=== PATIENT | female | born 1970 | race Two or more races ===

== ENCOUNTER 2020-05-22 19:25 | Emergency (ER) | payer MEDICAID, SELFPAY ==
[2020-05-22 19:51] VITALS: BP 122/87; PULSE 113; RESP 17; TEMP 36.8; O2SAT 97; BMI 38.9
[2020-05-22 20:16] LABS: Glucose Urine UA NEG (NEG); Leukocyte Esterase Urine TRACE (NEG); Nitrite Urine NEG (NEG); PH 6.5 (5.0-8.0); Specific Gravity - Urine >= 1.030 (1.005-1.025); Urine Blood 3+ (NEG); Urine Ketones NEG (NEG); Urine Protein 1+ MG/DL (NEG-TRACE)
[2020-05-22 20:17] LABS: Appearance Urine CLOUDY; Color Urine YELLOW
[2020-05-22 20:24] LABS: Bacteria Urine 2+ /LPF; Mucus Urine 1+ /LPF; Squamous Epithelial Cell Urine 2+ /LPF; WBC Urine 30-49 /HPF (0-4)
--- NOTE | 2020-05-22 20:25 | ED.FEMALEGU ---
HPI - Female Genitourinary General Chief complaint: Urogenital-Female Stated complaint: ?UTI Time Seen by Provider: 05/22/20 21:29 History of Present Illness HPI Narrative: 49-year-old female presents with urinary symptoms, left flank pain, and tachycardia. Was seen earlier today by a [facility] and given Bactrim DS and Pyridium for UTI. She presents now because the pain is worse, has left flank pain, and noted blood in her urine. She states to have intermittent fevers and chills, and palpitations. She denies chest pain or pressure, abdominal distention, nausea, vomiting, diarrhea, constipation, edema, dizziness and lightheadedness. MD elicited complaint: dysuria, pelvic pain, flank pain and difficulty urinating Pertinent past history: recurrent UTIs Onset (ago): day(s) (3) Location of symptoms: suprapubic and flank Severity: severe Severity scale (1-10): 8 Quality of pain: burning and aching Consistency: constant Vaginal discharge: none Vaginal bleeding: none Urinary symptoms: Dysuria, Urgency, Frequency, Hematuria, Difficulty Urinating and Flank Pain Exacerbating factors: urination and movement Relieving factors: none Associated symptoms: fever, chills and back pain Treatment prior to arrival: none Sexual activity: No Patient : No Related Data Allergies Allergy/AdvReac Type Severity Reaction Status Date / Time No Known Allergies Allergy Verified 05/22/20 21:43 Review of Systems Review of Systems: Constitutional: subjective Fever, positive Chills ENT/Mouth: No sore throat Eyes: No Eye Pain, No Swelling, No Redness Cardiovascular: No Chest Pain, No SOB, positive palpitations Respiratory: No Cough, No Sputum, No Wheezing Gastrointestinal: no Nausea, no Vomiting, No Diarrhea, positive abdominal pain Genitourinary: positive Dysuria, positive urinary frequency, positive Hematuria, positive Flank Pain, positive hesitancy Musculoskeletal: No joint pain, No Myalgias Skin: No Skin Lesions, No rash Neuro: No Weakness, No Numbness, No Headache Psych: No Anxiety/Panic, No Depression Heme/Lymph: No Bruising, No Lymphadenopathy Endocrine: No Polyuria, No Polydipsia Yes all other systems are reviewed and are negative [facility] Past Medical History Medical History Asthma Depression Diabetes Sleep apnea Surgical History History of bladder suspension procedure Social History Social History Smoking Status: Never smoker Use of substances other than those prescribed or required for medical reasons: No Advance Directives: No Advance Directives Information Provided: Yes Physical Exam Vital Signs: Vital Signs: Last Vital Signs Temp 98.2 F 05/22/20 22:10 Pulse 72 05/22/20 22:10 Resp 18 05/22/20 22:10 BP 107/77 05/22/20 22:10 Pulse Ox 97 05/22/20 22:10 Body Mass Index 38.9 Appearance: Alert. Oriented X3. Moderate distress. Eyes: Pupils equal, round and reactive to light. ENT: Pharynx normal. Neck: Normal inspection. Neck supple. CVS: tachycardic heart rate and rhythm. Pulses normal. Respiratory: No respiratory distress. Breath sounds normal. Abdomen: Soft and tender to left flank and suprapubic, positive CVA tenderness to the left side. Skin: Skin warm and dry. Normal skin color. Normal skin turgor. Extremities: No lower extremity edema. Neuro: No motor deficit. No sensory deficit. Course Course Course Narrative: 49-year-old female presents with urinary symptoms, left flank pain, and tachycardia. plan is to rule out sepsis, UTI, renal calculus, pyelonephritis, hydronephrosis. labs are unremarkable, glucose is 180 however she is a diabetic. Lactic acid is 1.6, troponins are negative, EKG is Sinus tachycardia at 106 beats per minute. Urinalysis does indicate UTI which is known, we did give 1 g of ceftriaxone 1 L of fluid. Patient is not septic. CT scan of the abdomen shows uterine fibroids but no acute findings needing emergent intervention at this time. Detailed discussion with patient utilizing park interpreter. Plan is for her to continue to use the medications prescribed her earlier and to follow-up with her pharmacognosy teacher for uterine fibroids. Patient verbalized understanding of and agrees to plan of care discharge home. MDM - Female Genitourinary Differential Diagnosis Differential diagnosis: Likely urinary tract infection, cervicitis, ovarian cyst, ruptured ovarian cyst, cystitis and dysmenorrhea Medical Records Attestation: I reviewed the patient's medical records. Lab Data Attestation: I reviewed the patient's lab results. Result diagrams: 05/22/20 20:51 05/22/20 20:51 Labs: Lab Results 05/22/20 05/22/20 05/22/20 Range/Units 20:07 20:51 20:51 WBC 9.3 (4.8-10.8) X10*3/uL RBC 4.72 (4.20-5.50) X10*6/uL Hgb 13.3 (12.0-16.0) g/dl Hct 41.4 (37-47) % MCV 87.7 (80-98) fL MCH 28.2 (27.0-33.0) pg MCHC 32.1 (31.0-35.0) g/dl RDW 14.6 (11.0-16.0) % Plt Count 257 (160-400) X10*3/uL MPV 10.5 (9.4-12.3) fL Immature Gran % (Auto) 0.1 (0.0-0.4) % Neut % (Auto) 73.8 H (45-73) % Lymph % (Auto) 16.7 L (20-40) % Barren % (Auto) 8.1 (2-11) % Eos % (Auto) 0.9 (0-4) % Baso % (Auto) 0.4 (0-2) % Lymph # (Auto) 1.6 (1.2-4.9) X10*3/uL Barren # (Auto) 0.8 (0.1-1.2) X10*3/uL Eos # (Auto) 0.1 (0.0-0.4) X10*3/uL Baso # (Auto) 0.0 (0.0-0.2) X10*3/uL Abs Immat Gran (auto) 0.01 (0.00-0.03) X10*3/uL Absolute Neuts (auto) 6.9 (2.0-8.3) X10*3/uL Absolute Nucleated RBC 0.000 (0.0-0.012) X10*3/uL Nucleated RBC % (auto) 0.0 (0.0-0.2) /100WBC Sodium 136 (135-145) mmol/L Potassium 3.8 (3.3-5.1) mmol/l Chloride 101 (96-108) mmol/L Carbon Dioxide 29 (22-29) mmol/L Anion Gap 10 L (12-20) BUN 11 (9-16) mg/dL Creatinine 0.68 (0.5-1.4) mg/dL Estim Creat Clear Calc 113.9 Estimated GFR > 60 Random Glucose 180 H (60-115) mg/dL Lactic Acid (0.5-2.0) mmol/L Calcium 8.9 (8.4-10.2) mg/dL Troponin I High Sens (<3.5-17.0) ng/L Urine Color YELLOW Urine Appearance CLOUDY Urine pH 6.5 (5.0-8.0) Ur Specific [place] >= 1.030 H (1.005-1.025) Urine Protein 1+ H (NEG-TRACE) MG/DL Urine Glucose (UA) NEG (NEG) MG/DL Urine Ketones NEG (NEG) MG/DL Urine Blood 3+ H (NEG) Urine Nitrite NEG (NEG) Ur Leukocyte Esterase TRACE H (NEG) Urine RBC 76-150 H (0) /HPF Urine WBC 30-49 H (0-4) /HPF Ur Squamous Epith Cells 2+ /LPF Urine Bacteria 2+ /LPF Urine Mucus 1+ /LPF 05/22/20 05/22/20 Range/Units 20:51 20:51 WBC (4.8-10.8) X10*3/uL RBC (4.20-5.50) X10*6/uL Hgb (12.0-16.0) g/dl Hct (37-47) % MCV (80-98) fL MCH (27.0-33.0) pg MCHC (31.0-35.0) g/dl RDW (11.0-16.0) % Plt Count (160-400) X10*3/uL MPV (9.4-12.3) fL Immature Gran % (Auto) (0.0-0.4) % Neut % (Auto) (45-73) % Lymph % (Auto) (20-40) % Barren % (Auto) (2-11) % Eos % (Auto) (0-4) % Baso % (Auto) (0-2) % Lymph # (Auto) (1.2-4.9) X10*3/uL Barren # (Auto) (0.1-1.2) X10*3/uL Eos # (Auto) (0.0-0.4) X10*3/uL Baso # (Auto) (0.0-0.2) X10*3/uL Abs Immat Gran (auto) (0.00-0.03) X10*3/uL Absolute Neuts (auto) (2.0-8.3) X10*3/uL Absolute Nucleated RBC (0.0-0.012) X10*3/uL Nucleated RBC % (auto) (0.0-0.2) /100WBC Sodium (135-145) mmol/L Potassium (3.3-5.1) mmol/l Chloride (96-108) mmol/L Carbon Dioxide (22-29) mmol/L Anion Gap (12-20) BUN (9-16) mg/dL Creatinine (0.5-1.4) mg/dL Estim Creat Clear Calc Estimated GFR Random Glucose (60-115) mg/dL Lactic Acid 1.6 (0.5-2.0) mmol/L Calcium (8.4-10.2) mg/dL Troponin I High Sens < 3.5 (<3.5-17.0) ng/L Urine Color Urine Appearance Urine pH (5.0-8.0) Ur Specific [place] (1.005-1.025) Urine Protein (NEG-TRACE) MG/DL Urine Glucose (UA) (NEG) MG/DL Urine Ketones (NEG) MG/DL Urine Blood (NEG) Urine Nitrite (NEG) Ur Leukocyte Esterase (NEG) Urine RBC (0) /HPF Urine WBC (0-4) /HPF Ur Squamous Epith Cells /LPF Urine Bacteria /LPF Urine Mucus /LPF Imaging Data CT scan - abdomen: Attestation: I personally reviewed and interpreted this imaging study as follows: Radiologist's impression: EXAMINATION: CT ABDOMEN AND PELVIS WITHOUT CONTRAST CLINICAL INFORMATION: 49-year-old female with left-sided flank pain and dysuria. COMPARISON: CT abdomen pelvis 05/07/2019 TECHNIQUE: Multidetector volumetric imaging was performed from the superior aspect of the liver through the pubic symphysis. Sagittal and coronal reformatted images were obtained on the technologist's workstation. This CT examination was performed using dose optimization techniques as appropriate, variously including the following: *Automated exposure control *Adjustment of mA and/or kV according to patient size (this includes techniques or standardized protocols for targeted exams where dose is matched to indication/reason for exam; i.e. extremities or head) *Use of iterative reconstruction technique DLP: 857 mGy-cm FINDINGS: Visualized lung bases are well aerated. Stable residual of the right middle lobe. The liver is normal in size but demonstrates diffusely decreased attenuation. The gallbladder is decompressed. The pancreas, spleen and adrenal glands are unremarkable. The kidneys are symmetric in size. No renal calculi or hydronephrosis bilaterally. Debris-filled stomach. Normal caliber loops of small and large bowel. Normal appendix. Nonaneurysmal abdominal aorta. The bladder is relatively decompressed and therefore not accurately evaluated. Mildly lobulated uterus suggesting underlying fibroids. No gross free pelvic fluid. No inguinal lymphadenopathy. CT/CT abdomen pelvis wo con IMPRESSION: -no renal calculi or hydronephrosis of either kidney. -Diffusely decreased liver attenuation suggesting hepatic steatosis. Correlation with liver enzymes recommended. -Mildly lobulated uterus suggesting underlying fibroids. ECG Data Attestation: I personally reviewed and interpreted this ECG as follows: ECG interpretation date: 05/22/20 ECG interpretation time: 20:36 Interpretation: Ventricular rate 106, p.r. interval 156 milliseconds, QT 338, QTC 448 sinus tachycardia otherwise normal EKG. Prior EKG unavailable secondary to system failure. Scores Heart Score History: -0- slightly suspicious ECG: -0- normal Age: -1- >45 - <65 Risk factory: -0- no risk factors known Troponin: -0- < or = normal limit Score: 1 Risk: 1.7% Discharge Plan Discharge Clinical Impression: Urinary tract infection, Uterine fibroid Patient Disposition: Home, Self-Care Instructions: Urinary Tract Infection in Women (ED) Additional Instructions: se le evalu? para la infecci?n del tracto urinario y el dolor p?lvico. La tomograf?a computarizada muestra fibromas uterinos. Por favor, contin?e tomando los antibi?ticos que le fueron recetados hoy temprano. Seguimiento con el Dr. Eugene para los fibromas uterinos. Rashad por elegir stephie departamento de emergencias para la evaluaci?n. Por favor, rainer un seguimiento con el m?dico de atenci?n primaria seg?n sea necesario. Regrese al servicio de urgencias para cualquier s?ntoma nuevo, preocupante o que empeore. you were evaluated for urinary tract infection and pelvic pain. CT scan shows uterine fibroids. Please continue to take the antibiotics that were prescribed to you earlier today. Follow-up with Dr. Eugene for uterine fibroids. Thank you for choosing this emergency department for evaluation. Please follow-up with primary care physician as needed. Return to the emergency department for any new, concerning, or worsening symptoms. Referrals: Jermaine Eugene MD [Physician] - 2 days ( Uterine fibroids demonstrated on CT scan of abdomen) Interventions: ED Discharge Assessment Last Done: 05/22/20 22:23 Discharge Date/Time: 05/22/20 22:24
[2020-05-22 20:58] LABS: MANUAL DIFF FLAG NO
[2020-05-22 21:01] LABS: Basophils Percent Auto 0.4 % (0-2); Eosinophils Absolute Auto 0.1 X10*3/uL (0.0-0.4); Eosinophils Percent Auto 0.9 % (0-4); Hematocrit 41.4 % (37-47); Hemoglobin 13.3 g/dl (12.0-16.0); Imm Gran Abs Auto 0.01 X10*3/uL (0.00-0.03); Imm Gran Pct Auto 0.1 % (0.0-0.4); Lymphocytes Absolute Auto 1.6 X10*3/uL (1.2-4.9); Lymphocytes Percent Auto 16.7 % (20-40); Mean Corpuscular HGB Conc 32.1 g/dl (31.0-35.0); Mean Corpuscular Hemoglobin 28.2 pg (27.0-33.0); Mean Corpuscular Volume 87.7 fL (80-98); Mean Platelet Volume 10.5 fL (9.4-12.3); Monocytes Absolute Auto 0.8 X10*3/uL (0.1-1.2); Monocytes Percent Auto 8.1 % (2-11); Neutrophils Absolute Auto 6.9 X10*3/uL (2.0-8.3); Neutrophils Percent Auto 73.8 % (45-73); Platelet Count 257 X10*3/uL (160-400); Red Blood Count 4.72 X10*6/uL (4.20-5.50); Red Cell Distribution Width 14.6 % (11.0-16.0); White Blood Count 9.3 X10*3/uL (4.8-10.8)
[2020-05-22 21:17] LABS: Lactic Acid 1.6 mmol/L (0.5-2.0)
[2020-05-22 21:21] LABS: Anion Gap 10 (12-20); Blood Urea Nitrogen 11 mg/dL (9-16); Calcium 8.9 mg/dL (8.4-10.2); Carbon Dioxide 29 mmol/L (22-29); Chloride 101 mmol/L (96-108); Creatinine Clr Calc Pharmacy 113.9; Estimated Glomerular Filt Rate > 60; Glucose Random 180 mg/dL (60-115); Potassium 3.8 mmol/l (3.3-5.1); Sodium 136 mmol/L (135-145)
[2020-05-22] MEDS: 0.9 % Sodium Chloride 1,000 ML 999 ML IVCONT (21:22)
[2020-05-22] MEDS: cefTRIAXone sodium 1 GM in 0.9 % Sodium Chloride 50 ML IV (21:22)
[2020-05-22] MEDS: ondansetron HCL 4 MG/2 ML VIAL IVPUSH (21:22)
[2020-05-22] MEDS: Ketorolac Tromethamine 30 MG/ML VIAL IV (21:22)
[2020-05-22 21:28] LABS: Troponin-I High Sensitivity < 3.5 ng/L (<3.5-17.0)
[2020-05-22 22:10] VITALS: BP 107/77; PULSE 72; RESP 18; TEMP 36.8; O2SAT 97
== END 2020-05-22 22:24 | disposition home or self-care (01) ==
PROVIDERS: Nurse Practitioner Family; Physician Assistant Medical; Emergency Provider Internal Medicine; PCP Family Medicine
DX: N39.0 Urinary tract infection, site not specified (principal); D25.9 Leiomyoma of uterus, unspecified; R10.9 Unspecified abdominal pain
CPT/HCPCS: 36415; 74176; 80048; 81001; 83605; 84484; 85025; 87040; 87086; 87088; 87186; 96361; 96374; 96375; 99284; J0696; J1885; J2405

== ENCOUNTER 2020-07-18 09:03 | Outpatient (REF) | payer MEDICAID, SELFPAY ==
[2020-07-20 00:27] LABS: C. trachomatis RNA TMA NOT DETECTED (NOT DETECTED); N. gonorrhoeae RNA TMA NOT DETECTED (NOT DETECTED)
== END 2020-07-18 09:04 | disposition home or self-care (01) ==
LOC: HO.LAB 09:03
PROVIDERS: Visit Provider Obstetrics & Gynecology
DX: N92.0 Excessive and frequent menstruation with regular cycle (principal); R10.2 Pelvic and perineal pain; E55.9 Vitamin D deficiency, unspecified
CPT/HCPCS: 36415; 81003; 81025; 87491; 87591; 99212

== ENCOUNTER 2020-07-26 12:55 | Outpatient (REF) | payer MEDICAID, SELFPAY ==
--- NOTE | 2020-07-26 13:01 | US_ITS ---
EXAMINATION: US PELVIS CLINICAL INFORMATION: Pain COMPARISON: Previous CT April 2020 and pelvic ultrasound November 2017 TECHNIQUE: Transabdominal pelvic ultrasound. Patient refused transvaginal exam. FINDINGS: The uterus is anteverted and retroflexed and measures 13.5 x 4.8 x 8.3 cm in dimension. There are multiple at least 6 uterine fibroids. Largest fibroids measure 3 cm in the right subserosal uterine body, left anterior intramural uterine body and in the fundus. Endometrial thickness is normal measuring 0.7 cm. The ovaries are not seen. There is no fluid in the pelvis. US/US pelvic complete IMPRESSION: Enlarged fibroid uterus. Largest fibroids measure 3 cm. Normal thickness endometrium. Ovaries not seen.
== END 2020-07-26 12:56 | disposition home or self-care (01) ==
LOC: HO.US 12:55
PROVIDERS: Visit Provider Obstetrics & Gynecology
DX: R10.2 Pelvic and perineal pain (principal); N92.0 Excessive and frequent menstruation with regular cycle
CPT/HCPCS: 76856

== ENCOUNTER → 2020-08-01 10:30 | Outpatient (BNVA) | payer MEDICAID, SELFPAY | PROVIDERS: PCP Family Medicine; Visit Provider Surgery | DX: Z01.818 Encounter for other preprocedural examination (principal); E66.01 Morbid (severe) obesity due to excess calories; R06.02 Shortness of breath; Z68.41 Body mass index [BMI] 40.0-44.9, adult | CPT/HCPCS: 99202 ==

== ENCOUNTER 2020-08-03 09:03 | Outpatient (REF) | payer MEDICAID, SELFPAY ==
[2020-08-03 09:24] LABS: MANUAL DIFF FLAG NO
[2020-08-03 09:42] LABS: Basophils Percent Auto 0.6 % (0-2); Eosinophils Absolute Auto 0.1 X10*3/uL (0.0-0.4); Eosinophils Percent Auto 1.8 % (0-4); Hematocrit 42.4 % (37-47); Hemoglobin 13.7 g/dl (12.0-16.0); Imm Gran Abs Auto 0.02 X10*3/uL (0.00-0.03); Imm Gran Pct Auto 0.4 % (0.0-0.4); Lymphocytes Absolute Auto 1.2 X10*3/uL (1.2-4.9); Lymphocytes Percent Auto 23.5 % (20-40); Mean Corpuscular HGB Conc 32.3 g/dl (31.0-35.0); Mean Corpuscular Hemoglobin 27.7 pg (27.0-33.0); Mean Corpuscular Volume 85.8 fL (80-98); Mean Platelet Volume 10.3 fL (9.4-12.3); Monocytes Absolute Auto 0.4 X10*3/uL (0.1-1.2); Monocytes Percent Auto 8.8 % (2-11); Neutrophils Absolute Auto 3.2 X10*3/uL (2.0-8.3); Neutrophils Percent Auto 64.9 % (45-73); Platelet Count 270 X10*3/uL (160-400); Red Blood Count 4.94 X10*6/uL (4.20-5.50); Red Cell Distribution Width 14.6 % (11.0-16.0); White Blood Count 4.9 X10*3/uL (4.8-10.8)
[2020-08-03 10:13] LABS: Alanine Aminotransferase 87 U/L (0-31); Albumin Level 3.8 g/dL (3.5-5.0); Alkaline Phosphatase 78 U/L (39-117); Anion Gap 14 (12-20); Aspartate Amino Transferase 59 U/L (5-31); Bilirubin Total 0.4 mg/dL (0.0-1.0); Blood Urea Nitrogen 9 mg/dL (9-16); C Reactive Protein 0.56 mg/dL (< or = 0.50); Calcium 8.9 mg/dL (8.4-10.2); Carbon Dioxide 26 mmol/L (22-29); Chloride 102 mmol/L (96-108); Cholesterol 176 mg/dL; Estimated Glomerular Filt Rate > 60; Glucose Fasting 157 mg/dL (60-99); HDL Cholesterol 45 mg/dL; Iron 49 mcg/dL (30-160); LDL Cholesterol Calculated 117 mg/dl; Percent Iron Saturation 13 % (15-50); Potassium 4.6 mmol/L (3.3-5.1); Sodium 137 mmol/L (135-145); Total Iron Binding Capacity 385 mcg/dL (228-428); Total Protein 7.4 g/dL (6.5-8.0); Triglycerides 73 mg/dL; Unsaturated Iron Binding 336 ug/dL
[2020-08-03 10:31] LABS: HCG Quantitative < 2 mIU/mL
[2020-08-03 10:35] LABS: Thyroid Stimulating Hormone 1.83 uIU/mL (0.32-4.0); Vitamin D 25-OH Total 12.7 ng/mL (>30)
[2020-08-03 10:59] LABS: Vitamin B12 434 pg/mL (200-900)
[2020-08-04 13:13] LABS: C. trachomatis RNA TMA NOT DETECTED (NOT DETECTED); Calcium (PTHI) 9.1 mg/dL (8.6-10.2); N. gonorrhoeae RNA TMA NOT DETECTED (NOT DETECTED); PTHI 69 pg/mL (14-64)
[2020-08-07 16:12] LABS: Vitamin A 20 mcg/dL (38-98)
[2020-08-07 17:48] LABS: Zinc 72 mcg/dL (60-130)
[2020-08-10 06:07] LABS: Vitamin B1 7 nmol/L (8-30)
== END 2020-08-03 09:04 | disposition home or self-care (01) ==
LOC: HO.LAB 09:03
PROVIDERS: Absent Provider Obstetrics & Gynecology; PCP Family Medicine; Visit Provider Surgery
DX: Z01.818 Encounter for other preprocedural examination (principal); R10.2 Pelvic and perineal pain; N92.0 Excessive and frequent menstruation with regular cycle
CPT/HCPCS: 36415; 80053; 80061; 82306; 82607; 83540; 83970; 84425; 84443; 84590; 84630; 84702; 85025; 86140; 87491; 87591

== ENCOUNTER 2020-08-15 08:13 | Outpatient (REF) | payer MEDICAID, SELFPAY ==
[2020-08-16 12:07] LABS: H Pylori Breath Test NOT DETECTED (NOT DETECTED)
== END 2020-08-15 08:14 | disposition home or self-care (01) ==
LOC: HO.LNP 08:13
PROVIDERS: PCP Family Medicine; Visit Provider Surgery
DX: E66.01 Morbid (severe) obesity due to excess calories (principal); Z68.41 Body mass index [BMI] 40.0-44.9, adult; Z11.0 Encounter for screening for intestinal infectious diseases
CPT/HCPCS: 83013; 99211

== ENCOUNTER 2020-08-21 14:21 | Outpatient (REF) | payer MEDICAID, SELFPAY ==
--- NOTE | ~2020-08-21 | XR_ITS ---
EXAMINATION: XR CHEST CLINICAL INFORMATION: Shortness of breath COMPARISON: 02/21/2015 TECHNIQUE: 2 views of the chest were obtained. FINDINGS: Lung volumes are low. Mild diffuse interstitial prominence. No focal consolidation. No pleural effusion or pneumothorax. Normal heart size. Regional skeleton intact. XR/XR chest 2V IMPRESSION: Mild diffuse interstitial prominence. This can be seen acutely with bronchiolitis or interstitial (viral) pneumonitis, chronically with chronic bronchitis or reactive airways disease.
== END 2020-08-21 14:22 | disposition home or self-care (01) ==
LOC: HO.XRAY 14:21
PROVIDERS: PCP Family Medicine; Visit Provider Surgery
DX: R06.02 Shortness of breath (principal)
CPT/HCPCS: 71046

== ENCOUNTER → 2020-08-31 08:07 | Outpatient (BNVA) | payer MEDICAID, SELFPAY | PROVIDERS: PCP Family Medicine; Visit Provider Dietitian, Registered ==

== ENCOUNTER → 2020-09-13 09:10 | Outpatient (REF) | payer MEDICAID, SELFPAY ==
--- NOTE | 2020-09-13 09:21 | ECG_ITS ---
Test Reason : SOB Blood Pressure : / mmHG Vent. Rate : 084 BPM Atrial Rate : 084 BPM P-R Int : 138 ms QRS Dur : 082 ms QT Int : 358 ms P-R-T Axes : 049 029 045 degrees QTc Int : 423 ms Normal sinus rhythm Normal ECG When compared with ECG of 22-MAY-2020 20:36, No significant change was found Referred By: Dimple Vivas Electronically Signed By:SIMONA MACIAS MD
== END ==
LOC: HO.CARD 09:10
PROVIDERS: PCP Family Medicine; Visit Provider Surgery
DX: R06.02 Shortness of breath (principal)
CPT/HCPCS: 93005

== ENCOUNTER → 2020-09-14 10:06 | Outpatient (BNVA) | payer MEDICAID, SELFPAY | PROVIDERS: PCP Family Medicine; Visit Provider Surgery | DX: E66.01 Morbid (severe) obesity due to excess calories (principal); Z68.41 Body mass index [BMI] 40.0-44.9, adult | CPT/HCPCS: 99212 ==

== ENCOUNTER → 2020-09-27 13:22 | Outpatient (BNVA) | payer MEDICAID, SELFPAY | PROVIDERS: PCP Family Medicine; Visit Provider Dietitian, Registered ==

== ENCOUNTER → 2020-10-09 10:56 | Outpatient (BNVA) | payer MEDICAID, SELFPAY | PROVIDERS: PCP Family Medicine; Visit Provider Surgery | DX: E66.9 Obesity, unspecified (principal); Z68.39 Body mass index [BMI] 39.0-39.9, adult | CPT/HCPCS: 99212 ==

== ENCOUNTER → 2020-10-18 13:58 | Outpatient (BNVA) | payer MEDICAID, SELFPAY | PROVIDERS: PCP Family Medicine; Visit Provider Dietitian, Registered ==

== ENCOUNTER → 2020-11-08 08:03 | Outpatient (BNVA) | payer MEDICAID, SELFPAY | PROVIDERS: PCP Family Medicine; Visit Provider Dietitian, Registered ==

== ENCOUNTER 2020-11-09 15:03 | Emergency (ER) | payer MEDICAID, SELFPAY ==
--- NOTE | ~2020-11-09 | US_ITS ---
EXAMINATION: US PELVIC, COMPLETE CLINICAL INFORMATION: Possible necrotic fibroid, lower abdominal pain. Last menstrual period 11/05/2020. COMPARISON: CT performed the same day, pelvic ultrasound 07/26/2020 TECHNIQUE: Transabdominal and transvaginal imaging was performed. FINDINGS: The uterus is anteverted of enlarged measuring 12.3 x 7.2 x 8.3 cm. There are 4 fibroids identified: Midline intramural fundal fibroid measures 3.0 x 2.3 x 2.7 cm, previously 3.0 x 2.5 x 2.6 cm. Left intramural fundal fibroid measures 1.3 x 1.2 x 1.4 cm, previously 2.4 x 1.6 x 1.7 cm. Right intramural fundal fibroid measures 1.7 x 1.3 x 1.5 cm, previously 1.2 x 0.9 x 0.9 cm. Right intramural uterine body fibroid measures 2.1 x 1.7 x 1.8 cm, previously 3.1 x 2.4 x 3.0 cm. Midline posterior body intramural fibroid measures 2.5 x 2.7 x 1.4 cm, previously 2.9 x 2.9 x 3.3 cm. Midline anterior submucosal fibroid measures 2.7 x 2.2 x 2.4 cm, previously 1.9 x 1.5 x 2.0 cm. Abnormal appearance of the endometrial canal. There is a fluid level seen within the endometrial canal with hypodense fluid layering on top of fluid with medium level slightly heterogeneous internal echoes, suggesting blood products. Within this complex fluid, there appears to be a rounded heterogeneous avascular structure measuring 2.8 x 2.2 x 2.4 cm, possibly a submucosal fibroid. Neither ovary was able to be seen. There is small pelvic free fluid. US/US pelvic and transvaginal IMPRESSION: Complex fluid within the endometrial canal with a fluid level suggestive of blood products. Within this fluid there is an avascular rounded mass that could represent a submucosal fibroid. Whether any of these fibroids are infarcted or viable is unable to be assessed on this ultrasound. MRI would be a more sensitive and specific examination. Multi fibroid enlarged uterus.
--- NOTE | ~2020-11-09 | CT_ITS ---
EXAMINATION: CT ABDOMEN AND PELVIS WITH CONTRAST CLINICAL INFORMATION: 50-year-old female with right lower quadrant pain. COMPARISON: Pelvic ultrasound 07/26/[address] abdomen pelvis the 2019 TECHNIQUE: Multidetector volumetric images were obtained from the superior aspect of the liver through the pubic symphysis following administration 85 mL of Omnipaque 350 intravenous contrast. Sagittal and coronal reformatted images were obtained on the technologist's workstation. This CT examination was performed using dose optimization techniques as appropriate, variously including the following: *Automated exposure control *Adjustment of mA and/or kV according to patient size (this includes techniques or standardized protocols for targeted exams where dose is matched to indication/reason for exam; i.e. extremities or head) *Use of iterative reconstruction technique DLP: 817 mGy-cm FINDINGS: Visualized lung bases demonstrate mild dependent atelectasis. Similar small calcified granuloma of the right lung base. The liver demonstrates normal size, contour and attenuation. The gallbladder is normal in appearance. The pancreas, spleen and adrenal glands are unremarkable. Symmetrically enhancing kidneys without hydronephrosis. Tiny hiatal hernia. The stomach is decompressed. Normal caliber loops of small and large bowel. Normal appendix. Nonaneurysmal abdominal aorta. No retroperitoneal lymphadenopathy. Heterogeneous and lobulated appearance of the uterus, consistent with fibroids. There appears to be thickening of the endometrium which measures up to approximately 5.3 cm in maximum transverse dimension. There is some possible subtle internal debris within the suspected endometrium. It is possible this structure also represents a necrotic fibroid. The bladder is normal in appearance. No gross free pelvic fluid. No inguinal lymphadenopathy. Mild degenerative changes of the spine. CT/CT abdomen pelvis w con IMPRESSION: 1. Normal appendix. 2. Abnormal appearance of the uterus. A 5.3 cm hypodense lobulated structure within the central uterus is suspected to represent a thickened endometrium, however, it is also possible this represents a necrotic fibroid. This can be confirmed with pelvic ultrasound.
[2020-11-09 15:31] VITALS: BMI 39.6
[2020-11-09 15:49] LABS: Glucose Urine UA NEG (NEG); Leukocyte Esterase Urine NEG (NEG); Nitrite Urine NEG (NEG); Specific Gravity - Urine <= 1.005 (1.005-1.025); Urine Blood TRACE (NEG); Urine Ketones NEG (NEG); Urine Protein NEG (NEG-TRACE)
[2020-11-09 15:50] VITALS: BP 112/73; PULSE 82; RESP 16; TEMP 36.2; O2SAT 96; BMI 39.6
[2020-11-09 15:50] LABS: Appearance Urine CLEAR; Color Urine STRAW
[2020-11-09 16:06] LABS: RBC Urine 0 /HPF (0); Squamous Epithelial Cell Urine 1+ /LPF; WBC Urine 0-2 /HPF (0-4)
[2020-11-09 16:13] LABS: MANUAL DIFF FLAG NO
[2020-11-09 16:17] LABS: Basophils Percent Auto 0.4 % (0-2); Eosinophils Absolute Auto 0.1 X10*3/uL (0.0-0.4); Eosinophils Percent Auto 0.6 % (0-4); Hematocrit 42.7 % (37-47); Hemoglobin 13.8 g/dl (12.0-16.0); Imm Gran Abs Auto 0.03 X10*3/uL (0.00-0.03); Imm Gran Pct Auto 0.3 % (0.0-0.4); Lymphocytes Absolute Auto 1.6 X10*3/uL (1.2-4.9); Lymphocytes Percent Auto 17.1 % (20-40); Mean Corpuscular HGB Conc 32.3 g/dl (31.0-35.0); Mean Corpuscular Hemoglobin 27.3 pg (27.0-33.0); Mean Corpuscular Volume 84.6 fL (80-98); Mean Platelet Volume 10.7 fL (9.4-12.3); Monocytes Absolute Auto 0.5 X10*3/uL (0.1-1.2); Monocytes Percent Auto 5.3 % (2-11); Neutrophils Absolute Auto 7.3 X10*3/uL (2.0-8.3); Neutrophils Percent Auto 76.3 % (45-73); Platelet Count 265 X10*3/uL (160-400); Red Blood Count 5.05 X10*6/uL (4.20-5.50); Red Cell Distribution Width 15.4 % (11.0-16.0); White Blood Count 9.6 X10*3/uL (4.8-10.8)
[2020-11-09 16:46] LABS: Anion Gap 12 (12-20); Blood Urea Nitrogen 9 mg/dL (9-16); Calcium 9.2 mg/dL (8.4-10.2); Carbon Dioxide 27 mmol/L (22-29); Chloride 103 mmol/L (96-108); Creatinine Clr Calc Pharmacy 114.8; Estimated Glomerular Filt Rate > 60; Glucose Random 130 mg/dL (60-115); Sodium 138 mmol/L (135-145)
[2020-11-09] MEDS: Ketorolac Tromethamine 15 MG/ML VIAL IVPUSH ×2 (17:44→21:31)
[2020-11-09] MEDS: ondansetron HCL 4 MG/2 ML VIAL IVPUSH (17:44)
[2020-11-09] MEDS: 0.9 % Sodium Chloride 1,000 ML 999 ML IVCONT ×2 (17:44→20:55)
[2020-11-09 17:46] VITALS: BP 107/56; PULSE 81; RESP 18; O2SAT 100
[2020-11-09 18:05] LABS: Alanine Aminotransferase 39 U/L (0-31); Albumin Level 3.9 g/dL (3.5-5.0); Alkaline Phosphatase 65 U/L (39-117); Aspartate Amino Transferase 27 U/L (5-31); Bilirubin Direct 0.2 mg/dL (0.0-0.5); Bilirubin Total 0.4 mg/dL (0.0-1.0); Lipase 15 U/L (8-78); Magnesium 1.6 mg/dL (1.6-2.6); Total Protein 7.4 g/dL (6.5-8.0)
[2020-11-09] MEDS: iohexoL 350 MG/ML 100 ML INFUS..BTL IV (18:22)
--- NOTE | 2020-11-09 19:07 | ED.ABDPAIN ---
HPI - Abdominal Pain General Chief Complaint: Abdominal Pain Stated Complaint: back pain Time Seen by Provider: 11/09/20 17:07 Source: patient Mode of arrival: ambulatory History of Present Illness HPI narrative: 50-year-old female with a past medical history of asthma, depression, diabetes, GERD, sleep apnea, tubal ligation, bladder suspension procedure, endometrial ablation presenting to the ED complaining of lower abdominal pain radiating around to back since this morning with associated nausea. Denies fever, chills, vomiting, diarrhea/constipation, vaginal bleeding/discharge MD elicited complaint: abdominal pain Related Data Home Medications Medication Instructions Recorded Confirmed bupropion HCl 300 mg 24 hr tablet, 300 mg PO QAM 08/01/20 10/09/20 extended release fluoxetine 20 mg capsule 20 mg PO DAILY 08/01/20 10/09/20 metformin 500 mg tablet 500 mg PO DAILY 08/01/20 10/09/20 omeprazole 20 mg capsule,delayed 20 mg PO DAILY 08/01/20 10/09/20 release oxcarbazepine 300 mg tablet 300 mg PO BID 08/01/20 10/09/20 multivitamin 1 tab PO DAILY 09/14/20 10/09/20 Previous Rx's Medication Instructions Recorded cholecalciferol (vitamin D3) 1,250 1,250 mcg PO QWEEK #4 cap 08/03/20 mcg (50,000 unit) capsule alum-mag hydroxide-simeth [Maalox 5 ml PO 5XD PRN #30 ml 11/09/20 Advanced] hydrocodone-acetaminophen 1 tab PO Q8H PRN 3 Days #9 tab 11/09/20 ketorolac 10 mg PO Q6H PRN 5 Days #14 tab 11/09/20 Allergies Allergy/AdvReac Type Severity Reaction Status Date / Time No Known Allergies Allergy Verified 11/09/20 15:53 Review of Systems Review of Systems Constitutional: No Fever, No Chills, No Fatigue, No Malaise Cardiovascular: No Chest Pain, No SOB Respiratory: No Cough, No Dyspnea Gastrointestinal: No Nausea, No Vomiting, No Diarrhea, No Constipation, + Abdominal pain Genitourinary: No irregular bleeding/discharge, No Dysuria, No Urinary Frequency, No Hematuria, No Flank Pain, No Urinary Flow Changes Musculoskeletal: No joint pain, No Myalgias, No Joint Swelling Skin: No Skin Lesions, No rash Neuro: No Weakness, No Numbness, No Headache Yes all other systems are reviewed and are negative Physical Exam Vital Signs: Vital Signs: Last Vital Signs Temp 98.1 F 11/09/20 19:25 Pulse 76 11/09/20 20:00 Resp 18 11/09/20 20:00 BP 106/56 L 11/09/20 20:00 Pulse Ox 95 11/09/20 20:00 Body Mass Index 39.6 Const: General: cooperative, healthy appearing and no acute distress Orientation/consciousness: patient oriented x3 Limitations: no limitations HENMT: Head: Yes normal to inspection Ears: hearing grossly normal bilaterally General nose exam: Normal external nose present Face and sinus: Yes normal facial exam Eyes: General: appearance normal, both eyes and all related structures EOM: EOMs intact bilaterally Neck: Neck: Yes normal visual inspection Resp: Effort & Inspection: normal respiratory effort Cardio: Rate: regular rate GI: Inspection: Yes normal to inspection Palpation (GI): Soft to palpation, Tenderness to palpation present (GI) (lower abdomen) in the RLQ, no guarding and not rigid : General: Yes no CVA tenderness Back/Spine/Pelvis: Back: no CVA tenderness Skin: Rashes: no rashes Wounds: no wounds Neuro: General: patient oriented x3 Gait exam (Neuro): Normal gait present Extrem: General: Yes normal to inspection Course Course Course Narrative: -1907--no leukocytosis, labs otherwise unremarkable/at patient's baseline. UA negative CT abdomen pelvis w con IMPRESSION: 1. Normal appendix. 2. Abnormal appearance of the uterus. A 5.3 cm hypodense lobulated structure within the central uterus is suspected to represent a thickened endometrium, however, it is also possible this represents a necrotic fibroid. This can be confirmed with pelvic ultrasound. >> lactic and pelvic ultrasound ordered -2020--lactic acid negative US pelvic and transvaginal IMPRESSION: Complex fluid within the endometrial canal with a fluid level suggestive of blood products. Within this fluid there is an avascular rounded mass that could represent a submucosal fibroid. Whether any of these fibroids are infarcted or viable is unable to be assessed on this ultrasound. MRI would be a more sensitive and specific examination. Multi fibroid enlarged uterus. >> case discussed with OBGYN doctor Kavya, patient flagged for follow-up with Dr. Valorie DC with pain control, no need for antibiotics at this time. Results discussed with patient including worrisome signs and symptoms and strict return precautions, she verbalized understanding feel safe for discharge home. MDM - Abdominal Pain MDM Narrative Medical decision making narrative: 50-year-old female with a past medical history of asthma, depression, diabetes, GERD, sleep apnea, tubal ligation, bladder suspension procedure, endometrial ablation presenting to the ED complaining of lower abdominal pain radiating around to back since this morning with associated nausea. On exam VSS, NAD, abdomen soft with lower/RLQ ttp, no rebound or guarding, no CVAT. Concern for appendicitis vs UTI vs diverticulitis vs uterine fibroids due to patient's history. Lower concern for ovarian torsion/STI or TOA Plan: Labs, UA, CT AP, IVF/Sx Tx, reassess Medical Records Attestation: I reviewed the patient's medical records. Lab Data Attestation: I reviewed the patient's lab results. Result diagrams: 11/09/20 16:08 11/09/20 16:08 Labs: Lab Results 11/09/20 11/09/20 11/09/20 Range/Units 15:34 16:08 16:08 WBC 9.6 (4.8-10.8) X10*3/uL RBC 5.05 (4.20-5.50) X10*6/uL Hgb 13.8 (12.0-16.0) g/dl Hct 42.7 (37-47) % MCV 84.6 (80-98) fL MCH 27.3 (27.0-33.0) pg MCHC 32.3 (31.0-35.0) g/dl RDW 15.4 (11.0-16.0) % Plt Count 265 (160-400) X10*3/uL MPV 10.7 (9.4-12.3) fL Immature Gran % (Auto) 0.3 (0.0-0.4) % Neut % (Auto) 76.3 H (45-73) % Lymph % (Auto) 17.1 L (20-40) % [place] % (Auto) 5.3 (2-11) % Eos % (Auto) 0.6 (0-4) % Baso % (Auto) 0.4 (0-2) % Lymph # (Auto) 1.6 (1.2-4.9) X10*3/uL [place] # (Auto) 0.5 (0.1-1.2) X10*3/uL Eos # (Auto) 0.1 (0.0-0.4) X10*3/uL Baso # (Auto) 0.0 (0.0-0.2) X10*3/uL Abs Immat Gran (auto) 0.03 (0.00-0.03) X10*3/uL Absolute Neuts (auto) 7.3 (2.0-8.3) X10*3/uL Absolute Nucleated RBC 0.000 (0.0-0.012) X10*3/uL Nucleated RBC % (auto) 0.0 (0.0-0.2) /100WBC Hold Blue Top SEE NOTE Sodium (135-145) mmol/L Potassium (3.3-5.1) mmol/L Chloride (96-108) mmol/L Carbon Dioxide (22-29) mmol/L Anion Gap (12-20) BUN (9-16) mg/dL Creatinine (0.5-1.4) mg/dL Estim Creat Clear Calc Estimated GFR Random Glucose (60-115) mg/dL Lactic Acid (0.5-2.0) mmol/L Calcium (8.4-10.2) mg/dL Magnesium (1.6-2.6) mg/dL Total Bilirubin (0.0-1.0) mg/dL Direct Bilirubin (0.0-0.5) mg/dL AST (5-31) U/L ALT (0-31) U/L Alkaline Phosphatase (39-117) U/L Total Protein (6.5-8.0) g/dL Albumin (3.5-5.0) g/dL Lipase (8-78) U/L Urine Color STRAW Urine Appearance CLEAR Urine pH 6.0 (5.0-8.0) Ur Specific [place] <= 1.005 (1.005-1.025) Urine Protein NEG (NEG-TRACE) MG/DL Urine Glucose (UA) NEG (NEG) MG/DL Urine Ketones NEG (NEG) MG/DL Urine Blood TRACE (NEG) Urine Nitrite NEG (NEG) Ur Leukocyte Esterase NEG (NEG) Urine RBC 0 (0) /HPF Urine WBC 0-2 (0-4) /HPF Ur Squamous Epith Cells 1+ /LPF Urine Bacteria NONE /LPF 11/09/20 11/09/20 Range/Units 16:08 19:32 WBC (4.8-10.8) X10*3/uL RBC (4.20-5.50) X10*6/uL Hgb (12.0-16.0) g/dl Hct (37-47) % MCV (80-98) fL MCH (27.0-33.0) pg MCHC (31.0-35.0) g/dl RDW (11.0-16.0) % Plt Count (160-400) X10*3/uL MPV (9.4-12.3) fL Immature Gran % (Auto) (0.0-0.4) % Neut % (Auto) (45-73) % Lymph % (Auto) (20-40) % [place] % (Auto) (2-11) % Eos % (Auto) (0-4) % Baso % (Auto) (0-2) % Lymph # (Auto) (1.2-4.9) X10*3/uL [place] # (Auto) (0.1-1.2) X10*3/uL Eos # (Auto) (0.0-0.4) X10*3/uL Baso # (Auto) (0.0-0.2) X10*3/uL Abs Immat Gran (auto) (0.00-0.03) X10*3/uL Absolute Neuts (auto) (2.0-8.3) X10*3/uL Absolute Nucleated RBC (0.0-0.012) X10*3/uL Nucleated RBC % (auto) (0.0-0.2) /100WBC Hold Blue Top Sodium 138 (135-145) mmol/L Potassium 4.0 (3.3-5.1) mmol/L Chloride 103 (96-108) mmol/L Carbon Dioxide 27 (22-29) mmol/L Anion Gap 12 (12-20) BUN 9 (9-16) mg/dL Creatinine 0.65 (0.5-1.4) mg/dL Estim Creat Clear Calc 114.8 Estimated GFR > 60 Random Glucose 130 H (60-115) mg/dL Lactic Acid 0.7 (0.5-2.0) mmol/L Calcium 9.2 (8.4-10.2) mg/dL Magnesium 1.6 (1.6-2.6) mg/dL Total Bilirubin 0.4 (0.0-1.0) mg/dL Direct Bilirubin 0.2 (0.0-0.5) mg/dL AST 27 D (5-31) U/L ALT 39 H (0-31) U/L Alkaline Phosphatase 65 (39-117) U/L Total Protein 7.4 (6.5-8.0) g/dL Albumin 3.9 (3.5-5.0) g/dL Lipase 15 (8-78) U/L Urine Color Urine Appearance Urine pH (5.0-8.0) Ur Specific [place] (1.005-1.025) Urine Protein (NEG-TRACE) MG/DL Urine Glucose (UA) (NEG) MG/DL Urine Ketones (NEG) MG/DL Urine Blood (NEG) Urine Nitrite (NEG) Ur Leukocyte Esterase (NEG) Urine RBC (0) /HPF Urine WBC (0-4) /HPF Ur Squamous Epith Cells /LPF Urine Bacteria /LPF Discharge Plan Discharge Clinical Impression: Uterine fibroid Qualifiers: Uterine leiomyoma location: submucous Qualified Code(s): D25.0 - Submucous leiomyoma of uterus Patient Disposition: Home, Self-Care Instructions: Uterine Artery Embolization for Fibroids (DC) Additional Instructions: Your blood work was reassuring today in the ED. Your CT and ultrasound are showing uterine fibroids which may have lost blood supply, this is causing her pain. You need to follow-up with an OBGYN. You will likely call you next couple days, if they do not please call th. Toradol is an anti-inflammatory pain medication, take with food. [place] was an opiate pain medication, take when pain is severe for the next 3 days. In addition Maalox will help with heartburn. If her symptoms persist or worsen, pain becomes unbearable, you are unable to eat or drink, or have fever please return to the ED Hong an?lisis de alyssa fue reconfortante hoy en el servicio de urgencias. Hong tomograf?a computarizada y ultrasonido muestran fibromas uterinos que pueden levi perdido el suministro de alyssa, esto le est? causando dolor. Necesita hacer un seguimiento con un ginecoobstetra. Es probable que lo llame los pr?ximos d?as, si no lo hace, por favor llame al th. Toradol es un analg?sico antiinflamatorio que se yamile con las comidas. [place] era un analg?sico opi?bulldozer engineer que se yamile cuando el dolor es intenso kiley los siguientes 3 d?as. Adem?s, Maalox ayudar? con la acidez de est?roland. Si maegan s?ntomas persisten o empeoran, el dolor se vuelve insoportable, no puede comer ni beber, o tiene fiebre, vuelva al servicio de urgencias. Prescriptions: New alum-mag hydroxide-simeth [Maalox Advanced] 200-200-20 mg/5 mL suspension 5 ml PO 5XD PRN (Reason: indigestion) Qty: 30 RF: 0 hydrocodone-acetaminophen 5-325 mg tablet 1 tab PO Q8H PRN (Reason: pain, severe) 3 Days Qty: 9 RF: 0 ketorolac 10 mg tablet 10 mg PO Q6H PRN (Reason: pain) 5 Days Qty: 14 RF: 0 No Action cholecalciferol (vitamin D3) 1,250 mcg (50,000 unit) capsule 1,250 mcg PO QWEEK Qty: 4 RF: 2 metformin 500 mg tablet 500 mg PO DAILY RF: 0 omeprazole 20 mg capsule,delayed release(DR/EC) 20 mg PO DAILY RF: 0 bupropion HCl 300 mg tablet extended release 24 hr 300 mg PO QAM RF: 0 oxcarbazepine 300 mg tablet 300 mg PO BID RF: 0 fluoxetine 20 mg capsule 20 mg PO DAILY RF: 0 multivitamin Tablet 1 tab PO DAILY RF: 0 Referrals: Jermaine Eugene MD [Physician] - 5 days Print Language: [facility] Past Medical History Attestation statement: The following information was validated with the patient. Medical History Asthma Depression Diabetes GERD (gastroesophageal reflux disease) Sleep apnea Surgical History History of bladder suspension procedure History of endometrial ablation Tubal ligation status Family History Family History Mother Heart disease Hypertension Liver disease Father No problems noted. Sister Asthma Blood clot in vein Brother Asthma Paralysis of left upper extremity Daughter No problems noted. Daughter No problems noted. Son Asthma Gastritis Son No problems noted. Social History Social History Alcohol intake: never Smoking Status: Current some day smoker Use of substances other than those prescribed or required for medical reasons: No Advance Directives: No Advance Directives Information Provided: No Patient : No
[2020-11-09 19:25] VITALS: BP 98/58; PULSE 72; RESP 16; TEMP 36.7; O2SAT 96
[2020-11-09 20:00] VITALS: BP 106/56; PULSE 76; RESP 18; O2SAT 95
[2020-11-09 20:03] LABS: Lactic Acid 0.7 mmol/L (0.5-2.0)
[2020-11-09 22:00] VITALS: BP 115/62; PULSE 72; RESP 16; TEMP 36.6; O2SAT 99
== END 2020-11-09 22:47 | disposition home or self-care (01) ==
PROVIDERS: Physician Assistant; Emergency Provider Emergency Medicine Emergency Medical Services; PCP Family Medicine
DX: D25.0 Submucous leiomyoma of uterus (principal); R10.30 Lower abdominal pain, unspecified; E11.9 Type 2 diabetes mellitus without complications; F17.200 Nicotine dependence, unspecified, uncomplicated
CPT/HCPCS: 36415; 74177; 76830; 76856; 80048; 80076; 81001; 83605; 83690; 83735; 85025; 96361; 96374; 96375; 96376; 99284; 99285; J1885; J2405; Q9967

== ENCOUNTER → 2020-11-13 10:49 | Outpatient (BNVA) | payer MEDICAID, SELFPAY | PROVIDERS: Visit Provider Surgery | DX: E66.9 Obesity, unspecified (principal); Z68.39 Body mass index [BMI] 39.0-39.9, adult | CPT/HCPCS: 99212 ==

== ENCOUNTER → 2020-11-14 09:19 | Outpatient (BNVA) | payer MEDICAID, SELFPAY | PROVIDERS: PCP Family Medicine; Visit Provider Obstetrics & Gynecology | DX: N92.0 Excessive and frequent menstruation with regular cycle (principal) | CPT/HCPCS: 58100; 99212 ==

== ENCOUNTER → 2020-11-21 08:09 | Outpatient (BNVA) | payer MEDICAID, SELFPAY | PROVIDERS: PCP Family Medicine; Visit Provider Dietitian, Registered | DX: E66.9 Obesity, unspecified (principal); Z68.39 Body mass index [BMI] 39.0-39.9, adult | CPT/HCPCS: 97803 ==

== ENCOUNTER → 2020-11-24 09:20 | Outpatient (BNVA) | payer MEDICAID, SELFPAY | PROVIDERS: PCP Family Medicine; Referring Provider Family Medicine; Visit Provider Obstetrics & Gynecology | DX: Z01.818 Encounter for other preprocedural examination (principal); N92.0 Excessive and frequent menstruation with regular cycle; E11.9 Type 2 diabetes mellitus without complications; K21.9 Gastro-esophageal reflux disease without esophagitis | CPT/HCPCS: 99212 ==

== ENCOUNTER 2020-12-15 08:57 | Day surgery (SDC) | payer MEDICAID, SELFPAY ==
[2020-11-23 12:05] VITALS: BMI 38.4
--- NOTE | 2020-11-29 09:24 | HO.ANESPROP2 ---
HPI - Anesthesia Eval Consult details Narrative: 50yo F for D&C Hysteroscopy, Poss Polypectomy, Poss Myomectomy PMFSH Active Problems Active Problems: All Active Problems (Updated 11/23/20 @ 12:09 by Alia Donaldson) Pelvic pain (Acute) Menorrhagia (Acute) Preoperative examination (Acute) Shortness of breath (Acute) Morbid obesity due to excess calories (Acute) BMI 40.0-44.9, adult (Acute) Vitamin D deficiency (Acute) Vitamin A deficiency (Acute) Body mass index (BMI) of 40.1 to 44.9 in adult (Acute) Morbid (severe) obesity due to excess calories (Acute) Obesity (Acute) BMI 39.0-39.9,adult (Acute) Past Medical History Medical History (Updated 11/29/20 @ 09:25 by Angela Vivas) Asthma BMI 39.0-39.9,adult Depression Diabetes GERD (gastroesophageal reflux disease) PONV (postoperative nausea and vomiting) Sleep apnea Family History Family History Mother Heart disease Hypertension Liver disease Father No problems noted. Sister Asthma Blood clot in vein Brother Asthma Paralysis of left upper extremity Daughter No problems noted. Daughter No problems noted. Son Asthma Gastritis Son No problems noted. Surgical History Surgical History History of bladder suspension procedure History of endometrial ablation Tubal ligation status Social History Social History Alcohol intake: never Patient Tobacco Use Status: Former Tobacco user Quit Date: 11/09/2020 Meds Allergies Allergy/AdvReac Type Severity Reaction Status Date / Time No Known Allergies Allergy Verified 11/14/20 09:37 Home Medications Medication Instructions Recorded Confirmed Last Taken Type bupropion HCl 300 mg 24 hr tablet, 450 mg PO QAM 08/01/20 11/23/20 Unknown History extended release fluoxetine 20 mg capsule 40 mg PO DAILY 08/01/20 11/23/20 Unknown History metformin 500 mg tablet 500 mg PO DAILY 08/01/20 11/23/20 Unknown History omeprazole 20 mg capsule,delayed 20 mg PO DAILY 08/01/20 11/23/20 Unknown History release oxcarbazepine 300 mg tablet 300 mg PO QAM 08/01/20 11/23/20 Unknown History multivitamin 1 tab PO DAILY 09/14/20 11/23/20 Unknown History clonazepam 0.5 mg tablet 0.5 mg PO DAILY 11/13/20 11/23/20 Unknown History cholecalciferol (vitamin D3) 1 cap PO QWEEK 11/23/20 11/23/20 Unknown History oxcarbazepine 600 mg PO QPM 11/23/20 11/23/20 Unknown History Exam Exam Date and Time: November 29, 2020 0924 Height,Weight and Vital Signs: Height 5 ft 3 in Weight 98.43 kg Narrative Narrative: EKG 08/2020 Vent. Rate : 084 BPM Atrial Rate : 084 BPM P-R Int : 138 ms QRS Dur : 082 ms QT Int : 358 ms P-R-T Axes : 049 029 045 degrees QTc Int : 423 ms Normal sinus rhythm Normal ECG When compared with ECG of 22-MAY-2020 20:36, No significant change was found Assessment and Plan Assessment Anesthesia Assessment: Chart Reviewed
--- NOTE | 2020-12-13 11:53 | HO.ANESPROP2 ---
Documented by User: Angela Vivas 12/13/20 11:55 HPI - Anesthesia Eval Consult details Narrative: 50yo F for D&C Hysteroscopy, Poss Polypectomy, Poss Myomectomy PMFSH Active Problems Active Problems: All Active Problems (Updated 11/29/20 @ 09:25 by Angela Vivas) Pelvic pain (Acute) Menorrhagia (Acute) Preoperative examination (Acute) Shortness of breath (Acute) Morbid obesity due to excess calories (Acute) BMI 40.0-44.9, adult (Acute) Vitamin D deficiency (Acute) Vitamin A deficiency (Acute) Body mass index (BMI) of 40.1 to 44.9 in adult (Acute) Morbid (severe) obesity due to excess calories (Acute) Obesity (Acute) Past Medical History Medical History Asthma BMI 39.0-39.9,adult Depression Diabetes GERD (gastroesophageal reflux disease) PONV (postoperative nausea and vomiting) Sleep apnea Family History Family History Mother Heart disease Hypertension Liver disease Father No problems noted. Sister Asthma Blood clot in vein Brother Asthma Paralysis of left upper extremity Daughter No problems noted. Daughter No problems noted. Son Asthma Gastritis Son No problems noted. Surgical History Surgical History History of bladder suspension procedure History of endometrial ablation Tubal ligation status Social History Social History Alcohol intake: never Patient Tobacco Use Status: Former Tobacco user Quit Date: 11/09/2020 Use of substances other than those prescribed or required for medical reasons: No Are you DNR?: No Advance Directives: No Advance Directives Information Provided: No Advance Directives on File: No Patient : No FDLMP: unknown Meds Allergies Allergy/AdvReac Type Severity Reaction Status Date / Time No Known Allergies Allergy Verified 12/15/20 09:18 Home Medications Medication Instructions Recorded Confirmed Last Taken Type bupropion HCl 300 mg 24 hr tablet, 450 mg PO QAM 08/01/20 11/23/20 Unknown History extended release fluoxetine 20 mg capsule 40 mg PO DAILY 08/01/20 11/23/20 Unknown History metformin 500 mg tablet 500 mg PO DAILY 08/01/20 11/23/20 Unknown History omeprazole 20 mg capsule,delayed 20 mg PO DAILY 08/01/20 11/23/20 Unknown History release oxcarbazepine 300 mg tablet 300 mg PO QAM 08/01/20 11/23/20 Unknown History multivitamin 1 tab PO DAILY 09/14/20 11/23/20 Unknown History clonazepam 0.5 mg tablet 0.5 mg PO DAILY 11/13/20 11/23/20 Unknown History cholecalciferol (vitamin D3) 1 cap PO QWEEK 11/23/20 11/23/20 Unknown History oxcarbazepine 600 mg PO QPM 11/23/20 11/23/20 Unknown History Exam Exam Date and Time: December 13, 2020 1153 Height,Weight and Vital Signs: Height 5 ft 3 in Weight 98.43 kg Pertinent Lab Results Pertinent Lab Results: Laboratory Tests 11/09/20 11/09/20 16:08 16:08 WBC 9.6 Hgb 13.8 Hct 42.7 Plt Count 265 Sodium 138 Potassium 4.0 Chloride 103 Carbon Dioxide 27 BUN 9 Creatinine 0.65 Narrative Narrative: EKG 08/2020 Vent. Rate : 084 BPM Atrial Rate : 084 BPM P-R Int : 138 ms QRS Dur : 082 ms QT Int : 358 ms P-R-T Axes : 049 029 045 degrees QTc Int : 423 ms Normal sinus rhythm Normal ECG When compared with ECG of 22-MAY-2020 20:36, No significant change was found Assessment and Plan Assessment Anesthesia Assessment: Chart Reviewed Documented by User: Daisy Belle 12/15/20 10:23 [facility] Past Medical History Medical History Asthma BMI 39.0-39.9,adult Depression Diabetes GERD (gastroesophageal reflux disease) PONV (postoperative nausea and vomiting) Sleep apnea Family History Family History Mother Heart disease Hypertension Liver disease Father No problems noted. Sister Asthma Blood clot in vein Brother Asthma Paralysis of left upper extremity Daughter No problems noted. Daughter No problems noted. Son Asthma Gastritis Son No problems noted. Family history of problems with anesthesia: No Surgical History Surgical History History of bladder suspension procedure History of endometrial ablation Tubal ligation status History of Problems with Anesthesia: Yes (PONV. Scop patch in place) Social History Social History Alcohol intake: never Patient Tobacco Use Status: Former Tobacco user Quit Date: 11/09/2020 Use of substances other than those prescribed or required for medical reasons: No Are you DNR?: No Advance Directives: No Advance Directives Information Provided: No Advance Directives on File: No Patient : No FDLMP: unknown Meds Allergies Allergy/AdvReac Type Severity Reaction Status Date / Time No Known Allergies Allergy Verified 12/15/20 09:18 Home Medications Medication Instructions Recorded Confirmed Last Taken Type bupropion HCl 300 mg 24 hr tablet, 450 mg PO QAM 08/01/20 11/23/20 Unknown History extended release fluoxetine 20 mg capsule 40 mg PO DAILY 08/01/20 11/23/20 Unknown History metformin 500 mg tablet 500 mg PO DAILY 08/01/20 11/23/20 Unknown History omeprazole 20 mg capsule,delayed 20 mg PO DAILY 08/01/20 11/23/20 Unknown History release oxcarbazepine 300 mg tablet 300 mg PO QAM 08/01/20 11/23/20 Unknown History multivitamin 1 tab PO DAILY 09/14/20 11/23/20 Unknown History clonazepam 0.5 mg tablet 0.5 mg PO DAILY 11/13/20 11/23/20 Unknown History cholecalciferol (vitamin D3) 1 cap PO QWEEK 11/23/20 11/23/20 Unknown History oxcarbazepine 600 mg PO QPM 11/23/20 11/23/20 Unknown History Exam Height,Weight and Vital Signs: Vital Signs Temp Pulse Resp BP Pulse Ox 12/15/20 09:19 98.2 F 83 18 128/79 94 Pertinent Lab Results Pertinent Lab Results: Lab Results 12/15/20 12/15/20 Range/Units 09:19 09:40 POC Glucose 143 H (60-115) mg/dL Urine Test NEGATIVE (NEGATIVE) Airway Mallampati Class: III TM Dist: >3cm Neck ROM: Full Loose/Missing/Broken Teeth: Yes (Some teeth extracted) Heart: RRR Lungs: CTAB Assessment and Plan Assessment Anesthesia Assessment: Anesthesia Plan Discussed and Chart Reviewed Final Anesthetic Review NPO: Yes ASA Class: III Final Preanesthetic Review: No Changes in Pt Med Stat, Meds/Allgs Chart Reviewed, Consent Obtained/Reviewed and Anes Risks/Benef Reviewed Patient Risk: Intermediate Procedure Risk: Low Assessment/Block/Sedation in SS: Assess/Block/Sedation-SS Anesthetic Plan Anesthetic Plan: MAC: Disposition: Standard PACU
[2020-12-15] VITALS (8 sets, daily range): BP systolic 100–145; BP diastolic 68–79; PULSE 82–105; RESP 16–18; TEMP 36.1–36.8; O2SAT 94–99
[2020-12-15 09:23] LABS: Glucose, Whole Blood 143 mg/dL (60-115)
[2020-12-15] MEDS: Scopolamine 1.5 MG PATCH.TD.3 TRANSDERMA (09:34)
[2020-12-15 09:52] LABS: UPreg QC Valid YES; Urine Pregnancy NEGATIVE (NEGATIVE)
[2020-12-15] MEDS: Lactated Ringers 1,000 ML 100 ML IVCONT (09:53)
--- NOTE | 2020-12-15 10:12 | MHC.SHP ---
Pre-Procedural Eval Section A The patient is an INPATIENT: No Changes since office visit: No Cold of Flu in the past 2 weeks, No New Medical Problems, No Changes in Medication and No Patient answered all questions The History & Physical has been completed within 30 days and I have reviewed it.: Yes Section B Chief Complaint: Excessive and Frequent Menstruation Allergies: Allergies Allergy/AdvReac Type Severity Reaction Status Date / Time No Known Allergies Allergy Verified 12/15/20 09:18 Plan Diagnosis/Plan: Unchanged I have reviewed the history and physical and performed a pertinent physical examination on my patient. No changes have occurred unless specified.
--- NOTE | 2020-12-15 10:57 | PM.OP ---
Brief Operative Note Date of Service: 12/15/20 Pre-op diagnosis: menorrhagia with history of endometrial ablation Post-op diagnosis: other ( Extensive intraoperative adhesions) Procedure: Hysteroscopy D&C Surgeon: Jermaine Eugene MD Anesthesia: MAC Was an Marketing Traffic Coordinator used for this Procedure?: No Estimated blood loss (mL): 0 Pathology: other (Endometrial possible endocervical Scrapping) Condition: stable Disposition: PACU
--- NOTE | 2020-12-15 10:58 | W.PM.OPN ---
Operative Note Operative Note Date of Service: 12/15/20 Narrative: Preop Diagnosis: menorrhagia Operation: Diagnostic Hysteroscopy, Dilataion & Curettage Post Op Diagnosis: intrauterine extensive adhesions QBL: Minimal Anesthesia: MAC Surgeon: Jermaine Eugene MD Plastics Spreading Machine Operator: None Complication: None Pathology: Endometrial /endocervical Scrapings Complication: None Pathology: Endometrial /endocervical Scrapings Procedure: The patient was put in the dorsal lithotomy position, scrubbed, and draped in the usual manner. A sterile speculum was inserted in the patient's vagina. The anterior lip of the cervix was grasped with a single tooth tenaculum. The cervix was dilated up to 5 mm, then the scope was inserted in the patient's uterus. Inspection revealed extensive intrauterine adhesions preventing the entry through the endometrial cavity; sharp curettings was carried on, at the end of the procedure, all instruments were taken out of the patient uterine and vaginal cavity. The single tooth tenaculum was removed and homeostasis was assured using pressure,. The patient tolerated the procedure well and was transferred to the PACU in a stable condition.
[2020-12-15] MEDS: fentaNYL citrate/PF 100 MCG/2 ML VIAL 25 MCG IVPUSH ×4 (11:05→11:20)
[2020-12-15] MEDS: oxyCODONE HCl Immed Release 5 MG TABLET PO (11:11)
[2020-12-15] MEDS: Ketorolac Tromethamine 15 MG/ML VIAL IVPUSH (11:12)
== END 2020-12-15 12:00 | disposition home or self-care (01) ==
PROVIDERS: PCP Family Medicine; Visit Provider Obstetrics & Gynecology
PROC: 0UDB8ZZ Extraction of Endometrium, Via Natural or Artificial Opening Endoscopic (ICD-10-PCS; CPT 58558; principal; 2020-12-15 10:40)
DX: N92.0 Excessive and frequent menstruation with regular cycle (principal); N85.6 Intrauterine synechiae; J45.909 Unspecified asthma, uncomplicated; E11.9 Type 2 diabetes mellitus without complications; Z98.51 Tubal ligation status; G47.33 Obstructive sleep apnea (adult) (pediatric); Z87.891 Personal history of nicotine dependence; Z79.84 Long term (current) use of oral hypoglycemic drugs; Z79.899 Other long term (current) drug therapy
CPT/HCPCS: 58558; 81025; 82947; 88305; 88342; 88360; J1100; J1885; J2250; J2405; J3010

== ENCOUNTER → 2021-01-09 14:23 | Outpatient (BNVA) | payer MEDICAID, SELFPAY | PROVIDERS: PCP Family Medicine; Visit Provider Obstetrics & Gynecology ==

== ENCOUNTER 2021-02-03 09:25 | Outpatient (REF) | payer MEDICAID, SELFPAY | END 2021-02-03 09:26 | disposition home or self-care (01) | LOC: HO.LAB 09:25 | PROVIDERS: PCP Family Medicine; Visit Provider Surgery | DX: Z01.818 Encounter for other preprocedural examination (principal); E55.9 Vitamin D deficiency, unspecified | CPT/HCPCS: 36415; 82306; 84590 ==

== ENCOUNTER → 2021-02-05 09:36 | Outpatient (BNVA) | payer MEDICAID, SELFPAY | PROVIDERS: PCP Family Medicine; Referring Provider Family Medicine; Visit Provider Physician Assistant | DX: E66.9 Obesity, unspecified (principal); Z68.39 Body mass index [BMI] 39.0-39.9, adult | CPT/HCPCS: 99212 ==

== ENCOUNTER 2021-02-06 12:49 | Emergency (ER) | payer MEDICAID, SELFPAY | END 2021-02-06 19:30 | disposition left against medical advice (07) | PROVIDERS: Emergency Provider Emergency Medicine; PCP Family Medicine | DX: M54.9 Dorsalgia, unspecified (principal); R58 Hemorrhage, not elsewhere classified ==

== ENCOUNTER → 2021-02-21 11:06 | Outpatient (BNVA) | payer MEDICAID, SELFPAY | PROVIDERS: PCP Family Medicine; Visit Provider Obstetrics & Gynecology | DX: N92.0 Excessive and frequent menstruation with regular cycle (principal) | CPT/HCPCS: 99212 ==

== ENCOUNTER 2021-06-20 06:09 | Emergency (ER) | payer MEDICAID, SELFPAY ==
--- NOTE | ~2021-06-20 | XR_ITS ---
EXAMINATION: XR SHOULDER, LEFT CLINICAL INFORMATION: Pain with movement COMPARISON: None TECHNIQUE: Three views of the left shoulder. FINDINGS: Bone alignment is normal. No fracture or dislocation is seen. The joint spaces are normal. There is soft tissue calcification adjacent to the greater tuberosity suggestive of calcific tendinitis or bursitis. There is an undersurface acromial osteophyte. XR/XR shoulder LT min 2V IMPRESSION: Soft tissue calcification suggestive of calcific bursitis or tendinitis and undersurface acromial osteophyte.
[2021-06-20 06:43] VITALS: BMI 26.6
[2021-06-20 07:35] VITALS: BP 116/63; PULSE 77; RESP 16; TEMP 36.6; O2SAT 96
--- NOTE | 2021-06-20 08:04 | ED_ITS ---
HPI - Extremity Problem General Chief complaint: Extremity Injury, Upper Stated complaint: L arm pain, no injury recalled Time Seen by Provider: 06/20/21 08:01 Source: patient Mode of arrival: ambulatory Limitations: no limitations History of Present Illness HPI Narrative: 50 y/o female with history of obesity presents to the ER with nontraumatic left-sided shoulder pain that started yesterday. She states the pain came on gradually and slowly gotten worse. It is worse with abduction of the shoulder and movement. She denies any falls or trauma. She denies any repetitive movements. She is unemployed. She denies any numbness, weakness, tingling in the hand. She has pain from the lateral left shoulder that radiates down to above the elbow when she moves her arm. She does not have any chest pain or shortness of breath. She has never had any pain like this before. MD Complaint: joint paint Onset (ago): day(s) (1) Pain Consistency: constant Location: left and upper extremity Severity scale (1-10): 7 Quality: aching and sharp Radiation: distal Relieving factors: immobilization Exacerbating factors: range of motion and palpation Associated symptoms: denies other symptoms Related Data Home Medications Medication Instructions Recorded Confirmed bupropion HCl 300 mg 24 hr tablet, 450 mg PO QAM 08/01/20 02/05/21 extended release fluoxetine 20 mg capsule 40 mg PO DAILY 08/01/20 02/05/21 metformin 500 mg tablet 500 mg PO DAILY 08/01/20 02/05/21 omeprazole 20 mg capsule,delayed 20 mg PO DAILY 08/01/20 02/05/21 release oxcarbazepine 300 mg tablet 300 mg PO QAM 08/01/20 02/05/21 multivitamin 1 tab PO DAILY 09/14/20 02/05/21 clonazepam 0.5 mg tablet (Klonopin) 0.5 mg PO DAILY 11/13/20 02/05/21 cholecalciferol (vitamin D3) 1,250 1 cap PO QWEEK 11/23/20 02/05/21 mcg (50,000 unit) capsule oxcarbazepine 600 mg tablet 600 mg PO QPM 11/23/20 02/05/21 Previous Rx's Medication Instructions Recorded ibuprofen 600 mg tablet 600 mg PO Q8H PRN #20 tab 06/20/21 oxycodone 5 mg tablet 5 mg PO Q6H PRN #8 tab 06/20/21 Allergies Allergy/AdvReac Type Severity Reaction Status Date / Time No Known Allergies Allergy Verified 02/21/21 11:28 Review of Systems Review of Systems: Constitutional: No Fever, No Chills Cardiovascular: No Chest Pain, No SOB Gastrointestinal: No Nausea, No Vomiting, No Diarrhea, No abdominal Pain Genitourinary: No Dysuria, No Urinary Frequency, No Hematuria Musculoskeletal: + joint pain, No Myalgias Skin: No Skin Lesions, No rash Neuro: No Weakness, No Numbness Psych: + Anxiety/Panic, No Depression Heme/Lymph: No Bruising PMFSH Past Medical History Medical History Asthma BMI 39.0-39.9,adult Depression Diabetes GERD (gastroesophageal reflux disease) PONV (postoperative nausea and vomiting) Sleep apnea Surgical History H/O dilation and curettage History of bladder suspension procedure History of endometrial ablation Tubal ligation status Family History Family History Mother Heart disease Hypertension Liver disease Father No problems noted. Sister Asthma Blood clot in vein Brother Asthma Paralysis of left upper extremity Daughter No problems noted. Daughter No problems noted. Son Asthma Gastritis Son No problems noted. Social History Social History Alcohol intake: never Patient Tobacco Use Status: Former Tobacco user Quit Date: 11/09/2020 Advance Directives: No Physical Exam Vital Signs: Vital Signs: Last Vital Signs Temp 97.9 F 06/20/21 10:00 Pulse 77 06/20/21 10:00 Resp 16 06/20/21 10:00 BP 118/62 06/20/21 10:00 Pulse Ox 96 06/20/21 10:00 BMI result Body Mass Index 26.6 Appearance: Alert. Oriented X3. No acute distress. HEENT: normal inspection CVS: Normal heart rate and rhythm. Pulses normal. Respiratory: No respiratory distress. Skin: Skin warm and dry. Normal skin color. Normal skin turgor. No rashes. Extremities: Left arm held in adduction. Tenderness of the lateral aspect of the shoulder with pain upon active and passive abduction. no posterior shoulder tenderness. normal ROM of the elbow, NV Intact distally. Neuro: Oriented X 3. No motor deficit. No sensory deficit. Course Course Course Narrative: 50-year-old female presenting to the ER with nontraumatic left shoulder pain it started yesterday it has been getting worse. Worse with movement and palpation. Her pain is on the lateral aspect of the shoulder most consistent with bursitis. No sign of septic joint. X-ray pending. IM Toradol ordered Reevaluation(s) Reevaluation #1: X-ray is showing calcific bursitis or tendinitis. Placed in sling for comfort. Will prescribe NSAIDs and short course of narcotic for pain. Will refer to orthopedics for further evaluation. Patient counseled using sorority mother. Patient is stable for discharge home. Critical Care Time Critical Care Time Critical Care Time: No Discharge Plan Discharge Clinical Impression: Calcific bursitis of shoulder Patient Disposition: Home, Self-Care Instructions: Calcific Tendinitis (ED) Additional Instructions: Your x-ray showed calcific tendonitis of the shoulder - see information provided Follow up with Orthopedics If you develop new or worsening symptoms call 911 or come back to the ER for further evaluation. Hong radiograf?a mostr? tendinitis calcificada del hombro; consulte la informaci?n proporcionada Seguimiento con ortopedia Si presenta s?ntomas nuevos o que empeoran, llame al 911 o regrese a la keturah de emergencias para benedict evaluaci?n adicional. Prescriptions: New ibuprofen 600 mg tablet 600 mg PO Q8H PRN (Reason: fever or pain) Qty: 20 RF: 0 oxycodone 5 mg tablet 5 mg PO Q6H PRN (Reason: severe pain (scale score 7-10)) Qty: 8 RF: 0 No Action oxcarbazepine 600 mg Tablet 600 mg PO QPM RF: 0 cholecalciferol (vitamin D3) 1,250 mcg (50,000 unit) capsule 1 cap PO QWEEK RF: 0 metformin 500 mg tablet 500 mg PO DAILY RF: 0 omeprazole 20 mg capsule,delayed release(DR/EC) 20 mg PO DAILY RF: 0 bupropion HCl 300 mg tablet extended release 24 hr 450 mg PO QAM RF: 0 oxcarbazepine 300 mg tablet 300 mg PO QAM RF: 0 fluoxetine 20 mg capsule 40 mg PO DAILY RF: 0 multivitamin Tablet 1 tab PO DAILY RF: 0 clonazepam [Klonopin] 0.5 mg tablet 0.5 mg PO DAILY RF: 0 Referrals: Mary Carmen Engel PA-C [Physician Employee Communications Intern] - 5 days (calcific tendonitis left shoulder) Interventions: ED Discharge Assessment Last Done: 06/20/21 10:41 Discharge Date/Time: 06/20/21 10:42 Print Language: Albanian
[2021-06-20] MEDS: Ketorolac Tromethamine 30 MG/ML VIAL IM (08:37)
[2021-06-20] MEDS: oxyCODONE HCl Immed Release 5 MG TABLET PO (09:03)
[2021-06-20 10:00] VITALS: BP 118/62; PULSE 77; RESP 16; TEMP 36.6; O2SAT 96
== END 2021-06-20 10:42 | disposition home or self-care (01) ==
PROVIDERS: Emergency Provider Emergency Medicine Emergency Medical Services; PCP Family Medicine
DX: M75.52 Bursitis of left shoulder (principal); Z87.891 Personal history of nicotine dependence; Z79.899 Other long term (current) drug therapy
CPT/HCPCS: 73030; 96372; 99284; J1885

== ENCOUNTER 2021-12-13 20:09 | Emergency (ER) | payer MEDICAID, SELFPAY ==
--- NOTE | ~2021-12-13 | CT_ITS ---
EXAMINATION: CT HEAD WITHOUT CONTRAST CLINICAL INFORMATION: Severe headache. Stroke. Bleed. COMPARISON: None available. TECHNIQUE: Contiguous axial imaging was performed from the skull base to vertex without intravenous administration of contrast. DLP: 688 mGy-cm FINDINGS: There is no evidence of acute intracranial hemorrhage or edematous territorial infarction. There is no abnormal attenuation within the brain parenchyma. Bunn-white matter differentiation is preserved. The ventricles are normal in size and configuration. No evidence for obstructive hydrocephalus. The suprasellar cistern is widely patent. No abnormal mass effect or midline shift. Normal positioning of the cerebellar tonsils. No extra-axial fluid collections. No acute soft tissue or osseous abnormalities. Mild mucosal thickening of the paranasal sinuses. The mastoid air cells and middle ear cavities are clear. CT/CT head/brain wo con IMPRESSION: No evidence of acute intracranial hemorrhage or edematous territorial infarction.
[2021-12-13 20:59] VITALS: BP 149/94; PULSE 81; RESP 15; TEMP 36.8; O2SAT 97; BMI 38.9
[2021-12-13 21:01] VITALS: PULSE 78; RESP 16; O2SAT 98
[2021-12-13 21:24] LABS: MANUAL DIFF FLAG NO
[2021-12-13 21:26] LABS: Basophils Percent Auto 0.8 % (0-2); Eosinophils Absolute Auto 0.1 X10*3/uL (0.0-0.4); Eosinophils Percent Auto 1.5 % (0-4); Hematocrit 41.9 % (37.0-47.0); Hemoglobin 13.7 g/dl (12.0-16.0); Imm Gran Abs Auto 0.01 X10*3/uL (0.00-0.03); Imm Gran Pct Auto 0.2 % (0.0-0.4); Lymphocytes Absolute Auto 1.7 X10*3/uL (1.2-4.9); Lymphocytes Percent Auto 32.6 % (20-40); Mean Corpuscular HGB Conc 32.7 g/dl (31.0-35.0); Mean Corpuscular Hemoglobin 27.4 pg (27.0-33.0); Mean Corpuscular Volume 83.8 fL (80.0-98.0); Mean Platelet Volume 10.1 fL (9.4-12.3); Monocytes Absolute Auto 0.5 X10*3/uL (0.1-1.2); Monocytes Percent Auto 9.8 % (2-11); Neutrophils Absolute Auto 2.9 x10*3/uL (2.0-8.3); Neutrophils Percent Auto 55.1 % (45-73); Platelet Count 243 X10*3/uL (160-400); Red Cell Distribution Width 15.6 % (11.0-16.0); White Blood Count 5.2 X10*3/uL (4.8-10.8)
[2021-12-13 21:56] LABS: Alanine Aminotransferase 81 U/L (0-31); Albumin Level 3.6 g/dL (3.5-5.0); Alkaline Phosphatase 85 U/L (39-117); Anion Gap 11 (12-20); Aspartate Amino Transferase 61 U/L (5-31); Bilirubin Total 0.4 mg/dL (0.0-1.0); Blood Urea Nitrogen 8 mg/dL (9-16); Carbon Dioxide 27 mmol/L (22-29); Chloride 102 mmol/L (96-108); Creatinine Clr Calc Pharmacy 102.4; Estimated Glomerular Filt Rate > 60; Glucose Random 120 mg/dL (60-115); Sodium 136 mmol/L (135-145); Total Protein 7.2 g/dL (6.5-8.0)
--- NOTE | 2021-12-13 22:19 | ED.HA ---
HPI - Headache General Chief Complaint: Headache Stated Complaint: severe headache, nausea Time Seen by Provider: 12/13/21 21:37 Source: patient Mode of arrival: ambulatory Limitations: language barrier (Peruvian speaking only, mechanic insulator used) History of Present Illness HPI Narrative: 51-year-old female who presents emergency department for evaluation of headache and left-sided neck pain. She states that the pain started suddenly around 15:00 hours while she was lying in bed. She states the pain is been constant ? pain that is waxing and waning in intensity. The pain is located in the left side of her head and left neck. She states the pain is 10/10 at its worst. She did have associated nausea with no vomiting. She also is complaining of left-sided neck pain. She denies any injury to her neck. She states the pain in her neck is worse with movement, the pain is constant is a throbbing sensation. She denied any change in vision. She denied numbness or weakness. She denied fever, chills, rhinorrhea, sore throat, cough, chest pain, shortness of breath. She took Tylenol at home with no relief of her pain. MD elicited complaint: headache Onset (ago): hour(s) Time: 15:00 Onset description: suddenly Location: left, frontal, temporal and occipital Severity: severe Pain scale (0-10): 10 Quality & Timing: other ( pain ) Exacerbating factors: movement of head/neck Relieving factors: nothing Context: occurred at rest Associated symptoms: nausea Treatments prior to arrival: acetaminophen Related Data Home Medications Medication Instructions Recorded Confirmed bupropion HCl 300 mg 24 hr tablet, 450 mg PO QAM 08/01/20 02/05/21 extended release fluoxetine 20 mg capsule 40 mg PO DAILY 08/01/20 02/05/21 metformin 500 mg tablet 500 mg PO DAILY 08/01/20 02/05/21 omeprazole 20 mg capsule,delayed 20 mg PO DAILY 08/01/20 02/05/21 release oxcarbazepine 300 mg tablet 300 mg PO QAM 08/01/20 02/05/21 multivitamin 1 tab PO DAILY 09/14/20 02/05/21 clonazepam 0.5 mg tablet (Klonopin) 0.5 mg PO DAILY 11/13/20 02/05/21 cholecalciferol (vitamin D3) 1,250 1 cap PO QWEEK 11/23/20 02/05/21 mcg (50,000 unit) capsule oxcarbazepine 600 mg tablet 600 mg PO QPM 11/23/20 02/05/21 Previous Rx's Medication Instructions Recorded ibuprofen 600 mg tablet 600 mg PO Q8H PRN fever or pain 06/20/21 #20 tabs oxycodone 5 mg tablet 5 mg PO Q6H PRN severe pain (scale 06/20/21 score 7-10) #8 tabs metoclopramide HCl 10 mg tablet 10 mg PO Q6H PRN nausea and 12/14/21 (Reglan) vomiting #14 tabs Allergies Allergy/AdvReac Type Severity Reaction Status Date / Time No Known Allergies Allergy Verified 02/21/21 11:28 Review of Systems Review of Systems: Yes all other systems are reviewed and are negative [facility] Past Medical History [facility] Narrative: Past medical history: Reviewed below patient also has hypertension, hyperlipidemia. Past surgical history: Hysterectomy. Social history: She she occasionally smokes cigarettes, she denies alcohol and drug use. Medical History Asthma BMI 39.0-39.9,adult Depression Diabetes GERD (gastroesophageal reflux disease) PONV (postoperative nausea and vomiting) Sleep apnea Surgical History H/O dilation and curettage History of bladder suspension procedure History of endometrial ablation Tubal ligation status Family History Family History Mother Heart disease Hypertension Liver disease Father No problems noted. Sister Asthma Blood clot in vein Brother Asthma Paralysis of left upper extremity Daughter No problems noted. Daughter No problems noted. Son Asthma Gastritis Son No problems noted. Social History Social History Alcohol intake: never Patient Tobacco Use Status: Former Tobacco user Quit Date: 11/09/2020 Advance Directives: No Physical Exam Vital Signs: Vital Signs: Last Vital Signs Temp 98.3 F 12/13/21 20:59 Pulse 68 12/13/21 22:35 Resp 15 12/13/21 22:35 BP 149/94 H 12/13/21 20:59 Pulse Ox 97 12/13/21 22:35 O2 Del Method 12/13/21 22:35 BMI result Body Mass Index 38.9 Const: Other: Awake, alert, female patient, she appears to be in distress secondary to her head and neck pain, she is holding her left trapezius muscle with her hands to help support her neck. HEENT: Head: Yes normal to inspection, Yes normocephalic and Yes atraumatic (No scalp or scientology region tenderness) Ears: external ears normal General nose exam: Normal external nose present Face and sinus: Yes normal facial exam Mouth: Normal oral and palatal mucosa present Throat: Yes posterior oropharynx normal Eyes: General: appearance normal, both eyes and all related structures Pupils: Equal, round and reactive pupils present Neck: Other: Tender left trapezius muscle with spasm Neck: Yes normal visual inspection, Yes no lymphadenopathy, Yes trachea midline and Yes supple Chest: Chest palpation & inspection: normal inspection of the chest and normal palpation of entire chest wall Resp: Effort & Inspection: normal respiratory effort and able to speak in complete sentences Auscultation: clear to auscultation bilaterally Cardio: Rate: regular rate Rhythm: regular rhythm Heart sounds: S1 normal heart sound present, S2 normal heart sound present and no murmurs GI: Inspection: Yes normal to inspection Palpation (GI): Soft to palpation, nontender and no guarding Auscultation: normal bowel sounds : General: Yes no CVA tenderness Back/Spine/Pelvis: Back: no CVA tenderness Skin: General skin exam: no rashes or lesions noted Neuro: Cranial nerves: Yes CN's II-XII intact bilaterally and Yes Equal, round and reactive pupils present Cognition (Neuro): normal cognition Motor exam (neuro): 5/5 motor strength present throughout Extrem: General: Yes normal to inspection Psych: Appearance: grossly normal Speech and movement: Normal speech and movement present Affect: normal affect Attitude: cooperative Thought process: Normal thought process present Thought content: Normal thought content present Course Course Course Narrative: 51-year-old female who presents emergency department for evaluation of left-sided headache and left neck pain which began at 15:00 hours today, the pain is been constant but waxing and waning in intensity, the pain is 10/10 at its worst. Patient had associated nausea but no other systemic symptoms. Vital signs revealed a slight elevation of blood pressure 149/94 otherwise were unremarkable. Physical examination revealed no tenderness palpation of her scalp or over her temporal regions. She did have tenderness and spasm with palpation of her left trapezius muscle. I ordered a laboratory evaluation to include CBC, sedimentation rate, CMP will be obtained. I will also obtain a CT scan of the brain. Patient will be treated with normal saline x1 L, Reglan 10 mg IV, Toradol 15 mg IV and Benadryl 50 mg IV. 0005: Laboratory evaluation: WBC was normal. Sedimentation rate was normal at 14. AST and ALT were elevated 61 an 81. Radiology evaluation: CT scan of the head without IV contrast revealed no acute findings. Patient's workup was unremarkable I suspect that her headache is caused by a migraine-like syndrome or related to her neck pain. Patient's headache is improved with the above treatment, but she states that it still 4/10 and would like some more medications prior being discharged home. Patient was ordered to get morphine 4 mg IV. Patient will be discharged home with the following migraine regimen: Reglan 10 mg, Benadryl 50 mg, Excedrin migraine 2 tablets every 6 hours as needed for headache. MDM - Headache Lab Data Result diagrams: 12/13/21 21:16 12/13/21 21:16 Labs: Lab Results 12/13/21 12/13/21 12/13/21 Range/Units 21:16 21:16 21:16 WBC 5.2 (4.8-10.8) X10*3/uL RBC 5.00 (4.20-5.50) X10*6/uL Hgb 13.7 (12.0-16.0) g/dl Hct 41.9 (37.0-47.0) % MCV 83.8 (80.0-98.0) fL MCH 27.4 (27.0-33.0) pg MCHC 32.7 (31.0-35.0) g/dl RDW 15.6 (11.0-16.0) % Plt Count 243 (160-400) X10*3/uL MPV 10.1 (9.4-12.3) fL Immature Gran % (Auto) 0.2 (0.0-0.4) % Neut % (Auto) 55.1 (45-73) % Lymph % (Auto) 32.6 (20-40) % Caswell % (Auto) 9.8 (2-11) % Eos % (Auto) 1.5 (0-4) % Baso % (Auto) 0.8 (0-2) % Lymph # (Auto) 1.7 (1.2-4.9) X10*3/uL Caswell # (Auto) 0.5 (0.1-1.2) X10*3/uL Eos # (Auto) 0.1 (0.0-0.4) X10*3/uL Baso # (Auto) 0.0 (0.0-0.2) X10*3/uL Abs Immat Gran (auto) 0.01 (0.00-0.03) X10*3/uL Absolute Neuts (auto) 2.9 (2.0-8.3) x10*3/uL Absolute Nucleated RBC 0.000 (0.0-0.012) X10*3/uL Nucleated RBC % (auto) 0.0 (0.0-0.2) /100WBC ESR 14 (0-20) MM/HR Sodium 136 (135-145) mmol/L Potassium 4.0 (3.3-5.1) mmol/L Chloride 102 (96-108) mmol/L Carbon Dioxide 27 (22-29) mmol/L Anion Gap 11 L (12-20) BUN 8 L (9-16) mg/dL Creatinine 0.74 (0.5-1.4) mg/dL Estim Creat Clear Calc 102.4 Estimated GFR > 60 Random Glucose 120 H (60-115) mg/dL Calcium 9.0 (8.4-10.2) mg/dL Total Bilirubin 0.4 (0.0-1.0) mg/dL AST 61 H (5-31) U/L ALT 81 H (0-31) U/L Alkaline Phosphatase 85 D (39-117) U/L Total Protein 7.2 (6.5-8.0) g/dL Albumin 3.6 (3.5-5.0) g/dL Discharge Plan Discharge Clinical Impression: Acute strain of neck muscle Headache Qualifiers: Headache chronicity pattern: acute headache Intractability: not intractable Patient Disposition: Home, Self-Care Instructions: Acute Headache (ED), Acute Neck Pain (ED) Additional Instructions: Your blood work was normal. The CT scan of your head was normal as well, this is very reassuring Your symptoms are consistent with a migraine headache or may be caused by muscle strain of your neck. I want you to take the following 3 medications together every 6 hours as needed for headache, nausea or vomiting. Reglan (metoclopramide) in 10 mg, 1 pill Benadryl 25 mg, 2 pills Excedrin migraine, 2 pills. After you take these medications, lie down in a dark quiet room and try to fall asleep. These medications will make you sleepy, do not drive or work after taking these medications. Follow-up with your doctor in 2 days. Please return to the emergency department if your symptoms get worse or if you develop any symptoms that are concerning to you. Prescriptions: New metoclopramide HCl [Reglan] 10 mg tablet 10 mg PO Q6H PRN (Reason: nausea and vomiting) Qty: 14 0RF No Action oxcarbazepine 600 mg Tablet 600 mg PO QPM cholecalciferol (vitamin D3) 1,250 mcg (50,000 unit) capsule 1 cap PO QWEEK ibuprofen 600 mg tablet 600 mg PO Q8H PRN (Reason: fever or pain) Qty: 20 0RF oxycodone 5 mg tablet 5 mg PO Q6H PRN (Reason: severe pain (scale score 7-10)) Qty: 8 0RF metformin 500 mg tablet 500 mg PO DAILY omeprazole 20 mg capsule,delayed release(DR/EC) 20 mg PO DAILY bupropion HCl 300 mg tablet extended release 24 hr 450 mg PO QAM oxcarbazepine 300 mg tablet 300 mg PO QAM fluoxetine 20 mg capsule 40 mg PO DAILY multivitamin Tablet 1 tab PO DAILY clonazepam [Klonopin] 0.5 mg tablet 0.5 mg PO DAILY Print Language: Peruvian
[2021-12-13 22:35] VITALS: PULSE 68; RESP 15; O2SAT 97
[2021-12-13] MEDS: 0.9 % Sodium Chloride 1,000 ML 999 ML IV (22:37)
[2021-12-13] MEDS: Ketorolac Tromethamine 15 MG/ML VIAL IVPUSH (22:42)
[2021-12-13] MEDS: Metoclopramide HCl 10 MG/2 ML VIAL IVPUSH (22:42)
[2021-12-13] MEDS: diphenhydrAMINE HCL 50 MG/ML VIAL IVPUSH (22:42)
[2021-12-13 22:43] LABS: Erythrocyte Sedimentation Rate 14 MM/HR (0-20)
[2021-12-14 00:31] VITALS: BP 107/62; PULSE 77; RESP 14; O2SAT 97
== END 2021-12-14 01:44 | disposition home or self-care (01) ==
PROVIDERS: Emergency Provider Emergency Medicine Emergency Medical Services; PCP Family Medicine
DX: R51.9 Headache, unspecified (principal); S16.1XXA Strain of muscle, fascia and tendon at neck level, initial encounter; X58.XXXA Exposure to other specified factors, initial encounter; R11.0 Nausea; Y93.9 Activity, unspecified; Y92.9 Unspecified place or not applicable; Y99.9 Unspecified external cause status
CPT/HCPCS: 36415; 70450; 80053; 85025; 85652; 96361; 96374; 96375; 99284; J1200; J1885; J2765

== ENCOUNTER 2021-12-20 09:33 | Outpatient (REF) | payer MEDICAID, SELFPAY ==
--- NOTE | ~2021-12-20 | US_ITS ---
EXAMINATION: US ABDOMEN COMPLETE CLINICAL INFORMATION: Right upper quadrant pain. COMPARISON: CT abdomen and pelvis 11/09/2020. TECHNIQUE: Real-time imaging of the abdominal viscera. FINDINGS: PANCREAS: The body and head appear unremarkable. The tail is obscured by overlying bowel gas. ABDOMINAL AORTA: The proximal, mid, and distal segments are normal in caliber. INFERIOR VENA CAVA: Visualized portions are normal. LIVER: There is a heterogeneous and increased echotexture diffusely consistent with hepatocellular disease. The liver contour is normal. No focal hepatic lesion. There is no intrahepatic biliary duct dilatation seen. GALLBLADDER: Normal. The gallbladder is physiologically distended without evidence of stones, sludge, polyps, wall thickening or pericholecystic fluid. COMMON BILE DUCT: Normal in caliber measuring 0.7 cm in diameter. RIGHT KIDNEY: Normal. No hydronephrosis. No renal calculi or focal parenchymal lesions. The kidney measures 11.9 cm in maximum dimension. LEFT KIDNEY: Normal. No hydronephrosis. No renal calculi or focal parenchymal lesions. The kidney measures 12.0 cm in maximum dimension. SPLEEN: Normal. The spleen measures 10.4 cm in maximum dimension. FREE FLUID: None. US/US abdomen complete IMPRESSION: Heterogeneous and increased echogenicity of the liver consistent with hepatocellular disease such as hepatic steatosis.
== END 2021-12-20 09:34 | disposition home or self-care (01) ==
LOC: HO.US 09:33
PROVIDERS: Visit Provider Nurse Practitioner Primary Care
DX: R10.11 Right upper quadrant pain (principal)
CPT/HCPCS: 76700

== ENCOUNTER → 2022-01-25 09:00 | Outpatient (BNVA) | payer MEDICAID, SELFPAY | PROVIDERS: PCP Family Medicine; Visit Provider Physician Assistant Surgical | DX: E66.9 Obesity, unspecified (principal); Z68.38 Body mass index [BMI] 38.0-38.9, adult | CPT/HCPCS: 99212 ==

== ENCOUNTER → 2022-02-25 10:12 | Outpatient (BNVA) | payer MEDICAID, SELFPAY | PROVIDERS: PCP Family Medicine; Visit Provider Physician Assistant | DX: E66.9 Obesity, unspecified (principal); Z71.3 Dietary counseling and surveillance; Z68.37 Body mass index [BMI] 37.0-37.9, adult | CPT/HCPCS: 97802; 99211 ==

== ENCOUNTER 2022-02-25 16:18 | Outpatient (REF) | payer MEDICAID, SELFPAY ==
[2022-02-26 11:27] LABS: H Pylori Breath Test Negative (Negative)
== END 2022-02-25 16:19 | disposition home or self-care (01) ==
LOC: HO.LNP 16:18
PROVIDERS: Visit Provider Physician Assistant Surgical
DX: E66.9 Obesity, unspecified (principal)
CPT/HCPCS: 83013

== ENCOUNTER → 2022-05-03 09:57 | Outpatient (BNVA) | payer MEDICAID, SELFPAY | PROVIDERS: PCP Family Medicine; Visit Provider Nurse Practitioner Family | DX: G47.33 Obstructive sleep apnea (adult) (pediatric) (principal); R06.83 Snoring | CPT/HCPCS: 99202 ==

== ENCOUNTER 2022-07-10 07:26 | Outpatient (REF) | payer MEDICAID, SELFPAY ==
--- NOTE | ~2022-07-10 | CT_ITS ---
EXAMINATION: CT ABDOMEN AND PELVIS WITHOUT CONTRAST CLINICAL INFORMATION: Acute cystitis with hematuria. Rule out calculus. COMPARISON: 11/09/2020 TECHNIQUE: Multidetector volumetric imaging was performed from the superior aspect of the liver through the pubic symphysis. Sagittal and coronal reformatted images were obtained on the technologist's workstation. This CT examination was performed using dose optimization techniques as appropriate, variously including the following: *Automated exposure control *Adjustment of mA and/or kV according to patient size (this includes techniques or standardized protocols for targeted exams where dose is matched to indication/reason for exam; i.e. extremities or head) *Use of iterative reconstruction technique DLP: 725 mGy-cm FINDINGS: LUNG BASES: Calcified granuloma is seen within the right middle lobe. No confluent parenchymal disease identified. No pleural or pericardial effusion. LIVER, GALLBLADDER, AND BILIARY TREE: There is fatty infiltration of the liver. No focal mass lesions or intrahepatic bile duct dilatation is seen. Some calcification is seen within the left lobe consistent with a calcified granuloma. The gallbladder is unremarkable with no evidence of radiopaque gallstones, gallbladder wall thickening, or obvious pericholecystic inflammatory changes. PANCREAS: Unremarkable. SPLEEN: Unremarkable. ADRENAL GLANDS: Unremarkable. KIDNEYS AND URETERS: Left Kidney: Left kidney appears unremarkable without focal mass, calcification, or hydronephrosis. No significant perinephric stranding is seen. No cortical thinning seen. Left ureter appears unremarkable. Right Kidney: There is a 2 mm lower pole nonobstructing calculus present. There is some mild fullness of the right upper collecting system without definite hydronephrosis. No renal mass is appreciated. No hydroureter is seen. There is a 2 mm calcification seen at the level of the iliac crest which may represent a phlebolith or nonobstructing calculus. It is in a region of crossing vessels and the ureter. By location, I would expect this to represent a phlebolith; however, there is a small amount of adjacent fat stranding. Clinical correlation to site of pain as to whether the pain may be right flank or right groin pain suggested. BLADDER: Decompressed. No bladder calculus identified. GASTROINTESTINAL TRACT: No dilated loops of large or small bowel are evident. No free air or free fluid is identified. No pericolonic inflammatory change. The appendix appears unremarkable. ABDOMINAL WALL: No significant hernia is appreciated. LYMPH NODES: There are some prominent inguinal lymph nodes bilaterally without abdominal pelvic lymphadenopathy appreciated. VASCULAR: Unremarkable. PELVIC VISCERA: Unremarkable. OSSEOUS STRUCTURES: No destructive bony lesions identified. CT/CT abdomen pelvis wo IV con IMPRESSION: Old granulomatous disease. Right nephrolithiasis without definite evidence of obstructive uropathy. Fatty infiltration of the liver. Fleischner guidelines were followed.
== END 2022-07-10 07:27 | disposition home or self-care (01) ==
LOC: HO.CT 07:26
PROVIDERS: PCP Family Medicine; Visit Provider Emergency Medicine
DX: R30.0 Dysuria (principal); N30.01 Acute cystitis with hematuria
CPT/HCPCS: 74176

== ENCOUNTER 2022-08-27 13:30 | Emergency (ER) | payer MEDICAID, SELFPAY ==
--- NOTE | ~2022-08-27 | XR_ITS ---
EXAMINATION: XR KNEE, RIGHT CLINICAL INFORMATION: Knee pain COMPARISON: 12/28/2014 TECHNIQUE: Four views of the right knee. FINDINGS: No evidence of joint effusion. Normal alignment without acute fracture or dislocation seen. Tiny osteophytes are identified at the tibial spines and medial joint margin. XR/XR knee RT 3V IMPRESSION: Mild degenerative change. No acute osseous abnormality is seen.
[2022-08-27 13:51] VITALS: BP 122/86; PULSE 86; RESP 18; TEMP 36.6; O2SAT 95; BMI 36.8
--- NOTE | 2022-08-27 13:52 | ED.URI ---
HPI - URI/Sore Throat General Chief Complaint: Upper Respiratory Symptoms <CARLENE Aquino - Last Filed: 08/27/22 13:56> Stated Complaint: Sore throat <CARLENE Aquino - Last Filed: 08/27/22 13:56> Time Seen by Provider: 08/27/22 15:29 <CARLENE Aquino - Last Filed: 08/27/22 13:56> Source: patient <Brynn Joe MD - Last Filed: 08/27/22 15:54> Mode of arrival: ambulatory <Brynn Joe MD - Last Filed: 08/27/22 15:54> Limitations: no limitations <Brynn Joe MD - Last Filed: 08/27/22 15:54> History of Present Illness HPI Narrative: Patient comes to the emergency room complaining of 3 days of pain with swallowing, no difficulty swallowing. Also, complaining of months of right knee buckling. Patient denies fever chills <Brynn Joe MD - Last Filed: 08/27/22 15:54> Related Data Home Medications: Home Medications Medication Instructions Recorded Confirmed bupropion HCl 300 mg 24 hr tablet, 450 mg PO QAM 08/01/20 01/25/22 extended release fluoxetine 20 mg capsule 40 mg PO DAILY 08/01/20 01/25/22 omeprazole 20 mg capsule,delayed 20 mg PO DAILY 08/01/20 01/25/22 release oxcarbazepine 300 mg tablet 300 mg PO QAM 08/01/20 01/25/22 multivitamin 1 tab PO DAILY 09/14/20 01/25/22 clonazepam 0.5 mg tablet (Klonopin) 0.5 mg PO DAILY 11/13/20 01/25/22 cholecalciferol (vitamin D3) 1,250 1 cap PO QWEEK 11/23/20 01/25/22 mcg (50,000 unit) capsule oxcarbazepine 600 mg tablet 600 mg PO QPM 11/23/20 01/25/22 metformin 500 mg tablet 750 mg PO DAILY 01/25/22 01/25/22 Previous Rx's Medication Instructions Recorded ibuprofen 600 mg tablet 600 mg PO Q8H PRN fever or pain 06/20/21 #20 tabs metoclopramide HCl 10 mg tablet 10 mg PO Q6H PRN nausea and 12/14/21 (Reglan) vomiting #14 tabs amoxicillin 500 mg-potassium 1 tab PO BID #19 tabs 08/27/22 clavulanate 125 mg tablet (Augmentin) <CARLENE Aquino - Last Filed: 08/27/22 13:56> Allergies/Adverse Reactions: Allergies Allergy/AdvReac Type Severity Reaction Status Date / Time No Known Allergies Allergy Verified 05/03/22 10:10 <CARLENE Aquino - Last Filed: 08/27/22 13:56> Review of Systems Review of Systems: Constitutional : No Weight loss, No Fever, No Chills, No Night Sweats, No Fatigue, No Malaise ENT/Mouth : No Hearing loss, No Ear Pain, No Nasal Congestion, No Sinus Pain, No Hoarseness, complaining of sore throat, No Rhinorrhea, No Swallowing Difficulty Eyes: No Eye Pain, No Swelling, No Redness, No Foreign Body, No Discharge, No Vision Changes Cardiovascular : No Chest Pain, No SOB, No Dyspnea on Exertion, No Orthopnea, No Edema, No Palpitations Respiratory : No Cough, No Sputum, No Wheezing, No Smoke Exposure, No Dyspnea Gastrointestinal : No Nausea, No Vomiting, No Diarrhea, No Constipation, No abdominal Pain, No Hematochezia, No Melena Genitourinary : no irregular bleeding, No Dysuria, No Urinary Frequency, No Hematuria, No Urinary Incontinence, No Urgency, No Flank Pain, No Urinary Flow Changes, No Hesitancy Musculoskeletal : No joint pain, No Myalgias, No Joint Swelling, complaining of chronic right knee buckling intermittently Skin : No Skin Lesions, No rash Neuro : No Weakness, No Numbness, No Paresthesias, No Loss of Consciousness, No Dizziness, No Headache Psych : No Anxiety/Panic, No Depression, No SI/HI/AH/VH, No Social Issues, Heme/Lymph: No Bruising, No Bleeding,No Lymphadenopathy Endocrine : No Polyuria, No Polydipsia, No Temperature Intolerance <Brynn Joe MD - Last Filed: 08/27/22 15:54> [facility] Past Medical History Medical History: Medical History Asthma BMI 39.0-39.9,adult Depression Diabetes GERD (gastroesophageal reflux disease) PONV (postoperative nausea and vomiting) Sleep apnea <CARLENE Aquino - Last Filed: 08/27/22 13:56> Surgical History: Surgical History H/O dilation and curettage History of bladder suspension procedure History of endometrial ablation Tubal ligation status <CARLENE Aquino - Last Filed: 08/27/22 13:56> Family History Family History: Family History Mother Heart disease Hypertension Liver disease Father No problems noted. Sister Asthma Blood clot in vein Brother Asthma Paralysis of left upper extremity Daughter No problems noted. Daughter No problems noted. Son Asthma Gastritis Son No problems noted. <CARLENE Aquino - Last Filed: 08/27/22 13:56> Social History Social History: Social History (Updated 05/03/22 @ 10:17 by Isabela Lin CMA) Alcohol intake: never Patient Tobacco Use Status: Former Tobacco user Quit Date: 11/09/2020 Advance Directives: No Advance Directives Information Provided: Yes <CARLENE Aquino - Last Filed: 08/27/22 13:56> Physical Exam Vital Signs: Vital Signs: Last Vital Signs Temp 97.9 F 08/27/22 13:51 Pulse 86 08/27/22 13:51 Resp 18 08/27/22 13:51 BP 122/86 08/27/22 13:51 Pulse Ox 95 08/27/22 13:51 O2 Del Method 08/27/22 13:51 BMI result Body Mass Index 36.8 <CARLENE Aquino - Last Filed: 08/27/22 13:56> Vital Signs: Last Vital Signs Temp 97.9 F 08/27/22 13:51 Pulse 86 08/27/22 13:51 Resp 18 08/27/22 13:51 BP 122/86 08/27/22 13:51 Pulse Ox 95 08/27/22 13:51 O2 Del Method 08/27/22 13:51 BMI result Body Mass Index 36.8 <Brynn Joe MD - Last Filed: 08/27/22 15:54> Const: Other: Appearance: Alert. Oriented X3. No acute distress. Eyes: Pupils equal, round and reactive to light. ENT: Erythematous oropharynx, white exudate present, no visualized abscess Neck: Normal inspection. Neck supple. No lymph nodes noted. No crepitus CVS: Normal heart rate and rhythm. Pulses normal. Normal S1 and S2 Respiratory: No respiratory distress. Breath sounds normal. No Wheezing. No rales Abdomen: Soft and nontender. No rigidity. No distention. Skin: Skin warm and dry. Normal skin color. Normal skin turgor. Extremities: No lower extremity edema. No Lacerations. No Rash, normal gait Neuro: Oriented X 3. No motor deficit. No sensory deficit. Moving all extremities. No slurred speech. CN 2 through 12 grossly intact Psych: calm, cooperative, normal affect <Brynn Joe MD - Last Filed: 08/27/22 15:54> Course Course Course Narrative: RME-52 yo F w/PMHx INDRA, obesity complaining of sore throat, painful swallowing x 2 days, and right knee pain x5 days. Reports feels like knee gives out Bilateral tonsillar erythema, swelling, exudate, and uvular exudates noted. Talking in complete sentences, no respiratory distress. Ambulating with steady gait COVID-19/influenza/rapid strep, in the x-ray ordered <CARLENE Aquino - Last Filed: 08/27/22 13:56> Medical Decision Making Medical Decision Making [facility] Narrative: -patient tested positive for strep throat. Given the 1st dose of Augmentin and viscous lidocaine <Brynn Joe MD - Last Filed: 08/27/22 15:54> Differential Diagnosis Differential Diagnoses: The differential diagnosis associated with the presentation includes (Strep pharyngitis, COVID, influenza) <Brynn Joe MD - Last Filed: 08/27/22 15:54> Lab Data [facility] Lab Attestation statement: I reviewed the patient's lab results. <Brynn Joe MD - Last Filed: 08/27/22 15:54> Labs: Lab Results 08/27/22 08/27/22 08/27/22 Range/Units 14:14 14:14 14:14 COVID-19 (FERMIN) Negative (Negative) COVID-19 Clin Com See Note Influenza Type A (JAMIN) Negative (Negative) Influenza Type B (JAMIN) Negative (Negative) Influenza A & B Note See Note S. pyogenes GrpA JAMIN Positive A (Negative) <CARLNEE Aquino - Last Filed: 08/27/22 13:56> Lab Results 08/27/22 08/27/22 08/27/22 Range/Units 14:14 14:14 14:14 COVID-19 (FERMIN) Negative (Negative) COVID-19 Clin Com See Note Influenza Type A (JAMIN) Negative (Negative) Influenza Type B (JAMIN) Negative (Negative) Influenza A & B Note See Note S. pyogenes GrpA JAMIN Positive A (Negative) <Brynn Joe MD - Last Filed: 08/27/22 15:54> Independent Interpretation I performed an independent interpretation of an: Plain X-Ray (My interpretation of knee x-ray: Mild degenerative disease, no fracture, normal alignment) <Brynn Joe MD - Last Filed: 08/27/22 15:54> Radiology Impression Discussion of test interpretation with radiology: I have reviewed the radiologist's reading. <Brynn Joe MD - Last Filed: 08/27/22 15:54> Radiologist Impression: FINDINGS: No evidence of joint effusion. Normal alignment without acute fracture or dislocation seen. Tiny osteophytes are identified at the tibial spines and medial joint margin.? XR/XR knee RT 3V IMPRESSION: Mild degenerative change. No acute osseous abnormality is seen. <Brynn Joe MD - Last Filed: 08/27/22 15:54> Discharge Plan Discharge Clinical Impression: Acute streptococcal pharyngitis, Chronic osteoarthritis <CARLENE Aquino - Last Filed: 08/27/22 13:56> Patient Disposition: Home, Self-Care <CARLENE Aquino - Last Filed: 08/27/22 13:56> Instructions: Pharyngitis (ED) <CARLENE Aquino - Last Filed: 08/27/22 13:56> Additional Instructions: Please follow-up with your primary care physician tomorrow. If you have any worsening or new symptoms, please return to the emergency room or call 911 <CARLENE Aquino - Last Filed: 08/27/22 13:56> Prescriptions: New amoxicillin-pot clavulanate [Augmentin] 500-125 mg tablet 1 tab PO BID Qty: 19 0RF No Action oxcarbazepine 600 mg Tablet 600 mg PO QPM cholecalciferol (vitamin D3) 1,250 mcg (50,000 unit) capsule 1 cap PO QWEEK ibuprofen 600 mg tablet 600 mg PO Q8H PRN (Reason: fever or pain) Qty: 20 0RF metoclopramide HCl [Reglan] 10 mg tablet 10 mg PO Q6H PRN (Reason: nausea and vomiting) Qty: 14 0RF omeprazole 20 mg capsule,delayed release(DR/EC) 20 mg PO DAILY bupropion HCl 300 mg tablet extended release 24 hr 450 mg PO QAM oxcarbazepine 300 mg tablet 300 mg PO QAM fluoxetine 20 mg capsule 40 mg PO DAILY metformin 500 mg tablet 750 mg PO DAILY multivitamin Tablet 1 tab PO DAILY clonazepam [Klonopin] 0.5 mg tablet 0.5 mg PO DAILY <CARLENE Aquino - Last Filed: 08/27/22 13:56>
[2022-08-27 14:28] LABS: IDNOW Serial# 6674DD1D; Strep A Nucleic Acid Positive (Negative)
[2022-08-27 14:43] LABS: COVID-19 Test Negative (Negative); IDNOW Serial# 16C4AD1C; IDNOW Serial# BCCEAD1C; Influenza A Negative (Negative); Influenza B2 Negative (Negative)
[2022-08-27] MEDS: Lidocaine HCl Viscous 2 % 15 ML SOLUTION MUCOUS MEM (15:58)
[2022-08-27] MEDS: dexAMETHasone 4 MG TABLET PO (15:58)
[2022-08-27] MEDS: Amoxicillin/Potassium Clav 875 MG TABLET PO (16:01)
== END 2022-08-27 16:05 | disposition home or self-care (01) ==
PROVIDERS: Physician Assistant; Emergency Provider Emergency Medicine; PCP Family Medicine
DX: J02.0 Streptococcal pharyngitis (principal); M25.561 Pain in right knee; Z20.822 Contact with and (suspected) exposure to COVID-19; Z20.828 Contact with and (suspected) exposure to other viral communicable diseases
CPT/HCPCS: 73562; 87502; 87635; 87651; 99282; 99283; J8540

== ENCOUNTER 2023-05-02 09:22 | Outpatient (REF) | payer MEDICAID, SELFPAY ==
[2023-05-02 11:37] LABS: Alanine Aminotransferase 28 U/L (0-31); Albumin Level 3.8 g/dL (3.5-5.0); Alkaline Phosphatase 67 U/L (39-117); Anion Gap 11 (12-20); Aspartate Amino Transferase 22 U/L (5-31); Bilirubin Direct 0.2 mg/dL (0.0-0.5); Bilirubin Total 0.6 mg/dL (0.0-1.0); Blood Urea Nitrogen 11 mg/dL (9-16); Calcium 9.5 mg/dL (8.4-10.2); Carbon Dioxide 28 mmol/L (22-29); Chloride 103 mmol/L (96-108); Cholesterol 167 mg/dL (<200); Estimated Glomerular Filt Rate > 60; Glucose Random 138 mg/dL (60-115); HDL Cholesterol 46 mg/dL (>40); LDL Cholesterol Calculated 108 mg/dL (<100); Potassium 4.4 mmol/L (3.3-5.1); Sodium 138 mmol/L (135-145); Total Protein 7.6 g/dL (6.5-8.0); Triglycerides 69 mg/dL (<150)
[2023-05-02 12:17] LABS: Vitamin B12 360 pg/mL (200-900)
[2023-05-02 12:41] LABS: Microalbum/Creatinine Ratio Ur 4.7 ug/mg cr (<30)
[2023-05-06 12:18] LABS: VITAMIN D (1,25 OH) D3 46 pg/mL; Vit D (1,25-Dihydroxy) Total 46 pg/mL (18-72); Vitamin D (1,25 OH) D2 <8 pg/mL
== END 2023-05-02 09:23 | disposition home or self-care (01) ==
LOC: HO.HHCL 09:22
PROVIDERS: Visit Provider Family Medicine
DX: E11.9 Type 2 diabetes mellitus without complications (principal); E55.9 Vitamin D deficiency, unspecified; E53.8 Deficiency of other specified B group vitamins
CPT/HCPCS: 80048; 80061; 80076; 82043; 82570; 82607; 82652

== ENCOUNTER 2023-05-28 12:57 | Emergency (ER) | payer MEDICAID, SELFPAY ==
--- NOTE | ~2023-05-28 | XR_ITS ---
EXAMINATION: XR CHEST CLINICAL INFORMATION: Cough COMPARISON: 07/21 2020 TECHNIQUE: 2 views of the chest were obtained. FINDINGS: Allowing for technique and the patient's size, no significant abnormality is noted involving the heart, lungs, mediastinum, bony thorax or soft tissues. No infiltrates, effusions or lung masses are seen. XR/XR chest 2V IMPRESSION: No acute intrathoracic disease.
[2023-05-28 13:05] VITALS: BP 140/83; PULSE 100; RESP 19; TEMP 37; O2SAT 96; BMI 37.1
--- NOTE | 2023-05-28 13:05 | ED_ITS ---
HPI - General Adult General Chief complaint: Upper Respiratory Symptoms Stated complaint: Chest pain, cough Time Seen by Provider: 05/28/23 13:05 Source: patient, RN notes reviewed and old records reviewed Mode of arrival: ambulatory History of Present Illness HPI narrative: 52-year-old female with past medical history of sleep apnea, depression, diabetes, asthma, presenting to the ED complaining of productive cough x3 days with associated SOB, chest discomfort with cough, generalized fatigue, subjective fever, right ear pain, and sore throat. Patient was seen at urgent care yesterday prescribed Penicillin V which she has been taking without relief. Admits using inhalers at home. Admits recently travel to [place] at the beginning of this month. Denies pedal edema/calf pain. Related Data Home Medications Medication Instructions Recorded Confirmed bupropion HCl 300 mg 24 hr tablet, 450 mg PO QAM 08/01/20 01/25/22 extended release fluoxetine 20 mg capsule 40 mg PO DAILY 08/01/20 01/25/22 omeprazole 20 mg capsule,delayed 20 mg PO DAILY 08/01/20 01/25/22 release oxcarbazepine 300 mg tablet 300 mg PO QAM 08/01/20 01/25/22 multivitamin 1 tab PO DAILY 09/14/20 01/25/22 clonazepam 0.5 mg tablet (Klonopin) 0.5 mg PO DAILY 11/13/20 01/25/22 cholecalciferol (vitamin D3) 1,250 1 cap PO QWEEK 11/23/20 01/25/22 mcg (50,000 unit) capsule oxcarbazepine 600 mg tablet 600 mg PO QPM 11/23/20 01/25/22 metformin 500 mg tablet 750 mg PO DAILY 01/25/22 01/25/22 Previous Rx's Medication Instructions Recorded ibuprofen 600 mg tablet 600 mg PO Q8H PRN fever or pain 06/20/21 #20 tabs metoclopramide HCl 10 mg tablet 10 mg PO Q6H PRN nausea and 12/14/21 (Reglan) vomiting #14 tabs amoxicillin 500 mg-potassium 1 tab PO BID #19 tabs 08/27/22 clavulanate 125 mg tablet (Augmentin) prednisone 20 mg tablet 40 mg (2 x 20 mg) PO DAILY 5 days 05/28/23 #10 tabs Allergies Allergy/AdvReac Type Severity Reaction Status Date / Time No Known Allergies Allergy Verified 05/28/23 13:05 Review of Systems 2 Review of Systems: Constitutional: No Fever, No Chills, + Fatigue, No Malaise ENT/Mouth: + Ear Pain, + Nasal Congestion, + sore throat, + Rhinorrhea, No Swallowing Difficulty Eyes: No Eye Pain, No Swelling, No Redness, No Vision Changes Cardiovascular: + Chest Pain w/cough, + SOB, No Dyspnea on Exertion, No Orthopnea, No Edema, No Palpitations Respiratory: + Cough, No Sputum, + Wheezing, No Smoke Exposure, No Dyspnea Gastrointestinal: No Nausea, No Vomiting, No Diarrhea,No Constipation, No Abdominal pain Genitourinary: No Dysuria, No Urinary Frequency, No Hematuria, No Urinary Incontinence/retention, No Flank Pain Musculoskeletal: No joint pain, No Myalgias, No Joint Swelling Skin: No Skin Lesions, No rash Neuro: No Weakness, No Dizziness, No Headache Yes all other systems are reviewed and are negative Constitutional: Constitutional: Reports as per [facility] Past Medical History Attestation statement: The following information was validated with the patient. Source: old records reviewed Medical History PONV (postoperative nausea and vomiting) BMI 39.0-39.9,adult GERD (gastroesophageal reflux disease) Sleep apnea Depression Diabetes Asthma Surgical History H/O dilation and curettage History of endometrial ablation Tubal ligation status History of bladder suspension procedure Family History Family History Mother Heart disease Hypertension Liver disease Father No problems noted. Sister Asthma Blood clot in vein Brother Asthma Paralysis of left upper extremity Daughter No problems noted. Daughter No problems noted. Son Asthma Gastritis Son No problems noted. Social History Social History Alcohol intake: never Comment: medicated in pacu Patient Tobacco Use Status: Former Tobacco user Quit Date: 11/09/2020 Smoked in Last 30 Days: No Use of substances other than those prescribed or required for medical reasons: No Advance Directives: No Physical Exam ED Vital Signs: Vital Signs - 24 hr 05/28/23 13:05 Temperature 98.6 F Pulse Rate 100 Respiratory Rate 19 Blood Pressure 140/83 H Pulse Oximetry 96 Oxygen Delivery Method Room Air BMI result Body Mass Index 37.1 Const General: cooperative, healthy appearing and no acute distress Orientation/consciousness: patient oriented x3 Limitations: no limitations HENMT Head: Yes normal to inspection and Yes atraumatic Ears: hearing grossly normal bilaterally, external ears normal, TM's normal bilaterally and mastoids normal General nose exam: Normal external nose present Face and sinus: Yes normal facial exam Mouth: Normal oral and palatal mucosa present Throat: Yes posterior oropharynx normal, Yes tonsils normal, Yes uvula midline, No peritonsillar mass and No uvular edema Eyes General: appearance normal, both eyes and all related structures EOM: EOMs intact bilaterally Neck Neck: Yes normal visual inspection and Yes no meningeal signs Resp Effort & Inspection: normal respiratory effort, no respiratory distress and no stridor Auscultation: clear to auscultation bilaterally, no crackles, no rales, no rhonchi and no wheezes Cardio Rate: regular rate Heart sounds: S1 normal heart sound present and S2 normal heart sound present GI Inspection: Yes normal to inspection Palpation (GI): Soft to palpation, nontender, no guarding and not rigid General: Yes no CVA tenderness Back/Spine/Pelvis Back: no CVA tenderness Skin Rashes: no rashes Wounds: no wounds Neuro General: patient oriented x3, tone normal and no meningeal signs Cranial nerves: Yes CN's II-XII intact bilaterally Gait exam (Neuro): Normal gait present Extrem General: Yes normal to inspection, Yes no pedal edema and Yes no calf tenderness Course Course Course Narrative: This is an RME: Additional HPI, ROS, PE not included below will be deferred to primary provider. This is a 24-[id number]-fez-female, with a hx of asthma, depression, diabetes, GERD, and sleep apnea, presenting to the emergency department with complaints of productive cough x 1 week, subjective fevers x 2 days. Was started on Augmentin 2 days ago but feeling worse. Plan: Labs, EKG, CXR, viral swabs -2018--no leukocytosis, troponin negative. COVID/FLU/RSV negative XR chest 2V IMPRESSION: No acute intrathoracic disease. Results discussed with patient including worrisome signs and symptoms and strict return precautions, and when to return to the emergency department. They verbalized understanding and feel safe for discharge at this time. Medications Administered Discontinued Medications Generic Name Dose Route Start Last Admin Trade Name Ava PRN Reason Stop Dose Admin Albuterol Sulfate 4 puff 05/28/23 19:38 05/28/23 20:05 Albuterol Sulfate 90 Mcg 8 Gm Inhaler INHALE 05/28/23 19:39 4 puff ONCE ONE Administration Benzonatate 100 mg 05/28/23 19:38 05/28/23 20:05 Benzonatate 100 Mg Capsule PO 05/28/23 19:39 100 mg ONCE ONE Administration Hydrocodone Bit/Homatropine Methylb 5 ml 05/28/23 19:38 05/28/23 20:05 Hydrocodone/Homat 5/1.5/5 Ml 5 Ml Syrup PO 05/28/23 19:39 5 ml ONCE ONE Administration Medical Decision Making Medical Decision Making [facility] Narrative: 52-year-old female with past medical history of sleep apnea, depression, diabetes, asthma, presenting to the ED complaining of productive cough x3 days with associated SOB, chest discomfort with cough, generalized fatigue, subjective fever, right ear pain, and sore throat. On exam vital signs stable, NAD, forceful dry cough noted, lungs CTA, oropharynx WNL, TMs WNL. No pitting edema or calf tenderness. Concern for viral illness vs bronchitis/pneumonia vs asthma exacerbation. Lower suspicion for ACS/PE. No evidence of strep pharyngitis/otitis Plan: EKG, labs, viral testing, albuterol inhaler, Tesjoycelynon Adolfo [place] Please refer to course for remaining clinical decision making, interpretation of labs/imaging results, and discussions with consultants and/or family members. Differential Diagnosis Differential Diagnoses: The differential diagnosis associated with the presentation includes As above Admission/Observation Consideration of admission/observation: Escalation of care including admission/observation considered Lab Data [facility] Lab Attestation statement: I reviewed the patient's lab results. 05/28/23 14:02 05/28/23 14:02 Labs: Lab Results 05/28/23 Range/Units 14:02 WBC 7.1 (4.8-10.8) X10*3/uL RBC 4.63 (4.20-5.50) X10*6/uL Hgb 14.3 (12.0-16.0) g/dl Hct 42.2 (37.0-47.0) % MCV 91.1 (80.0-98.0) fL MCH 30.9 (27.0-33.0) pg MCHC 33.9 (31.0-35.0) g/dl RDW 12.9 (11.0-16.0) % Plt Count 240 (160-400) X10*3/uL MPV 10.1 (9.4-12.3) fL Immature Gran % (Auto) 0.1 (0.0-0.4) % Neut % (Auto) 62.2 (45-73) % Lymph % (Auto) 23.9 (20-40) % [place] % (Auto) 11.0 (2-11) % Eos % (Auto) 2.1 (0-4) % Baso % (Auto) 0.7 (0-2) % Lymph # (Auto) 1.7 (1.2-4.9) X10*3/uL [place] # (Auto) 0.8 (0.1-1.2) X10*3/uL Eos # (Auto) 0.2 (0.0-0.4) X10*3/uL Baso # (Auto) 0.1 (0.0-0.2) X10*3/uL Abs Immat Gran (auto) 0.01 (0.00-0.03) X10*3/uL Absolute Neuts (auto) 4.4 (2.0-8.3) x10*3/uL Absolute Nucleated RBC 0.000 (0.0-0.012) X10*3/uL Nucleated RBC % (auto) 0.0 (0.0-0.2) /100WBC Sodium 137 (135-145) mmol/L Potassium 3.7 (3.3-5.1) mmol/L Chloride 104 (96-108) mmol/L Carbon Dioxide 28 (22-29) mmol/L Anion Gap 9 L (12-20) BUN 7 L (9-16) mg/dL Creatinine 0.57 (0.5-1.4) mg/dL Estim Creat Clear Calc 123.3 Estimated GFR > 60 Random Glucose 87 (60-115) mg/dL Calcium 9.2 (8.4-10.2) mg/dL Troponin I High Sens < 2.7 (<3.5-17.0) ng/L Influenza Type A (PCR) NEGATIVE (Negative) Influenza Type B (PCR) NEGATIVE (Negative) RSV RNA Qual (PCR) NEGATIVE (Negative) SARS-CoV-2 RNA (RT-PCR) NEGATIVE (Negative) Independent Interpretation I performed an independent interpretation of an: EKG (My interpretation EKG normal sinus rhythm rate of 78. QRS 84. QTC 424. No STEMI) and Plain X-Ray Radiology Impression Discussion of test interpretation with radiology: I have reviewed the radiologist's reading. External Record Review External record reviewed: Inpatient record, Office record, Outpatient record, Prior outpatient labs, Prior outpatient radiology, Primary care record and Outside ED record Tests considered The following testing was considered but not selected: As above Chronic Conditions Patient?s care impacted by: Other (asthma) Discharge Plan Discharge Clinical Impression: Acute viral syndrome Patient Disposition: Home, Self-Care Instructions: Viral Syndrome (ED) Additional Instructions: You tested negative for COVID, flu, RSV. Her x-ray does not show pneumonia Her blood work is reassuring Continue taking previously prescribed medications In addition take prednisone Please have close follow-up with her doctor Is symptoms persist or worsen return to the ED Tu prueba fue negativa para COVID, gripe, RSV. Hong radiograf?a no muestra neumon?a. Hong an?lisis de alyssa es tranquilizador. Continuar tomando medicamentos previamente recetados. Adem?s tome prednisona Por favor tenga un seguimiento estrecho con hong m?dico. ?Los s?ntomas persisten o empeoran? Regrese al servicio de urgencias. Prescriptions: New prednisone 20 mg tablet 40 mg PO DAILY 5 Days Qty: 10 0RF No Action oxcarbazepine 600 mg Tablet 600 mg PO QPM cholecalciferol (vitamin D3) 1,250 mcg (50,000 unit) capsule 1 cap PO QWEEK ibuprofen 600 mg tablet 600 mg PO Q8H PRN (Reason: fever or pain) Qty: 20 0RF amoxicillin-pot clavulanate [Augmentin] 500-125 mg tablet 1 tab PO BID Qty: 19 0RF metoclopramide HCl [Reglan] 10 mg tablet 10 mg PO Q6H PRN (Reason: nausea and vomiting) Qty: 14 0RF omeprazole 20 mg capsule,delayed release(DR/EC) 20 mg PO DAILY bupropion HCl 300 mg tablet extended release 24 hr 450 mg PO QAM oxcarbazepine 300 mg tablet 300 mg PO QAM fluoxetine 20 mg capsule 40 mg PO DAILY metformin 500 mg tablet 750 mg PO DAILY multivitamin Tablet 1 tab PO DAILY clonazepam [Klonopin] 0.5 mg tablet 0.5 mg PO DAILY Referrals: [facility] [Primary Care Provider] - 5 days Interventions: ED Discharge Assessment Last Done: 05/28/23 20:27 Discharge Date/Time: 05/28/23 20:28 Print Language: Zambian
--- NOTE | 2023-05-28 13:08 | ECG_ITS ---
Test Reason : CHEST PAIN Blood Pressure : / mmHG Vent. Rate : 078 BPM Atrial Rate : 078 BPM P-R Int : 140 ms QRS Dur : 084 ms QT Int : 372 ms P-R-T Axes : 023 022 029 degrees QTc Int : 424 ms Normal sinus rhythm Normal ECG When compared with ECG of 13-SEP-2020 08:59, No significant change was found Referred By: Halie Swann Electronically Signed By:KINSEY COOMBS MD
[2023-05-28 14:05] LABS: MANUAL DIFF FLAG NO
[2023-05-28 14:06] LABS: Basophils Absolute Auto 0.1 X10*3/uL (0.0-0.2); Basophils Percent Auto 0.7 % (0-2); Eosinophils Absolute Auto 0.2 X10*3/uL (0.0-0.4); Eosinophils Percent Auto 2.1 % (0-4); Hematocrit 42.2 % (37.0-47.0); Hemoglobin 14.3 g/dl (12.0-16.0); Imm Gran Abs Auto 0.01 X10*3/uL (0.00-0.03); Imm Gran Pct Auto 0.1 % (0.0-0.4); Lymphocytes Absolute Auto 1.7 X10*3/uL (1.2-4.9); Lymphocytes Percent Auto 23.9 % (20-40); Mean Corpuscular HGB Conc 33.9 g/dl (31.0-35.0); Mean Corpuscular Hemoglobin 30.9 pg (27.0-33.0); Mean Corpuscular Volume 91.1 fL (80.0-98.0); Mean Platelet Volume 10.1 fL (9.4-12.3); Monocytes Absolute Auto 0.8 X10*3/uL (0.1-1.2); Neutrophils Absolute Auto 4.4 x10*3/uL (2.0-8.3); Neutrophils Percent Auto 62.2 % (45-73); Platelet Count 240 X10*3/uL (160-400); Red Blood Count 4.63 X10*6/uL (4.20-5.50); Red Cell Distribution Width 12.9 % (11.0-16.0); White Blood Count 7.1 X10*3/uL (4.8-10.8)
[2023-05-28 14:20] LABS: Anion Gap 9 (12-20); Blood Urea Nitrogen 7 mg/dL (9-16); Calcium 9.2 mg/dL (8.4-10.2); Carbon Dioxide 28 mmol/L (22-29); Chloride 104 mmol/L (96-108); Creatinine Clr Calc Pharmacy 123.3; Estimated Glomerular Filt Rate > 60; Glucose Random 87 mg/dL (60-115); Potassium 3.7 mmol/L (3.3-5.1); Sodium 137 mmol/L (135-145)
[2023-05-28 14:42] LABS: Influenza A PCR NEGATIVE (Negative); Influenza B PCR NEGATIVE (Negative); Resp Syncy Virus RNA Qual PCR NEGATIVE (Negative); SARS COV2 PCR INHOUSE NEGATIVE (Negative)
[2023-05-28] MEDS: Benzonatate 100 MG CAPSULE PO (20:05)
[2023-05-28] MEDS: Albuterol Sulfate 90 MCG 8 GM INHALER 4 PUFF INHALE (20:05)
[2023-05-28] MEDS: HYDROcodone/Homat 5/1.5/5 ML 5 ML SYRUP PO (20:05)
[2023-05-28 20:07] LABS: Troponin-I High Sensitivity < 2.7 ng/L (<3.5-17.0)
== END 2023-05-28 20:28 | disposition home or self-care (01) ==
PROVIDERS: Physician Assistant; Physician Assistant Medical; Emergency Provider Emergency Medicine
DX: B34.9 Viral infection, unspecified (principal); R07.89 Other chest pain; R05.9 Cough, unspecified; Z20.822 Contact with and (suspected) exposure to COVID-19; Z20.828 Contact with and (suspected) exposure to other viral communicable diseases; Z79.899 Other long term (current) drug therapy
CPT/HCPCS: 0241U; 71046; 80048; 84484; 85025; 93005; 99284

== ENCOUNTER 2023-07-25 11:06 | Outpatient (REF) | payer MEDICAID, SELFPAY ==
[2023-07-28 04:19] LABS: ~HepC Num1 0.22 S/CO (0.00-0.79); ~Hepatitis C Antibody Nonreactive (Nonreactive)
[2023-07-28 04:38] LABS: HIV AB/AG Nonreactive (Nonreactive); HIV Num 1 0.06 S/CO (0.00-0.99)
[2023-07-28 12:38] LABS: TS Negative Control Passed; TS Panel A 0; TS Panel B 0; TS Positive Control Passed; TSpotTB Negative (Negative)
== END 2023-07-25 11:07 | disposition home or self-care (01) ==
LOC: HO.HHCL 11:06
PROVIDERS: Visit Provider Nurse Practitioner Primary Care
DX: R61 Generalized hyperhidrosis (principal); R23.2 Flushing
CPT/HCPCS: 36415; 84443; 86481; 86803; 87389

== ENCOUNTER 2023-08-12 10:04 | Outpatient (AMB) | payer MEDICAID, SELFPAY ==
[2023-08-12 10:07] VITALS: BP 124/78; PULSE 86; BMI 39.5
--- NOTE | 2023-08-12 10:07 | MHC.OFFVIS ---
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 Intake Note: New patient chest discomfort c/o have chest pain at times not now Oil Speculator Required: Yes Oil Speculator Name: Murali olson Zyglo Inspector: Zyglo Inspector Present Accompanied by: Friend Allergies No Known Allergies Allergy (Verified 05/28/23 13:05) Medication List - Last Reconciled 08/12/23 by Jw Maki MD bupropion HCl 450 mg PO QAM cholecalciferol (vitamin D3) 1 cap PO QWEEK clonazepam (Klonopin) 0.5 mg PO DAILY dulaglutide (Trulicity) mg subcut QWEEK fluoxetine 40 mg PO DAILY ibuprofen 600 mg PO Q8H PRN lisinopril 5 mg PO QPM metformin 750 mg PO DAILY metoclopramide HCl (Reglan) 10 mg PO Q6H PRN multivitamin 1 tab PO DAILY omeprazole 20 mg PO DAILY oxcarbazepine 600 mg PO QPM oxcarbazepine 300 mg PO QAM HPI HPI Comments History of Present Illness Details Thank you for referring carbonate in cardiology consultation today for symptoms of exertional chest pain. 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 However said for the last 6 months when she gets agitated/under emotional stress and also with walking she would get retrosternal chest tightness along with shortness of breath and palpitations. This symptoms are concerning her as she says her mother had myocardial infarction in her 50s. She is multiple risk factors including diabetes, hypertension, hyperlipidemia for few years. These are well controlled. On further enquiring whether she has had any symptoms at rest she is very vague and not able to provide me with accurate history. She denies any symptoms of orthopnea, PND, leg edema. She also complains of symptoms of rapid heart rate when she gets agitated. She takes all her medications regularly. [facility] Medical History PONV (postoperative nausea and vomiting) BMI 39.0-39.9,adult GERD (gastroesophageal reflux disease) Sleep apnea Depression Diabetes Asthma Surgical History H/O dilation and curettage History of endometrial ablation Tubal ligation status History of bladder suspension procedure Family History Mother Heart disease Hypertension Liver disease Father No problems noted. Sister Asthma Blood clot in vein Brother Asthma Paralysis of left upper extremity Daughter No problems noted. Daughter No problems noted. Son Asthma Gastritis Son No problems noted. Social History Alcohol intake: never Comment: medicated in pacu Patient Tobacco Use Status: Former Tobacco user Quit Date: 11/09/2020 Female Reproductive History Menstrual Age of Menarche: 15 Review of Systems Const Denies chills, Denies daytime sleepiness, Denies fatigue, Denies fever(s), Denies frequent falls, Denies poor appetite, Denies snoring, Denies stops breathing during sleep, Denies weakness, Denies weight gain and Denies weight loss Eyes Denies loss of vision ENT Denies dizziness and Denies hearing loss Card Denies chest pain, Denies claudication, Denies leg edema, Denies lightheadedness, Denies palpitations, Denies dyspnea, Denies dyspnea on exertion and Denies orthopnea Resp Denies cough, Denies excessive phlegm production, Denies dyspnea, Denies dyspnea on exertion, Denies snoring and Denies wheezing GI Denies abdominal pain, Denies hematochezia, Denies change in bowel habits, Denies nausea and Denies vomiting Denies urinary frequency and Denies dysuria Musc Denies arthralgias, Denies muscle weakness, Denies numbness and Denies other (frequent falls) Skin/Breast Denies nail changes and Denies rash Neuro Denies Abnormal speech present, Denies dizziness, Denies frequent falls, Denies loss of vision, Denies memory loss, Denies numbness and Denies weakness Psych Denies depression and Denies memory loss Endo Denies fatigue and Denies palpitations Warren/Lymph Reports easy bruising and Reports other (anemia) Aller/Immun Denies wheezing Physical Exam Vital Signs: Last Vital Signs Pulse 86 08/12/23 10:07 BP 124/78 08/12/23 10:07 BMI result Body Mass Index 39.5 Const General: cooperative, comfortable, no acute distress, alert, awake and Physically active Nutritional Appearance: obese centrally obese Orientation/consciousness: patient oriented x3 Limitations: no limitations HEENT Head: Yes normocephalic and Yes atraumatic Neck Neck: Yes trachea midline, Yes supple and Yes no JVD Resp Effort & Inspection: normal respiratory effort Auscultation: clear to auscultation bilaterally Cardio Jugular venous distension: no JVD Palpation: normal PMI Rate: regular rate Rhythm: regular rhythm Heart sounds: S1 normal heart sound present, S2 normal heart sound present, no click, no gallops, no murmurs and no rubs GI Inspection: Yes obesity Auscultation: normal bowel sounds Skin General skin exam: no rashes or lesions noted Neuro General: patient oriented x3 and no focal motor deficits Speech: No Abnormal speech present Extrem General: Yes no clubbing, cyanosis or edema Assessment & Plan Assessment & Plan (1) Exertional chest pain: Code(s): R07.9 - Chest pain, unspecified Plan: Exertional chest pain in this middle-aged woman with multiple risk factors including family history, hypertension, hyperlipidemia as well as diabetes and obesity as well as intermittent smoking. Myocardial ischemia definitely is a concern. Would suggest her to undergo exercise myocardial perfusion imaging to further assess for her symptoms and guide further workup and/therapeutic options. For now I am not starting or any pharmacotherapy unless we have an definitive diagnosis. Also suggest an echocardiogram to evaluate for pulmonary hypertension and/or LV systolic and diastolic function hypertensive heart disease. These tests will be scheduled in near future further treatment based on the findings of test results. Meanwhile continue aggressive risk factor modification with continued participate in aggressive weight loss as well as management of diabetes goal hemoglobin A1c less than 7%, goal LDL less than 70 mg/dL. Blood pressure is well optimized at this point time. (2) Palpitations: Code(s): R00.2 - Palpitations Plan: Symptoms of palpitations may be related to excessive sinus tachycardia related to exercise due to deconditioning and/or atrial fibrillation needs to be ruled out. Will suggest a 48 hour Holter monitor to further assess for symptoms. Further treatment based on the findings. Avoidance of stimulants was discussed. Stress mitigation strategies were discussed. Would avoid pharmacotherapy at this point in time. Will follow up in the clinic in 6 weeks time, sooner p.r.n.. Thank you for allowing me to partake in her care Orders: Orders ECG holter monitor 48 hour Today R00.2 - Palpitations NM cardiolite stress test 1 Day R07.9 - Chest pain, unspecified CA stress test 1 Day R07.9 - Chest pain, unspecified CA echo transthoracic complete Today R07.9 - Chest pain, unspecified Coding Level of Care Code New Pt Level 4 (53572) Diagnoses Exertional chest pain R07.9 Palpitations R00.2
== END 2023-08-12 11:12 | disposition home or self-care (01) ==
PROVIDERS: Visit Provider Internal Medicine Cardiovascular Disease
DX: R07.9 Chest pain, unspecified (principal); R00.2 Palpitations
CPT/HCPCS: 99204

== ENCOUNTER → 2023-08-12 10:04 | Outpatient (BNVA) | payer MEDICAID, SELFPAY | PROVIDERS: Visit Provider Internal Medicine Cardiovascular Disease | DX: R07.9 Chest pain, unspecified (principal); R00.2 Palpitations | CPT/HCPCS: 99202 ==

== ENCOUNTER → 2023-09-12 08:08 | Outpatient (REF) | payer MEDICAID, SELFPAY ==
--- NOTE | 2023-09-12 08:14 | CA_ITS ---
Transthoracic Echocardiogram Patient (Last, First, Middle): Citlali Clancy, Gender: Female Date of : 1970 Age: 53 Procedure Date: 09/12/2023 Procedure Type: Transthoracic Echocardiogram Location: OP Height: 162.56 cm Weight: 96.16 kg BSA: 2.01 m2 Heart Rate: 83 bpm BP: 110 / 75 mmHg Manager Estate: MAGDALENO Referring MD: Jw Maki MD Tool Machinist: Jw Maki MD Symptoms: R07.9 - Chest pain, unspecified Study Quality: Fair ECG Rhythm: Sinus Conclusions: - Essentially normal study Findings Left Ventricle Normal left ventricular size, thickness, and systolic function. The visually estimated ejection fraction is between 55-60%. Spectral Doppler is indicative of a normal filling pattern. Peak GLS is -18.6%, within normal limits. Right Ventricle Normal right ventricular cavity size and systolic function. Atria Both atria are normal in size. Interatrial shunt cannot be excluded. Aortic Valve Normal aortic valve structure and function. There is no aortic valve stenosis. There is no aortic valve regurgitation. Mitral Valve Normal mitral valve structure and function. There is trace mitral valve regurgitation. There is no mitral valve stenosis. Pulmonic Valve The pulmonic valve is likely normal. Tricuspid Valve Normal tricuspid valve structure. There is trace tricuspid valve regurgitation. The right ventricular systolic pressure is normal. The right ventricular systolic pressure is 20 mmHg. Normal right atrial pressure. There is no evidence of pulmonary hypertension. Great Vessels The pulmonary artery was not well visualized. There is no dilatation of the ascending aorta measuring 3.20 cm. Venous The inferior vena cava is normal in size and collapses greater than 50% with inspiration. Pericardium/Pleural There is no evidence of pericardial effusion. Measurements 2D Linear Measurements IVSd: 0.79 0.6-0.9/0.6-1.0 cm LVIDd: 4.40 3.9-5.3/4.2-5.9 cm LVIDd Index: 2.19 2.4-3.2/2.2-3.1 cm/m2 LVIDs: 2.77 2.0-3.6 cm LVPWd: 0.87 0.7-1.1 cm LA Diam: 3.50 2.7-3.8/3.0-4.0 cm LAIDs Index: 1.74 1.5-2.3 cm/m2 LV Mass: 142.63 67-162/88-224 g LV Mass Index: 70.96 43-95/49-115 g/m2 LVOT Diam: 2.00 3.0+(-)1.3 cm 2D Systolic Function EF 4C: 51.30 >55% EF 2C: 56.30 >55% EF BiP: 55.20 >55% Mitral Valve MV Pk E: 0.72 MV PK A: 0.50 MV Decel Time: 231.00 E/A: 1.40 E'Lateral: 9.25 E'Medial: 4.57 E/E' Med: 15.80 E/E' Lat: 7.80 PHT: 68.00 MVA PHT: 3.24 Decel [place]: 3.12 Aortic Valve AoV Pk Esequiel: 1.40 AoV Mn Esequiel: 1.00 AoV VTI: 0.28 AoV Pk Grad: 8.00 Aov Mn Grad: 4.00 SMITA Cont.VTI: 2.34 LVOT LVOT Pk Esequiel: 1.03 LVOT Mn Esequiel: 0.70 LVOT VTI: 0.21 LVOT Pk Grad: 4.00 LVOT Mn Grad: 2.00 LVOT Diam: 2.00 LVOT Area: 3.14 Diastolic Function MV Pk E: 0.72 MV Pk A: 0.50 E/A: 1.40 E'Medial: 4.57 E/E' Med: 15.80 E' Laterial: 9.25 E/E' Lat: 7.80 Right Ventricle TAPSE (mm): 20.80 TVS' Esequiel: 9.79 Tricuspid Valve TR Pk Esequiel: 2.04 TR Pk Grad: 17.00 RA Press: 3.00 RVSP: 20.00 Great Vessels Aorta Sinus of Valsalva: 3.20 2.0-3.5 cm Ao Asc: 3.20 2.1-3.4 cm Pulmonary Valve PV Pk Esequiel: 1.13 Peak PV Grad: 5.00 Updated in Other Vendor System with Status of Final Jw Maki MD electronically signed on 09/13/2023 12:29:42 PM with status of Final
--- NOTE | 2023-09-12 08:14 | HM_ITS ---
* Total monitoring time 2 days. * Underlying rhythm is sinus an average rate of 88/Min. Range 68 to 120/Min. * Rare supraventricular ectopy. * No significant pauses or AV blocks. * No patient markers or diary events. MTDD
== END ==
LOC: HO.CARD 08:08
PROVIDERS: PCP Family Medicine; Visit Provider Internal Medicine Cardiovascular Disease
DX: R07.9 Chest pain, unspecified (principal); R00.2 Palpitations
CPT/HCPCS: 93225; 93306; 93356

== ENCOUNTER → 2023-09-12 08:14 | Outpatient (BNV) | payer MEDICAID, SELFPAY | PROVIDERS: PCP Family Medicine; Visit Provider Internal Medicine Cardiovascular Disease | DX: R00.2 Palpitations (principal) | CPT/HCPCS: 93227; 93306; 93356 ==

== ENCOUNTER 2024-12-19 20:45 | Emergency (ER) | payer MEDICAID, SELFPAY ==
--- NOTE | 2024-12-19 | ECG_ITS ---
Test Reason : nausea chest pain Blood Pressure : */* mmHG Vent. Rate : 76 BPM Atrial Rate : 76 BPM P-R Int : 142 ms QRS Dur : 88 ms QT Int : 376 ms P-R-T Axes : 22 20 35 degrees QTcB Int : 423 ms Normal sinus rhythm Normal ECG When compared with ECG of 28-May-2023 13:52, No significant change was found Referred By: Generic ED Physician Electronically Signed By: ASYA BANKS
--- NOTE | ~2024-12-19 | CT_ITS ---
CLINICAL HISTORY: Left-sided pain etiology?? CT abdomen and pelvis without contrast Comparison: None provided Findings: Small hiatal hernia. Evaluation of the parenchymal organs is limited by the lack of intravenous contrast, however, the liver, gallbladder, spleen, pancreas, kidneys and adrenal glands are normal in appearance. No bowel obstruction, pneumoperitoneum, or pneumatosis. No ascites. Uterus is absent. Tiny fat containing umbilical hernia. Adnexa unremarkable. Appendix is normal. No acute fracture. No lytic or blastic bone lesions. IMPRESSION: No acute findings. No explanation for left-sided pain. This document has been electronically signed by: Mitch Wynn MD on 12/20/2024 01:52:33
[2024-12-19 21:30] VITALS: BP 131/86; PULSE 84; RESP 18; TEMP 36.7; O2SAT 96; BMI 39.2
[2024-12-19 22:09] LABS: MANUAL DIFF FLAG NO
[2024-12-19 22:11] LABS: Basophils Percent Auto 0.4 % (0-2); Eosinophils Absolute Auto 0.1 X10*3/uL (0.0-0.4); Eosinophils Percent Auto 0.7 % (0-4); Hematocrit 45.2 % (37.0-47.0); Hemoglobin 15.6 g/dl (12.0-16.0); Imm Gran Abs Auto 0.02 X10*3/uL (0.00-0.03); Imm Gran Pct Auto 0.3 % (0.0-0.4); Lymphocytes Absolute Auto 1.4 X10*3/uL (1.2-4.9); Lymphocytes Percent Auto 19.6 % (20-40); Mean Corpuscular HGB Conc 34.5 g/dl (31.0-35.0); Mean Corpuscular Hemoglobin 30.9 pg (27.0-33.0); Mean Corpuscular Volume 89.5 fL (80.0-98.0); Mean Platelet Volume 10.6 fL (9.4-12.3); Monocytes Absolute Auto 0.5 X10*3/uL (0.1-1.2); Monocytes Percent Auto 6.6 % (2-11); Neutrophils Absolute Auto 5.3 x10*3/uL (2.0-8.3); Neutrophils Percent Auto 72.4 % (45-73); Platelet Count 232 X10*3/uL (160-400); Red Blood Count 5.05 X10*6/uL (4.20-5.50); Red Cell Distribution Width 13.2 % (11.0-16.0); White Blood Count 7.3 X10*3/uL (4.8-10.8)
[2024-12-19 22:26] LABS: Alanine Aminotransferase 85 U/L (0-31); Albumin Level 4.2 g/dL (3.5-5.0); Alkaline Phosphatase 85 U/L (39-117); Anion Gap 13 (12-20); Aspartate Amino Transferase 58 U/L (5-31); Bilirubin Direct 0.2 mg/dL (0.0-0.5); Bilirubin Total 0.6 mg/dL (0.0-1.0); Blood Urea Nitrogen 14 mg/dL (9-16); Calcium 9.8 mg/dL (8.4-10.2); Carbon Dioxide 26 mmol/L (22-29); Chloride 104 mmol/L (96-108); Creatinine Clr Calc Pharmacy 104.1; Estimated Glomerular Filt Rate > 60; Glucose Random 211 mg/dL (60-115); Lipase 18 U/L (8-78); Sodium 139 mmol/L (135-145); Total Protein 7.9 g/dL (6.5-8.0)
--- NOTE | 2024-12-20 00:52 | ED.GENADULT ---
HPI - General Adult General Chief complaint: General Medical Stated complaint: adb pain/high blood pressure and headache Time Seen by Provider: 12/20/24 00:52 Source: patient Mode of arrival: ambulatory Limitations: no limitations History of Present Illness ED Provider: HPI narrative: Patient comes here for nausea for 3 days and left lower abdominal pain noted to have elevated blood sugar at home of 298 no fever no chills no urinary symptoms patient is taking Trulicity and metformin Related Data Home Medications ?Medication ?Instructions ?Recorded ?Confirmed bupropion HCl 300 mg 24 hr tablet, 450 mg PO QAM 08/01/20 08/12/23 extended release fluoxetine 20 mg capsule 40 mg PO DAILY 08/01/20 08/12/23 omeprazole 20 mg capsule,delayed 20 mg PO DAILY 08/01/20 08/12/23 release oxcarbazepine 300 mg tablet 300 mg PO QAM 08/01/20 08/12/23 multivitamin 1 tab PO DAILY 09/14/20 08/12/23 clonazepam 0.5 mg tablet (Klonopin) 0.5 mg PO DAILY 11/13/20 08/12/23 cholecalciferol (vitamin D3) 1,250 1 cap PO QWEEK 11/23/20 08/12/23 mcg (50,000 unit) capsule oxcarbazepine 600 mg tablet 600 mg PO QPM 11/23/20 08/12/23 metformin 500 mg tablet 750 mg PO DAILY 01/25/22 08/12/23 dulaglutide 0.75 mg/0.5 mL mg subcut QWEEK 08/12/23 08/12/23 subcutaneous pen injector (Trulicity) lisinopril 5 mg tablet 5 mg PO QPM 08/12/23 08/12/23 Previous Rx's ?Medication ?Instructions ?Recorded ibuprofen 600 mg tablet 600 mg PO Q8H PRN fever or pain 06/20/21 #20 tabs metoclopramide HCl 10 mg tablet 10 mg PO Q6H PRN nausea and 12/14/21 (Reglan) vomiting #14 tabs dicyclomine 20 mg tablet 20 mg PO TID #20 tabs 12/20/24 ondansetron 4 mg disintegrating 4 mg PO Q6-8H PRN nausea and 12/20/24 tablet vomiting #7 tabs Allergies Allergy/AdvReac Type Severity Reaction Status Date / Time No Known Allergies Allergy Verified 12/19/24 21:31 Review of Systems Review of Systems: Yes all other systems are reviewed and are negative [facility] Past Medical History Medical History PONV (postoperative nausea and vomiting) BMI 39.0-39.9,adult GERD (gastroesophageal reflux disease) Sleep apnea Depression Diabetes Asthma Surgical History H/O dilation and curettage History of endometrial ablation Tubal ligation status History of bladder suspension procedure Family History Family History Mother Heart disease Hypertension Liver disease Father No problems noted. Sister Asthma Blood clot in vein Brother Asthma Paralysis of left upper extremity Daughter No problems noted. Daughter No problems noted. Son Asthma Gastritis Son No problems noted. Social History Social History Alcohol intake: never Comment: medicated in pacu Patient Tobacco Use Status: Former Tobacco user Physical Exam ED Vital Signs: Vital Signs - 24 hr 12/19/24 21:30 Temperature 98.1 F Pulse Rate 84 Respiratory Rate 18 Blood Pressure 131/86 Pulse Oximetry 96 Oxygen Delivery Method Room Air BMI result Body Mass Index 39.2 Appearance: Alert. Oriented X3. No acute distress. Eyes: PERRLA, No Nystagmus ENT: Pharynx normal. Oral Mucosa moist Neck: Normal inspection. Neck supple. CVS: Normal heart rate and rhythm. Pulses normal. Respiratory: No respiratory distress. Equal air entry bilateral, no wheezing/rales/rhonchi Abdomen: Soft and mild deep tenderness left lower quadrant Bowel sounds are present, no mass palpable, no CVA tenderness Skin: Skin warm and dry. Normal skin color. Normal skin turgor. Extremities: No lower extremity edema. No calf tenderness Neuro: Oriented X 3. No motor deficit. Medications Administered Discontinued Medications Generic Name Dose Route Start Last Admin Trade Name Freq PRN Reason Stop Dose Admin Dicyclomine HCl 20 mg 12/20/24 03:28 12/20/24 03:38 Dicyclomine Hcl 10 Mg Capsule PO 12/20/24 03:29 20 mg ONCE ONE Administration Sodium Chloride 1,000 mls @ 999 mls/hr 12/20/24 00:53 12/20/24 02:32 Ns IV 12/20/24 01:53 Infused .Q1H1M ONE Infusion Morphine Sulfate 4 mg 12/20/24 00:53 12/20/24 01:32 Morphine Sulfate 4 Mg/Ml Cartridge IVPUSH 12/20/24 00:54 4 mg ONCE ONE Administration Protocol Ondansetron HCl 4 mg 12/20/24 00:53 12/20/24 01:32 Ondansetron Hcl 4 Mg/2 Ml Vial IVPUSH 12/20/24 00:54 4 mg ONCE ONE Administration Medical Decision Making Medical Decision Making [facility] Narrative: Patient nonspecific lower abdominal pain CT scan labs are negative patient does have nausea and slight loose bowels gastroenteritis likely the cause for the pain Differential Diagnosis Differential Diagnoses: The differential diagnosis associated with the presentation includes Gastroenteritis slight diverticulitis/UTI/kidney stone Lab Data [facility] Lab Attestation statement: I reviewed the patient's lab results. 12/19/24 21:56 12/19/24 21:56 Labs: Lab Results 12/19/24 Range/Units 21:56 WBC 7.3 (4.8-10.8) X10*3/uL RBC 5.05 (4.20-5.50) X10*6/uL Hgb 15.6 (12.0-16.0) g/dl Hct 45.2 (37.0-47.0) % MCV 89.5 (80.0-98.0) fL MCH 30.9 (27.0-33.0) pg MCHC 34.5 (31.0-35.0) g/dl RDW 13.2 (11.0-16.0) % Plt Count 232 (160-400) X10*3/uL MPV 10.6 (9.4-12.3) fL Immature Gran % (Auto) 0.3 (0.0-0.4) % Neut % (Auto) 72.4 (45-73) % Lymph % (Auto) 19.6 L (20-40) % [place] % (Auto) 6.6 (2-11) % Eos % (Auto) 0.7 (0-4) % Baso % (Auto) 0.4 (0-2) % Lymph # (Auto) 1.4 (1.2-4.9) X10*3/uL [place] # (Auto) 0.5 (0.1-1.2) X10*3/uL Eos # (Auto) 0.1 (0.0-0.4) X10*3/uL Baso # (Auto) 0.0 (0.0-0.2) X10*3/uL Abs Immat Gran (auto) 0.02 (0.00-0.03) X10*3/uL Absolute Neuts (auto) 5.3 (2.0-8.3) x10*3/uL Absolute Nucleated RBC 0.000 (0.0-0.012) X10*3/uL Nucleated RBC % (auto) 0.0 (0.0-0.2) /100WBC Sodium 139 (135-145) mmol/L Potassium 4.0 (3.3-5.1) mmol/L Chloride 104 (96-108) mmol/L Carbon Dioxide 26 (22-29) mmol/L Anion Gap 13 (12-20) BUN 14 (9-16) mg/dL Creatinine 0.68 (0.5-1.4) mg/dL Estim Creat Clear Calc 104.1 Estimated GFR > 60 Random Glucose 211 H (60-115) mg/dL Calcium 9.8 D (8.4-10.2) mg/dL Total Bilirubin 0.6 (0.0-1.0) mg/dL Direct Bilirubin 0.2 (0.0-0.5) mg/dL AST 58 H (5-31) U/L ALT 85 H (0-31) U/L Alkaline Phosphatase 85 (39-117) U/L Total Protein 7.9 (6.5-8.0) g/dL Albumin 4.2 (3.5-5.0) g/dL Lipase 18 (8-78) U/L Radiology Impression Discussion of test interpretation with radiology: I have reviewed the radiologist's reading. Radiologist Impression: No acute finding Discharge Plan Discharge Clinical Impression: Gastroenteritis Patient Disposition: Home, Self-Care Instructions: Acute Nausea and Vomiting (ED) Additional Instructions: Drink plenty of fluids Medicine for abdominal pain and nausea as prescribed Follow up with your PCP if not better Prescriptions: New dicyclomine 20 mg tablet 20 mg PO TID Qty: 20 0RF ondansetron 4 mg tablet,disintegrating 4 mg PO Q6-8H PRN (Reason: nausea and vomiting) Qty: 7 0RF No Action oxcarbazepine 600 mg Tablet 600 mg PO QPM cholecalciferol (vitamin D3) 1,250 mcg (50,000 unit) capsule 1 cap PO QWEEK ibuprofen 600 mg tablet 600 mg PO Q8H PRN (Reason: fever or pain) Qty: 20 0RF metoclopramide HCl [Reglan] 10 mg tablet 10 mg PO Q6H PRN (Reason: nausea and vomiting) Qty: 14 0RF omeprazole 20 mg capsule,delayed release(DR/EC) 20 mg PO DAILY bupropion HCl 300 mg tablet extended release 24 hr 450 mg PO QAM oxcarbazepine 300 mg tablet 300 mg PO QAM fluoxetine 20 mg capsule 40 mg PO DAILY metformin 500 mg tablet 750 mg PO DAILY multivitamin Tablet 1 tab PO DAILY clonazepam [Klonopin] 0.5 mg tablet 0.5 mg PO DAILY lisinopril 5 mg tablet 5 mg PO QPM Trulicity 0.75 mg/0.5 mL pen injector subcut QWEEK Interventions: ED Discharge Assessment Last Done: 12/20/24 04:00 Discharge Date/Time: 12/20/24 04:01 Print Language: Iranian
[2024-12-20] MEDS: 0.9 % Sodium Chloride 1,000 ML 999 ML IV (01:31)
[2024-12-20] MEDS: Morphine Sulfate 4 MG/ML CARTRIDGE IVPUSH (01:32)
[2024-12-20] MEDS: ondansetron HCL 4 MG/2 ML VIAL IVPUSH (01:32)
[2024-12-20] MEDS: Dicyclomine HCl 10 MG CAPSULE 20 MG PO (03:38)
[2024-12-20 04:00] VITALS: BP 131/87; PULSE 87; RESP 16; TEMP 37; O2SAT 100
== END 2024-12-20 04:01 | disposition home or self-care (01) ==
PROVIDERS: Emergency Provider Internal Medicine; PCP Family Medicine
DX: K52.9 Noninfective gastroenteritis and colitis, unspecified (principal); R10.32 Left lower quadrant pain; R51.9 Headache, unspecified; R11.0 Nausea; E11.9 Type 2 diabetes mellitus without complications; Z79.899 Other long term (current) drug therapy; Z87.891 Personal history of nicotine dependence; Z79.84 Long term (current) use of oral hypoglycemic drugs; Z79.85 Long-term (current) use of injectable non-insulin antidiabetic drugs
CPT/HCPCS: 36415; 74176; 80048; 80076; 83690; 85025; 93005; 96361; 96374; 96375; 99284; J2270; J2405

== ENCOUNTER → 2024-12-19 21:49 | Outpatient (BNV) | payer MEDICAID, SELFPAY | PROVIDERS: Emergency Provider Internal Medicine; PCP Family Medicine; Visit Provider Internal Medicine | DX: R07.9 Chest pain, unspecified (principal); R11.0 Nausea | CPT/HCPCS: 93010 ==

== ENCOUNTER → 2024-12-20 01:10 | Outpatient (BNV) | payer MEDICAID, SELFPAY | PROVIDERS: Emergency Provider Internal Medicine; PCP Family Medicine; Visit Provider Radiology Diagnostic Radiology | DX: R10.12 Left upper quadrant pain (principal) | CPT/HCPCS: 74176 ==

== ENCOUNTER 2025-02-22 09:23 | Outpatient (REF) | payer MEDICAID, SELFPAY ==
--- OUTSIDE RECORDS SUMMARY | 2025-02-22 09:56 | XMS_ITS | Encounter Summary ---
Author Organization [employer] Address [address] [place] [address] Care Team Providers Care Transfer Engineer Name Role Phone Tiffany Quinn MD Primary Care Provider Kaitlynn Cole OD Unavailable [phone] Jw Maki MD Unavailable Keith Reyes RN Unavailable [phone] Ida Diggs Unavailable Reason for Visit * Reason Comments Med Refill Encounter Details Date Type Department Care Team (Late st Contact Info) Description 01/26/2025 Refill [facility] MEDICINE [address] [place], [place] [phone] Tiffany Quinn MD [address] [place], [place] [id number] Type 2 diabetes mellitus without complication, unspecified whether manager intermediate insulin use ([facility]) Social History Tobacco Use Types Packs/Day Years Used Date Smoking Tobacco: Some Days Cigarettes Passive Smoke Exposure: Past Smokeless Tobacco: Never Alcohol Answer Date Recorded Frequency of Alcohol Consumption Not on file 01/06/2024 Average Number of Drinks Not on file 024 Frequency of Binge Drinking Not on file 02/2024 Score 0 01/06/2024 Depression Answer Date Recorded Patient Health Questionnaire-9 Score 4 12/28/2024 Patient Health Questionnaire-9 Score 4 12/28/2024 Last PHQ-9: Questionnaire Data Not on file 0 12/28/2024 Housing Stability Answer Date Recorded What is your housing situation today? I have tiffanie carter 01/11/[address] you li ve. Do you have problems with any of the following? None of the above 01/11/2025 Food Insecurity Answer Date Recorded Within the past 12 months, y ou worried that your food would run out before you got money to buy more: Often true 01/11/2025 Within the past 12 months,th e food you bought just didn't last and you didn't have enough money to get more: Often true Transportation Answer Date Recorded In the past 12 months, has l ack of transportation kept you from medical appts, meetings, work or from getting things needed for daily living? No 01/11/2025 Utilities Answer Date Recorded In the past 12 months, has t he electric, gas, oil or water company threatened to shut off services in your home? No 01/11/2025 Depression Answer Date Recorded Patient Health Questionnaire-2 Score 2 12/28/2024 Internet Access Answer Date Recorded Internet Access Q1 Yes 01/11/2025 Internet Access Q2 Not on file 01/11/2025 Comments Unknown Sex and Gender Information Value Date Recorded Sex Assigned at Female 04/29/2022 10:27 AM EDT Legal Sex Female 10:27 AM EDT Gender Identity Female 04/29/2022 10:27 AM EDT Sexual Orientation Straight 04/29/2022 10 :27 AM EDT documented as of this encounter Plan of Treatment Upcoming Encounters Date Type Department Care Team (Late st Contact Info) Description 04/25/2025 11:00 AM EDT Office Visit [facility] MEDICINE [address] [place] [address] Tiffany Quinn MD [address] [place] [address] documented as of this encounter Goals Goal Patient Goal Type Associated Problems Recent Progress Patient-Stated? Author Hemoglobin A1c < 7 Result Component 8.3(01/12/2025 10:37 AM EDT) No Maria Del Carmen Taylor, PennyD documented as of this encounter Visit Diagnoses Diagnosis Type 2 diabetes mellitus without complication, unspecified whether half-way insulin use ([facility]) documented in this encounter Additional Health Concerns Assessment Noted Time PHQ-9 Depression Total Score: 4 12/29/19 25 1:21 PM EDT documented as of this encounter Care Teams Transfer Engineer Relationship Specialty Start Date End Date Tiffany Quinn MD [address] [place] [address] PCP - General Family Medicine 08/30/14 Kaitlynn Cole OD [address] [place] [address] Optometry 08/04/24 Jw Maki MD [address] [place] [address] [address] [place] [address] Cardiology 08/04/24 Keith Reyes, NEDRA [address] [place] [address] Registered Nurse Family Medicine 12/20/24 Ida Diggs 12/20/24 02/08/25 documented as of this encounter
--- OUTSIDE RECORDS SUMMARY | 2025-02-22 09:56 | XMS_ITS | Encounter Summary ---
Author Organization [employer] Address [address] [place] [address] [address] [place] [address] Care Team Providers Care Online Producer Name Role Phone Tiffany Quinn MD Primary Care Provider Kaitlynn Cole OD Unavailable [phone] Jw Maki MD Unavailable Keith Reyes RN Unavailable [phone] Ida Diggs Unavailable Encounter Details Date Type Department Care Team (Late st Contact Info) Description 08/04/2024 Orders Only [facility] [address] [place], [place] [phone] Tiffany Quinn MD [address] [place], [place] [phone] Social History Tobacco Use Types Packs/Day Years Used Date Smoking Tobacco: Former Cigarettes Passive Smoke Exposure: Past Smokeless Tobacco: Never Alcohol Answer Date Recorded Frequency of Alcohol Consumption Not on file 01/06/2024 Average Number of Drinks Not on file 024 Frequency of Binge Drinking Not on file 02/2024 Score 0 01/06/2024 Depression Answer Date Recorded Patient Health Questionnaire-9 Score 5 05/06/2024 Patient Health Questionnaire-9 Score 5 05/06/2024 Last PHQ-9: Questionnaire Data Not on file 1 07/06/2023 Housing Stability Answer Date Recorded What is your housing situation today? I have tiffanie carter 12/10/[address] you li ve. Do you have problems with any of the following? Pests such as bugs, ants, or mice 12/10/2023 Food Insecurity Answer Date Recorded Within the past 12 months, y ou worried that your food would run out before you got money to buy more: Never True 12/10/2023 Within the past 12 months,th e food you bought just didn't last and you didn't have enough money to get more: Never True 05/2024 Transportation Answer Date Recorded In the past 12 months, has l ack of transportation kept you from medical appts, meetings, work or from getting things needed for daily living? No 12/10/2023 Utilities Answer Date Recorded In the past 12 months, has t he electric, gas, oil or water company threatened to shut off services in your home? No 12/10/2023 Depression Answer Date Recorded Patient Health Questionnaire-2 Score 0 05/06/2024 Comments Unknown Sex and Gender Information Value [...] Description 04/25/2025 11:00 AM EDT Office Visit [facility] [address] [place] [address] Tiffany Quinn MD [address] [place] [id number] documented as of this encounter Goals Goal Patient Goal Type Associated Problems Recent Progress Patient-Stated? Author Hemoglobin A1c < 7 Result Component 8.3(01/12/2025 10:37 AM EDT) No Maria Del Carmen Taylor, PharmD documented as of this encounter Visit Diagnoses Not on filedocumented in this encounter Additional Health Concerns Assessment Noted Time PHQ-9 Depression Total Score: 5 05/06/20 24 10:40 AM EST documented as of this encounter Care Teams Online Producer Relationship Specialty Start Date End Date Tiffany Quinn MD [address] [place] [phone] PCP - General Family Medicine 08/30/14 Kaitlynn Cole OD [address] [place] [address] Optometry 08/04/24 Jw Maki MD [address] [place] [address] 3rd [place] [address] Cardiology 08/04/24 Keith Reyes RN [address] [place] [address] Registered Nurse Family Medicine 12/20/24 Ida Diggs 12/20/24 02/08/25 documented as of this encounter
--- OUTSIDE RECORDS SUMMARY | 2025-02-22 09:56 | XMS_ITS | Encounter Summary ---
Author Organization [employer] Address [address] [facility] 7t [place] [address] Care Team Providers Care Shipping Technician Name Role Phone Tiffany Quinn MD Primary Care Provider Kaitlynn Cole OD Unavailable [phone] Jw Maki MD Unavailable Keith Reyes RN Unavailable [phone] Ida Diggs Unavailable Encounter Details Date Type Department Care Team (Late st Contact Info) Description 01/06/2024 Orders Only [facility] MED[facility]INE [address] [place], [place] [phone] Tiffany Quinn MD [address] [place], [place] [phone] Social History Tobacco Use Types Packs/Day Years Used Date Smoking Tobacco: Former Cigarettes Passive Smoke Exposure: Past Smokeless Tobacco: Never Alcohol Answer Date Recorded Frequency of Alcohol Consumption Not on file 01/06/2024 Average Number of Drinks Not on file 024 Frequency of Binge Drinking Not on file 02/2024 Score 0 01/06/2024 Housing Stability Answer Date Recorded What is [...] Date Recorded Patient Health Questionnaire-2 Score 0 10/10/2022 Comments Unknown Sex and Gender Information Value [...] Description 04/25/2025 11:00 AM EDT Office Visit [facility] [address] [place] [address] Tiffany Quinn MD [address] [place] [address] documented as of this encounter Goals Goal Patient Goal Type Associated Problems Recent Progress Patient-Stated? Author Hemoglobin A1c < 7 Result Component 8.3(01/12/2025 10:37 AM EDT) No Maria Del Carmen Taylor, PharmD documented as of this encounter Visit Diagnoses Not on filedocumented in this encounter Care Teams Shipping Technician Relationship Specialty Start Date End Date Tiffany Quinn MD [address] [place] [address] PCP - General Family Medicine 08/30/14 Kaitlynn Cole OD [address] [place] [address] Optometry 08/04/24 Jw Maki MD [address]rd [place] [address] Cardiology 08/04/24 Keith Reyes, RN [address] [facility] [place] [address] Registered Nurse Family Medicine 12/20/24 Ida Diggs 12/20/24 02/08/25 documented as of this encounter
--- OUTSIDE RECORDS SUMMARY | 2025-02-22 09:56 | XMS_ITS ---
Author Organization [employer] Address [address] [place] [address] 7[address] [place] [address] Care Team Providers Care Manager Target Name Role Phone [place], Tiffany FRENCH Primary Care Provider [phone] Kaitlynn Cole OD Unavailable Jw Maki MD Unavailable Keith Reyes RN Unavailable [phone] [facility] Status:Enrolled (Active) Start date:12/20/2024 Enrollment date:12/28/2024 Enrollment reason:ADT Feed Overview [facility] ED 12/20/24 Case Team Name Relationship Phone Keith Reyes RN(Responsible Staff) Registered Nurse [phone] Continued Care and Services Coordination
--- OUTSIDE RECORDS SUMMARY | 2025-02-22 09:56 | XMS_ITS | Clinical Summary ---
Author Organization [employer] Address [address] [place] [address] [address] [place] [address] Care Team Providers Care Devil Tender Name Role Phone Tiffany Quinn MD Primary Care Provider [phone] Kaitlynn Cole OD Unavailable [phone] Jw Maki MD Unavailable Keith Reyes RN Unavailable [phone] Allergies Active Allergy Reactions Criticality Noted Date Comments Cyclobenzaprine Itching 02/28/2016 Latex 07/08/2022 Other reaction(s): swells - burn Medications Ventolin HFA 108 (90 Base) MCG/ACT inhalerIndicatio ns:Mild intermittent asthma without complication INHALE 2 PUFFS BY MOUTH FOUR TIMES DAILY NEEDED SHORTNESS OF BREATH 18 g 2 10/30/19 24 Active TRUEplus Lancets 33G miscIndications: Type 2 diabetes mellitus without complication, unspecified whether termite helper insulin use ([facility]) Use bid dx diabetes type 2 100 each 11 01/06/20 24 Active OXcarbazepine (Trileptal) 600 MG tabletIndication s:Depression with anxiety TAKE 1 TABLET BY MOUTH TWICE DAILY IN THE MORNING AND IN THE EVENING 12/24/19 24 Active buPROPion XL (Wellbutrin XL) 300 MG 24 hr tabletIndication s:Depression with anxiety Take 300 mg by mouth Once per day. Do not crush, chew, or split. Active buPROPion XL (Wellbutrin XL) 150 MG 24 hr tabletIndication s:Depression with anxiety Take 150 mg by mouth Once per day. Do not crush, chew, or split. Active FLUoxetine (PROzac) 40 MG capsuleIndicatio ns:Depression with anxiety Take 40 mg by mouth Once per day. Active FLUoxetine (PROzac) 20 MG capsuleIndicatio ns:Depression with anxiety Take 20 mg by mouth Once per day. Active traZODone (Desyrel) 100 MG tabletIndication s:Depression with anxiety Take 100 mg by mouth at bedtime. Active hydrOXYzine pamoate (Vistaril) 25 MG capsuleIndicatio ns:Anxiety TAKE 1 TO 2 CAPSULES BY MOUTH TWICE DAILY NEEDED FOR ANXIETY 02/17/20 24 Active cyanocobalamin (Vitamin B-12) 1000 MCG tabletIndication s:Vitamin B 12 deficiency TAKE 1 TABLET BY MOUTH EVERY MORNING 90 tablet 3 05/11/20 24 Active Blood Glucose Monitoring Suppl (FreeStyle [place] Lite) w/Device kitIndications:T ype 2 diabetes mellitus without complication, unspecified whether termite helper insulin use (CMS/HCC) USE TWICE DAILY TO TEST BLOOD SUGAR 1 kit 11/18/19 25 Active glucose blood (FREESTYLE LITE) test stripIndications :Type 2 diabetes mellitus without complication, unspecified whether termite helper insulin use (CMS/HCC) USE TO TEST BLOOD SUGAR TWICE DAILY 50 strip 3 11/18/19 25 Active omeprazole (PriLOSEC) [address] capsuleIndicatio ns:Chronic GERD TAKE 1 CAPSULE BY MOUTH EVERY MORNING BEFORE A MEAL NEEDED 90 capsule 12/09/19 25 Active Continuous Glucose Realtime Court Reporter (FreeStyle Emmanuel 3 [place]ensis) deviceIndication s:Type 2 diabetes mellitus without complication, without long-term current use of insulin (CMS/HCC) 1 each Once per day. Use as directed for CGM 1 each 01/13/20 25 Active Continuous Glucose Sensor (FreeStyle [place]el 3 Plus Sensor) miscIndications: Type 2 diabetes mellitus without complication, without long-term current use of insulin (CMS/HCC) 1 each every 15 days. Apply 1 every 15 days as directed for CGM 2 each 01/13/20 25 Active glucose blood (FreeStyle Precision Hector Test) test stripIndications :Type 2 diabetes mellitus without complication, without long-term current use of insulin (CMS/HCC) Use to test blood sugar prn in case of CGM failure or extremes of BG 100 each 01/13/20 25 07/16/2 026 Active atorvastatin (Lipitor) 40 MG tabletIndication s:Dyslipidemia Take 1 tablet (40 mg) by mouth at bedtime. 90 tablet 3 01/13/20 25 Active lisinopril 5 MG tabletIndication s:Hypertension, unspecified type Take 1 tablet (5 mg) by mouth at bedtime. 90 tablet 3 01/13/20 25 Active metFORMIN XR (Glucophage-XR) 750 MG 24 hr tabletIndication s:Type 2 diabetes mellitus without complication, unspecified whether termite helper insulin use (CMS/HCC) TAKE 1 TABLET BY MOUTH EVERY EVENING WITH FOOD 90 tablet 3 01/13/20 25 Active semaglutide (Ozempic, 0.25 or 0.5 MG/DOSE,) 2 MG/1.5ML solution pen-injectorIndi cations:Type 2 Diabetes Mellitus Inject 0.25 mg subcutaneously q week x 4 weeks, then increased to 0.5mg subcutaneously q week after 3 mL 01/13/20 25 Active cetirizine (ZyrTEC) 10 MG tabletIndication s:Allergic rhinitis due to other allergic trigger, unspecified seasonality Take 1 tablet (10 mg) by mouth if needed each day for allergies. 30 tablet 2 01/13/20 25 Active fluticasone (Flonase) 50 MCG/ACT nasal sprayIndications :Allergic rhinitis, unspecified seasonality, unspecified trigger Use 1 spray each nostril daily prn allergiesShake gently. Before first use, prime pump. After use, clean tip and replace cap. 48 g 11 01/13/20 25 Active Mometasone Furoate (Asmanex HFA) 200 MCG/ACT aerosolIndicatio ns:Mild intermittent asthma without complication 2 puffs po bid 13 g 01/13/20 25 Active Active Problems Problem Noted Date Diagnosed Date Total body pain 01/12/2025 Assessment & Plan (01/12/2025 11:29 AM EDT): Orders: SHELLEY Screen,IFA, with Reflex to Titer and Pattern; Future Rheumatoid Factor; Future Sed Rate by Modified Westergren; Future C-reactive Protein; Future Parvovirus B19 Antibodies (IgG,IgM); Future Dyslipidemia 01/12/2025 Assessment & Plan (01/12/2025 11:29 AM EDT): Orders: atorvastatin (Lipitor) 40 MG tablet; Take 1 tablet (40 mg) by mouth at bedtime. Anxiety 04/07/2024 Facial rash 01/06/2024 Overview (01/06/2024): -likely rosacea -was referred to dermatology by ophthalmology on 12/16/23, encouraged to get appt -gave pt some Cerave facial wash as well as a SPF containing day cream, and a night cream. Assessment & Plan (01/06/2024 10:36 AM EDT): -likely rosacea -was referred to dermatology by ophthalmology on 12/16/23, encouraged to get appt -gave pt some Cerave facial wash as well as a SPF containing day cream, and a night cream. Cardiac risk counseling 10/27/2023 Overview (05/06/2024): Calculated 05/06/24: Low Risk The 10-year ASCVD risk score (Sri ANN, et al., 2019) is: 3.2% Values used to calculate the score: Age: 53 years Sex: Female Is Non- : No Diabetic: Yes Tobacco smoker: No Systolic Blood Pressure: 118 mmHg Is BP treated: Yes HDL Cholesterol: 46 mg/dL Total Cholesterol: 167 mg/dL Lab Results Component Value Date LDLCHOL 108 (H) 09/19/2021 -Tobacco cessation: not applicable -Statin therapy: continue atorvastatin 40mg -Importance of moderate physical activity and nutrition interventions discussed. Assessment & Plan (01/06/2024 10:11 AM EDT): Calculated 10/27/23: Low Risk The 10-year ASCVD risk score (Sri ANN, et al., 2019) is: 4% Values used to calculate the score: Age: 53 years Sex: Female Is Non- : No Diabetic: Yes Tobacco smoker: No Systolic Blood Pressure: 131 mmHg Is BP treated: Yes HDL Cholesterol: 46 mg/dL Total Cholesterol: 167 mg/dL Lab Results Component Value Date LDLCHOL 108 (H) 09/19/2021 -Tobacco cessation: not applicable -Statin therapy: continue atorvastatin 40mg -Importance of moderate physical activity and nutrition interventions discussed. Breast cancer screening by mammogram 09/17/2023 Overview (01/06/2024): -breast exam normal 01/06/24 -ordered mammogram 09/17/2023 Assessment & Plan (01/06/2024 10:10 AM EDT): -breast exam normal 01/06/24 -ordered mammogram 09/17/2023 Assessment & Plan (12/26/2023 10:47 AM EDT): -ordered mammogram 09/17/2023 Assessment & Plan (09/17/2023 10:36 AM EDT): -ordered mammogram 09/17/2023 Perimenopause 09/17/2023 Overview (01/12/2025): -estradiol patch 0.5mg patch weekly started 09/17/2023, she self discontinued due to feeling well off rx Assessment & Plan (01/12/2025 11:29 AM EDT): Assessment & Plan (01/06/2024 10:13 AM EDT): -estradiol patch 0.5mg patch weekly started 09/17/2023 Assessment & Plan (12/26/2023 10:48 AM EDT): -estradiol patch 0.5mg patch weekly started 09/17/2023 Assessment & Plan (09/17/2023 10:35 AM EDT): -estradiol patch 0.5mg patch weekly started 09/17/2023 Vasomotor flushing 09/17/2023 Other specified health status 12/11/2022 Overview (01/12/2025): -next physical exam due after 01/12/2026 -eye care facilitated by [facility] -[facility] -[facility] care proxy filed 01/06/24 Assessment & Plan (01/12/2025 11:29 AM EDT): -next physical exam due after 01/12/2026 -eye care facilitated [facility] 01/06/24 Assessment & Plan (05/06/2024 11:40 AM EST): -next physical exam due after December, -eye care facilitated by [facility] proxy filed 01/06/24 Assessment & Plan (01/06/2024 10:12 AM EDT): -next physical exam due after December, -eye care facilitated by [facility] proxy filed 01/06/24 Assessment & Plan (12/26/2023 10:48 AM EDT): -next physical exam due after September, -eye care facilitated by [facility] proxy given on 09/16/2022 Assessment & Plan (09/17/2023 9:46 AM EDT): -next physical exam due after September, -eye care facilitated by [facility] proxy given on 09/16/2022 Assessment & Plan (05/05/2023 11:32 AM EST): -next physical exam due after September, H/O: hysterectomy 07/08/2022 Overview (10/08/2022): S/P laparoscopic hysterectomy with dr. Christopher Denny 07/18/2021 for abnormal uterine bleeding. Assessment & Plan (05/05/2023 11:06 AM EST): S/P laparoscopic hysterectomy with dr. Christopher Denny 07/18/2021 for abnormal uterine bleeding. Assessment & Plan (10/08/2022 11:21 AM EDT): S/P laparoscopic hysterectomy with dr. Christopher Denny 07/18/2021 for abnormal uterine bleeding. Morbid obesity 07/08/2022 Transaminitis 07/08/2022 Overview (01/12/2025): Likely metabolic dysfunction-associated steatohepatitis. Improved with lifestyle modification. Lab Results Component Value Date AST 58 (H) 12/19/2024 ALT 85 (H) 12/19/2024 ALT 78 (H) 09/19/2021 ALP 85 12/19/2024 DIRECTBILIRU 0.2 12/19/2024 -CT abdomen 07/10/22:There is fatty infiltration of the liver. No focal mass lesions or intrahepatic bile duct dilatation is seen. Some calcification is seen within the left lobe consistent with a calcified granuloma. -hep C negative 07/25/23 -If LFTs increase again, consider labs for autoimmune hepatitis, hemochromatosis, alpha -1 antitrypsin deficiency and viral hepatitis. -Advise Avoid alcohol. Dietary modification, increase physical activity. Assessment & Plan (01/12/2025 11:29 AM EDT): Likely metabolic dysfunction-associated steatohepatitis. Improved with lifestyle modification. Lab Results Component Value Date AST 58 (H) 12/19/2024 ALT 85 (H) 12/19/2024 ALT 78 (H) 09/19/2021 ALP 85 12/19/2024 DIRECTBILIRU 0.2 12/19/2024 -CT abdomen 07/10/22:There is fatty infiltration of the liver. No focal mass lesions or intrahepatic bile duct dilatation is seen. Some calcification is seen within the left lobe consistent with a calcified granuloma. -hep C negative 07/25/23 -If LFTs increase again, consider labs for autoimmune hepatitis, hemochromatosis, alpha -1 antitrypsin deficiency and viral hepatitis. -Advise Avoid alcohol. Dietary modification, increase physical activity. Assessment & Plan (01/06/2024 10:13 AM EDT): Likely metabolic dysfunction-associated steatohepatitis. Improved with lifestyle modification. Lab Results Component Value Date AST 22 05/02/2023 ALT 28 05/02/2023 ALT 78 (H) 09/19/2021 ALP 67 05/02/2023 DIRECTBILIRU 0.2 05/02/2023 -CT abdomen 07/10/22:There is fatty infiltration of the liver. No focal mass lesions or intrahepatic bile duct dilatation is seen. Some calcification is seen within the left lobe consistent with a calcified granuloma. -hep C negative 07/25/23 -If LFTs increase again, consider labs for autoimmune hepatitis, hemochromatosis, alpha -1 antitrypsin deficiency and viral hepatitis. -Advise Avoid alcohol. Dietary modification, increase physical activity. Assessment & Plan (12/26/2023 10:49 AM EDT): Likely metabolic dysfunction-associated steatohepatitis. Improved with lifestyle modification. Lab Results Component Value Date AST 22 05/02/2023 ALT 28 05/02/2023 ALT 78 (H) 09/19/2021 ALP 67 05/02/2023 DIRECTBILIRU 0.2 05/02/2023 -CT abdomen 07/10/22:There is fatty infiltration of the liver. No focal mass lesions or intrahepatic bile duct dilatation is seen. Some calcification is seen within the left lobe consistent with a calcified granuloma. -hep C negative 07/25/23 -If LFTs increase again, consider labs for autoimmune hepatitis, hemochromatosis, alpha -1 antitrypsin deficiency and viral hepatitis. -Advise Avoid alcohol. Dietary modification, increase physical activity. Assessment & Plan (09/17/2023 10:37 AM EDT): LFTs 09/16/21 AFT 78 ALT 81 -12/13/2021 AFT 16 ALT 81 -Denies alcohol. -Pt had RUQ pain and an ultrasound was ordered, I will request the result. -Labs on 11/2021 normal CBC, AST 61, ALT 81, normal serrate, H. Pylori negative, rheumatoid labs negative. Assessment & Plan (05/05/2023 11:07 AM EST): LFTs 09/16/21 AFT 78 ALT 81 -12/13/2021 AFT 16 ALT 81 -Denies alcohol. -Pt had RUQ pain and an ultrasound was ordered, I will request the result. -Labs on 11/2021 normal CBC, AST 61, ALT 81, normal serrate, H. Pylori negative, rheumatoid labs negative. Assessment & Plan (10/08/2022 11:18 AM EDT): LFTs 09/16/21 AFT 78 ALT 81 -12/13/2021 AFT 16 ALT 81 -Denies alcohol. -Pt had RUQ pain and an ultrasound was ordered, I will request the result. -Labs on 11/2021 normal CBC, AST 61, ALT 81, normal serrate, H. Pylori negative, rheumatoid labs negative. Type 2 diabetes mellitus without complication Overview (01/12/2025): Diabetes is not controlled. Lab Results Component Value Date HGBA1C 8.3 (A) 01/12/2025 HGBA1C 7.9 (A) 05/06/2024 HGBA1C 8.3 (A) 01/06/2024 Lab Results Component Value Date CREATININE 0.68 12/19/2024 EGFR >60 12/19/2024 MICROALBCREU 4.7 05/02/2023 LDLCHOLCAL 108 (H) 05/02/2023 -Jesus/Arb: Lisinopril 5mg -Statin therapy: Atorvastatin 40mg -Diabetic eye exam: Referral done 10/10/2022. -Diabetic foot exam: Completed 01/12/2025 -Continue lifestyle modifications -Continue current medications. -Continue Metformin ER 750 -Continuous glucose monitor ordered 09/17/2023 -Hgb A1c increased to 8.3% 01/06/24 from 7.6% on 09/17/23 -referred to nursing for CGM 01/06/24 but insurance did not cover - started Trulicity on 04/2023 and tolerated 0.75mg weekly but had some nausea, type 2 diabetes was not controlled and Trulicity increased to 1.5mg, she had significant nausea and vomiting and was seen in [facility] ER. She stopped the Trulicity and nausea resolved but type 2 diabetes in not not controlled. She continues to take Metformin daily. Assessment & Plan (01/12/2025 11:29 AM EDT): Diabetes is not controlled. Lab Results Component Value Date HGBA1C 8.3 (A) 01/12/2025 HGBA1C 7.9 (A) 05/06/2024 HGBA1C 8.3 (A) 01/06/2024 Lab Results Component Value Date CREATININE 0.68 12/19/2024 EGFR >60 12/19/2024 MICROALBCREU 4.7 05/02/2023 LDLCHOLCAL 108 (H) 05/02/2023 -Jesus/Arb: Lisinopril 5mg -Statin therapy: Atorvastatin 40mg -Diabetic eye exam: Referral done 10/10/2022. -Diabetic foot exam: Completed 01/12/2025 -Continue lifestyle modifications -Continue current medications. -Continue Metformin ER 750 -Continuous glucose monitor ordered 09/17/2023 -Hgb A1c increased to 8.3% 01/06/24 from 7.6% on 09/17/23 -referred to nursing for CGM 01/06/24 but insurance did not cover - started Trulicity on 04/2023 and tolerated 0.75mg weekly but had some nausea, type 2 diabetes was not controlled and Trulicity increased to 1.5mg, she had significant nausea and vomiting and was seen in [facility] ER. She stopped the Trulicity and nausea resolved but type 2 diabetes in not not controlled. She continues to take Metformin daily. Orders: POCT Glucose POCT HGB A1C metFORMIN XR (Glucophage-XR) 750 MG 24 hr tablet; TAKE 1 TABLET BY MOUTH EVERY EVENING WITH FOOD semaglutide (Ozempic, 0.25 or 0.5 MG/DOSE,) 2 MG/1.5ML solution pen-injector; Inject 0.25 mg subcutaneously q week x 4 weeks, then increased to 0.5mg subcutaneously q week after Albumin, Random Urine W/Creatinine; Future Hepatic Function Panel; Future Lipid Panel, Standard; Future Basic Metabolic Panel; Future Assessment & Plan (05/06/2024 11:39 AM EST): Diabetes is controlled. Lab Results Component Value Date HGBA1C 7.9 (A) 05/06/2024 HGBA1C 8.3 (A) 01/06/2024 HGBA1C 7.6 (A) 09/17/2023 Lab Results Component Value Date CREATININE 0.66 05/02/2023 EGFR >60 05/02/2023 MICROALBCREU 4.7 05/02/2023 LDLCHOLCAL 108 (H) 05/02/2023 -Jessu/Arb: Lisinopril 5mg -Statin therapy: Atorvastatin 40mg -Diabetic eye exam: Referral done 10/10/2022. -Diabetic foot exam: Completed 01/06/24 -Continue lifestyle modifications -Continue current medications. -Continue Metformin ER 750 -Continuous glucose monitor ordered 09/17/2023 -Hgb A1c increased to 8.3% 01/06/24 from 7.6% on 09/17/23 -Increase Trulicity to 1.5 mg weekly -referred to nursing for CGM 01/06/24 Assessment & Plan (01/06/2024 10:29 AM EDT): Diabetes is controlled. Lab Results Component Value Date HGBA1C 8.3 (A) 01/06/2024 HGBA1C 7.6 (A) 09/17/2023 HGBA1C 6.3 (A) 05/05/2023 Lab Results Component Value Date CREATININE 0.66 05/02/2023 EGFR >60 05/02/2023 MICROALBCREU 4.7 05/02/2023 LDLCHOLCAL 108 (H) 05/02/2023 -Jesus/Arb: Lisinopril 5mg -Statin therapy: Atorvastatin 40mg -Diabetic eye exam: Referral done 10/10/2022. -Diabetic foot exam: Completed 01/06/24 -Continue lifestyle modifications -Continue current medications. -Continue Metformin ER 750 -Continuous glucose monitor ordered 09/17/2023 -Hgb A1c increased to 8.3% 01/06/24 from 7.6% on 09/17/23 -Increase Trulicity to 1.5 mg weekly -referred to nursing for CGM 01/06/24 Assessment & Plan (12/26/2023 10:47 AM EDT): Diabetes is controlled. Lab Results Component Value Date HGBA1C 7.6 (A) 09/17/2023 HGBA1C 6.3 (A) 05/05/2023 HGBA1C 6.7 (A) 10/10/2022 Lab Results Component Value Date CREATININE 0.66 05/02/2023 EGFR >60 05/02/2023 MICROALBCREU 4.7 05/02/2023 LDLCHOLCAL 108 (H) 05/02/2023 -Jesus/Arb: Lisinopril 5mg -Statin therapy: Atorvastatin 40mg -Diabetic eye exam: Referral done 10/10/2022. -Diabetic foot exam: -Continue lifestyle modifications -Continue current medications. -Continue trulicity 0.5mg weekly -Continue Metformin ER 750 -Continuous glucose monitor ordered 09/17/2023 Assessment & Plan (09/17/2023 10:00 AM EDT): Diabetes is controlled. - Lab Results Component Value Date HGBA1C 7.6 (A) 09/17/2023 HGBA1C 6.3 (A) 05/05/2023 HGBA1C 6.7 (A) 10/10/2022 - Lab Results Component Value Date MICROALBUR 6.0 05/02/2023 CREATININE 0.66 05/02/2023 -Jesus/Arb: Lisinopril 5mg -Statin therapy: Atorvastatin 40mg -Diabetic eye exam: Referral done 10/10/2022. -Diabetic foot exam: -Continue lifestyle modifications -Continue current medications. -Stop januvia and Start trulicity 0.5mg weekly -Continue Metformin ER 750 -Ordered CGM 09/17/2023 Assessment & Plan (05/05/2023 1:07 PM EST): Diabetes is controlled. - Lab Results Component Value Date HGBA1C 6.7 (A) 10/10/2022 HGBA1C 8.1 (H) 09/19/2021 - Lab Results Component Value Date MICROALBUR 6.0 05/02/2023 CREATININE 0.66 05/02/2023 -Jesus/Arb: Lisinopril 5mg -Statin therapy: Atorvastatin 40mg -Diabetic eye exam: Referral done 10/10/2022. -Diabetic foot exam: -Continue lifestyle modifications -Continue current medications. -Stop januvia and Start trulicity 0.5mg weekly -Continue Metformin ER 750 Assessment & Plan (10/10/2022 12:14 PM EDT): Diabetes is controlled. - Lab Results Component Value Date HGBA1C 8.1 (H) 09/19/2021 - Lab Results Component Value Date MICROALBUR 1.0 09/19/2021 CREATININE 0.74 12/13/2021 -Changes: -Jesus/Arb: Lisinopril 5mg -Statin therapy: Atorvastatin 40mg -Diabetic eye exam: Referral done 10/10/2022. -Diabetic foot exam: -Continue lifestyle modifications -Continue current medications Bilateral cataracts 12/26/2021 Meibomian gland dysfunction 12/26/2021 Presbyopia 12/26/2021 History of abnormal cervical Pap smear 2 Overview (12/23/2023): Pap 09/30/14 revealed atypical squamous cells, an not r/o high grade lesion. LEEP 12/12/[address] Eugene revealed JOSE MARIA 1 and JOSE MARIA 2. Note states pap due 11/2015. I do not see it in the chart. Pap 10/04/2016 NILM and HPV was not detected. S/P laparoscopic hysterectomy with Dr. Christopher Denny 07/18/2021 for abnormal uterine bleeding. Assessment & Plan (01/06/2024 10:11 AM EDT): Pap 09/30/14 revealed atypical squamous cells, an not r/o high grade lesion. LEEP 12/12/[address] Eugene revealed JOSE MARIA 1 and JOSE MARIA 2. Note states pap due 11/2015. I do not see it in the chart. Pap 10/04/2016 NILM and HPV was not detected. S/P laparoscopic hysterectomy with Dr. Christopher Denny 07/18/2021 for abnormal uterine bleeding. Assessment & Plan (12/23/2023 7:52 AM EDT): Pap 09/30/14 revealed atypical squamous cells, an not r/o high grade lesion. LEEP 12/12/[address] Eugene revealed JOSE MARIA 1 and JOSE MARIA 2. Note states pap due 11/2015. I do not see it in the chart. Pap 10/04/2016 NILM and HPV was not detected. S/P laparoscopic hysterectomy with Dr. Christopher Denny 07/18/2021 for abnormal uterine bleeding. Assessment & Plan (05/05/2023 11:04 AM EST): Pap 09/30/14 revealed atypical squamous cells, an not r/o high grade lesion. LEEP 12/12/[address] Eugene revealed JOSE MARIA 1 and JOSE MARIA 2. Note states pap due 11/2015. I do not see it in the chart. Pap 10/04/2016 NILM and HPV was not detected. S/P laparoscopic hysterectomy with Dr. Christopher Denny 07/18/2021 for abnormal uterine bleeding. Assessment & Plan (10/08/2022 11:21 AM EDT): Pap 09/30/14 revealed atypical squamous cells, an not r/o high grade lesion. LEEP 12/12/[address] Eugene revealed JOSE MARIA 1 and JOSE MARIA 2. Note states pap due 11/2015. I do not see it in the chart. Pap 10/04/2016 NILM and HPV was not detected. S/P laparoscopic hysterectomy with Dr. Christopher Denny 07/18/2021 for abnormal uterine bleeding. Hypertension 11/02/2021 Overview (01/06/2024): -Blood pressure is at goal -Continue lifestyle modifications -Continue current medications -Continue lisinopril 5mg daily, stated 07/2021 Assessment & Plan (01/12/2025 11:29 AM EDT): -Blood pressure is at goal -Continue lifestyle modifications -Continue current medications -Continue lisinopril 5mg daily, stated 07/2021 Orders: lisinopril 5 MG tablet; Take 1 tablet (5 mg) by mouth at bedtime. Assessment & Plan (05/06/2024 11:40 AM EST): -Blood pressure is at goal -Continue lifestyle modifications -Continue current medications -Continue lisinopril 5mg daily, stated 07/2021 Assessment & Plan (01/06/2024 10:08 AM EDT): -Blood pressure is at goal -Continue lifestyle modifications -Continue current medications -Continue lisinopril 5mg daily, stated 07/2021 Assessment & Plan (12/26/2023 10:46 AM EDT): -Blood pressure is at goal -Continue lifestyle modifications -Continue current medications -lisinopril 5mg daily stated 07/2021 Assessment & Plan (09/17/2023 9:36 AM EDT): Lisinopril 5mg daily stated 07/2021 Assessment & Plan (05/05/2023 11:04 AM EST): Lisinopril 5mg daily stated 07/2021 Assessment & Plan (10/08/2022 11:20 AM EDT): Lisinopril 5mg daily stated 07/2021 Gastric reflux 11/02/2021 Overview (10/08/2022): Omeprazole prn Assessment & Plan (05/05/2023 11:05 AM EST): Omeprazole prn Assessment & Plan (10/08/2022 11:20 AM EDT): Omeprazole prn Iron deficiency 11/02/2021 Overview (12/26/2023): Improved. Follow by Dr. Mcdonald. Pt had iron infusion this season and has follow up in March 2017. Lab Results Component Value Date HGB 13.6 09/19/2021 HGB 13.1 04/25/2021 HEMATOCRIT 42.1 09/19/2021 HEMATOCRIT 40.5 04/25/2021 Assessment & Plan (12/26/2023 10:46 AM EDT): Improved. Follow by Dr. Mcdonald. Pt had iron infusion this season and has follow up in March 2017. Lab Results Component Value Date HGB 13.6 09/19/2021 HGB 13.1 04/25/2021 HEMATOCRIT 42.1 09/19/2021 HEMATOCRIT 40.5 04/25/2021 Assessment & Plan (05/05/2023 11:06 AM EST): Follow by Dr. Mcdonald. Pt had iron infusion this season and has follow up in March 2017. CBC 11/2021 normal. Assessment & Plan (10/08/2022 11:18 AM EDT): Follow by Dr. Mcdonald. Pt had iron infusion this season and has follow up in March 2017. CBC 11/2021 normal. History of nicotine dependence 11/02/2021 Overview (04/06/2024): -Quit 2019 Assessment & Plan (05/05/2023 11:06 AM EST): Quit 2019 Assessment & Plan (10/10/2022 10:12 AM EDT): Quit 2019. Obstructive sleep apnea of adult 11/02/2021 Overview (12/23/2023): Diagnosed in 2016. Seen by [facility] sleep in [place] on 05/03/2022. She has tried 3 different mask but not tolerated. She has her CPAP but needs to pay for the balance or unable to have new mask fitting session. She is interested in [employer] but not a candidate due to high BMI. She is planning on gastric bypass but need to lose 50lbs first. At sleep medicine she was encouraged to pay the balance of CPAP to start processing for new CPAP mask fitting session. She was also referred to dental for oral device and EMT referral placed by sleep medicine 04/2022. -Pt not wearing mask. Assessment & Plan (01/06/2024 10:15 AM EDT): Diagnosed in 2016. Seen by [facility] sleep in [place] on 05/03/2022. She has tried 3 different mask but not tolerated. She has her CPAP but needs to pay for the balance or unable to have new mask fitting session. She is interested in [employer] but not a candidate due to high BMI. She is planning on gastric bypass but need to lose 50lbs first. At sleep medicine she was encouraged to pay the balance of CPAP to start processing for new CPAP mask fitting session. She was also referred to dental for oral device and EMT referral placed by sleep medicine 04/2022. -Pt not wearing mask. Assessment & Plan (12/23/2023 7:47 AM EDT): Diagnosed in 2016. Seen by [facility] sleep in [place] on 05/03/2022. She has tried 3 different mask but not tolerated. She has her CPAP but needs to pay for the balance or unable to have new mask fitting session. She is interested in [employer] but not a candidate due to high BMI. She is planning on gastric bypass but need to lose 50lbs first. At sleep medicine she was encouraged to pay the balance of CPAP to start processing for new CPAP mask fitting session. She was also referred to dental for oral device and EMT referral placed by sleep medicine 04/2022. -Pt not wearing mask. Assessment & Plan (05/05/2023 11:07 AM EST): Diagnosed in 2016. Seen by [facility] sleep in [place] on 05/03/2022. She has tried 3 different mask but not tolerated. She has her CPAP but needs to pay for the balance or unable to have new mask fitting session. She is interested in [employer] but not a candidate due to high BMI. She is planning on gastric bypass but need to lose 50lbs first. At sleep medicine she was encouraged to pay the balance of CPAP to start processing for new CPAP mask fitting session. She was also referred to dental for oral device and EMT referral placed by sleep medicine 04/2022. -Pt not wearing mask. Assessment & Plan (10/10/2022 12:13 PM EDT): Diagnosed in 2016. Seen by [facility] sleep in [place] on 05/03/2022. She has tried 3 different mask but not tolerated. She has her CPAP but needs to pay for the balance or unable to have new mask fitting session. She is interested in [facility] but not a candidate due to high BMI. She is planning on gastric bypass but need to lose 50lbs first. At sleep medicine she was encouraged to pay the balance of CPAP to start processing for new CPAP mask fitting session. She was also referred to dental for oral device and EMT referral placed by sleep medicine 04/2022. -Pt not wearing mask. Vitamin B12 deficiency (non anemic) 11/02/2021 Overview (01/12/2025): Lab Results Component Value Date VITB12 360 05/02/2023 Assessment & Plan (01/12/2025 11:29 AM EDT): Orders: Vitamin B12/Folate, Serum Panel; Future Assessment & Plan (12/26/2023 10:47 AM EDT): Lab Results Component Value Date VITB12 360 05/02/2023 Vitamin D deficiency 11/02/2021 Intermittent asthma 04/25/2021 Overview (04/06/2024): -well controlled -continue albuterol prn -continue Q-oxana started 01/06/24 Assessment & Plan (01/12/2025 11:29 AM EDT): Orders: Mometasone Furoate (Asmanex HFA) 200 MCG/ACT aerosol; 2 puffs po bid Assessment & Plan (01/06/2024 10:30 AM EDT): -needing to use albuterol twice a week -start Q-oxana 01/06/24 Assessment & Plan (12/26/2023 10:46 AM EDT): Well controlled. Depression with anxiety 08/30/2014 Overview (10/08/2022): Stable with therapist and psychiatrist at [facility] Assessment & Plan (05/06/2024 11:40 AM EST): Stable with therapist and psychiatrist at [facility] Assessment & Plan (12/26/2023 10:48 AM EDT): Stable with therapist and psychiatrist at [facility] Assessment & Plan (05/05/2023 11:05 AM EST): Stable with therapist and psychiatrist at [facility] Assessment & Plan (10/08/2022 11:19 AM EDT): Stable with therapist and psychiatrist at [facility] 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 Non-focal, normal motor exam without neurological deficits. No back pain red-flags: bowel/bladder incontinence, IVDU, urinary retention, saddle anesthesia, and significant motor deficits. -Recommend ibuprofen and muscle relaxer prn. Physical therapy referral offered. -Acupuncture clinic offered. -Lifting precaution sand stretching reviewed. -ER precaution discussed. Neck pain 05/06/2024 08/04/2024 Chronic GERD 01/06/2024 08/04/2024 Allergic rhinitis 01/06/2024 08/04/2024 Physical exam 01/05/2024 08/04/2024 Chest discomfort 05/05/2023 09/17/2023 Overview (05/05/2023): -EKG done in office 05/05/2023 -Sent to cardio for stress test 05/05/2023 Assessment & Plan (09/17/2023 10:36 AM EDT): -EKG done in office 05/05/2023 -Sent to cardio for stress test 05/05/2023 Assessment & Plan (05/05/2023 11:33 AM EST): -EKG done in office 05/05/2023 -Sent to cardio for stress test 05/05/2023 Encounters Date Type Department Care Team Description 02/22/2025 Patient Outreach [facility] MEDICINE [address] [place] [phone] Tiffany Quinn MD Care Management (C3CM- f/u call) 02/08/2025 Telephone [facility] MEDICINE [address] [place] [phone] Tfifany Quinn MD 02/08/2025 Travel 02/08/2025 Patient Outreach [facility] MEDICINE [address] [place] [phone] Tiffany Quinn MD Care Coordination ([facility] f/u) 02/08/2025 Patient Outreach [address] [phone] Tiffany Quinn MD Care Management (C3- f/u call [facility]) 02/02/2025 10:00 AM EDT Office Visit [facility] OPTOMETRY [address] [place] [phone] Douglas, Kaitlynn, OD Diabetes type 2, no ocular involvement (CMS/[facility]) (Primary Dx); Ocular rosacea; Presbyopia; Vitreous floaters of both eyes; Mixed type age-related cataract, both eyes 02/02/2025 Travel 01/27/2025 Patient Outreach [facility]INE [address] [place] [phone] Tiffany Quinn MD 01/26/2025 Patient Outreach [address] [address] Tiffany Quinn MD Care Coordination ([facility] f/u) 01/26/2025 Patient Outreach [address] [address] Tiffany Quinn MD Care Management (C3- f/u call) 01/26/2025 Refill [facility]INE [address] [place] [phone] Tiffany Quinn MD Type 2 diabetes mellitus without complication, unspecified whether termite helper insulin use (CMS/HCC) 01/14/2025 Patient Outreach [facility]ICINE [address] [place] [phone] Tiffany Quinn MD Care Management (C3- f/u call [facility]) 01/12/2025 10:15 AM EDT Office Visit [facility] MEDICINE [address] [place] [phone] Tiffany Quinn MD Type 2 diabetes mellitus without complication, unspecified whether termite helper insulin use (CMS/HCC) (Primary Dx); Other specified health status; Total body pain; Hypertension, unspecified type; Dietary counseling; Exercise counseling; Class 2 severe obesity due to excess calories with serious comorbidity and body mass index (BMI) of 38.0 to 38.9 in adult ([facility]); Diabetes due to underlying condition w oth circulatory comp ([facility]); Mild intermittent asthma without complication; Dyslipidemia; Encounter for immunization; Vitamin B12 deficiency (non anemic); Perimenopause; Allergic rhinitis due to other allergic trigger, unspecified seasonality; Allergic rhinitis, unspecified seasonality, unspecified trigger; Transaminitis 01/12/[address] [address] Tiffany Quinn MD Prior Authorization 01/12/2025 Travel 01/12/2025 Orders Only [address] [address] Tiffany Quinn MD Type 2 diabetes mellitus without complication, without long-term current use of insulin ([facility]) (Primary Dx) 01/11/2025 Patient Outreach [address] [phone] Tiffany Quinn MD Care Coordination (SDOH) 01/11/[address] [address] Tiffany Quinn MD CHART PREP 12/28/2024 Plan of Care Documentation [address] [address] 12/28/2024 Patient Outreach [address] [address] Tiffany Quinn MD Care Management (C3CM- initial assessment/ enrollment) 12/22/2024 Patient Outreach [address] [address] Tiffany Quinn MD Care Coordination (CM/CHW appt reminder) 12/20/2024 Patient Outreach [address] [address] Tiffany Quinn MD Care Coordination (CM/CHW outreach) 12/20/2024 Patient Outreach [address] [address] Tiffany Quinn MD Care Coordination (CHW Chart Review) 12/20/2024 Patient Outreach [facility] [place] [address] Tiffany Quinn MD Care Management ([facility]- chart review) 12/20/2024 Patient Outreach [facility] MEDICINE [address] [place] [phone] Tiffany Quinn MD 12/19/2024 Orders Only GENERIC EXTERNAL DATA DEPARTMENT Provider, Generic External Data 12/15/2024 Telephone [facility] MEDICINE [address] [place] [phone] Tiffany Quinn MD Referral; Prior Authorization 12/08/2024 Refill [facility] [place] [address] [employer] [place], [employer] Chronic GERD 12/07/2024 Refill [facility]INE [address] [place] [phone] Tiffany Quinn MD Type 2 diabetes mellitus without complication, unspecified whether alf insulin use ([facility]) from Last 3 Months Immunizations Immunization Administration Dates Next Due Hep A, Adult 09/17/2023,05/05/2023 Hep B, adult 09/17/2023,05/05/2023,10/10/2022 Influenza injectable quadriv alent IIV4 with preservative 03/11/2019 Influenza injectable quadriv alent preservative free 04/18/2022,08/02/2021,09/12/2014 Moderna Covid-19 Vaccine 12+ 09/26/2020,08/30/19 21 Pfizer Covid-19 Vaccine 12+ Bivalent 10/10/2022 Pneumococcal Conjugate PCV 20 10/10/2022 Tdap 01/12/2025,09/12/2014 Family History Medical History Relation Name Comments Hypertension Maternal Grandmother Diabetes Mother Hyperlipidemia Mother Hypertension Mother cardiovascular disease Mother Relation Name Status Comments Maternal Grandmother Mother Social History Tobacco Use Types Packs/Day Years Used Date Smoking Tobacco: Some Days Cigarettes Passive Smoke Exposure: Past Smokeless Tobacco: Never Tobacco Cessation:Ready to Q uit: Not Asked; Counseling Given: Not Answered Alcohol Answer Date Recorded Frequency of Alcohol [...] your housing situation today? I have tiffanie raul 01/11/[address] you li [...] Orientation Straight 04/29/2022 10 :27 AM EDT Last Filed Vital Signs Vital Sign Reading Time Taken Comments Blood Pressure 138/89 01/12/2025 10:32 AM EDT Pulse 74 01/12/2025 10:32 AM EDT Temperature 37 C (98.6 F) 01/12/2025 10:32 AM EDT Respiratory Rate 16 01/12/2025 10:32 AM EDT Oxygen Saturation 99% 01/12/2025 10:32 AM EDT Inhaled Oxygen Concentration - - Weight 97.1 kg (214 lb) 01/12/2025 10:32 AM EDT Height 156 cm (5' 1.42 ) 01/12/2025 10:32 AM EDT Body Mass Index 39.89 01/12/2025 10:32 AM EDT Plan of Treatment Upcoming Encounters Date Type Department Care Team (Late st Contact Info) Description 04/25/2025 11:00 AM EDT Office Visit [facility] MEDICINE [address] [place] [address] Tiffany Quinn MD [address] [place] [address] Health Maintenance Due Date Last Done Comments CT Colonography 1971 FIT DNA/Cologuard 1971 FIT 1971 FOBT 1971 Sigmoidoscopy 1971 Mammogram 11/07/2019 11/06/2017 Zoster Vaccines (1 of 2) 2021 Diabetes: Urine Protein Screening 05/02/2024 05/02/2023, 09/19/2021 Lipid Panel 05/02/2024 05/02/2023, 09/19/2021 Influenza Vaccine (#1) 2025 , 08/02/2021, 03/11/2019, Additional history exists Diabetes: Hemoglobin A1C 04/14/2025 025, 05/06/2024, 01/06/2024, Additional history exists COVID-19 Vaccine ( season) 2025 10/10/2022, 09/26/2020, 08/29/2020 Postponed from 02/29/2024 (Patient Refused) Alcohol/Substance Use Screening 12/28/2025 12/28/2024 Depression Screening 12/28/2025 12/28/2024, 12/29/19 25 SDOH Screening 01/11/2026 01/11/2025 Diabetes: Foot Exam 01/12/2026 01/12/2025, 01/12/2025, 01/12/2025, Additional history exists Disability Screening 01/12/2026 01/12/2025 Tobacco Screening 01/12/2026 01/12/2025 Eye Exam 02/02/2027 02/02/2025, 08/11/2024, 02/02/2025, Additional history exists Colonoscopy 06/08/2029 06/08/2019 Colorectal Cancer Screening 06/08/2029 DTaP/Tdap/Td Vaccines (3 - Td or Tdap) 01/12/2035 01/12/2025, 09/12/2014 RSV Patients and Patients Aged 60 years or older (1 - 1-dose 75+ series) 2046 Pneumococcal Vaccine: 50+ Years Completed 10/10/2022 HIV Screening Completed 07/25/2023, 09/19/2021 Hepatitis C Screening Completed 07/25/2023 , 08/03/2019, 09/23/2014 Hepatitis A Vaccines Aged Out 09/17/2023, 05/05/20 No longer eligible based on patient's age to complete this topic Hepatitis B Vaccines Completed 09/17/2023, 05/05/2023, 10/10/2022 HIB Vaccines Aged Out No longer eligi ble based on patient's age to complete this topic HPV Vaccines Aged Out No longer eligi ble based on patient's age to complete this topic IPV Vaccines Aged Out No longer eligi ble based on patient's age to complete this topic Meningococcal B Vaccine Aged Out No l onger eligible based on patient's age to complete this topic Meningococcal Vaccine Aged Out No jayshree madyson eligible based on patient's age to complete this topic RSV under 20 months Aged Out No longe r eligible based on patient's age to complete this topic Rotavirus Vaccines Aged Out No longer eligible based on patient's age to complete this topic Goals Goal Patient Goal Type Associated Problems Recent Progress Patient-Stated? Author Hemoglobin A1c < 7 Result Component 8.3(01/12/2025 10:37 AM EDT) No Maria Del Carmen Taylor, Jonathan Procedures Procedure Name Priority Date/Time Associated Diagnosis Comments POCT GLYCATED HEMOGLOBIN, TOTAL Routine 01/12/2025 10:37 AM EDT Type 2 diabetes mellitus without complication, unspecified whether alf insulin use ([facility]) POCT GLUCOSE Routine 01/12/2025 10:35 AM EDT Type 2 diabetes mellitus without complication, unspecified whether alf insulin use (CMS/HCC) CT ABDOMEN PELVIS WO CONTRAST Routine 12/20/2024 1:52 AM EDT LIPASE Routine 12/19/2024 9:56 PM EDT BASIC METABOLIC PANEL Routine 12/19/2024 9:56 PM EDT HEPATIC FUNCTION PANEL Routine 12/19/2024 9:56 PM EDT CBC WITH AUTO DIFFERENTIAL Routine 12/19/2024 9:56 PM EDT HEPATITIS C AB W/REFL TO HCV RNA, QN, PCR Routine 07/25/2023 11:08 AM EST Night sweats HIV 1/2 ANTIGEN/ANTIBODY, FOURTH GENERATION W/RFL Routine 07/25/2023 11:08 AM EST Night sweats ALBUMIN, RANDOM URINE W/CREATININE Routine 05/02/2023 9:30 AM EDT LIPID PANEL, STANDARD Routine 05/02/2023 9:30 AM EDT Type 2 diabetes mellitus without complication, unspecified whether alf insulin use (CMS/HCC) COLONOSCOPY Routine 06/08/2019 MAMMOGRAPHY Routine 11/06/2017 from Last 3 Months or Most Recently Relevant to Health Maintenance Results * (ABNORMAL) POCT HGB A1C (01/12/2025 10:37 AM EDT) Hemoglobin A1C 8.3(A) 4.0 - 5.7 % QC Media Lot # [id number] Lot# Expiration Date ,[id number] Blood 01/12/2025 10:3 7 AM EDT Tiffany Quinn MD POINT OF CARE TEST ENTER/E DIT ORDERABLES Final Result * (ABNORMAL) POCT Glucose (01/12/2025 10:35 AM EDT) Glucose Blood, POC 272(A) 60 - 200 mg/dL QC Media Lot # [id number] Lot# Expiration Date [id number] Blood Capillary blood specimen / Unknown 01/12/2025 10:35 AM EDT Tiffany Quinn MD POINT OF CARE TEST ENTER/E DIT ORDERABLES Final Result * CT Abdomen Pelvis w/o Contrast (12/20/2024 1:52 AM EDT) Anatomical Region Laterality Modality Body, Pelvis, Abdomen Computed T omography 12/20/2024 1:52 AM EDT Narrative 12/20/2024 1:53 AM EDT [place] [address] [address] Scan Report Signed Patient: Citlali Clancy MR#: [id number] : 1970 Acct:[id number] Age/Sex: 54 / F ADM Date: 12/20/24 Loc: .ED Attending Dr: Ordering Physician: Partha Kim MD Date of Service: 12/20/24 Procedure(s): CT abdomen pelvis wo IV con Accession Number(s): [id number] cc: Tiffany Quinn MD; Partha Kim MD Report Number: [id number]: Total DLP = 663.00 mGy-cm CLINICAL HISTORY: Left-sided pain etiology?? CT abdomen and pelvis without contrast Comparison: None provided Findings: Small hiatal hernia. Evaluation of the parenchymal organs is limited by the lack of intravenous contrast, however, the liver, gallbladder, spleen, pancreas, kidneys and adrenal glands are normal in appearance. No bowel obstruction, pneumoperitoneum, or pneumatosis. No ascites. Uterus is absent. Tiny fat containing umbilical hernia. Adnexa unremarkable. Appendix is normal. No acute fracture. No lytic or blastic bone lesions. IMPRESSION: No acute findings. No explanation for left-sided pain. This document has been electronically signed by: Mitch Wynn MD on 12/20/2024 01:52:33 Dictated By: Mitch Wynn MD Signed By: <Electronically signed by Mitch Wynn MD in OV> 12/20/24152 DD/ 1 TD/TT: 12/20/24151 [employer] Consultant: Procedure Note Donotuseinterpreter, Image - 12/20/[address] [place] [address] [address] Scan Report Signed Patient: Citlali ClancyMR#: [id number] : 1970Acct:[id number] Age/Sex: 54 / FADM Date: 12/20/24 Loc: .ED Attending Dr: Ordering Physician: Partha Kim MD Date of Service: 12/20/24 Procedure(s): CT abdomen pelvis wo IV con Accession Number(s): [id number] cc: Tiffany Quinn MD; Partha Kim MD Report Number: [id number]: Total DLP = 663.00 mGy-cm CLINICAL HISTORY: Left-sided pain etiology?? CT abdomen and pelvis without contrast Comparison: None provided Findings: Small hiatal hernia. Evaluation of the parenchymal organs is limited by the lack of intravenous contrast, however, the liver, gallbladder, spleen, pancreas, kidneys and adrenal glands are normal in appearance. No bowel obstruction, pneumoperitoneum, or pneumatosis. No ascites. Uterus is absent. Tiny fat containing umbilical hernia. Adnexa unremarkable. Appendix is normal. No acute fracture. No lytic or blastic bone lesions. IMPRESSION: No acute findings. No explanation for left-sided pain. This document has been electronically signed by: Mitch Wynn MD on 12/20/2024 01:52:33 Dictated By: Mitch Wynn MD Signed By: <Electronically signed by Mitch Wynn MD in OV> 12/20/24152 DD/ 1 TD/TT: 12/20/24151 [employer] Consultant: us [facility] External Provider IMG CT PROCEDURES Edited Result - Final * (ABNORMAL) CBC auto differential (12/19/2024 9:56 PM EDT) White Blood Count 7.3 4.8 - 10.8 X10*3/uL [facility] Red Blood Count 5.05 4.20 - 5.50 X10*6/uL [facility] Hemoglobin 15.6 12.0 - 16.0 g/dl [facility] Hematocrit 45.2 37.0 - 47.0 % [facility] Mean Corpuscular Volume 89.5 80.0 - 98.0 fL [facility] Mean Corpuscular Hemoglobin 30.9 27.0 - 33.0 pg [facility] Mean Corpuscular HGB Conc 34.5 31.0 - 35.0 g/dl [facility] Red Cell Distribution Width 13.2 11.0 - 16.0 % [facility] Platelet Count 232 160 - 400 X10*3/uL [facility] Mean Platelet Volume 10.6 9.4 - 12.3 fL [facility] Neutrophils Percent Auto 72.4 45 - 73 % [facility] Imm Gran Pct Auto 0.3 0.0 - 0.4 % [facility] Lymphocytes Percent Auto 19.6(L) 20 - 40 % [facility] Monocytes Percent Auto 6.6 2 - 11 % [facility] Eosinophils Percent Auto 0.7 0 - 4 % [facility] Basophils Percent Auto 0.4 0 - 2 % [facility] NRBC Pct Auto 0.0 0.0 - 0.2 /100WBC [facility] Neutrophils Absolute Auto 5.3 2.0 - 8.3 x10*3/uL [facility] Imm Gran Abs Auto 0.02 0.00 - 0.03 X10*3/uL [facility] Lymphocytes Absolute Auto 1.4 1.2 - 4.9 X10*3/uL [facility] Monocytes Absolute Auto 0.5 0.1 - 1.2 X10*3/uL [facility] Eosinophils Absolute Auto 0.1 0.0 - 0.4 X10*3/uL [facility] Basophils Absolute Auto 0.0 0.0 - 0.2 X10*3/uL [facility] NRBC Abs Auto 0.000 0.0 - 0.012 X10*3/uL [facility] 12/19/2024 9:56 PM EDT 12/19/2024 10:08 PM EDT Generic External Data Provider LAB BLOOD ORDERAB LES Final Result Performing Organization Address City/[facility]/ZIP Co de Phone Number [facility] [address] [place] [phone] * Lipase (12/19/2024 9:56 PM EDT) Pathologist [facility] Lipase 18 8 - 78 U/L [facility] 12/19/2024 9:56 PM EDT 12/19/2024 10:08 PM EDT Generic External Data Provider LAB BLOOD ORDERAB LES Final Result Performing Organization Address City/[facility]/ZIP Co de Phone Number [facility] [address] [place] [phone] * (ABNORMAL) Hepatic Function Panel (12/19/2024 9:56 PM EDT) Bilirubin, Total 0.6 0.0 - 1.0 mg/dL [facility] Bilirubin, Direct 0.2 0.0 - 0.5 mg/dL [facility] Aspartate Amino Transferase 58(H) 5 - 31 U/L [facility] Alanine Aminotransferase 85(H) 0 - 31 U/L [facility] Total Protein 7.9 6.5 - 8.0 g/dL [facility] Albumin Level 4.2 3.5 - 5.0 g/dL [facility] Alkaline Phosphatase 85 39 - 117 U/L [facility] 12/19/2024 9:56 PM EDT 12/19/2024 10:08 PM EDT us Generic External Data Provider LAB BLOOD ORDERAB LES Final Result Performing Organization Address City/[facility]/ZIP Co de Phone Number [facility] [address] [place] [phone] * (ABNORMAL) Basic Metabolic Panel (12/19/2024 9:56 PM EDT) Sodium 139 135 - 145 mmol/L [facility] Potassium 4.0 3.3 - 5.1 mmol/L [facility] Chloride 104 96 - 108 mmol/L [facility] Carbon Dioxide 26 22 - 29 mmol/L [facility] Anion Gap 13 12 - 20 [facility] Urea Nitrogen (BUN) 14 9 - 16 mg/dL [facility] Creatinine, Serum 0.68 0.5 - 1.4 mg/dL [facility] Creatinine Clr Calc Pharmacy 104.1 [facility] Comment:Provided height and weight: 157.48 cm,97.2 kg.eGFR (calculated from the MDRD study equation) and eCrCl(calculated from the Cockcroft-Gault equation) are based ondifferent parameters and may not yield comparable results.If eCrCl result is absurd, please check patient'sheight/weight. Estimated Glomerular Filt Rate >60 [facility] Comment:Chronic Kidney Disea se: Estimated GFR < 60 mL/min/1.39v7Mbamhl Kidney Disease: Estimated GFR < 15 mL/min/1.73m2 Glucose 211(H) 60 - 115 mg/dL [facility] Calcium 9.8 8.4 - 10.2 mg/dL [facility] 12/19/2024 9:56 PM EDT 12/19/2024 10:08 PM EDT us Generic External Data Provider LAB BLOOD ORDERAB LES Final Result Performing Organization Address City/[facility] [place]/ZIP Co de Phone Number [facility] [address] [place] [address] [phone] * Hepatitis C Antibody with Reflex to HCV, RNA, Quantitative, Real-Time PCR (07/25/2023 11:08 AM EST) Hepatitis C Antibody Nonreactive Nonreactive [facility] Comment:Antibodies to HCV no t detected; does not exclude early acuteHCV infection. Blood Venous blood specimen / Unknown 07/25/2023 11:08 AM EST 07/25/2023 1:18 PM EST Yulissa Sharma [facility] LAB BLOOD ORDERABLES Final Resul t Performing Organization Address [facility] [place]/[facility] Co de Phone Number [facility] [address] [place] [phone] * HIV-1/2 Antigen and Antibodies, Fourth Generation, with Reflexes (07/25/2023 11:08 AM EST) HIV AB/AG Nonreactive Nonreactive [facility] Comment:HIV-1 p24 Ag and/or HIV-1/HIV-2 Ab not detected.A test result that is nonreactive does not exclude thepossibility of exposure to or infection with HIV-1 and/orHIV-2. Nonreactive results in this assay for individualswith prior exposure to HIV-1 and/or HIV-2 may be due toantigen and antibody levels that are below the limit ofdetection of this assay.The [employer] HIV Ag/Ab Combo assay result andsupplemental assay results should be interpreted inconjunction with the patient's clinical presentation,history and other laboratory results. If the results areinconsistent with clinical evidence, additional testing issuggested to confirm the result. Blood Venous blood specimen / Unknown 07/25/2023 11:08 AM EST 07/25/2023 1:18 PM EST Yulissa Sharma [facility] LAB BLOOD ORDERABLES Final Resul t Performing Organization Address [facility] [place]/[facility] Co de Phone Number [facility] [address] [place] [phone] * Albumin, Random Urine W/Creatinine (05/02/2023 9:30 AM EDT) Creatinine, Urine 127.10 mg/dL [facility] Microalbumin Urine 6.0 mg/L [facility] Microalbum Creatinine Ratio Ur 4.7 <30 ug/mg cr [facility] Comment:Albumin/Creatinine R atio Reference Ranges: Normal: < 30 ug/mg creatinine Microalbuminuria: 30 - 300 ug/mg creatinineClinical Albuminuria: > 300 ug/mg creatinine 05/02/2023 9:30 AM EDT 05/02/2023 11:14 AM EDT Tiffany Quinn MD LAB URINE ORDERABLES Final Result [facility] [address] [place] [phone] * (ABNORMAL) Lipid Panel, Standard (05/02/2023 9:30 AM EDT) Triglycerides 69 <150 mg/dL [facility] Comment:Desirable Triglyceri de: less than 150 mg/dLBorderline High Triglyceride 150-199 mg/dLHigh Triglyceride: 200-499 mg/dLVery High Triglyceride: greater than or equal to 5OO mg/dL Cholesterol 167 <200 mg/dL [facility] Comment:Desirable Cholestero l: less than 200 mg/dLBorderline High Cholesterol: 200-239 mg/dLHigh Cholesterol: greater than 239 mg/dL LDL Cholesterol Calculated 108(H) <100 mg/dL [facility] Comment:Desirable LDL: less than 100 mg/dLNear Optimal/Above Optimal LDL: 110- 129 mg/dLBorderline High LDL: 130-159 mg/dLHigh LDL: 160-189 mg/dLVery High LDL: greater than or equal to 190 mg/dL HDL Cholesterol 46 >40 mg/dL [facility] Comment:Desirable HDL: great er than 40 mg/dL Note: This HDL assay may give artificially low results in patients with liver disease. Blood Venous blood specimen / Unknown 05/02/2023 9:30 AM EDT 05/02/2023 11:10 AM EDT Tiffany Quinn MD LAB BLOOD ORDERABLES Final Result [facility] [address] [place] [phone] [phone] * Colonoscopy (06/08/2019) Colonoscopy normal Historical Provider HEALTH MAINTENANCE Final Result * Mammography (11/06/2017) Mammogram normal Anatomical Region Laterality Modality Other Historical [facility] MAINTENANCE Final Result from Last 3 Months or Most Recently Relevant to Health Maintenance Insurance [facility] C3 GENERIC TPL Advance Directives Documents on File Type Date Recorded Patient Documentation Coordinator Expl anation Advance Directives and Living Will 01/07/2024 3:24 PM Health Care Proxy Care Teams Devil Tender Relationship Specialty Start Date End Date Underwood, MD Tiffany [address] [place] [address] PCP - General Family Medicine 08/30/14 Kaitlynn Cole OD [address] [place] [address] Optometry 08/04/24 Jw Maki MD [address] [place] [address] 3[address] [place] [address] Cardiology 08/04/24 Keith Reyes, NEDRA [address] [place] [phone] Registered Nurse Family Medicine 12/20/24
--- OUTSIDE RECORDS SUMMARY | 2025-02-22 09:56 | XMS_ITS | Encounter Summary ---
Author Organization [employer] Address [address]t [place] [address] Care Team Providers Care Information Security Specialist Name Role Phone Tiffany Quinn MD Primary Care Provider Kaitlynn Cole OD Unavailable [phone] Jw Maki MD Unavailable Keith Reyes RN Unavailable [phone] Ida Diggs Unavailable Reason for Visit * Reason Comments Med Change Request Encounter Details Date Type Department Care Team (Late st Contact Info) Description 05/23/2024 Refill [facility] [address] [place] [address] [phone] Name, MD Elias [address] [place] [address] Social History Tobacco Use Types Packs/Day Years [...] Description 04/25/2025 11:00 AM EDT Office Visit [facility] [address] [place] [phone] Tiffany Quinn MD [address] [place] [address] documented as of this encounter Goals Goal [...] documented as of this encounter Care Teams Information Security Specialist Relationship Specialty Start Date End Date Tiffany Quinn MD [address] [place] [address] PCP - General Family Medicine 08/30/14 Kaitlynn Cole OD [address] [place] [address] Optometry 08/04/24 Jw Maki MD [address] [place] [address] Drive 3rd [place] [address] Cardiology 08/04/24 Keith Reyes, NEDRA [address] [place] [phone] Registered Nurse Family Medicine 12/20/24 Ida Diggs 12/20/24 02/08/25 documented as of this encounter
--- OUTSIDE RECORDS SUMMARY | 2025-02-22 09:56 | XMS_ITS | Encounter Summary ---
Author Organization [employer] Address [address] [place] [address] 7[address] [place] [address] Care Team Providers Care Supervisor Dock Name Role Phone Tiffany Quinn MD Primary Care Provider Maria Del Carmen Taylor PharmD Unavailable [phone] Kaitlynn Cole OD Unavailable [phone] Jw Maki MD Unavailable Keith Reyes RN Unavailable Ida Diggs Unavailable Encounter Details Date Type Department Care Team (Late Contact Info) Description 07/14/2022 Abstract [facility] [address] [place], [place] [phone] Tiffany Quinn MD [address] [place], [place] [phone] Social History Tobacco Use Types Packs/Day Years Used Date Smoking Tobacco: Some Days Cigarettes Smokeless Tobacco: Never Comments Unknown Sex and Gender Information Value Date Recorded Sex Assigned at Female 04/29/2022 10:27 AM EDT Legal Sex Female 10:27 AM EDT Gender Identity Female 04/29/2022 10:27 AM EDT Sexual Orientation Straight 04/29/2022 10 :27 AM EDT COVID-19 Exposure Response Date Recorded In the last 10 days, have yo u been in contact with someone who was confirmed or suspected to have Coronavirus/COVID-19? No / Unsure 07/08/2022 1:40 PM EST documented as of this encounter Plan of Treatment Upcoming Encounters Date Type Department Care Team (Late st Contact Info) Description 04/25/2025 11:00 AM EDT Office Visit [facility] [address] [place] [address] Tiffany Quinn MD [address] [place] [address] documented as of this encounter Procedures Procedure Name Priority Date/Time Associated Diagnosis Comments COLONOSCOPY Routine 06/08/2019 MAMMOGRAPHY Routine 11/06/2017 documented in this encounter Results * Colonoscopy (06/08/2019) Colonoscopy normal Historical Provider HEALTH MAINTENANCE Final Result * Mammography (11/06/2017) HM Mammogram normal Anatomical Region Laterality Modality Other Historical Provider HEALTH MAINTENANCE Final Result documented in this encounter Visit Diagnoses Not on filedocumented in this encounter Care Teams Supervisor Dock Relationship Specialty Start Date End Date Tiffany Quinn MD [address] [place] [address] PCP - General Family Medicine 08/30/14 Maria Del Carmen Taylor PharmD [address] [place] [address] Pharmacist Internal Medicine 10/29/22 04/27/23 Kaitlynn Cole OD [address] [place] [address] Optometry 08/04/24 Jw Maki MD [address] [place] [address] [address] [place] [address] Cardiology 08/04/24 Keith Reyes RN [address] [place] [address] Registered Nurse Family Medicine 12/20/24 Ida Diggs 12/20/24 02/08/25 documented as of this encounter
[2025-02-22 11:05] LABS: MANUAL DIFF FLAG NO
[2025-02-22 11:13] LABS: Hematocrit 46.1 % (37.0-47.0); Hemoglobin 15.7 g/dl (12.0-16.0); Imm Gran Abs Auto 0.01 X10*3/uL (0.00-0.03); Imm Gran Pct Auto 0.2 % (0.0-0.4); Lymphocytes Absolute Auto 1.1 X10*3/uL (1.2-4.9); Mean Corpuscular HGB Conc 34.1 g/dl (31.0-35.0); Mean Corpuscular Hemoglobin 30.5 pg (27.0-33.0); Mean Corpuscular Volume 89.7 fL (80.0-98.0); NRBC Abs Auto 0.000 X10*3/uL (0.0-0.012); NRBC Pct Auto 0.0 /100WBC (0.0-0.2); Platelet Count 233 X10*3/uL (160-400); Red Blood Count 5.14 X10*6/uL (4.20-5.50); White Blood Count 5.4 X10*3/uL (4.8-10.8)
[2025-02-22 11:41] LABS: Alanine Aminotransferase 67 U/L (0-31); Albumin Level 4.1 g/dL (3.5-5.0); Alkaline Phosphatase 98 U/L (39-117); Anion Gap 11 (12-20); Aspartate Amino Transferase 38 U/L (5-31); Blood Urea Nitrogen 10 mg/dL (9-16); Calcium 9.1 mg/dL (8.4-10.2); Carbon Dioxide 28 mmol/L (22-29); Chloride 103 mmol/L (96-108); Cholesterol 149 mg/dL (<200); Estimated Glomerular Filt Rate > 60; HDL Cholesterol 45 mg/dL (>40); Potassium 4.0 mmol/L (3.3-5.1); Sodium 138 mmol/L (135-145); Total Protein 7.7 g/dL (6.5-8.0); Triglycerides 80 mg/dL (<150)
[2025-02-22 11:46] LABS: Microalbum/Creatinine Ratio Ur 5.5 ug/mg cr (<30)
[2025-02-22 12:06] LABS: Folate 10.5 ng/mL (> or = 4.0); Vitamin B12 556 pg/mL (200-900)
[2025-03-03 14:33] LABS: Anti Nuclear Antibody Screen POSITIVE (NEGATIVE); Anti Nuclear Antibody Titer 1:320 titer
== END 2025-02-22 09:24 | disposition home or self-care (01) ==
LOC: HO.HHCL 09:23
PROVIDERS: PCP Family Medicine; Visit Provider Family Medicine
DX: Z01.84 Encounter for antibody response examination (principal); E11.9 Type 2 diabetes mellitus without complications; R52 Pain, unspecified; I10 Essential (primary) hypertension; E53.8 Deficiency of other specified B group vitamins
CPT/HCPCS: 36415; 80048; 80061; 80076; 82043; 82570; 82607; 82746; 84443; 85025; 85652; 86038; 86039; 86140; 86431; 86747

== ENCOUNTER 2025-04-06 17:41 | Outpatient (REF) | payer MEDICAID, SELFPAY ==
[2025-04-07 05:12] LABS: Bacterial Vaginosis PCR NEGATIVE (Negative); Candida Group PCR DETECTED (Not Detect); Candida glab krusei PCR NOT DETECTED (Not Detect); Trichomonas vaginalis PCR NOT DETECTED (Not Detect)
== END 2025-04-06 17:42 | disposition home or self-care (01) ==
LOC: HO.HHCLNP 17:41
DX: N89.8 Other specified noninflammatory disorders of vagina (principal)
CPT/HCPCS: 81515

== ENCOUNTER 2025-04-12 11:58 | Outpatient (REF) | payer MEDICAID, SELFPAY ==
[2025-04-12 14:25] LABS: Anion Gap 11 (12-20); Blood Urea Nitrogen 13 mg/dL (9-16); Calcium 9.4 mg/dL (8.4-10.2); Carbon Dioxide 29 mmol/L (22-29); Chloride 103 mmol/L (96-108); Estimated Glomerular Filt Rate > 60; Potassium 4.0 mmol/L (3.3-5.1); Sodium 139 mmol/L (135-145)
== END 2025-04-12 11:59 | disposition home or self-care (01) ==
LOC: HO.HHCL 11:58
PROVIDERS: PCP Family Medicine
DX: E08.59 Diabetes mellitus due to underlying condition with other circulatory complications (principal)
CPT/HCPCS: 36415; 80048

== ENCOUNTER 2025-05-19 10:38 | Inpatient (IN) | payer MEDICAID, SELFPAY ==
--- OUTSIDE RECORDS SUMMARY | 2025-05-17 18:40 | XMS_ITS | Encounter Summary ---
Author Organization [employer] Address [address] [facility] [address], [place] [address] Care Team Providers Care Energy Conservation Director Name Role Phone Tiffany Quinn MD Primary Care Provider [phone] Kaitlynn Cole OD Unavailable [phone] Jw Maki MD Unavailable Keith Reyes RN Unavailable [phone] Reason for Referral * Consultation (Routine) - Authorized Specialty Diagnoses / Procedures Referred By Miguelina noonan Referred To Contact Urology Diagnoses Urinary incontinence, unspecified type Tiffany Quinn MD [address] [place] [address] Phone: tel: fax: [facility] [address] [place], [place] Phone: tel: fax: Referral ID Status Reason Start Date Expiration Date Visits Requested Visits Authorized [id number] Authorized Specialty Services Required 5 05/18/2026 10 10 * Consultation (STAT) - Authorized Specialty Diagnoses / Procedures Referred By Miguelina noonan Referred To Contact Gastroenterology Diagnoses Nausea Hematemesis with nausea Tiffany Quinn MD [address] [place] [address] Phone: tel: fax: [facility] [address] 3rd [address] [place], [place] Phone: tel: fax: Referral ID Status Reason Start Date Expiration Date Visits Requested Visits Authorized [id number] Authorized Specialty Services Required 05/18/2026 6 6 Encounter Details Date Type Department Care Team (Late st Contact Info) Description 05/17/2025 6:40 PM EST Office Visit [facility] [address] [place] [phone] Tiffany Quinn MD [address] [place], [place] [phone] Fibromyalgia (Primary Dx); Type 2 diabetes mellitus with hyperglycemia, without long-term current use of insulin (HCC); Nausea; Hematemesis with nausea; Urinary incontinence, unspecified type Social History Tobacco Use Types Packs/Day Years Used Date Smoking Tobacco: Some Days Cigarettes Passive Smoke Exposure: Current Smokeless Tobacco: Never Alcohol Use Standard Drinks/Week Comments Never 0 (1 standard drink = 0.6 oz pur e alcohol) Alcohol Answer Date Recorded Frequency of Alcohol [...] AM EDT documented as of this encounter Last Filed Vital Signs Vital Sign Reading Time Taken Comments Blood Pressure 135/87 05/17/2025 6:11 PM EST Pulse 104 05/17/2025 6:11 PM EST Temperature 36.9 C (98.5 F) 05/17/2025 6:11 PM EST Respiratory Rate 19 05/17/2025 6:11 PM EST Oxygen Saturation - - Inhaled Oxygen Concentration - - Weight 93 kg (205 lb 2 oz) 05/17/2025 6:11 PM ES T Height 160 cm (5' 3 ) 05/17/2025 6:11 PM EST Body Mass Index 36.34 05/17/2025 6:11 PM EST documented in this encounter Progress Notes * Tiffany Quinn MD - 05/17/2025 6:40 PM EST Subjective Citlali Pattenelario Josseline, 54 years Vomiting and gastrointestinal symptoms - Experienced vomiting with blood and expelled a blood clot prior to the visit (has photo) - Noted that the vomitus was mixed with blood and food - Took photos of the vomitus to document the episode - Episode occurred after administration of medication Ozempic at the increased dose of 1mg on Friday (May 15, 2025) - Reports nausea and aversion to food odors - History of similar episode in the past, which required hospital visit but when she was on Trulicity. - Currently taking omeprazole for stomach acid and pain Fibromyalgia and arthritis - Reports ongoing symptoms related to fibromyalgia and arthritis - Recently visited arthritis specialist who recommended discussing fibromyalgia medication options specifically Lyrica Urinary incontinence and prior surgery - History of bladder sling surgery for urinary incontinence - Reports recurrence of urinary symptoms similar to those prior to surgery - Expressed concern that the sling may have failed or regressed - Noted that mesh was placed during prior surgery Imaging and specialist visits - Underwent imaging of hands, shoulders, hips, and feet as ordered by arthritis specialist Colonoscopy history - Previous colonoscopy performed in 2018 - Prior colonoscopy in 2016 [facility] - Has upcoming appointment with judge's clerk in July Objective Blood pressure 135/87, pulse 104, temperature 98.5 ??F (36.9 ??C), temperature source Oral, resp. rate 19, height 5' 3 (1.6 m), weight 205 lb 2 oz (93 kg). Physical Exam Constitutional: Appearance: Normal appearance. She is obese. Cardiovascular: Rate and Rhythm: Normal rate. Heart sounds: Normal heart sounds. No murmur heard. Pulmonary: Breath sounds: Normal breath sounds. Abdominal: General: Bowel sounds are normal. There is no distension. Palpations: Abdomen is soft. There is no mass. Tenderness: There is no abdominal tenderness. There is no guarding or rebound. Hernia: No hernia is present. Skin: General: Skin is warm and dry. Coloration: Skin is not pale. Neurological: Mental Status: She is alert. Fibromyalgia: - Fibromyalgia confirmed by av specialist. - Prescribed Lyrica 75 bid and will titrate as needed Type 2 diabetes mellitus with hyperglycemia, without long-term current use of insulin (HCC): - Type 2 diabetes mellitus with hyperglycemia, currently managed without long- term insulin use. -decrease ozempic from 1mg to 0.5mg - Continue current diabetes management. Creative Consultant appointment scheduled for July 2025. Nausea: - Nausea present. No pain suggestive of pancreatitis. - Prescribed antiemetic medication for nausea and decrease ozempic Hematemesis with nausea: - Hematemesis with associated nausea. - Prescribed Zofran and referral to GI Advised to seek emergency care for severe vomiting or need for intravenous fluids. Will check laboratory results and follow up as needed. Urinary incontinence, unspecified type: - Urinary incontinence persists despite prior sling procedure. - Will schedule urology follow-up to evaluate recurrence and discuss possible interventions. This note was drafted using [employer] (Sodbuster) technology. The patient/patient's guardian has been informed and has consented to the use of this technology: Yes documented in this encounter Plan of Treatment Upcoming Encounters Date Type Department Care Team (Late st Contact Info) Description 07/19/2025 1:00 PM EST Nutrition [facility] [address] [place], [place] [phone] Yessica Blood, JAMIE [address] [place], [place] [phone] Scheduled Orders Name Type Priority Associated Diagnoses Orde r Schedule Basic Metabolic Panel Lab Routine Hematemesis with nausea Expected: 05/17/2025 (Approximate), Expires: 05/17/2026 Hepatic Function Panel Lab Routine Hematemesis with nausea Expected: 05/17/2025 (Approximate), Expires: 05/17/2026 Lipase Lab Routine Hematemesis with nausea Expected: 05/17/2025, Expires: 05/17/2026 Amylase Lab Routine Hematemesis with nausea Expected: 05/17/2025 (Approximate), Expires: 05/17/2026 CBC Lab Routine Hematemesis with nausea Expected: 05/17/2025, Expires: 05/17/2026 Scheduled Referrals Name Type Priority Associated Diagnoses Order Schedule Referral to Gastroenterology Outpatient Referral STAT Nausea Hematemesis with nausea Expected: 05/17/2025 (Approximate), Expires: 05/17/2026 Referral to Urology Outpatient Referral Routine Urinary incontinence, unspecified type Expected: 05/17/2025 (Approximate), Expires: 05/17/2026 documented as of this encounter Goals Goal Patient Goal Type Associated Problems Recent Progress Patient-Stated? Author Hemoglobin A1c < 7 Result Component 11(04/25/2025 11:34 AM EDT) No Maria Del Carmen Javier, PharmD Help patients manage their type 2 diabetes Care Plan Help patients manage their type 2 diabetes Tiffany Cueva MD Weekly blood pressure task Care Plan Weekly blood pressure task Tiffany Cueva MD Help patients manage their type 2 diabetes Care Plan Help patients manage their type 2 diabetes Tiffany Cueva MD Patient has chronic kidney disease Care Plan Patient has chronic kidney disease Tiffany Cueva MD Weekly blood pressure task Care Plan Weekly blood pressure task No Tiffany Quinn MD Patient has chronic kidney disease Care Plan Patient has chronic kidney disease No Tiffany Quinn MD documented as of this encounter Visit Diagnoses Diagnosis Fibromyalgia- Primary Unspecified myalgia and myositis Type 2 diabetes mellitus with hyperglycemia, without long-term current use of insulin (HCC) Nausea Nausea alone Hematemesis with nausea Urinary incontinence, unspecified type documented in this encounter Additional Health Concerns Active Problems Noted Date Diagnosed Date Help patients manage their type 2 diabetes 05/17 Weekly blood pressure task 05/17/2025 Help patients manage their type 2 diabetes 05/17 Patient has chronic kidney disease 05/17/2025 Weekly blood pressure task 05/17/2025 Patient has chronic kidney disease 05/17/2025 Assessment Noted Time PHQ-9 Depression Total Score: 4 12/29/19 25 1:21 PM EDT documented as of this encounter Care Teams Energy Conservation Director Relationship Specialty Start Date End Date Tiffany Quinn MD [address] [place] [address] PCP - General Family Medicine 08/30/14 Kaitlynn Cole OD [address] [place] [address] Optometry 08/04/24 Jw Maki MD [address] [place] [address] [address] [place] [address] Cardiology 08/04/24 Keith Reyes, NEDRA [address] [place] [address] Registered Nurse Family Medicine 12/20/24 MILLICENT BRYAN NP Psychiatrist 04/25/25 documented as of this encounter
--- NOTE | ~2025-05-19 | CT_ITS ---
EXAMINATION: CT ABDOMEN PELVIS WITH IV CONTRAST HISTORY: left-sided abdominal pain, diarrhea, R/ O colitis COMPARISON: Comparison is made with the prior examination dated 12/20/2024. TECHNIQUE: CT scan of the abdomen and pelvis was performed following administration of 85 mL Omnipaque 350 using standard departmental protocol. Coronal and sagittal reformatted images were generated and reviewed. Oral contrast material was not administered at the request of the referring physician. This CT exam was performed with one or more of the following dose reduction techniques: automated exposure control, adjustment of the mA and/or kV according to patient size, use of iterative reconstruction technique. DLP: 646 mGy-cm FINDINGS: LOWER CHEST: There is a calcified granuloma at the right lung base. The visualized left lung base is clear. There is no pleural effusion. CARDIOVASCULATURE: The heart is normal in size. There is no pericardial effusion. LIVER: The liver is normal in size and contour, but demonstrates diffusely decreased attenuation, consistent with steatosis. No liver mass is identified. The hepatic and portal veins are patent. GALLBLADDER / BILE DUCTS: The gallbladder is unremarkable. There is no intra or extrahepatic biliary ductal dilatation. SPLEEN: The spleen is normal in size. No focal splenic lesion is identified. PANCREAS: The pancreas is unremarkable in appearance. ADRENAL GLANDS: Within normal limits. KIDNEYS/RETROPERITONEUM: No renal calculi are identified. There is no hydronephrosis. No renal masses are identified. LYMPH NODES: No abdominal or pelvic lymphadenopathy. VASCULATURE: The abdominal aorta is normal in caliber. MESENTERY/PERITONEUM: No free fluid. No masses. There is no free intraperitoneal gas. STOMACH: There is a small hiatal hernia. The remainder of the stomach is collapsed. SMALL BOWEL: The small bowel is normal in caliber. COLON: The colon is largely collapsed. No pericolonic inflammatory disease are identified. APPENDIX: Normal. URINARY BLADDER/PELVIC ORGANS: The urinary bladder is collapsed, limiting evaluation. The patient is status post hysterectomy. BONES / SOFT TISSUES: No suspicious bony or soft tissue abnormalities. CT/CT abdomen pelvis w IV con IMPRESSION: Hepatic steatosis. No acute abnormality is identified. Electronically signed by: Christopher Lynn MD 05/19/2025 12:37 PM EST RP
[2025-05-19 10:55] VITALS: BP 139/60; PULSE 97; RESP 20; TEMP 35.8; O2SAT 98; BMI 37.0
--- NOTE | 2025-05-19 11:03 | ED.GENADULT ---
HPI - General Adult General Chief complaint: Abdominal Pain Stated complaint: L side pain, diarrhea Time Seen by Provider: 05/19/25 11:48 Source: patient, family, old records reviewed and historical interpreter Mode of arrival: ambulatory Limitations: no limitations History of Present Illness ED Provider: DR. Cox HPI narrative: 54-year-old female came in for evaluation of abdominal pain x2 days. symptoms started 2 days ago with vomiting several times with streaks of blood in the vomit, followed by left-sided abdominal pain that is been constant feels like cramps, then patient started with multiple nonbloody watery diarrhea for the past 2 days, patient had a history of using antibiotic for dental infection about 2 weeks ago, otherwise no recent travel, no recent prolonged immobilization, no sick contacts, no exposure to a bad food. Patient has no history of intra-abdominal surgery in the past. No dysuria, no frequency urination, no blood in the stool. Last bowel movement was before the exam in the emergency department and was diarrhea patient was instructed to give a stool sample with her next bowel movement. Related Data Home Medications ?Medication ?Instructions ?Recorded ?Confirmed bupropion HCl 300 mg 24 hr tablet, 300 mg PO DAILY 08/01/20 05/19/25 extended release fluoxetine 20 mg capsule 20 mg PO DAILY 08/01/20 05/19/25 omeprazole 20 mg capsule,delayed 20 mg PO DAILY@0630 08/01/20 05/19/25 release oxcarbazepine 300 mg tablet 300 mg PO DAILY 08/01/20 05/19/25 clonazepam 0.5 mg tablet (Klonopin) 0.5 mg PO DAILY PRN Anxiety 11/13/20 05/19/25 oxcarbazepine 600 mg tablet 600 mg PO BEDTIME 11/23/20 05/19/25 lisinopril 5 mg tablet 5 mg PO BEDTIME 08/12/23 05/19/25 atorvastatin 40 mg tablet 40 mg PO BEDTIME 05/19/25 05/19/25 bupropion HCl 150 mg 24 hr tablet, 150 mg PO DAILY 05/19/25 05/19/25 extended release cetirizine 10 mg tablet 10 mg PO DAILY PRN allergies 05/19/25 05/19/25 cyanocobalamin (vitamin B-12) 1,000 mcg PO DAILY 05/19/25 05/19/25 1,000 mcg tablet fluoxetine 40 mg capsule 40 mg PO DAILY 05/19/25 05/19/25 fluticasone propionate 50 1 spray intranasal DAILY PRN 05/19/25 05/19/25 mcg/actuation nasal allergies spray,suspension metformin 750 mg tablet,extended 750 mg PO BID 05/19/25 05/19/25 release 24 hr mometasone 200 mcg/actuation HFA 2 puff inhalation BID 05/19/25 05/19/25 aerosol inhaler (Asmanex HFA) trazodone 100 mg tablet 100 mg PO BEDTIME 05/19/25 05/19/25 Previous Rx's ?Medication ?Instructions ?Recorded omeprazole 20 mg capsule,delayed 20 mg PO DAILY #90 caps 05/21/25 release Allergies Allergy/AdvReac Type Severity Reaction Status Date / Time No Known Allergies Allergy Verified 05/19/25 10:58 Review of Systems Review of Systems: All other systems are reviewed and are negative Constitutional: Reports as per HPI and Reports no additional constitutional complaints Eyes: Reports as per HPI and Reports no additional eye complaints Reports system reviewed and no additional complaints, except as documented Cardiovascular: Reports as per HPI and Reports no additional cardiovascular complaints Respiratory: Reports as per HPI and Reports no additional respiratory complaints Gastrointestinal: Reports as per HPI and Reports no additional gastrointestinal complaints Genitourinary: Reports no additional female genitourinary complaints Musculoskeletal: Reports no additional musculoskeletal complaints Skin/Breast: Reports system reviewed and no additional complaints, except as docu Psychiatric: Reports no additional psychiatric complaints Endocrine: Reports no additional endocrine complaints Hematologic/Lymphatic: Reports no additional hematologic/lymphatic complaints Allergic/Immunologic: Reports no additional allergic/immunologic complaints Reports system reviewed and no additional complaints, except as documented and Reports Abnormal speech present [facility] Past Medical History Medical History PONV (postoperative nausea and vomiting) BMI 39.0-39.9,adult GERD (gastroesophageal reflux disease) Sleep apnea Depression Diabetes Asthma Surgical History H/O dilation and curettage History of endometrial ablation Tubal ligation status History of bladder suspension procedure Family History Family History Mother Heart disease Hypertension Liver disease Father No problems noted. Sister Asthma Blood clot in vein Brother Asthma Paralysis of left upper extremity Daughter No problems noted. Daughter No problems noted. Son Asthma Gastritis Son No problems noted. Social History Social History Household Members: Family Housing: Apartment Do you presently have visiting nurse or other home services: No Alcohol intake: never Comment: medicated in pacu Patient Tobacco Use Status: Current someday Tobacco user Tobacco use type: Cigarette Cigarettes Per Day: 3 Second Hand Smoke Exposure: No service: No Physical Exam ED Vital Signs: Vital Signs - 24 hr 05/19/25 10:55 05/19/25 13:02 05/19/25 15:45 Temperature 96.5 F L 97.7 F 98.1 F Pulse Rate 97 81 78 Respiratory Rate 20 16 16 Blood Pressure 139/60 120/76 124/84 Pulse Oximetry 98 97 95 Oxygen Delivery Method Room Air Room Air Room Air BMI result Body Mass Index 36.1 Vital signs have been reviewed and appear to be correct. Blood pressure elevated. Heart rate normal. Respiratory rate normal. Temperature normal. Oxygen saturation normal. Appearance: Alert. Oriented X3. No acute distress. Head: Normal external exam. Normocephalic. Atraumatic. No Pond signs noted. No raccoon eyes noted Eyes: PERRLA. EOMI. Conjunctiva and sclera normal. Eyelids normal. ENT: TM's Normal. Pharynx normal. Uvula midline. Moist mucous membranes. No trismus noted. No drooling noted. No muffled voice noted. Neck: Normal inspection. Neck supple. FROM. No adenopathy. Thyroid Normal. No meningeal signs. No neck mass noted. CVS: Normal heart rate and rhythm. Heart sound normal. No murmurs noted. Pulses normal throughout. Respiratory: No respiratory distress. Painless inspiration. Breath sounds normal. No wheezes/rales/rhonchi noted. Chest nontender. No accessory muscle usage noted or decreased air movement noted. Abdomen: Left lower quadrant abdominal tenderness, no guarding, no rebound tenderness.Bowel sounds normal in all 4 quadrants. No distention noted. No organomegaly noted. No visible injury noted. Back: No CVA tenderness. Full range of motion noted. Skin: Skin warm and dry. Normal skin color. Normal skin turgor. No rashes/lesions/lacerations noted. Extremities: No lower extremity edema. Extremities exhibit normal range of motion. Extremities nontender. Neuro: Oriented X 3. Cranial nerve exam: II-XII are grossly intact No motor deficit. No sensory deficit. Reflexes normal. Course Course Course Narrative: RME: 54-year-old female presents to ED for left lower quadrant abdominal pain, diarrhea, vomiting since Friday. Patient is sent for primary care for evaluation. labs ordered Reevaluation(s) Reevaluation #1: patient received 1 dose of vancomycin orally for suspected C diff, C diff test is negative will discontinue antibiotic. Will admit the patient to medical floor for hematemesis workup. Time: 16:21 Medications Administered Discontinued Medications Generic Name Dose Route Start Last Admin Trade Name Freq PRN Reason Stop Dose Admin Al Hydroxide/Mg Hydroxide 30 ml 05/19/25 12:01 05/19/25 13:06 Magnesium Hydrox/Alum Hydrox 30 Ml Oral.Susp PO 05/19/25 12:02 30 ml ONCE ONE Administration Atorvastatin Calcium 40 mg 05/19/25 21:00 05/20/25 20:56 Atorvastatin Calcium 40 Mg Tablet PO 40 mg BEDTIME ANTONETTE Administration Bupropion HCl 150 mg 05/20/25 09:00 05/21/25 08:11 Bupropion Hcl Xl 150 Mg Tab.Er.24h PO 150 mg DAILY ANTONETTE Administration Bupropion HCl 300 mg 05/20/25 09:00 05/21/25 08:12 Bupropion Hcl Xl 300 Mg Tab.Er.24h PO 300 mg DAILY ANTONETTE Administration Cyanocobalamin 1,000 mcg 05/20/25 09:00 05/21/25 08:11 Cyanocobalamin (Vitamin B-12) 1,000 Mcg Tablet PO 1,000 mcg DAILY ANTONETTE Administration Enoxaparin Sodium 40 mg 05/20/25 09:30 05/21/25 09:13 Enoxaparin Sodium 40 Mg/0.4 Ml Syringe SUBCUT 40 mg Q24H ATNONETTE Administration Fluoxetine HCl 40 mg 05/20/25 09:00 05/21/25 08:11 Fluoxetine Hcl 20 Mg Capsule PO 40 mg DAILY ANTONETTE Administration Fluoxetine HCl 20 mg 05/20/25 09:00 05/21/25 08:12 Fluoxetine Hcl 20 Mg Capsule PO 20 mg DAILY ANTONETTE Administration Hydromorphone HCl 0.5 mg 05/19/25 16:26 05/19/25 21:19 Hydromorphone Hcl 1 Mg/Ml Syringe IVPUSH 0.5 mg Q4H PRN Administration Pain, Severe (Pain Scale 7-10) Protocol Lactated Ringer's 1,000 mls @ 999 mls/hr 05/19/25 12:15 05/19/25 14:05 Lr IV 05/19/25 13:15 Infused .Q1H1M ANTONETTE Infusion Acetaminophen 1,000 mg in 100 mls @ 400 mls/hr 05/19/25 15:53 05/19/25 16:27 Ofirmev IV 05/19/25 16:07 Infused ONCE ONE Infusion Lactated Ringer's 1,000 mls @ 100 mls/hr 05/19/25 16:30 05/20/25 15:32 Lr IVCONT Infused .Q10H ANTONETTE Infusion Lactated Ringer's 500 mls @ 999 mls/hr 05/20/25 03:45 05/20/25 04:21 Lr IV 05/20/25 04:15 Infused .Q31M ANTONETTE Infusion Insulin Human Lispro 0 unit 05/19/25 16:30 05/21/25 08:11 Insulin Lispro 100 Unit/Ml 3 Ml Vial SUBCUT 2 unit QIDACHS ANTONETTE Administration Protocol Iohexol 100 ml 05/19/25 12:18 05/19/25 12:18 Iohexol 350 Mg/Ml 100 Ml Infus..Btl IV 05/19/25 12:19 85 ml ONCE ONE Administration Ketorolac Tromethamine 15 mg 05/20/25 04:49 05/20/25 04:55 Ketorolac Tromethamine 15 Mg/Ml Vial IVPUSH 05/20/25 04:50 15 mg ONCE ONE Administration Lisinopril 5 mg 05/19/25 21:00 05/20/25 21:34 Lisinopril 5 Mg Tablet PO Not Given BEDTIME [facility] Protocol Ondansetron HCl 4 mg 05/19/25 12:01 05/19/25 13:06 Ondansetron Hcl 4 Mg/2 Ml Vial IVPUSH 05/19/25 12:02 4 mg ONCE ONE Administration Ondansetron HCl 4 mg 05/19/25 16:26 05/20/25 20:13 Ondansetron Hcl 4 Mg/2 Ml Vial IVPUSH 4 mg Q6H PRN Administration Nausea Oxcarbazepine 600 mg 05/19/25 21:00 05/20/25 20:56 Oxcarbazepine 300 Mg Tablet PO 600 mg BEDTIME ANTONETTE Administration Oxcarbazepine 300 mg 05/20/25 09:00 05/21/25 08:12 Oxcarbazepine 300 Mg Tablet PO 300 mg DAILY ANTONETTE Administration Pantoprazole Sodium 40 mg 05/19/25 12:01 05/19/25 13:06 Pantoprazole Sodium 40 Mg/10 Ml Vial IVPUSH 05/19/25 12:02 40 mg ONCE ONE Administration Pantoprazole Sodium 40 mg 05/20/25 06:00 05/21/25 05:37 Pantoprazole Sodium 40 Mg/10 Ml Vial IVPUSH 40 mg BID@0630,1630 ANTONETTE Administration Sodium Chloride 3 ml 05/20/25 00:00 05/21/25 08:18 0.9 % Sodium Chloride Flush 3 Ml Syringe IVFLUSH Not Given QSHIFT ANTONETTE Sucralfate 1 gm 05/19/25 12:01 05/19/25 13:06 Sucralfate Oral Suspension 1 Gm/10 Ml Oral.Susp PO 05/19/25 12:02 1 gm ONCE ONE Administration Trazodone HCl 100 mg 05/19/25 21:00 05/20/25 20:56 Trazodone Hcl 100 Mg Tablet PO 100 mg BEDTIME ANOTNETTE Administration Vancomycin HCl 250 mg 05/19/25 12:05 05/19/25 13:06 Vancomycin Hcl 125 Mg Capsule PO 05/19/25 12:06 250 mg ONCE ONE Administration Medical Decision Making Differential Diagnosis Differential Diagnoses: The differential diagnosis associated with the presentation includes ( C diff, gastroenteritis, gastritis, colitis, diverticulitis, electrolyte derangement, severe anemia.) Admission/Observation Consideration of admission/observation: Escalation of care including admission/observation considered Consult Healthcare Provider Management of the patient was discussed with: Hospitalist ( Dr. Parada) Lab Data MDM Lab Attestation statement: I reviewed the patient's lab results. 05/21/25 05:42 05/21/25 05:42 Labs: Lab Results 05/19/25 05/19/25 05/19/25 Range/Units 11:22 13:15 17:52 WBC 5.9 (4.8-10.8) X10*3/uL RBC 5.40 (4.20-5.50) X10*6/uL Hgb 16.3 H (12.0-16.0) g/dl Hct 48.4 H (37.0-47.0) % MCV 89.6 (80.0-98.0) fL MCH 30.2 (27.0-33.0) pg MCHC 33.7 (31.0-35.0) g/dl RDW 13.0 (11.0-16.0) % Plt Count 230 (160-400) X10*3/uL MPV 10.4 (9.4-12.3) fL Immature Gran % (Auto) 0.3 (0.0-0.4) % Neut % (Auto) 77.0 H (45-73) % Lymph % (Auto) 14.6 L (20-40) % Caswell % (Auto) 6.9 (2-11) % Eos % (Auto) 1.0 (0-4) % Baso % (Auto) 0.2 (0-2) % Lymph # (Auto) 0.9 L (1.2-4.9) X10*3/uL Caswell # (Auto) 0.4 (0.1-1.2) X10*3/uL Eos # (Auto) 0.1 (0.0-0.4) X10*3/uL Baso # (Auto) 0.0 (0.0-0.2) X10*3/uL Abs Immat Gran (auto) 0.02 (0.00-0.03) X10*3/uL Absolute Neuts (auto) 4.6 (2.0-8.3) x10*3/uL Absolute Nucleated RBC 0.000 (0.0-0.012) X10*3/uL Nucleated RBC % (auto) 0.0 (0.0-0.2) /100WBC PT 15.0 H (11.2-13.5) SEC INR 1.2 H (0.9-1.1) APTT 28.1 (26.7-34.1) SEC Sodium 139 (135-145) mmol/L Potassium 4.0 (3.3-5.1) mmol/L Chloride 105 (96-108) mmol/L Carbon Dioxide 25 (22-29) mmol/L Anion Gap 13 (12-20) BUN 10 (9-16) mg/dL Creatinine 0.56 (0.5-1.4) mg/dL Estim Creat Clear Calc 127.2 Estimated GFR > 60 POC Glucose 116 H (60-115) mg/dL Random Glucose 180 H (60-115) mg/dL Calcium 9.3 (8.4-10.2) mg/dL Magnesium (1.6-2.6) mg/dL Total Bilirubin 0.8 (0.0-1.0) mg/dL Direct Bilirubin (0.0-0.5) mg/dL AST 67 H (5-31) U/L ALT 96 H (0-31) U/L Alkaline Phosphatase 90 (39-117) U/L Total Protein 7.8 (6.5-8.0) g/dL Albumin 4.1 (3.5-5.0) g/dL Lipase 14 (8-78) U/L Beta HCG, Quant < 2 mIU/mL Stool Occult Blood NEGATIVE (NEGATIVE) Stl C. cayetanensis PCR Not Detected (Not Detect.) Stool Rotavirus A PCR Not Detected (Not Detect.) Stl Adenov F 40/41 PCR Not Detected (Not Detect.) Stool Astrovirus (PCR) Not Detected (Not Detect.) Stool Campylobacter PCR Not Detected (Not Detect.) Stool Cryptosporidium PCR Not Detected (Not Detect.) Stl Sh Tox Pr E STEC PCR Not Detected (Not Detect.) Stool E coli O157 PCR Not applicable (Not Detect.) Stl Enterotoxigenic E PCR Not Detected (Not Detect.) Stool EPEC (PCR) Not Detected (Not Detect.) Stool EAEC (PCR) Not Detected (Not Detect.) Stl E. histolytica PCR Not Detected (Not Detect.) Stool Giardia Lamblia PCR Not Detected (Not Detect.) Stl P. shigelloides PCR Not Detected (Not Detect.) Stool Salmonella PCR Not Detected (Not Detect.) Stool Sapovirus (PCR) Not Detected (Not Detect.) Stl Shigella/EIEC PCR Not Detected (Not Detect.) St Y.enterocolitica PCR Not Detected (Not Detect.) Stool Vibrio (PCR) Not Detected (Not Detect.) Stl Vibrio cholerae PCR Not Detected (Not Detect.) Stl Norovirus GI/GII PCR Not Detected (Not Detect.) C. difficile Tox B Gene NEGATIVE (Negative) 05/19/25 05/20/25 05/20/25 Range/Units 20:36 05:39 07:32 WBC 5.3 (4.8-10.8) X10*3/uL RBC 4.55 (4.20-5.50) X10*6/uL Hgb 13.7 (12.0-16.0) g/dl Hct 41.1 (37.0-47.0) % MCV 90.3 (80.0-98.0) fL MCH 30.1 (27.0-33.0) pg MCHC 33.3 (31.0-35.0) g/dl RDW 13.1 (11.0-16.0) % Plt Count 176 (160-400) X10*3/uL MPV 10.4 (9.4-12.3) fL Immature Gran % (Auto) (0.0-0.4) % Neut % (Auto) (45-73) % Lymph % (Auto) (20-40) % Caswell % (Auto) (2-11) % Eos % (Auto) (0-4) % Baso % (Auto) (0-2) % Lymph # (Auto) (1.2-4.9) X10*3/uL Caswell # (Auto) (0.1-1.2) X10*3/uL Eos # (Auto) (0.0-0.4) X10*3/uL Baso # (Auto) (0.0-0.2) X10*3/uL Abs Immat Gran (auto) (0.00-0.03) X10*3/uL Absolute Neuts (auto) (2.0-8.3) x10*3/uL Absolute Nucleated RBC 0.000 (0.0-0.012) X10*3/uL Nucleated RBC % (auto) 0.0 (0.0-0.2) /100WBC PT (11.2-13.5) SEC INR (0.9-1.1) APTT (26.7-34.1) SEC Sodium 140 (135-145) mmol/L Potassium 3.3 (3.3-5.1) mmol/L Chloride 105 (96-108) mmol/L Carbon Dioxide 28 (22-29) mmol/L Anion Gap 10 L (12-20) BUN 6 L (9-16) mg/dL Creatinine 0.55 (0.5-1.4) mg/dL Estim Creat Clear Calc 127.7 Estimated GFR > 60 POC Glucose 127 H 154 H (60-115) mg/dL Random Glucose 171 H (60-115) mg/dL Calcium 8.4 D (8.4-10.2) mg/dL Magnesium 1.6 (1.6-2.6) mg/dL Total Bilirubin 0.7 (0.0-1.0) mg/dL Direct Bilirubin 0.3 (0.0-0.5) mg/dL AST 49 H (5-31) U/L ALT 67 H (0-31) U/L Alkaline Phosphatase 76 (39-117) U/L Total Protein 6.3 L (6.5-8.0) g/dL Albumin 3.2 L (3.5-5.0) g/dL Lipase (8-78) U/L Beta HCG, Quant mIU/mL Stool Occult Blood (NEGATIVE) Stl C. cayetanensis PCR (Not Detect.) Stool Rotavirus A PCR (Not Detect.) Stl Adenov F 40/41 PCR (Not Detect.) Stool Astrovirus (PCR) (Not Detect.) Stool Campylobacter PCR (Not Detect.) Stool Cryptosporidium PCR (Not Detect.) Stl Sh Tox Pr E STEC PCR (Not Detect.) Stool E coli O157 PCR (Not Detect.) Stl Enterotoxigenic E PCR (Not Detect.) Stool EPEC (PCR) (Not Detect.) Stool EAEC (PCR) (Not Detect.) Stl E. histolytica PCR (Not Detect.) Stool Giardia Lamblia PCR (Not Detect.) Stl P. shigelloides PCR (Not Detect.) Stool Salmonella PCR (Not Detect.) Stool Sapovirus (PCR) (Not Detect.) Stl Shigella/EIEC PCR (Not Detect.) St Y.enterocolitica PCR (Not Detect.) Stool Vibrio (PCR) (Not Detect.) Stl Vibrio cholerae PCR (Not Detect.) Stl Norovirus GI/GII PCR (Not Detect.) C. difficile Tox B Gene (Negative) Independent Interpretation I performed an independent interpretation of an: CT Scan ( abdomen pelvis:Hepatic steatosis. No acute abnormality is identified.) Radiology Impression Discussion of test interpretation with radiology: I have reviewed the radiologist's reading. Discharge Plan Discharge Clinical Impression: Hematemesis Patient Disposition: Admitted As Inpatient Interventions: Admission Worksheet (ED) Last Done: 05/19/25 19:21 Discharge Date/Time: 05/19/25 19:48
[2025-05-19 11:26] LABS: MANUAL DIFF FLAG NO
[2025-05-19 11:36] LABS: Hematocrit 48.4 % (37.0-47.0); Hemoglobin 16.3 g/dl (12.0-16.0); Imm Gran Abs Auto 0.02 X10*3/uL (0.00-0.03); Imm Gran Pct Auto 0.3 % (0.0-0.4); Lymphocytes Absolute Auto 0.9 X10*3/uL (1.2-4.9); Mean Corpuscular HGB Conc 33.7 g/dl (31.0-35.0); Mean Corpuscular Hemoglobin 30.2 pg (27.0-33.0); Mean Corpuscular Volume 89.6 fL (80.0-98.0); NRBC Abs Auto 0.000 X10*3/uL (0.0-0.012); NRBC Pct Auto 0.0 /100WBC (0.0-0.2); Platelet Count 230 X10*3/uL (160-400); Red Blood Count 5.40 X10*6/uL (4.20-5.50); White Blood Count 5.9 X10*3/uL (4.8-10.8)
[2025-05-19 11:52] LABS: Alanine Aminotransferase 96 U/L (0-31); Albumin Level 4.1 g/dL (3.5-5.0); Alkaline Phosphatase 90 U/L (39-117); Anion Gap 13 (12-20); Aspartate Amino Transferase 67 U/L (5-31); Blood Urea Nitrogen 10 mg/dL (9-16); Calcium 9.3 mg/dL (8.4-10.2); Carbon Dioxide 25 mmol/L (22-29); Chloride 105 mmol/L (96-108); Creatinine Clr Calc Pharmacy 127.2; Estimated Glomerular Filt Rate > 60; Lipase 14 U/L (8-78); Potassium 4.0 mmol/L (3.3-5.1); Sodium 139 mmol/L (135-145); Total Protein 7.8 g/dL (6.5-8.0)
[2025-05-19 12:18] LABS: INTERNATIONAL NORM RATIO 1.2 (0.9-1.1); Prothrombin Time 15.0 SEC (11.2-13.5)
[2025-05-19] MEDS: iohexoL 350 MG/ML 100 ML INFUS..BTL IV (12:18)
[2025-05-19 12:21] LABS: Partial Thromboplastin Time 28.1 SEC (26.7-34.1)
[2025-05-19 13:02] VITALS: BP 120/76; PULSE 81; RESP 16; TEMP 36.5; O2SAT 97
[2025-05-19] MEDS: Magnesium Hydrox/Alum Hydrox 30 ML ORAL.SUSP PO (13:06)
[2025-05-19] MEDS: Sucralfate Oral Suspension 1 GM/10 ML ORAL.SUSP PO (13:06)
[2025-05-19] MEDS: Lactated Ringers 1,000 ML 999 ML IV (13:07)
[2025-05-19 13:37] LABS: OBS Int Ctl Valid YES; OBS1 NEGATIVE (NEGATIVE)
[2025-05-19 15:45] VITALS: BP 124/84; PULSE 78; RESP 16; TEMP 36.7; O2SAT 95
[2025-05-19 15:50] LABS: CDiff Gene PCR NEGATIVE (Negative)
--- NOTE | 2025-05-19 16:27 | PM.IMHP ---
History of Present Illness Date of Service: 05/19/25 Chief Complaint: n/v/d hematemesis 54F PMH diabetes, obesity, INDRA, NAFLD, hypertension, hyperlipidemia, mood disorder presented with nausea vomiting and diarrhea as well as hematemesis. Patient states his symptoms began about 2 days prior to presentation. Was very nauseous had several episodes of vomiting and noticed some blood in her vomit. She went to her PCP who referred her to outpatient GI which she has not had opportunity to go yet. Symptoms continued and progressed to left lower quadrant abdominal pain and watery diarrhea. Feels chills without fevers, denies sick contacts or eating questionable food. In ED, hemoglobin 16 CT abdomen with hepatic steatosis but no other abnormality. C diff negative. Review of Systems Review of Systems: Yes all other systems are reviewed and are negative COUNT INCLUDES [facility] Medical History PONV (postoperative nausea and vomiting) BMI 39.0-39.9,adult GERD (gastroesophageal reflux disease) Sleep apnea Depression Diabetes Asthma Family History Mother Heart disease Hypertension Liver disease Father No problems noted. Sister Asthma Blood clot in vein Brother Asthma Paralysis of left upper extremity Daughter No problems noted. Daughter No problems noted. Son Asthma Gastritis Son No problems noted. Surgical History H/O dilation and curettage History of endometrial ablation Tubal ligation status History of bladder suspension procedure Social History Alcohol intake: never Comment: medicated in pacu Patient Tobacco Use Status: Former Tobacco user Advance Directives: No Advance Directives Information Provided: Yes Do you have a plan to hurt others: No Plan Meds Allergies Allergy/AdvReac Type Severity Reaction Status Date / Time No Known Allergies Allergy Verified 05/19/25 10:58 Active Medications: Current Medications Acetaminophen (Acetaminophen 325 Mg Tablet) 650 mg PO Q6H PRN PRN Reason: Pain, Mild 1-3,fever,headache Calcium Carbonate (Calcium Carbonate 750 Mg Tab.Chew) 750 mg PO Q4H PRN PRN Reason: Heartburn Dextrose (Dextrose 50 % 25 Gm/50 Ml Syringe) 25 gm IVPUSH Q15M PRN; Protocol PRN Reason: per Hypoglycemia Standing Ord. Enoxaparin Sodium (Enoxaparin Sodium 40 Mg/0.4 Ml Syringe) 40 mg SUBCUT Q24H [facility] Glucose (Glucose Gel 15 Gm Gel..Gram.) 15 gm PO Q15M PRN; Protocol PRN Reason: per Hypoglycemia Standing Ord. Hydromorphone HCl (Hydromorphone Hcl 1 Mg/Ml Syringe) 0.5 mg IVPUSH Q4H PRN; Protocol PRN Reason: Pain, Severe (Pain Scale 7-10) Lactated Ringer's (Lr) 1,000 mls @ 80 mls/hr IVCONT .[id number] [facility] Insulin Human Lispro (Insulin Lispro 100 Unit/Ml 3 Ml Vial) 0 unit SUBCUT QIDACHS [facility]; Protocol Magnesium Hydroxide (Milk Of Magnesia 30 Ml Oral.Susp) 30 ml PO DAILY PRN PRN Reason: Constipation Melatonin (Melatonin 3 Mg Tablet) 6 mg PO BEDTIME PRN PRN Reason: Insomnia Ondansetron HCl (Ondansetron Hcl 4 Mg/2 Ml Vial) 4 mg IVPUSH Q6H PRN PRN Reason: Nausea Sodium Chloride (0.9 % Sodium Chloride Flush 3 Ml Syringe) 3 ml IVFLUSH QSHIFT [facility] Home Medications ?Medication ?Instructions ?Recorded ?Confirmed ?Last Taken ?Type bupropion HCl 300 mg 24 hr tablet, 450 mg PO QAM 08/01/20 08/12/23 Unknown History extended release fluoxetine 20 mg capsule 40 mg PO DAILY 08/01/20 08/12/23 Unknown History omeprazole 20 mg capsule,delayed 20 mg PO DAILY 08/01/20 08/12/23 Unknown History release oxcarbazepine 300 mg tablet 300 mg PO QAM 08/01/20 08/12/23 Unknown History multivitamin 1 tab PO DAILY 09/14/20 08/12/23 Unknown History clonazepam 0.5 mg tablet (Klonopin) 0.5 mg PO DAILY 11/13/20 08/12/23 Unknown History cholecalciferol (vitamin D3) 1,250 1 cap PO QWEEK 11/23/20 08/12/23 Unknown History mcg (50,000 unit) capsule oxcarbazepine 600 mg tablet 600 mg PO QPM 11/23/20 08/12/23 Unknown History metformin 500 mg tablet 750 mg PO DAILY 01/25/22 08/12/23 Unknown History dulaglutide 0.75 mg/0.5 mL mg subcut QWEEK 08/12/23 08/12/23 Unknown History [facility] lisinopril 5 mg tablet 5 mg PO QPM 08/12/23 08/12/23 Unknown History Physical Exam Vital Signs and Narrative: Vital Signs: Last Vital Signs Temp 98.1 F 05/19/25 15:45 Pulse 78 05/19/25 15:45 Resp 16 05/19/25 15:45 BP 124/84 05/19/25 15:45 Pulse Ox 95 05/19/25 15:45 O2 Del Method Room Air 05/19/25 15:45 BMI result Body Mass Index 37.0 General: AO X 3, in acute distress Resp: CTA bilateral, no accessory muscles used CVS: S1,S2,RRR GI: soft, LLQ tender, non distended Neuro: motor grossly intact, alert Psych: appropriate affect, appropriate insight Results Labs 05/19/25 11:22 05/19/25 11:22 Labs: Laboratory Results - last 24 hr 05/19/25 05/19/25 11:22 13:15 MCV 89.6 MCH 30.2 MCHC 33.7 RDW 13.0 Plt Count 230 MPV 10.4 Immature Gran % (Auto) 0.3 Neut % (Auto) 77.0 H Lymph % (Auto) 14.6 L Smith % (Auto) 6.9 Eos % (Auto) 1.0 Baso % (Auto) 0.2 Lymph # (Auto) 0.9 L Smith # (Auto) 0.4 Eos # (Auto) 0.1 Baso # (Auto) 0.0 Abs Immat Gran (auto) 0.02 Absolute Neuts (auto) 4.6 Absolute Nucleated RBC 0.000 Nucleated RBC % (auto) 0.0 PT 15.0 H INR 1.2 H APTT 28.1 Anion Gap 13 Estim Creat Clear Calc 127.2 Estimated GFR > 60 Random Glucose 180 H Calcium 9.3 Total Bilirubin 0.8 AST 67 H ALT 96 H Alkaline Phosphatase 90 Total Protein 7.8 Albumin 4.1 Lipase 14 Beta HCG, Quant < 2 Stool Occult Blood NEGATIVE C. difficile Tox B Gene NEGATIVE Imaging Radiologist's Impressions: Impressions Abdomen/Pelvis CT 05/19/25 12:19 IMPRESSION: Hepatic steatosis. No acute abnormality is identified. Electronically signed by: Christopher Lynn MD 05/19/2025 12:37 PM [facility] Assessment and Plan (1) Morbid obesity due to excess calories: Status: Acute Plan 54F PMH diabetes, obesity, hypertension, hyperlipidemia, mood disorder presented with nausea vomiting and diarrhea as well as hematemesis Gastroenteritis complicated by hematemesis Likely Marilyn-Valles IV ppi, IV fluids, clear liquids we will hold off on antibiotics for now, check stool studies, GI eval, monitor hemoglobin Diabetes Insulin sliding scale Morbid obesity Weight loss recommended INDRA CPAP at night DVT prophylaxis-Lovenox Full code Quality Stroke Does the patient have a stroke diagnosis?: No VTE Prior VTE?: No VTE Risk Level:: Medical - moderate - high VTE Device Contraindication: Treatment Not Indicated VTE Drug Contraindication: N/A - Med Ordered
[2025-05-19] MEDS: Lactated Ringers 1,000 ML 80 ML IVCONT (16:56)
--- NOTE | 2025-05-19 17:39 | PHA.MEDREC ---
Addendum entered by Chung Dempsey PharmD 05/19/25 17:45: reviewed Original Note: Pharmacy Consult ? Medication Reconciliation Pharmacy has completed the medication reconciliation. Spoke with pt, utilizing director of public safety and she was able to confirm her medications. Pt takes Ozempic once a week and confirmed she takes it on Sundays and took it last 05/15.
[2025-05-19 17:56] LABS: Glucose, Whole Blood 116 mg/dL (60-115)
--- OUTSIDE RECORDS SUMMARY | 2025-05-19 17:56 | XMS_ITS | Encounter Summary ---
Author Organization [employer] Address [address] [facility] 7t [place] [address] Care Team Providers Care Executor Of Estate Name Role Phone Tiffany Quinn MD Primary Care Provider +- [phone] Kaitlynn Cole OD Unavailable [phone] Jw Maki MD Unavailable Keith Reyes RN Unavailable [phone] Encounter Details Date Type Department Care Team (Latest Contact Info) Description 05/17/2025 Travel Social History Tobacco Use Types Packs/Day Years [...] Info) Description 07/19/2025 1:00 PM EST Nutrition [facility] DIABETES/NUTRITION [address] [place] [address] [place] [address] documented as of this encounter Goals Goal Patient Goal Type Associated Problems Recent Progress Patient-Stated? Author Hemoglobin A1c < 7 Result Component 11(04/25/2025 11:34 AM EDT) No Maria Del Carmen Javier, PennyD Help patients manage their type 2 diabetes [...] Weekly blood pressure task Tiffany Cueva MD Patient has chronic kidney disease Care Plan Patient has chronic kidney disease Tiffany Cueva MD documented as of this encounter Visit Diagnoses Not on filedocumented in this encounter Additional Health Concerns Active [...] documented as of this encounter Care Teams Executor Of Estate Relationship Specialty Start Date End Date Tiffany Quinn MD [address] [place] [address] PCP - General Family Medicine 08/30/14 Kaitlynn Cole OD [address] [place] [address] Optometry 08/04/24 Jw Maki MD [address] [place] [address] 3rd [place] [address] Cardiology 08/04/24 Keith Reyes RN 505 [place] [address] Registered Nurse Family Medicine 12/20/24 MILLICENT BRYAN NP Psychiatrist 04/25/25 documented as of this encounter
--- OUTSIDE RECORDS SUMMARY | 2025-05-19 17:56 | XMS_ITS | Encounter Summary ---
Author Organization [employer] Address [address] [place] [address] 7t [place] [address] Care Team Providers Care Javascript Application Developer Name Role Phone Tiffany Quinn MD Primary Care Provider [phone] Kaitlynn Cole OD Unavailable [phone] Jw Maki MD Unavailable Keith Reyes RN Unavailable [phone] Ida Diggs Unavailable Encounter Details Date Type Department Care Team (Late st Contact Info) Description 08/04/2024 Orders Only [facility] MEDICINE [address] [place], [place] [phone] Tiffany Quinn MD [address] [place], [place] [phone] Social History Tobacco Use Types Packs/Day Years [...] Info) Description 07/19/2025 1:00 PM EST Nutrition [facility] DIABETES/NUTRITION [address] [place] [address] [place] [address] documented as of this encounter Goals Goal Patient Goal Type Associated Problems Recent Progress Patient-Stated? Author Hemoglobin A1c < 7 Result Component 11(04/25/2025 11:34 AM EDT) No Maria Del Carmen Taylor, PharmD documented as of this encounter Visit Diagnoses Not on filedocumented in this encounter Additional Health Concerns Assessment Noted Time PHQ-9 Depression Total Score: 5 05/06/20 24 10:40 AM EST documented as of this encounter Care Teams Javascript Application Developer Relationship Specialty Start Date End Date Tiffany Quinn MD [address] [place] [address] PCP - General Family Medicine 08/30/14 Kaitlynn Cole OD [address] [place] [address] Optometry 08/04/24 Jw Maki MD [address] [place] [address] Drive 3rd [place] [address] Cardiology 08/04/24 Keith Reyes RN [address] [place] [address] Registered Nurse Family Medicine 12/20/24 Ida Diggs 12/20/24 02/08/25 MILLICENT BRYAN NP Psychiatrist 04/25/25 documented as of this encounter
--- OUTSIDE RECORDS SUMMARY | 2025-05-19 17:56 | XMS_ITS | Encounter Summary ---
Author Organization [employer] Address 75 [facility] 7t [place] [address] Care Team Providers Care Flight Operations Dispatch Clerk Name Role Phone Tiffany Quinn MD Primary Care Provider + [phone] Kaitlynn Cole OD Unavailable [phone] Jw Maki MD Unavailable Keith Reyes RN Unavailable [phone] Encounter Details Date Type Department Care Team (Late st Contact Info) Description 05/19/2025 Orders Only [facility] DEPARTMENT Provider, Generic External Data Social History Tobacco Use Types Packs/Day Years [...] Info) Description 07/19/2025 1:00 PM EST Nutrition [facility] DIABETES/NUTRITION [address] [place] [address] [place] [address] documented as of this encounter Goals Goal Patient Goal Type Associated Problems Recent Progress Patient-Stated? Author Hemoglobin A1c < 7 Result Component 11(04/25/2025 11:34 AM EDT) No Maria Del Carmen Taylor, PharmD Help patients manage their type 2 [...] Care Plan Weekly blood pressure task No Skylar Mari Weekly blood pressure task Care Plan Weekly blood pressure task No Skylar Mari Patient has chronic kidney disease Care Plan Patient has chronic kidney disease No Skylar Mari Patient has chronic kidney disease Care Plan Patient has chronic kidney disease No Skylar Mari Weekly blood pressure task Care Plan Weekly blood pressure task No Skylar Mari Weekly blood pressure task Care Plan Weekly blood pressure task No Skylar Mari Patient has chronic kidney disease Care Plan Patient has chronic kidney disease No KamaljitSkylar Patient has chronic kidney disease Care Plan Patient has chronic kidney disease No KamaljitJayera documented as of this encounter Procedures Procedure Name Priority Date/Time Associated Diagnosis Comments CDIFF GENE PCR Routine 05/19/2025 1:15 PM EST OBSX1 Routine 05/19/2025 1:[address] ABDOMEN PELVIS W CONTRAST Routine 05/19/2025 12:19 PM EST CBC WITH AUTO DIFFERENTIAL Routine 05/19/2025 11:22 AM EST APTT Routine 05/19/2025 11:22 AM EST PROTHROMBIN TIME-INR Routine 05/19/2025 11:22 AM EST HCG, TOTAL, QN Routine 05/19/2025 11:22 AM EST LIPASE Routine 05/19/2025 11:22 AM EST COMPREHENSIVE METABOLIC PANEL Routine 05/19/2025 11:22 AM EST documented in this encounter Results * CDiff Gene PCR (05/19/2025 1:15 PM EST) CDiff Gene PCR NEGATIVE Negative [facility] Comment:If C. difficile stro ngly suspected despite one negativetest, a second test may be sent vs. empiric treatment forC. difficile infection. 05/19/2025 1:15 PM EST 05/19/2025 1:25 PM EST us Generic External Data Provider LAB BODY FLUIDS A ND STOOLS ORDERABLES Final Result Performing Organization Address [facility] de Phone Number [facility] [address] [place] [phone] * OBSX1 (05/19/2025 1:15 PM EST) OBS1 NEGATIVE NEGATIVE [facility] 05/19/2025 1:15 PM EST 05/19/2025 1:25 PM EST Generic External Data Provider LAB BLOOD ORDERAB LES Final Result Performing Organization Address [facility] Phone Number [facility] [address] [place] [phone] * CT Abdomen Pelvis w/ Contrast (05/19/2025 12:19 PM EST) Anatomical Region Laterality Modality Body, Pelvis, Abdomen Computed T omography 05/19/2025 12:1 9 PM EST Narrative 05/19/2025 12:39 PM EST [address] [address] [address] Scan Report Signed Patient: Citlali Clancy MR#: [id number] : 1970 Acct:[id number] Age/Sex: 54 / F ADM Date: 05/19/25 Loc: .ED Attending Dr: Ordering Physician: Tone Cox MD Date of Service: 05/19/25 Procedure(s): CT abdomen pelvis w IV con Accession Number(s): [id number] cc: Tiffany Quinn MD; Tone Cox MD Report Number: [id number]: Total DLP = 646.00 mGy-cm Reason for Exam: left-sided abdominal pain, diarrhea, R/ O colitis EXAMINATION: CT ABDOMEN PELVIS WITH IV CONTRAST HISTORY: left-sided abdominal pain, diarrhea, R/ O colitis COMPARISON: Comparison is made with the prior examination dated 12/20/2024. TECHNIQUE: CT scan of the abdomen and pelvis was performed following administration of 85 mL Omnipaque 350 using standard departmental protocol. Coronal and sagittal reformatted images were generated and reviewed. Oral contrast material was not administered at the request of the referring physician. This CT exam was performed with one or more of the following dose reduction techniques: automated exposure control, adjustment of the mA and/or kV according to patient size, use of iterative reconstruction technique. DLP: 646 mGy-cm FINDINGS: LOWER CHEST: There is a calcified granuloma at the right lung base. The visualized left lung base is clear. There is no pleural effusion. CARDIOVASCULATURE: The heart is normal in size. There is no pericardial effusion. LIVER: The liver is normal in size and contour, but demonstrates diffusely decreased attenuation, consistent with steatosis. No liver mass is identified. The hepatic and portal veins are patent. GALLBLADDER / BILE DUCTS: The gallbladder is unremarkable. There is no intra or extrahepatic biliary ductal dilatation. SPLEEN: The spleen is normal in size. No focal splenic lesion is identified. PANCREAS: The pancreas is unremarkable in appearance. ADRENAL GLANDS: Within normal limits. KIDNEYS/RETROPERITONEUM: No renal calculi are identified. There is no hydronephrosis. No renal masses are identified. LYMPH NODES: No abdominal or pelvic lymphadenopathy. VASCULATURE: The abdominal aorta is normal in caliber. MESENTERY/PERITONEUM: No free fluid. No masses. There is no free intraperitoneal gas. STOMACH: There is a small hiatal hernia. The remainder of the stomach is collapsed. SMALL BOWEL: The small bowel is normal in caliber. COLON: The colon is largely collapsed. No pericolonic inflammatory disease are identified. APPENDIX: Normal. URINARY BLADDER/PELVIC ORGANS: The urinary bladder is collapsed, limiting evaluation. The patient is status post hysterectomy. BONES / SOFT TISSUES: No suspicious bony or soft tissue abnormalities. CT/CT abdomen pelvis w IV con IMPRESSION: Hepatic steatosis. No acute abnormality is identified. Electronically signed by: Christopher Lynn MD 05/19/2025 12:37 PM [facility] Dictated By: Christopher Lynn MD Signed By: <Electronically signed by Christopher Lynn MD in OV> 05/19/25 1237 DD/ 1219 TD/TT: 05/19/25 1228 Utilization Review Coordinator: Procedure Note Donotuseinterpreter, Image - 05/19/[address] [address] [address] Scan Report Signed Patient: Citlali ClancyMR#: [id number] : 1970Acct:[id number] Age/Sex: 54 / FADM Date: 05/19/25 Loc: HO.ED Attending Dr: Ordering Physician: Tone Cox MD Date of Service: 05/19/25 Procedure(s): CT abdomen pelvis w IV con Accession Number(s): [id number] cc: Tiffany Quinn MD; Tone Cox MD Report Number: [id number]: Total DLP = 646.00 mGy-cm Reason for Exam: left-sided abdominal pain, diarrhea, R/ O colitis EXAMINATION: CT ABDOMEN PELVIS WITH IV CONTRAST HISTORY: left-sided abdominal pain, diarrhea, R/ O colitis COMPARISON: Comparison is made with the prior examination dated 12/20/2024. TECHNIQUE: CT scan of the abdomen and pelvis was performed following administration of 85 mL Omnipaque 350 using standard departmental protocol. Coronal and sagittal reformatted images were generated and reviewed. Oral contrast material was not administered at the request of the referring physician. This CT exam was performed with one or more of the following dose reduction techniques: automated exposure control, adjustment of the mA and/or kV according to patient size, use of iterative reconstruction technique. DLP: 646 mGy-cm FINDINGS: LOWER CHEST: There is a calcified granuloma at the right lung base. The visualized left lung base is clear. There is no pleural effusion. CARDIOVASCULATURE: The heart is normal in size. There is no pericardial effusion. LIVER: The liver is normal in size and contour, but demonstrates diffusely decreased attenuation, consistent with steatosis. No liver mass is identified. The hepatic and portal veins are patent. GALLBLADDER / BILE DUCTS: The gallbladder is unremarkable. There is no intra or extrahepatic biliary ductal dilatation. SPLEEN: The spleen is normal in size. No focal splenic lesion is identified. PANCREAS: The pancreas is unremarkable in appearance. ADRENAL GLANDS: Within normal limits. KIDNEYS/RETROPERITONEUM: No renal calculi are identified. There is no hydronephrosis. No renal masses are identified. LYMPH NODES: No abdominal or pelvic lymphadenopathy. VASCULATURE: The abdominal aorta is normal in caliber. MESENTERY/PERITONEUM: No free fluid. No masses. There is no free intraperitoneal gas. STOMACH: There is a small hiatal hernia. The remainder of the stomach is collapsed. SMALL BOWEL: The small bowel is normal in caliber. COLON: The colon is largely collapsed. No pericolonic inflammatory disease are identified. APPENDIX: Normal. URINARY BLADDER/PELVIC ORGANS: The urinary bladder is collapsed, limiting evaluation. The patient is status post hysterectomy. BONES / SOFT TISSUES: No suspicious bony or soft tissue abnormalities. CT/CT abdomen pelvis w IV con IMPRESSION: Hepatic steatosis. No acute abnormality is identified. Electronically signed by: Christopher Lynn MD 05/19/2025 12:37 PM EST RP Dictated By: Christopher Lynn MD Signed By: <Electronically signed by Christopher Lynn MD in OV> 05/19/25 1237 DD/ 1219 TD/TT: 05/19/25 1228 Utilization Review Coordinator: [facility] External Provider IMG CT PROCEDURES Final Result * Partial Thromboplastin Time, Activated (APTT) (05/19/2025 11:22 AM EST) Partial Thromboplastin Time 28.1 26.7 - 34.1 [facility] 05/19/2025 11:2 2 AM EST 05/19/2025 11:25 AM EST Generic External Data Provider LAB BLOOD ORDERAB LES Final Result [facility] [address] [place] [phone] * (ABNORMAL) Prothrombin Time-INR (05/19/2025 11:22 AM EST) Prothrombin Time 15.0(H) 11.2 - 13.5 [facility] INTERNATIONAL NORM RATIO 1.2(H) 0.9 - 1.1 [facility] Comment:INTERNATIONAL NORMAL IZED RATIO (INR) REFERENCE RANGES Reference RangeFor patients not on anticoagulant therapy: 0.9 - 1.1INR ranges for oral anticoagulanttherapy:For prevention and treatment of venous thrombosis and pulmonary embolism: 2.0 - 3.0For acute myocardial infarction with aspirin therapy: 2.0 - 3.0For acute myocardial infarction without aspirin therapy: 3.0 - 4.0For patients with mechanical prosthetic heart valves: 2.5 - 3.5 05/19/2025 11:2 2 AM EST 05/19/2025 11:25 AM EST us Generic External Data Provider LAB BLOOD ORDERAB LES Final Result Performing Organization Address City/State/[facility] de Phone Number [facility] [address] [place] [phone] * hCG, Total, Quantitative (05/19/2025 11:22 AM EST) HCG Quantitative <2 mIU/mL [facility] Comment:Weeks post LMP Appro ximate hCG(Last Menstrual Period) Range (mIU/ml)3 - 4 weeks 9 - 1304 - 5 weeks 75 - 2,6005 - 6 weeks 850 - 20,8006 - 7 weeks 4000 - 100,2007 - 12 weeks 11,500 - 289,63591 - 16 weeks 18,300 - 137,19069 - 29 weeks (2nd trimester) 1,400 - 53,63397 - 41 weeks (3rd trimester) 940 - 60,000The Gill B- hCG assay is used for the early detection ofpregnancy; it cannot be used to diagnose any conditionunrelated to . If a B-hCG level is not supportedby the clinical evidence, results should be confirmed by analternative method (qualitative urine hCG, for example). 05/19/2025 11:2 2 AM EST 05/19/2025 11:25 AM EST us Generic External Data Provider LAB BLOOD ORDERAB LES Final Result Performing Organization Address [facility]/ZIP Co de Phone Number [facility] [address] [place] [phone] * Lipase (05/19/2025 11:22 AM EST) Lipase 14 8 - 78 U/L [facility] 05/19/2025 11:2 2 AM EST 05/19/2025 11:25 AM EST [employer] External Data Provider LAB BLOOD ORDERAB LES Final Result Performing Organization Address [facility] de Phone Number [facility] [address] [place] [phone] * (ABNORMAL) Comprehensive Metabolic Panel (05/19/2025 11:22 AM EST) Pathologist [facility] Sodium 139 135 - 145 mmol/L [facility] Potassium 4.0 3.3 - 5.1 mmol/L [facility] Chloride 105 96 - 108 mmol/L [facility] Carbon Dioxide 25 22 - 29 mmol/L [facility] Anion Gap 13 12 - 20 [facility] Urea Nitrogen (BUN) 10 9 - 16 mg/dL [facility] Creatinine, Serum 0.56 0.5 - 1.4 mg/dL [facility] Creatinine Clr Calc Pharmacy 127.2 [facility] Comment:Provided height and weight: 160.02 cm,94.801 kg.eGFR (calculated from the MDRD study equation) and eCrCl(calculated from the Cockcroft-Gault equation) are based ondifferent parameters and may not yield comparable results.If eCrCl result is absurd, please check patient'sheight/weight. Estimated Glomerular Filt Rate >60 [facility] Comment:Chronic Kidney Disea se: Estimated GFR < 60 mL/min/1.23f9Syhfki Kidney Disease: Estimated GFR < 15 mL/min/1.73m2 Glucose 180(H) 60 - 115 mg/dL [facility] Calcium 9.3 8.4 - 10.2 mg/dL [facility] Bilirubin, Total 0.8 0.0 - 1.0 mg/dL [facility] Aspartate Amino Transferase 67(H) 5 - 31 U/L [facility] Alanine Aminotransferase 96(H) 0 - 31 U/L [facility] Total Protein 7.8 6.5 - 8.0 g/dL [facility] Albumin Level 4.1 3.5 - 5.0 g/dL [facility] Alkaline Phosphatase 90 39 - 117 U/L [facility] 05/19/2025 11:2 2 AM EST 05/19/2025 11:25 AM EST us Generic External Data Provider LAB BLOOD ORDERAB LES Final Result [facility] [address] [place] [address] [phone] * (ABNORMAL) CBC auto differential (05/19/2025 11:22 AM EST) White Blood Count 5.9 4.8 - 10.8 X10*3/uL [facility] Red Blood Count 5.40 4.20 - 5.50 X10*6/uL [facility] Hemoglobin 16.3(H) 12.0 - 16.0 g/dl [facility] Hematocrit 48.4(H) 37.0 - 47.0 % [facility] Mean Corpuscular Volume 89.6 80.0 - 98.0 fL [facility] Mean Corpuscular Hemoglobin 30.2 27.0 - 33.0 pg [facility] Mean Corpuscular HGB Conc 33.7 31.0 - 35.0 g/dl [facility] Red Cell Distribution Width 13.0 11.0 - 16.0 % [facility] Platelet Count 230 160 - 400 X10*3/uL [facility] Mean Platelet Volume 10.4 9.4 - 12.3 fL [facility] Neutrophils Percent Auto 77.0(H) 45 - 73 % [facility] Imm Gran Pct Auto 0.3 0.0 - 0.4 % [facility] Lymphocytes Percent Auto 14.6(L) 20 - 40 % [facility] Monocytes Percent Auto 6.9 2 - 11 % [facility] Eosinophils Percent Auto 1.0 0 - 4 % [facility] Basophils Percent Auto 0.2 0 - 2 % [facility] NRBC Pct Auto 0.0 0.0 - 0.2 /100WBC [facility] Neutrophils Absolute Auto 4.6 2.0 - 8.3 x10*3/uL [facility] Imm Gran Abs Auto 0.02 0.00 - 0.03 X10*3/uL [facility] Lymphocytes Absolute Auto 0.9(L) 1.2 - 4.9 X10*3/uL [facility] Monocytes Absolute Auto 0.4 0.1 - 1.2 X10*3/uL [facility] Eosinophils Absolute Auto 0.1 0.0 - 0.4 X10*3/uL [facility] Basophils Absolute Auto 0.0 0.0 - 0.2 X10*3/uL [facility] NRBC Abs Auto 0.000 0.0 - 0.012 X10*3/uL [facility] 05/19/2025 11:2 2 AM EST 05/19/2025 11:25 AM EST us Generic External Data Provider LAB BLOOD ORDERAB LES Final Result [facility] [address] [place] [phone] documented in this encounter Visit Diagnoses Not on filedocumented in this encounter Additional Health Concerns Active Problems Noted Date Diagnosed Date Help patients manage their type 2 diabetes 05/17 Weekly blood pressure task 05/17/2025 Help patients manage their type 2 diabetes 05/17 Patient has chronic kidney disease 05/17/2025 Weekly blood pressure task 05/17/2025 Patient has chronic kidney disease 05/17/2025 Weekly blood pressure task 05/18/2025 Weekly blood pressure task 05/18/2025 Patient has chronic kidney disease 05/18/2025 Patient has chronic kidney disease 05/18/2025 Weekly blood pressure task 05/18/2025 Weekly blood pressure task 05/18/2025 Patient has chronic kidney disease 05/18/2025 Patient has chronic kidney disease 05/18/2025 Assessment Noted Time PHQ-9 Depression Total Score: 4 12/29/19 1:21 PM EDT documented as of this encounter Care Teams Flight Operations Dispatch Clerk Relationship Specialty Start Date End Date Tiffany Quinn MD [address] [place] [address] PCP - General Family Medicine 08/30/14 Kaitlynn Cole OD [address] [place] [address] Optometry 08/04/24 Jw Maki MD [address] [place] [address] Drive 3rd [place] [address] Cardiology 08/04/24 Keith Reyes, NEDRA [address] [place] [address] Registered Nurse Family Medicine 12/20/24 MILLICENT BRYAN NP Psychiatrist 04/25/25 documented as of this encounter
--- OUTSIDE RECORDS SUMMARY | 2025-05-19 17:56 | XMS_ITS | Encounter Summary ---
Author Organization [facility] Address [address] [facility] 7t [place] [address] Care Team Providers Care Planner Name Role Phone Tiffany Quinn MD Primary Care Provider [phone] Kaitlynn Cole OD Unavailable [phone] Jw Maki MD Unavailable Keith Reyes RN Unavailable [phone] Ida Diggs Unavailable Encounter Details Date Type Department Care Team (Late st Contact Info) Description 01/06/2024 Orders Only [facility] MEDICINE [address] [place], [place] [phone] Tiffany Quinn MD [address] [place], [place] [phone] Social History Tobacco Use Types Packs/Day Years [...] Info) Description 07/19/2025 1:00 PM EST Nutrition [facility] DIABETES/NUTRITION [address] [place] [address] Yessica Blood, JAMIE [address] [place] [address] documented as of this encounter Goals Goal Patient Goal Type Associated Problems Recent Progress Patient-Stated? Author Hemoglobin A1c < 7 Result Component 11(04/25/2025 11:34 AM EDT) No Maria Del Carmen Taylor, PharmD documented as of this encounter Visit Diagnoses Not on filedocumented in this encounter Care Teams Planner Relationship Specialty Start Date End Date Tiffany Quinn MD [address] [place] [address] PCP - General Family Medicine 08/30/14 Kaitlynn Cole OD [address] [place] [address] Optometry 08/04/24 Jw Maki MD [address]rd [place] [address] Cardiology 08/04/24 Keith Reyes, NEDRA [address] [place] [address] Registered Nurse Family Medicine 12/20/24 Ida Diggs 12/20/24 02/08/25 MILLICENT RBYAN NP Psychiatrist 04/25/25 documented as of this encounter
--- OUTSIDE RECORDS SUMMARY | 2025-05-19 17:56 | XMS_ITS | Encounter Summary ---
Author Organization [facility] Address [address] [place] [address] [address] [place] [address] Care Team Providers Care Trust Operations Assistant Name Role Phone Tiffany Quinn MD Primary Care Provider [phone] Kaitlynn Cole OD Unavailable Jw Maki MD Unavailable Keith Reyes RN Unavailable [phone] Ida Diggs Unavailable Reason for Visit * Reason Comments Med Refill Encounter Details Date Type Department Care Team (Late st Contact Info) Description 01/26/2025 Refill [facility] MEDICINE [address] [place], [place] [id number] Tiffany Quinn MD [address] [place], [place] [id number] Type 2 diabetes mellitus without complication, unspecified whether meterman insulin use ([facility]) Social History Tobacco Use Types Packs/Day Years [...] Info) Description 07/19/2025 1:00 PM EST Nutrition [facility] DIABETES/NUTRITION [address] [place] [address] [place] [address] documented as of this encounter Goals Goal Patient Goal Type Associated Problems Recent Progress Patient-Stated? Author Hemoglobin A1c < 7 Result Component 11(04/25/2025 11:34 AM EDT) No Maria Del Carmen Taylor, PharmD documented as of this encounter Visit Diagnoses Diagnosis Type 2 diabetes mellitus without complication, unspecified whether meterman insulin use documented in this encounter Additional Health Concerns Assessment Noted Time PHQ-9 Depression Total Score: 4 12/29/19 25 1:21 PM EDT documented as of this encounter Care Teams Trust Operations Assistant Relationship Specialty Start Date End Date Tiffany Quinn MD [address] [place] [address] PCP - General Family Medicine 08/30/14 Kaitlynn Cole OD [address] [place] [address] Optometry 08/04/24 Jw Maki MD [address] [place] [address] [address] [place] [address] Cardiology 08/04/24 Keith Reyes, NEDRA [address] [place] [address] Registered Nurse Family Medicine 12/20/24 Ida Diggs 12/20/24 02/08/25 MILLICENT BRYAN, DINKEY PRESS OPERATOR Psychiatrist 04/25/25 documented as of this encounter
--- OUTSIDE RECORDS SUMMARY | 2025-05-19 17:56 | XMS_ITS | Clinical Summary ---
Author Organization [employer] Address [address] [facility] [address] [place] [address] Care Team Providers Care Cyber Security Name Role Phone Tiffany Quinn MD Primary Care Provider [phone] Kaitlynn Cole OD Unavailable [phone] Jw Maki MD Unavailable Keith Reyes RN Unavailable [phone] Allergies Active Allergy Reactions Criticality Noted Date Comments Cyclobenzaprine Itching 02/28/2016 Latex 07/08/2022 Other reaction(s): swells - burn Medications buPROPion XL (Wellbutrin XL) 300 MG 24 hr tabletIndicatio ns:Depression with anxiety Take 300 mg by mouth Once per day. Do not crush, chew, or split. Active buPROPion XL (Wellbutrin XL) 150 MG 24 hr tabletIndicatio ns:Depression with anxiety Take 150 mg by mouth Once per day. Do not crush, chew, or split. Active FLUoxetine (PROzac) 40 MG capsuleIndicati ons:Depression with anxiety Take 40 mg by mouth Once per day. Active FLUoxetine (PROzac) 20 MG capsuleIndicati ons:Depression with anxiety Take 20 mg by mouth Once per day. Active traZODone (Desyrel) 100 MG tabletIndicatio ns:Depression with anxiety Take 100 mg by mouth at bedtime. Active hydrOXYzine pamoate (Vistaril) 25 MG capsuleIndicati ons:Anxiety TAKE 1 TO 2 CAPSULES BY MOUTH TWICE DAILY NEEDED FOR ANXIETY 024 Active cyanocobalamin (Vitamin B-12) 1000 MCG tabletIndicatio ns:Vitamin B 12 deficiency TAKE 1 TABLET BY MOUTH EVERY MORNING 90 tablet 3 024 Active atorvastatin (Lipitor) 40 MG tabletIndicatio ns:Dyslipidemia Take 1 tablet (40 mg) by mouth at bedtime. 90 tablet 3 025 Active lisinopril 5 MG tabletIndicatio ns:Hypertension , unspecified type Take 1 tablet (5 mg) by mouth at bedtime. 90 tablet 3 025 Active fluticasone (Flonase) 50 MCG/ACT nasal sprayIndication s:Allergic rhinitis, unspecified seasonality, unspecified trigger Use 1 spray each nostril daily prn allergiesShake gently. Before first use, prime pump. After use, clean tip and replace cap. 48 g 05/13/20 25 4:45 PM EST 025 Active Mometasone Furoate (Asmanex HFA) 200 MCG/ACT aerosolIndicati ons:Mild intermittent asthma without complication 2 puffs po bid 13 g 11 05/13/20 25 4:45 PM EST 025 Active scopolamine (Transderm-Scop ) 1 MG/3DAYS patch 72 hour use as directed 025 Active OXcarbazepine (Trileptal) 300 MG tablet TAKE 1 TABLET BY MOUTH TWICE DAILY IN THE MORNING AND AT BEDTIME 025 Active omeprazole (PriLOSEC) [address] capsuleIndicati ons:Chronic GERD TAKE 1 CAPSULE BY MOUTH EVERY MORNING BEFORE A MEAL NEEDED 90 capsule 025 Active albuterol (Ventolin HFA) 108 (90 Base) MCG/ACT inhalerIndicati ons:Viral URI with cough Inhale 2 puffs every 6 (six) hours if needed for wheezing or shortness of breath. 18 g 2 025 2024 Active fluconazole (Diflucan) 150 MG tablet Take 1 pill now; take the second pill 3 days after if symptoms persist. 2 tablet 025 Active fluconazole (Diflucan) 150 MG tabletIndicatio ns:Vaginal candidiasis Take 1 tablet my mouth, If symptoms persist repeat dose at 3 days (second tablet) 2 tablet 025 Active metFORMIN XR (Glucophage-XR) 750 MG 24 hr tabletIndicatio ns:Type 2 diabetes mellitus with hyperglycemia, without long-term current use of insulin ([facility]) TAKE 1 TABLET BY MOUTH BID 180 tablet 3 Active glucose blood (FREESTYLE LITE) test stripIndication s:Type 2 diabetes mellitus with hyperglycemia, without long-term current use of insulin ([facility]) USE TO TEST BLOOD SUGAR TWICE DAILY 50 strip 3 Active TRUEplus Lancets 33G miscIndications :Type 2 diabetes mellitus with hyperglycemia, without long-term current use of insulin ([facility]) TEST BLOOD SUGAR TWICE DAILY DIRECTED 100 each 3 Active clonazePAM (KlonoPIN) 0.5 MG tablet Take 1 tablet by mouth Once per day. Active cetirizine (ZyrTEC) 10 MG tabletIndicatio ns:Allergic rhinitis due to other allergic trigger, unspecified seasonality TAKE 1 TABLET BY MOUTH EVERY DAY NEEDED FOR ALLERGIES 90 tablet 05/13/20 25 4:45 PM EST Active pregabalin (Lyrica) 75 MG capsuleIndicati ons:Fibromyalgi a Take 1 capsule (75 mg) by mouth 2 times daily. 60 capsule 2 2025 Active semaglutide (Ozempic) 2 MG/1.5ML solution pen-injectorInd ications:Type 2 diabetes mellitus with hyperglycemia, without long-term current use of insulin ([facility]) Inject 0.5 mg subcutaneously q week 1.5 mL 11 Active ondansetron (Zofran) 4 MG tabletIndicatio ns:Nausea,Hemat emesis with nausea Take 1 tablet (4 mg) by mouth every 8 (eight) hours if needed for nausea or vomiting for up to 7 days. 10 tablet 025 2024 Active cetirizine (ZyrTEC) 10 MG tabletIndicatio ns:Allergic rhinitis due to other allergic trigger, unspecified seasonality Take 1 tablet (10 mg) by mouth if needed each day for allergies. 30 tablet 2 025 2024 Discontinued amoxicillin-cla vulanate (Augmentin) 250-62.5 MG/5ML suspensionIndic ations:Dental infection Take 5 mL (250 mg) by mouth 2 times daily for 10 days. 100 mL 025 2024 Discontinued Semaglutide,0.2 5 or 0.5MG/DOS, (Ozempic, 0.25 or 0.5 MG/DOSE,) 2 MG/3ML solution pen-injectorInd ications:Type 2 diabetes mellitus with hyperglycemia, without long-term current use of insulin (HCC) Inject 0.5 mg under the skin 1 (one) time per week. 3 mL 3 025 2024 Discontinued amoxicillin-cla vulanate (Augmentin) 500-125 MG tabletIndicatio ns:Dental infection Take 1 tablet (500 mg) by mouth 2 times daily for 10 days. 20 tablet 2024 semaglutide (Ozempic, 1 MG/DOSE,) 2 MG/1.5ML solution pen-injectorInd ications:Type 2 Diabetes Mellitus Inject 1 mg under the skin 1 (one) time per week. 3 mL 11 025 2024 Discontinued(D ose adjustment) Active Problems Problem Noted Date Diagnosed Date Vaginal candidiasis 04/15/2025 Total body pain 01/12/2025 Assessment & Plan [...] [facility] is by the [facility] proxy filed 01/06/24 Assessment & Plan (01/12/2025 11:29 AM EDT): -next physical exam due after 01/12/2026 -eye care facilitated by [facility] is by the [facility] proxy filed 01/06/24 Assessment & Plan (05/06/2024 11:40 AM EST): -next physical exam due after December, -eye care facilitated by [facility] [place] is by the [facility] care proxy filed 01/06/24 Assessment & Plan (01/06/2024 10:12 AM EDT): -next physical exam due after December, -[facility] care proxy filed 01/06/24 Assessment & Plan (12/26/2023 10:48 AM EDT): -next physical exam due after September, -[facility] [place] [facility] proxy given on 09/16/2022 Assessment & Plan (09/17/2023 9:46 AM EDT): -next physical exam due after September, -eye care facilitated by [facility] is by the [facility] care proxy given on 09/16/2022 Assessment & Plan [...] 07/18/2021 for abnormal uterine bleeding. Morbid obesity (CMS/HCC) 07/08/2022 Transaminitis 07/08/2022 Overview (01/12/2025): Likely metabolic [...] rheumatoid labs negative. Type 2 diabetes mellitus wit h hyperglycemia, without long-term current use of insulin 07/08/2022 Overview (04/25/2025): Diabetes is not controlled. Lab Results Component Value Date HGBA1C 9.9 (A) 04/06/2025 HGBA1C 8.3 (A) 01/12/2025 HGBA1C 7.9 (A) 05/06/2024 Lab Results Component Value Date CREATININE 0.60 04/12/2025 EGFR >60 04/12/2025 MICROALBCREU 5.5 02/22/2025 MICROALBCREU 4.7 05/02/2023 LDLCHOLCAL 88 02/22/2025 -Jesus/Arb: Lisinopril 5mg -Statin therapy: Atorvastatin 40mg -Diabetic eye exam: Referral done 10/10/2022. -Diabetic foot exam: Completed 01/12/2025 -Continue lifestyle modifications -Continue current medications. -Continue Metformin ER 750 -Continuous glucose monitor ordered 09/17/2023 -Hgb A1c increased to 8.3% 01/06/24 from 7.6% on 09/17/23 -referred to nursing for CGM 01/06/24 but insurance did not cover -Trulicity started 04/2023 and tolerated 0.75mg weekly but had some nausea, increased to 1.5mg, she had significant nausea and vomiting and was seen in [facility] ER. She stopped the Trulicity and nausea resolved but type 2 diabetes in not not controlled. -Ozempic 0.5mg started 04/06/25, increased to 1mg 04/25/25 -increase metformin 759 ER to BID 03/2025 Assessment & Plan (04/25/2025 11:32 AM EDT): Component Value Date HGBA1C 9.9 (A) 04/06/2025 HGBA1C 8.3 (A) 01/12/2025 HGBA1C 7.9 (A) 05/06/2024 Lab Results Component Value Date CREATININE 0.60 04/12/2025 EGFR >60 04/12/2025 MICROALBCREU 5.5 02/22/2025 MICROALBCREU 4.7 05/02/2023 LDLCHOLCAL 88 02/22/2025 -Jesus/Arb: Lisinopril 5mg -Statin therapy: Atorvastatin 40mg -Diabetic eye exam: Referral done 10/10/2022. -Diabetic foot exam: Completed 01/12/2025 -Continue lifestyle modifications -Continue current medications. -Continue Metformin ER 750 -Continuous glucose monitor ordered 09/17/2023 -Hgb A1c increased to 8.3% 01/06/24 from 7.6% on 09/17/23 -referred to nursing for CGM 01/06/24 but insurance did not cover -Trulicity started 04/2023 and tolerated 0.75mg weekly but had some nausea, increased to 1.5mg, she had significant nausea and vomiting and was seen in [facility] ER. She stopped the Trulicity and nausea resolved but type 2 diabetes in not not controlled. -Ozempic 0.5mg started 04/06/25, increased to 1mg 04/25/25 -increase metformin 759 ER to BID 03/2025 Orders: POCT glucose manually resulted POCT glycosylated hemoglobin (Hgb A1c) semaglutide (Ozempic, 1 MG/DOSE,) 2 MG/1.5ML solution pen-injector; Inject 1 mg under the skin 1 (one) time per week. Hemoglobin A1c; Future Assessment & Plan (01/12/2025 11:29 AM EDT): [...] nausea and vomiting and was seen in [facility] ER. She stopped the Trulicity and nausea [...] 12/26/2021 History of abnormal cervical Pap smear Overview (12/23/2023): Pap 09/30/14 revealed atypical squamous [...] of adult 11/02/2021 Overview (12/23/2023): Diagnosed in 2017. Seen by [facility] in [place] on 05/03/2022. She has tried 3 different [...] AM EDT): Diagnosed in 2016. Seen by [facility] in [place] on 05/03/2022. She has tried 3 different [...] AM EDT): Diagnosed in 2016. Seen by [facility] in [place] on 05/03/2022. She has tried 3 different [...] AM EST): Diagnosed in 2016. Seen by [facility] in [place] on 05/03/2022. She has tried 3 different [...] PM EDT): Diagnosed in 2016. Seen by [facility] in [place] on 05/03/2022. She has tried 3 different [...] VITB12 360 05/02/2023 Vitamin D deficiency 11/02/2021 Mild intermittent asthma without complication Overview (04/06/2024): -well controlled -continue albuterol prn -continue Q-oxana started 01/06/24 Assessment & Plan (01/12/2025 11:29 AM EDT): Orders: Mometasone Furoate (Asmanex HFA) 200 MCG/ACT aerosol; 2 puffs po bid Assessment & Plan (01/06/2024 10:30 AM EDT): -needing to use albuterol twice a week -start Q-oxana 01/06/24 Assessment & Plan (12/26/2023 10:46 AM EDT): Well controlled. Recurrent major depressive disorder, in partial remission 08/30/2014 Overview (10/08/2022): Stable with therapist and psychiatrist at [facility]. Assessment & Plan (05/06/2024 11:40 AM EST): Stable with therapist and psychiatrist at [facility]. Assessment & Plan (12/26/2023 10:48 AM EDT): Stable with therapist and psychiatrist at [facility]. Assessment & Plan (05/05/2023 11:05 AM EST): Stable with therapist and psychiatrist at [facility]. Assessment & Plan (10/08/2022 11:19 AM EDT): Stable with therapist and psychiatrist at [facility]. Resolved Problems Problem Noted Date Diagnosed Date [...] Encounters Date Type Department Care Team Description 05/19/2025 Orders Only GENERIC EXTERNAL DATA DEPARTMENT Provider, Generic External Data 05/17/2025 6:40 PM EST Office Visit [facility] [address] [place] [phone] Tiffany Quinn MD Fibromyalgia (Primary Dx); Type 2 diabetes mellitus with hyperglycemia, without long-term current use of insulin (HCC); Nausea; Hematemesis with nausea; Urinary incontinence, unspecified type 05/17/2025 Travel 04/29/2025 Refill [facility] [address] [place] [address] Tiffany Quinn MD Allergic rhinitis due to other allergic trigger, unspecified seasonality; Chronic GERD 04/25/2025 11:00 AM EDT Office Visit [address] [phone] Tiffany Quinn MD Type 2 diabetes mellitus with hyperglycemia, without long-term current use of insulin (HCC) (Primary Dx) 04/25/2025 Travel 04/22/[address] [address] Tiffany Quinn MD chart prep 04/19/2025 5:40 PM EDT Office Visit [facility] [address] [place] [phone] Tiffany Quinn MD Cough, unspecified type (Primary Dx); Type 2 diabetes mellitus with hyperglycemia, without long-term current use of insulin (HCC); Light headed; Dental infection 04/19/2025 Travel 04/15/[address] [address] April Kiser NP 04/15/2025 Orders Only [address] [address] April Kiser NP Vaginal candidiasis (Primary Dx) 04/12/2025 Telephone [facility] [address] [place] [phone] Tiffany Quinn MD CRITICAL LAB 04/07/2025 Results Follow-Up [address] [address] Galina Mckenzie RN POCT Glucose, POCT Hgb A1c, POCT Urinalysis, Additional followed-up results: 3 04/06/2025 9:15 AM EDT Office Visit [address] [address] Hugh Casas, DEIRDRE Diabetes due to underlying condition w oth circulatory comp (HCC) (Primary Dx); Vaginal pruritus 04/06/2025 Travel 04/04/[address] [address] Sugar Wright, NEDRA NTTS; Nurse Triage 04/04/2025 Patient Outreach [address] [address] Tiffany Quinn MD Care Management (C3CM- f/u call) 03/21/2025 Patient Outreach [address] [address] Tiffany Quinn MD Care Management (C3CM- f/u call) 03/18/2025 11:00 AM EDT Office Visit [facility] [address] [place] [phone] Ab Perry MD Viral URI with cough (Primary Dx); Positive SHELLEY (antinuclear antibody); Mild intermittent asthma without complication 03/18/2025 Travel 03/14/2025 Outside Procedure [facility] [address] [place] [address] Douglas Kaitlynn, OD Presbyopia (Primary Dx) 03/11/2025 1:30 PM EDT Office Visit [facility] [address] [place] [address] Alvaro Colen, OD Myopia of both eyes (Primary Dx) 03/08/2025 Patient Outreach [facility] [address] [place] [phone] Tiffany Quinn MD Care Management (C3- f/u call) 03/06/2025 Refill [facility] [address] [place] [phone] Tiffany Quinn MD Chronic GERD; Type 2 diabetes mellitus without complication, unspecified whether extermination supervisor insulin use ([facility]) 02/22/2025 Patient Outreach [facility] [address] [place] [phone] Tiffany Quinn MD Care Management (C3- f/u call) from Last 3 Months Immunizations Immunization Administration [...] 19 05/17/2025 6:11 PM EST Oxygen Saturation 98% 04/25/2025 11:13 AM EDT Inhaled Oxygen Concentration - - Weight 93 kg (205 lb 2 oz) 05/17/2025 6:11 PM ES T Height 160 cm (5' 3 ) 05/17/2025 6:11 PM EST Body Mass Index 36.34 05/17/2025 6:11 PM EST Plan of Treatment Upcoming Encounters Date Type Department Care Team (Late st Contact Info) Description 07/19/2025 1:00 PM EST Nutrition [facility] [address] [place] [address] Yessica Blood, JAMIE [address] [place] [address] Health Maintenance Due Date Last Done Comments CT Colonography 1971 FIT DNA/Cologuard 1970 FIT 1970 FOBT 1970 Sigmoidoscopy 1970 Mammogram 11/07/2019 11/06/2017 RSV Patients and Patients Aged 60 years or older (1 - Risk 50-74 years 1-dose series) 2021 Zoster Vaccines (1 of 2) 2021 Diabetes: Hemoglobin A1C 07/26/2025 025, 04/06/2025, 01/12/2025, Additional history exists Influenza Vaccine (#1) 2025 2, 08/02/2021, 03/11/2019, Additional history exists Postponed from 02/28/2025 (Patient Refused) Alcohol/Substance Use Screening 12/28/2025 12/28/2024 Depression Screening 12/28/2025 12/28/2024, 12/29/19 SDOH Screening 01/11/2026 01/11/2025 Disability Screening 01/12/2026 01/12/2025 Diabetes: Urine Protein Screening 02/22/2026 02/22/2025, 05/02/2023, 05/02/2023, Additional history exists Lipid Panel 02/22/2026 02/22/2025, 08/2022, 09/19/2021 COVID-19 Vaccine ( season) 2026 10/10/2022, 09/26/2020, 08/29/2020 Postponed from 02/28/2025 (Patient Refused) Diabetes: Foot Exam 04/25/2026 04/25/2025, 04/25/2025, 04/25/2025, Additional history exists Tobacco Screening 05/17/2026 05/17/2025 Eye Exam 02/02/2027 02/02/2025, 11/2024, 02/02/2025, Additional history exists Colonoscopy 06/08/2029 06/08/2019 Colorectal Cancer Screening 06/08/2029 DTaP/Tdap/Td Vaccines (3 - Td or Tdap) 01/12/2035 01/12/2025, 09/12/2014 Pneumococcal Vaccine: 50+ Years Completed 10/10/2022 HIV [...] EDT) No Maria Del Carmen Taylor, Jonathan Help patients manage their type 2 diabetes Care Plan Help patients manage their type 2 diabetes No Tiffany Quinn MD Weekly blood pressure task Care Plan Weekly blood pressure task No Tiffany Quinn MD Help patients manage their type 2 diabetes Care Plan Help patients manage their type 2 diabetes No Tiffany Quinn MD Patient has chronic kidney disease Care Plan Patient has chronic kidney disease No Tiffany Quinn MD Weekly blood pressure task Care Plan Weekly blood pressure task No Tiffany Quinn MD Patient has chronic kidney disease Care Plan Patient has chronic kidney disease No Tiffany Quinn MD Weekly blood pressure task Care Plan [...] has chronic kidney disease No Skylar Mari Procedures Procedure Name Priority Date/Time Associated Diagnosis Comments CDIFF GENE PCR Routine 05/19/2025 1:15 PM EST OBSX1 Routine 05/19/2025 1:[address] ABDOMEN PELVIS W CONTRAST Routine 05/19/2025 12:19 PM EST APTT Routine 05/19/2025 11:22 AM EST PROTHROMBIN TIME-INR Routine 05/19/2025 11:22 AM EST HCG, TOTAL, QN Routine 05/19/2025 11:22 AM EST LIPASE Routine 05/19/2025 11:22 AM EST COMPREHENSIVE METABOLIC PANEL Routine 05/19/2025 11:22 AM EST CBC WITH AUTO DIFFERENTIAL Routine 05/19/2025 11:22 AM EST POCT GLUCOSE Routine 04/25/2025 11:35 AM EDT Type 2 diabetes mellitus with hyperglycemia, without long-term current use of insulin (HCC) POCT GLYCOSYLATED HEMOGLOBIN (HGB A1C) Routine 04/25/2025 11:34 AM EDT Type 2 diabetes mellitus with hyperglycemia, without long-term current use of insulin (HCC) POCT INFLUENZA B (ID NOW RAPID MOLECULAR) Routine 04/19/2025 6:01 PM EDT Cough, unspecified type POCT INFLUENZA A (ID NOW RAPID MOLECULAR) Routine 04/19/2025 6:01 PM EDT Cough, unspecified type POCT RAPID COVID ANTIGEN Routine 04/19/2025 6:01 PM EDT Cough, unspecified type POCT HEMOGLOBIN Routine 04/19/2025 6:01 PM EDT Light headed POCT GLUCOSE Routine 04/19/2025 6:01 PM EDT Type 2 diabetes mellitus with hyperglycemia, without long-term current use of insulin (HCC) BASIC METABOLIC PANEL Routine 04/12/2025 12:06 PM EDT Diabetes due to underlying condition w oth circulatory comp (HCC) POCT GLUCOSE Routine 04/06/2025 10:26 AM EDT Diabetes due to underlying condition w oth circulatory comp (HCC) BACTERIAL VAGINOSIS PANEL Routine 04/06/2025 10:16 AM EDT Vaginal pruritus POCT GLYCATED HEMOGLOBIN, TOTAL Routine 04/06/2025 10:11 AM EDT Diabetes due to underlying condition w oth circulatory comp (HCC) POCT GLUCOSE Routine 04/06/2025 10:11 AM EDT Diabetes due to underlying condition w oth circulatory comp (HCC) POCT URINALYSIS DIPSTICK Routine 04/06/2025 10:08 AM EDT Diabetes due to underlying condition w oth circulatory comp (HCC) POCT INFLUENZA B (ID NOW RAPID MOLECULAR) Routine 03/18/2025 11:17 AM EDT Viral URI with cough POCT INFLUENZA A (ID NOW RAPID MOLECULAR) Routine 03/18/2025 11:17 AM EDT Viral URI with cough POCT RAPID COVID ANTIGEN Routine 03/18/2025 11:10 AM EDT Viral URI with cough LIPID PANEL, STANDARD Routine 02/22/2025 9:43 AM EDT Type 2 diabetes mellitus without complication, unspecified whether extermination supervisor insulin use ([facility]) ALBUMIN, RANDOM URINE W/CREATININE Routine 02/22/2025 9:43 AM EDT Type 2 diabetes mellitus without complication, unspecified whether shelter insulin use ([facility]) PARVOVIRUS B-19 ANTIBODIES (IGG, IGM) Routine 02/22/2025 9:43 AM EDT Total body pain C-REACTIVE PROTEIN Routine 02/22/2025 9: 43 AM EDT Total body pain SED RATE BY MODIFIED WESTERGREN Routine 02/22/2025 9:43 AM EDT Total body pain RHEUMATOID FACTOR Routine 02/22/2025 9:4 3 AM EDT Total body pain SHELLEY SCREEN, IFA, W/REFL TITER AND PATTERN Routine 02/22/2025 9:43 AM EDT Total body pain VITAMIN B12/FOLATE, SERUM PANEL Routine 02/22/2025 9:43 AM EDT B12 deficiency CBC WITH AUTO DIFFERENTIAL Routine 02/22/2025 9:43 AM EDT Type 2 diabetes mellitus without complication, unspecified whether extermination supervisor insulin use (CMS/HCC) TSH W/REFLEX TO FT4 Routine 02/22/2025 9 :43 AM EDT Essential hypertension HEPATIC FUNCTION PANEL Routine 02/22/2025 9:43 AM EDT Type 2 diabetes mellitus without complication, unspecified whether shelter insulin use (CMS/HCC) BASIC METABOLIC PANEL Routine 02/22/2025 9:43 AM EDT Type 2 diabetes mellitus without complication, unspecified whether shelter insulin use (CMS/HCC) HEPATITIS C AB W/REFL TO HCV RNA, QN, PCR Routine 07/25/2023 11:08 AM EST Night sweats HIV 1/2 ANTIGEN/ANTIBODY, FOURTH GENERATION W/RFL Routine 07/25/2023 11:08 AM EST Night sweats COLONOSCOPY Routine 06/08/2019 MAMMOGRAPHY Routine 11/06/2017 from Last 3 Months or Most Recently Relevant to Health Maintenance Results * CDiff Gene PCR (05/19/2025 1:15 PM EST) CDiff Gene PCR NEGATIVE Negative [facility] Comment:If C. difficile stro ngly suspected despite one negativetest, a second test may be sent vs. empiric treatment forC. difficile infection. 05/19/2025 1:15 PM EST 05/19/2025 1:25 PM EST us Generic External Data Provider LAB BODY FLUIDS A ND STOOLS ORDERABLES Final Result [facility] [address] [place] [phone] * OBSX1 (05/19/2025 1:15 PM EST) OBS1 NEGATIVE NEGATIVE [facility] 05/19/2025 1:15 PM EST 05/19/2025 1:25 PM EST us Generic External Data Provider LAB BLOOD ORDERAB LES Final Result Performing Organization Address City/State/[facility] Co de Phone Number [facility] [address] [place] [phone] * CT Abdomen Pelvis w/ Contrast (05/19/2025 12:19 PM EST) Anatomical Region Laterality Modality Body, Pelvis, Abdomen Computed T omography 05/19/2025 12:1 9 PM EST Narrative 05/19/2025 12:39 PM EST [address] [address] [address] Scan Report Signed Patient: Citlali Clancy MR#: [id number] : 1970 Acct:[id number] Age/Sex: 54 / F ADM Date: 05/19/25 Loc: HO.ED Attending Dr: Ordering Physician: Tone Cox MD Date of Service: 05/19/25 Procedure(s): CT abdomen pelvis w IV con Accession Number(s): [id number] cc: Tiffany Quinn MD; Tone Cox MD Report Number: [id number]: Total DLP = 646.00 mGy-cm Reason for [...] by: Christopher Lynn MD 05/19/2025 12:37 PM [facility] Dictated By: Christopher Lynn MD Signed By: <Electronically signed by Christopher Lynn MD in OV> 05/19/25 1237 DD/ 1219 TD/TT: 05/19/25 1228 Transitional Living Specialist: Procedure Note Donotuseinterpreter, Image - 05/19/[address] [address] [address] Scan Report Signed Patient: Citlali Clancy#: [id number] : 1970Acct:[id number] Age/Sex: 54 / FADM Date: 05/19/25 Loc: HO.ED Attending Dr: Ordering Physician: Tone Cox MD Date of Service: 05/19/25 Procedure(s): CT abdomen pelvis w IV con Accession Number(s): [id number] cc: Tiffany Quinn MD; Tone Cox MD Report Number: [id number]: Total DLP = 646.00 mGy-cm Reason for [...] Christopher Lynn MD 05/19/2025 12:37 PM EST Dictated By: Christopher Lynn MD Signed By: <Electronically signed by Christopher Lynn MD in OV> 05/19/25 1237 DD/ 1219 TD/TT: 05/19/25 1228 Transitional Living Specialist: [facility] External Provider IMG CT PROCEDURES Final Result * (ABNORMAL) CBC auto differential (05/19/2025 11:22 AM EST) Only the most recent of2 resultswithin the time period is included. White Blood Count 5.9 4.8 - 10.8 X10*3/uL [facility] Red Blood Count 5.40 4.20 - 5.50 X10*6/uL [facility] Hemoglobin 16.3(H) 12.0 - 16.0 g/dl [facility] Hematocrit 48.4(H) 37.0 - 47.0 % [facility] Mean Corpuscular Volume 89.6 80.0 - 98.0 fL [facility] Mean Corpuscular Hemoglobin 30.2 27.0 - 33.0 pg [facility] Mean Corpuscular HGB Conc 33.7 31.0 - 35.0 g/dl [facility] Red Cell Distribution Width 13.0 11.0 - 16.0 % [facility] Platelet Count 230 160 - 400 X10*3/uL [facility] Mean Platelet Volume 10.4 9.4 - 12.3 fL [facility] Neutrophils Percent Auto 77.0(H) 45 - 73 % [facility] Imm Gran Pct Auto 0.3 0.0 - 0.4 % [facility] Lymphocytes Percent Auto 14.6(L) 20 - 40 % [facility] Monocytes Percent Auto 6.9 2 - 11 % [facility] Eosinophils Percent Auto 1.0 0 - 4 % [facility] Basophils Percent Auto 0.2 0 - 2 % [facility] NRBC Pct Auto 0.0 0.0 - 0.2 /100WBC [facility] Neutrophils Absolute Auto 4.6 2.0 - 8.3 x10*3/uL [facility] Imm Gran Abs Auto 0.02 0.00 - 0.03 X10*3/uL [facility] Lymphocytes Absolute Auto 0.9(L) 1.2 - 4.9 X10*3/uL [facility] Monocytes Absolute Auto 0.4 0.1 - 1.2 X10*3/uL [facility] Eosinophils Absolute Auto 0.1 0.0 - 0.4 X10*3/uL [facility] Basophils Absolute Auto 0.0 0.0 - 0.2 X10*3/uL [facility] NRBC Abs Auto 0.000 0.0 - 0.012 X10*3/uL [facility] 05/19/2025 11:2 2 AM EST 05/19/2025 11:25 AM EST us Generic External Data Provider LAB BLOOD ORDERAB LES Final Result [facility] [address] [place] [phone] * Partial Thromboplastin Time, Activated (APTT) (05/19/2025 11:22 AM EST) Partial Thromboplastin Time 28.1 26.7 - 34.1 SEC [facility] 05/19/2025 11:2 2 AM EST 05/19/2025 11:25 AM EST Generic External Data Provider LAB BLOOD ORDERAB LES Final Result Performing Organization Address [facility] Co de Phone Number [facility] [address] [place] [address] [phone] * (ABNORMAL) Prothrombin Time-INR (05/19/2025 11:22 AM EST) Prothrombin Time 15.0(H) 11.2 - 13.5 SEC [facility] INTERNATIONAL NORM RATIO 1.2(H) 0.9 - 1.1 [facility] Comment:INTERNATIONAL NORMAL IZED RATIO (INR) REFERENCE [...] ORDERAB LES Final Result Performing Organization Address [facility] Co de Phone Number [facility] [address] [place] [address] [phone] * hCG, Total, Quantitative (05/19/2025 11:22 AM EST) HCG Quantitative <2 mIU/mL [facility] Comment:Weeks post LMP Appro ximate hCG(Last Menstrual Period) Range (mIU/ml)3 - 4 weeks 9 - 1304 - 5 weeks 75 - 2,6005 - 6 weeks 850 - 20,8006 - 7 weeks 4000 - 100,2007 - 12 weeks 11,500 - 289,31146 - 16 weeks 18,300 - 137,71391 - 29 weeks (2nd trimester) 1,400 - 53,94144 - 41 weeks (3rd trimester) 940 - 60,000The Watson B- hCG assay is used for the [...] ORDERAB LES Final Result Performing Organization Address [facility]/ZIP Co de Phone Number [facility] [address] [place] [address] [phone] * Lipase (05/19/2025 11:22 AM EST) Lipase 14 8 - 78 U/L [facility] 05/19/2025 11:2 2 AM EST 05/19/2025 11:25 AM EST Generic External Data Provider LAB BLOOD ORDERAB LES Final Result Performing Organization Address [facility] Co de Phone Number [facility] [address] [place] [address] [phone] * (ABNORMAL) Comprehensive Metabolic Panel (05/19/2025 11:22 AM EST) Sodium 139 135 - 145 mmol/L [facility] Potassium 4.0 3.3 - 5.1 mmol/L [facility] Chloride 105 96 - 108 mmol/L [facility] Carbon Dioxide 25 22 - 29 mmol/L [facility] Anion Gap 13 12 - 20 [facility] Urea Nitrogen (BUN) 10 9 - 16 mg/dL [facility] Creatinine, Serum 0.56 0.5 - 1.4 mg/dL [facility] Creatinine Clr Calc Pharmacy 127.2 [facility] Comment:Provided height and weight: 160.02 cm,94.801 kg.eGFR (calculated from the MDRD study equation) and eCrCl(calculated from the Cockcroft-Gault equation) are based ondifferent parameters and may not yield comparable results.If eCrCl result is absurd, please check patient'sheight/weight. Estimated Glomerular Filt Rate >60 [facility] Comment:Chronic Kidney Disea se: Estimated GFR < 60 mL/min/1.85c4Bvthvi Kidney Disease: Estimated GFR < 15 mL/min/1.73m2 Glucose 180(H) 60 - 115 mg/dL [facility] Calcium 9.3 8.4 - 10.2 mg/dL [facility] Bilirubin, Total 0.8 0.0 - 1.0 mg/dL [facility] Aspartate Amino Transferase 67(H) 5 - 31 U/L [facility] Alanine Aminotransferase 96(H) 0 - 31 U/L [facility] Total Protein 7.8 6.5 - 8.0 g/dL [facility] Albumin Level 4.1 3.5 - 5.0 g/dL [facility] Alkaline Phosphatase 90 39 - 117 U/L [facility] 05/19/2025 11:2 2 AM EST 05/19/2025 11:25 AM EST us Generic External Data Provider LAB BLOOD ORDERAB LES Final Result [facility] [address] [place] [address] [phone] * (ABNORMAL) POCT glucose manually resulted (04/25/2025 11:35 AM EDT) Only the most recent of4 resultswithin the time period is included. Glucose Blood, POC 315(A) 60 - 200 mg/dL QC Media Lot # [id number] Lot# Expiration Date [id number] Blood Capillary blood specimen / Unknown 04/25/2025 11:35 AM EDT Tiffany Quinn MD POINT OF CARE TEST ENTER/E DIT ORDERABLES Final Result * (ABNORMAL) POCT glycosylated hemoglobin (Hgb A1c) (04/25/2025 11:34 AM EDT) Pathologist [facility] Hemoglobin A1C 11.0(A) 4.0 - 5.7 % QC Media Lot # [id number] Lot# Expiration Date [id number] Blood Capillary blood specimen / Unknown 04/25/2025 11:34 AM EDT Tiffany Quinn MD POINT OF CARE TEST ENTER/E DIT ORDERABLES Final Result * POCT Rapid Influenza B WATSON ID NOW (04/19/2025 6:01 PM EDT) Only the most recent of2 resultswithin the time period is included. Pathologist [facility] Influenza B Negative Negative, Indeterminate [facility] QC Media Lot # [id number] [facility] Lot# Expiration Date [facility] Swab 04/19/2025 6:01 PM EDT Tiffany Quinn MD POINT OF CARE TEST ENTER/E DIT ORDERABLES Final Result Performing Organization Address [facility]/ZIP Co de Phone Number [facility] [address] [place] [address] [phone] * POCT Rapid Influenza A WATSON ID NOW (04/19/2025 6:01 PM EDT) Only the most recent of2 resultswithin the time period is included. Pathologist [facility] Influenza A Negative Negative, Indeterminate [facility] QC Media Lot # [id number] [facility] Lot# Expiration Date [facility] Swab 04/19/2025 6:01 PM EDT Tiffany Quinn MD POINT OF CARE TEST ENTER/E DIT ORDERABLES Final Result Performing Organization Address [facility]/ZIP Co de Phone Number [facility] [address] [place] [address] [phone] * POCT Rapid Covid-19 BinaxNOW (04/19/2025 6:01 PM EDT) Only the most recent of2 resultswithin the time period is included. Rapid COVID Ag Negative [facility] QC Media Lot # [id number] [facility] Lot# Expiration Date [id number] [facility] Swab 04/19/2025 6:01 PM EDT Tiffany Quinn MD POINT OF CARE TEST ENTER/E DIT ORDERABLES Final Result Performing Organization Address City/[facility]/ZIP Co de Phone Number [facility] [address] [place] [address] [phone] * POCT Hemoglobin (04/19/2025 6:01 PM EDT) Pathologist [facility] Hemoglobin 13.8 12.0 - 15.0 [facility] QC Media Lot # [id number] [facility] Lot# Expiration Date [id number] [facility] Blood 04/19/2025 6:01 PM EDT Tiffany Quinn MD POINT OF CARE TEST ENTER/E DIT ORDERABLES Final Result Performing Organization Address City/[facility]/ZIP Co de Phone Number [facility] [address] [place] [address] [phone] * (ABNORMAL) Basic Metabolic Panel (04/12/2025 12:06 PM EDT) Only the most recent of2 resultswithin the time period is included. Pathologist [facility] Sodium 139 135 - 145 mmol/L [facility] Potassium 4.0 3.3 - 5.1 mmol/L [facility] Chloride 103 96 - 108 mmol/L [facility] Carbon Dioxide 29 22 - 29 mmol/L [facility] Anion Gap 11(L) 12 - 20 [facility] Urea Nitrogen (BUN) 13 9 - 16 mg/dL [facility] Creatinine, Serum 0.60 0.5 - 1.4 mg/dL [facility] Estimated Glomerular Filt Rate >60 [facility] Comment:Chronic Kidney Disea se: Estimated GFR < 60 mL/min/1.91p4Yvaxng Kidney Disease: Estimated GFR < 15 mL/min/1.73m2 Glucose 366(HH) 60 - 115 mg/dL [facility] Comment:Critical value for G LUR Results called to and read backby: ELLY Whitman Person calling:DANIELLAOSSJules Date: 04/12/25Time:1424 Calcium 9.4 8.4 - 10.2 mg/dL [facility] Blood Venous blood specimen / Unknown 04/12/2025 12:06 PM EDT 04/12/2025 1:17 PM EDT Hugh Casas DIAMOND SAW OPERATOR LAB BLOOD ORDERABLES Final Re sult [facility] [address] [place] [address] [phone] * (ABNORMAL) Bacterial Vaginosis Panel (04/06/2025 10:16 AM EDT) TRICHOMONAS VAGINALIS DETECTION BY PCR NOT DETECTED Not Detect [facility] BACTERIAL VAGINOSIS DETECTION BY PCR NEGATIVE Negative [facility] Comment:The BV organism targ ets of the Xpert Xpress MVP test can becommensal in women; Xpert Xpress MVP positive results forbacterial vaginosis should be considered in conjunction withother clinical and patient information to determine thedisease status. Organisms that are not detected by the XpertXpress MVP test have also been reported to be associatedwith BV and aerobic vaginitis.The Xpert Xpress MVP test performance has not been evaluatedin patients under the age of 14. NANCI GROUP DETECTION BY PCR DETECTED(A) Not Detect [facility] Nanci glab krusei PCR NOT DETECTED Not Detect [facility] Swab Vaginal structure / Unknown 04/06/2025 10:16 AM EDT 04/06/2025 5:41 PM EDT [facility] LAB MICROBIOLOGY - GENERAL OR DERABLES Final Result [facility] [address] [place] [address] [phone] * (ABNORMAL) POCT Hgb A1c (04/06/2025 10:11 AM EDT) Hemoglobin A1C 9.9(A) 4.0 - 5.7 % QC Media Lot # [id number] Lot# Expiration Date ,[id number] Blood 04/06/2025 10:1 1 AM EDT [facility] POINT OF CARE TEST ENTER/EDIT ORDERABLES Final Result * POCT Urinalysis (04/06/2025 10:08 AM EDT) Color, UA Yellow Clarity, UA Clear Glucose, UA Trace Comment:1000mg Bilirubin, UA Negative Ketones, UA Negative Spec Grav, UA 1.010 Blood, UA Negative Negative, None Detected pH, UA 5.5 Protein, UA Negative Urobilinogen, UA 0.2 Leukocytes, UA Trace Negative, Rare, Trace Nitrite, UA Negative Negative, None Detected Appearance, UA clear QC Media Lot # [id number] Lot# Expiration Date [id number] Urine 04/06/2025 10:0 8 AM EDT [facility] POINT OF CARE TEST ENTER/EDIT ORDERABLES Final Result * Vitamin B12/Folate, Serum Panel (02/22/2025 9:43 AM EDT) Vitamin B12 556 200 - 900 pg/mL [facility] Comment:NORMAL 200-900 PG/ML INDETERMINATE 160-199 PG/ML DEFICIENT < 160 PG/ML Folate 10.5 > or = 4.0 ng/mL [facility] Comment:Reference Values:> o r = 4.0 ng/mL< 4.0 ng/mL suggests folate deficiency Methotrexate, aminopterin and folinic acid(leucovorin) are chemotherapeutic agents whose molecularstructures are similar to folate; therefore, the Architectfolate assay cannot be used for patients using these drugs. Blood Venous blood specimen / Unknown 02/22/2025 9:43 AM EDT 02/22/2025 10:55 AM EDT Tiffany Quinn MD LAB BLOOD ORDERABLES Final Result Performing Organization Address [facility] Co de Phone Number [facility] [address] [place] [address] [phone] * TSH with Reflex to Free T4 (02/22/2025 9:43 AM EDT) TSH reflex Free T4 0.52 0.32 - 4.0 uIU/mL [facility] Blood 02/22/2025 9:43 AM EDT 02/22/2025 10:55 AM EDT Tiffany Quinn MD LAB BLOOD ORDERABLES Final Result Performing Organization Address [facility] de Phone Number [facility] [address] [place] [address] [phone] * Albumin, Random Urine W/Creatinine (02/22/2025 9:43 AM EDT) Creatinine, Urine 144.41 mg/dL [facility] Microalbumin Urine 8.0 mg/L [facility] Microalbum Creatinine Ratio Ur 5.5 <30 ug/mg cr [facility] Comment:Albumin/Creatinine R atio Reference Ranges: Normal: < 30 ug/mg creatinine Microalbuminuria: 30 - 300 ug/mg creatinineClinical Albuminuria: > 300 ug/mg creatinine Urine 02/22/2025 9:43 AM EDT 02/22/2025 11:12 AM EDT Tiffany Quinn MD LAB URINE ORDERABLES Final Result Performing Organization Address [facility]/ZIP Co de Phone Number [facility] [address] [place] [phone] * (ABNORMAL) Parvovirus B19 Antibodies (IgG,IgM) (02/22/2025 9:43 AM EDT) Parvovirus B19 Antibody (IgG) 3.47(A) [facility] Comment:Reference Range<0.9 Negative0.9-1.1 Equivocal>1.1 PositiveIgG persists for years and provides life-long immunity.To diagnose current infection, consider [id number] DNA, PCR. Parvovirus B19 Antibody (IgM) <0.9 [facility] Comment:Reference Range<0.9 Negative0.9-1.1 Equivocal>1.1 PositiveResults from any one IgM assay should not be used as asole determinant of a current or recent infection.Because IgM tests can yield false positive results andlow levels of IgM antibody may persist for months postinfection, reliance on a single test result could bemisleading. If an acute infection is suspected, considerobtaining a new specimen and submit for both IgG and IgMtesting in two or more weeks. To diagnose currentinfection, consider parvovirus B19 DNA,PCR.THIS TEST WAS PERFORMED AT:[employer] [address] [id number] LI MD Blood Venous blood specimen / Unknown 02/22/2025 9:43 AM EDT 02/22/2025 10:55 AM EDT Tiffany Quinn MD LAB BLOOD ORDERABLES Final Result Performing Organization Address [facility]/ZIP Co de Phone Number [facility] [address] [place] [phone] * Sed Rate by Modified Анна (02/22/2025 9:43 AM EDT) Pathologist [facility] Erythrocyte Sedimentation Rate 12 0 - 20 MM/HR [facility] Comment:Patients with polycy themia and many hemoglobin abnormalitiesmay have depressed sed rates whereas patients with anemiamay have elevated sed rates. Blood Venous blood specimen / Unknown 02/22/2025 9:43 AM EDT 02/22/2025 10:55 AM EDT Tiffany Quinn MD LAB BLOOD ORDERABLES Final Result Performing Organization Address [facility] Co de Phone Number [facility] [address] [place] [address] [phone] * Rheumatoid Factor (02/22/2025 9:43 AM EDT) [facility] Rheumatoid Factor <13.0 <15.0 IU/mL [facility] Blood Venous blood specimen / Unknown 02/22/2025 9:43 AM EDT 02/22/2025 10:55 AM EDT Tiffany Quinn MD LAB BLOOD ORDERABLES Final Result Performing Organization Address [facility] Co de Phone Number [facility] [address] [place] [address] [phone] * C-reactive Protein (02/22/2025 9:43 AM EDT) [facility] C Reactive Protein 0.46 < or = 0.50 mg/dL [facility] Blood Venous blood specimen / Unknown 02/22/2025 9:43 AM EDT 02/22/2025 10:55 AM EDT Tiffany Quinn MD LAB BLOOD ORDERABLES Final Result Performing Organization Address [facility] de Phone Number [facility] [address] [place] [address] [phone] * (ABNORMAL) SHELLEY Screen,IFA, with Reflex to Titer and Pattern (02/22/2025 9:43 AM EDT) [facility] Anti Nuclear Antibody Screen POSITIVE (A) NEGATIVE [facility] Comment:SHELLEY IFA is a first l ine screen for detecting thepresence of up to approximately 150 autoantibodies invarious autoimmune diseases. A positive SHELLEY IFA resultis suggestive of autoimmune disease and reflexes totiter and pattern. Further laboratory testing may beconsidered if clinically indicated.For additional information, please refer [email or web address](This link is being provided for informational/educational purposes only.) SHELLEY Titer 1:320(A) titer [facility] Comment:Reference Range <1:4 0 Negative 1:40-1:80 Low Antibody Level >1:80 Elevated Antibody Level SHELLEY Pattern (A) [facility] Comment:Cytoplasmic, Reticul ar/AMA Abnormal Flag: ACoarse granular filamentous staining extendingthroughout the cytoplasm (e.g., anti-mitochondrialantibodies). Pattern is common in primary biliarycholangitis (PBC), systemic sclerosis, and rare inother systemic autoimmune rheumatic diseases (SARD).AC-21: Reticular/AMAInternational Consensus on SHELLEY Patterns(https://doi.org/10.1515/bems-7307-0817)THIS TEST WAS PERFORMED AT:[employer] [place] [phone] LI MD SHELLEY Titer 2 TNP [facility] SHELLEY Pattern 2 [facility] SHELLEY TITER 3 [facility] SHELLEY PATTERN 3 [facility] Blood Venous blood specimen / Unknown 02/22/2025 9:43 AM EDT 02/22/2025 10:55 AM EDT Tiffany Quinn MD LAB BLOOD ORDERABLES Final Result [facility] [address] [place] [phone] * (ABNORMAL) Hepatic Function Panel (02/22/2025 9:43 AM EDT) Bilirubin, Total 0.6 0.0 - 1.0 mg/dL [facility] Bilirubin, Direct 0.2 0.0 - 0.5 mg/dL [facility] Aspartate Amino Transferase 38(H) 5 - 31 U/L [facility] Alanine Aminotransferase 67(H) 0 - 31 U/L [facility] Total Protein 7.7 6.5 - 8.0 g/dL [facility] Albumin Level 4.1 3.5 - 5.0 g/dL [facility] Alkaline Phosphatase 98 39 - 117 U/L [facility] Blood Venous blood specimen / Unknown 02/22/2025 9:43 AM EDT 02/22/2025 10:55 AM EDT Tiffany Quinn MD LAB BLOOD ORDERABLES Final Result [facility] [address] [place] [address] [phone] * Lipid Panel, Standard (02/22/2025 9:43 AM EDT) Triglycerides 80 <150 mg/dL [facility] Comment:Desirable Triglyceri de: less than 150 mg/dLBorderline High Triglyceride 150-199 mg/dLHigh Triglyceride: 200-499 mg/dLVery High Triglyceride: greater than or equal to 5OO mg/dL Cholesterol 149 <200 mg/dL [facility] Comment:Desirable Cholestero l: less than 200 mg/dLBorderline High Cholesterol: 200-239 mg/dLHigh Cholesterol: greater than 239 mg/dL LDL Cholesterol Calculated 88 <100 mg/dL [facility] Comment:Desirable LDL: less than 100 mg/dLNear Optimal/Above Optimal LDL: 110- 129 mg/dLBorderline High LDL: 130-159 mg/dLHigh LDL: 160-189 mg/dLVery High LDL: greater than or equal to 190 mg/dL HDL Cholesterol 45 >40 mg/dL [facility] Comment:Desirable HDL: great er than 40 mg/dL Note: This HDL assay may give artificially low results in patients with liver disease. Blood Venous blood specimen / Unknown 02/22/2025 9:43 AM EDT 02/22/2025 10:55 AM EDT Tiffany Quinn MD LAB BLOOD ORDERABLES Final Result Performing Organization Address [facility] Co de Phone Number [facility] [address] [place] [phone] * Hepatitis C Antibody with Reflex to HCV, RNA, Quantitative, Real-Time PCR (07/25/2023 11:08 AM EST) Hepatitis C Antibody Nonreactive Nonreactive [facility] Comment:Antibodies to HCV no t detected; does not exclude early acuteHCV infection. Blood Venous blood specimen / Unknown 07/25/2023 11:08 AM EST 07/25/2023 1:18 PM EST Result [facility] Yulissa AGUAYO LAB BLOOD ORDERABLES Final Resul t Performing Organization Address [facility] de Phone Number [facility] [address] [place] [address] [phone] * HIV-1/2 Antigen and Antibodies, Fourth Generation, with Reflexes (07/25/2023 11:08 AM EST) HIV AB/AG Nonreactive Nonreactive [facility] Comment:HIV-1 p24 Ag and/or HIV-1/HIV-2 Ab not detected.A test result that is nonreactive does not exclude thepossibility of exposure to or infection with HIV-1 and/orHIV-2. Nonreactive results in this assay for individualswith prior exposure to HIV-1 and/or HIV-2 may be due toantigen and antibody levels that are below the limit ofdetection of this assay.The [employer] HIV Ag/Ab Combo assay result andsupplemental assay results should be interpreted inconjunction with the patient's clinical presentation,history and other laboratory results. If the results areinconsistent with clinical evidence, additional testing issuggested to confirm the result. Blood Venous blood specimen / Unknown 07/25/2023 11:08 AM EST 07/25/2023 1:18 PM EST Yulissa AGUAYO LAB BLOOD ORDERABLES Final Resul t [facility] [address] [place] [phone] * Colonoscopy (06/08/2019) Colonoscopy normal Historical Provider HEALTH MAINTENANCE Final Result * Mammography (11/06/2017) Mammogram normal Anatomical Region Laterality Modality Other Historical Provider HEALTH MAINTENANCE Final Result from Last 3 Months or Most Recently Relevant to Health Maintenance Additional Health Concerns Active Problems Noted Date [...] 05/18/2025 Patient has chronic kidney disease 05/18/2025 Insurance [facility] C3 GENERIC TPL Advance Directives Documents on File Type Date Recorded Patient Electronic Technician Expl anation Advance Directives and Living Will 01/07/2024 3:24 PM Health Care Proxy Care Teams Cyber Security Relationship Specialty Start Date End Date [place], MD Tiffany [address] [place] [phone] PCP - General Family Medicine 08/30/14 Kaitlynn Cole OD [address] [place] [phone] Optometry 08/04/24 Jw Maki MD [address] [place] [address] [address] [place] [address] Cardiology 08/04/24 Keith Reyes RN [address] [place] [phone] Registered Nurse Family Medicine 12/20/24 MILLICENT BRYAN NP Psychiatrist 04/25/25
--- OUTSIDE RECORDS SUMMARY | 2025-05-19 17:56 | XMS_ITS | Encounter Summary ---
Author Organization [employer] Address [address] [facility] 7t [place] [address] Care Team Providers Care Park Warden Name Role Phone Tiffany Quinn MD Primary Care Provider [phone] Kaitlynn Cole OD Unavailable [phone] Jw Maki MD Unavailable Keith Reyes RN Unavailable [phone] Ida Diggs Unavailable Reason for Visit * Reason Comments Med Change Request Encounter Details Date Type Department Care Team (Late st Contact Info) Description 05/23/2024 Refill [facility] [address] [place] [address] [id number] Name, MD Elias [address] [place], [place] [phone] Social History Tobacco Use Types Packs/Day Years [...] Info) Description 07/19/2025 1:00 PM EST Nutrition [facility] [address] [place] [address] [place] [address] documented as of this encounter Goals Goal [...] documented as of this encounter Care Teams Park Warden Relationship Specialty Start Date End Date Tiffany Quinn MD [address] [place] [address] PCP - General Family Medicine 08/30/14 Kaitlynn Cole OD [address] [place] [address] Optometry 08/04/24 Jw M[address] [place] [address] Cardiology 08/04/24 Keith Reyes, NEDRA [address] [place] [address] Registered Nurse Family Medicine 12/20/24 Ida Diggs 12/20/24 02/08/25 MILLICENT BRYAN NP Psychiatrist 04/25/25 documented as of this encounter
--- OUTSIDE RECORDS SUMMARY | 2025-05-19 17:57 | XMS_ITS | Encounter Summary ---
Author Organization [employer] Address [address] [place] [address] 7t [place] [address] Care Team Providers Care Cover Mat Machine Operator Name Role Phone Tiffany Quinn MD Primary Care Provider [phone] Maria Del Carmen Taylor PharmD Unavailable [phone] Kaitlynn Cole OD Unavailable [phone] Jw Maki MD Unavailable Keith Reyes RN Unavailable [phone] Ida Diggs Unavailable Encounter Details Date Type Department Care Team (Late st Contact Info) Description 07/14/2022 Abstract [facility] [address] [place], [place] [phone] Tiffany Quinn MD [address] [place], [place] [phone] Social History Tobacco Use Types Packs/Day Years [...] Info) Description 07/19/2025 1:00 PM EST Nutrition [facility] DI[facility]ETES/NUTRITION [address] [place] [address] Yessica Blood, JAMIE [address] [place] [address] documented as of this encounter Procedures Procedure [...] on filedocumented in this encounter Care Teams Cover Mat Machine Operator Relationship Specialty Start Date End Date Tiffany Quinn MD [address] [place] [address] PCP - General Family Medicine 08/30/14 Maria Del Carmen Taylor PharmD [address] [place] [address] Pharmacist Internal Medicine 10/29/22 04/27/23 Kaitlynn Cole OD [address] [place] [address] Optometry 08/04/24 Jw Maki MD [address] [place] [address] Drive 3rd [place] [address] Cardiology 08/04/24 Keith Reyes RN [address] [place] [address] Registered Nurse Family Medicine 12/20/24 Ida Diggs 12/20/24 02/08/25 MILLICENT BRYAN NP Psychiatrist 04/25/25 documented as of this encounter
--- OUTSIDE RECORDS SUMMARY | 2025-05-19 17:57 | XMS_ITS ---
Author Organization [employer] Address [address] [place] [address] 7 [place] [address] Care Team Providers Care Chief Analytics Officer Name Role Phone Tiffany Quinn MD Primary Care Provider [phone] Kaitlynn Cole OD Unavailable Jw Maki MD Unavailable Keith Reyes RN Unavailable [phone] CM Complex Status:Enrolled (Active) Start date:12/20/2024 Enrollment date:12/28/2024 Enrollment reason:ADT Feed Overview [facility] ED 12/20/24 Case Team Name Relationship Phone Keith Reyes RN(Responsible Staff) Registered Nurse [phone] Continued Care and Services Coordination
--- NOTE | 2025-05-19 19:19 | HO.NURTONUR ---
Pt came in from home, reporting ABD pain, vomit with streaks of blood, and nonbloody watery diarrhea x 2 days. Here in ED pt was given vancomycin PO for suspected C-diff, panel negative and plan to admit for Gastroenteritis complicated by hematemesis. Plan for IV ppi, IV fluids, clear liquids we will hold off on antibiotics for now, check stool studies, GI eval, monitor hemoglobin. Pt A&Ox3, primarily kiswahili speaking, ambulates independently. 20G IV to R AC with LR @80 mL/hr.
--- NOTE | 2025-05-19 19:20 | PC.NURSE ---
Assumed care of this Pt at 1900.
[2025-05-19 19:42] VITALS: BP 100/66; PULSE 86; RESP 12; TEMP 36.8; O2SAT 94
[2025-05-19 19:49] VITALS: BMI 36.1
[2025-05-19 20:00] VITALS: BP 111/70; PULSE 71; RESP 18; TEMP 36.8; O2SAT 92
[2025-05-19 20:40] LABS: Glucose, Whole Blood 127 mg/dL (60-115)
[2025-05-19 21:14] VITALS: BP 111/70
[2025-05-20 03:28] VITALS: BP 106/54; PULSE 69; RESP 18; TEMP 36.6; O2SAT 94
[2025-05-20] MEDS: Lactated Ringers 500 ML 999 ML IV (03:50)
[2025-05-20] MEDS: Lactated Ringers 1,000 ML 100 ML IVCONT (04:49)
[2025-05-20 06:02] LABS: Hematocrit 41.1 % (37.0-47.0); Hemoglobin 13.7 g/dl (12.0-16.0); Mean Corpuscular HGB Conc 33.3 g/dl (31.0-35.0); Mean Corpuscular Hemoglobin 30.1 pg (27.0-33.0); Mean Corpuscular Volume 90.3 fL (80.0-98.0); NRBC Abs Auto 0.000 X10*3/uL (0.0-0.012); NRBC Pct Auto 0.0 /100WBC (0.0-0.2); Platelet Count 176 X10*3/uL (160-400); Red Blood Count 4.55 X10*6/uL (4.20-5.50); White Blood Count 5.3 X10*3/uL (4.8-10.8)
[2025-05-20 06:23] LABS: Alanine Aminotransferase 67 U/L (0-31); Albumin Level 3.2 g/dL (3.5-5.0); Alkaline Phosphatase 76 U/L (39-117); Anion Gap 10 (12-20); Aspartate Amino Transferase 49 U/L (5-31); Blood Urea Nitrogen 6 mg/dL (9-16); Calcium 8.4 mg/dL (8.4-10.2); Carbon Dioxide 28 mmol/L (22-29); Chloride 105 mmol/L (96-108); Creatinine Clr Calc Pharmacy 127.7; Estimated Glomerular Filt Rate > 60; Magnesium 1.6 mg/dL (1.6-2.6); Potassium 3.3 mmol/L (3.3-5.1); Sodium 140 mmol/L (135-145); Total Protein 6.3 g/dL (6.5-8.0)
[2025-05-20 07:00] VITALS: BP 102/60
[2025-05-20 07:21] LABS: E. coli EAEC Not Detected (Not Detect.); E. coli EPEC Not Detected (Not Detect.); E. coli ETEC Not Detected (Not Detect.); E. coli STEC Not Detected (Not Detect.); Shigella sp./EIEC Not Detected (Not Detect.)
[2025-05-20 07:36] LABS: Glucose, Whole Blood 154 mg/dL (60-115)
[2025-05-20 07:49] VITALS: PULSE 70; RESP 14; TEMP 36.4; O2SAT 93
[2025-05-20] MEDS: buPROPion HCl XL 150 MG TAB.ER.24H PO (08:37)
[2025-05-20] MEDS: buPROPion HCl XL 300 MG TAB.ER.24H PO (08:40)
[2025-05-20] MEDS: 0.9 % Sodium Chloride Flush 3 ML SYRINGE IVFLUSH ×2 (08:44→20:14)
--- NOTE | 2025-05-20 09:08 | P.PNIM_ITS ---
Subjective Subjective Date of Service: 05/20/25 Interval History: still with nasuea, no appetite Physical Exam 2 Exam: Exam: General: AO X 3, uncomfortable Resp: CTA bilateral, no accessory muscles used CVS: S1,S2,RRR GI: soft, LLQ tender, non distended Neuro: motor grossly intact, alert Psych: appropriate affect, appropriate insight Vital Signs: Vital Signs: Last Vital Signs Temp 97.5 F 05/20/25 07:49 Pulse 70 05/20/25 07:49 Resp 14 05/20/25 07:49 BP 102/60 05/20/25 07:00 Pulse Ox 93 05/20/25 07:49 O2 Del Method Room Air 05/20/25 07:49 BMI result Body Mass Index 36.1 Objective Data Active Medications Acetaminophen (Acetaminophen 325 Mg Tablet) 650 mg PO Q6H PRN PRN Reason: Pain, Mild 1-3,fever,headache Atorvastatin Calcium (Atorvastatin Calcium 40 Mg Tablet) 40 mg PO BEDTIME [facility] Last Admin: 05/19/25 21:15 Dose: 40 mg Documented By: CHRISTINA Bupropion HCl (Bupropion Hcl Xl 150 Mg Tab.Er.24h) 150 mg PO DAILY [facility] Last Admin: 05/20/25 08:37 Dose: 150 mg Documented By: SAM Comments: verified dose with Mikayla lr via telephone Bupropion HCl (Bupropion Hcl Xl 300 Mg Tab.Er.24h) 300 mg PO DAILY [facility] Last Admin: 05/20/25 08:40 Dose: 300 mg Documented By: SAM Comments: verified dose with Mikayla lr via telephone Calcium Carbonate (Calcium Carbonate 750 Mg Tab.Chew) 750 mg PO Q4H PRN PRN Reason: Heartburn Clonazepam (Clonazepam 0.5 Mg Tablet) 0.5 mg PO DAILY PRN PRN Reason: Anxiety Cyanocobalamin (Cyanocobalamin (Vitamin B-12) 1,000 Mcg Tablet) 1,000 mcg PO DAILY [facility] Last Admin: 05/20/25 08:39 Dose: 1,000 mcg Documented By: SAM Dextrose (Dextrose 50 % 25 Gm/50 Ml Syringe) 25 gm IVPUSH Q15M PRN; Protocol PRN Reason: per Hypoglycemia Standing Ord. Enoxaparin Sodium (Enoxaparin Sodium 40 Mg/0.4 Ml Syringe) 40 mg SUBCUT Q24H [facility] Last Admin: 05/20/25 08:42 Dose: 40 mg Documented By: SAM Fluoxetine HCl (Fluoxetine Hcl 20 Mg Capsule) 40 mg PO DAILY [facility] Last Admin: 05/20/25 08:39 Dose: 40 mg Documented By: SAM Comments: verified dose with Mikayla lr via telephone Fluoxetine HCl (Fluoxetine Hcl 20 Mg Capsule) 20 mg PO DAILY [facility] Last Admin: 05/20/25 08:39 Dose: 20 mg Documented By: SAM Comments: verified dose with Mikayla lr via telephone Fluticasone Propionate (Fluticasone Propionate Nasal 16 Gm [place]) 1 spray NOSTRIL-B DAILY PRN PRN Reason: allergies Glucose (Glucose Gel 15 Gm Gel..Gram.) 15 gm PO Q15M PRN; Protocol PRN Reason: per Hypoglycemia Standing Ord. Hydromorphone HCl (Hydromorphone Hcl 1 Mg/Ml Syringe) 0.5 mg IVPUSH Q4H PRN; Protocol PRN Reason: Pain, Severe (Pain Scale 7-10) Last Admin: 05/19/25 21:19 Dose: 0.5 mg Documented By: CHRISTINA Lactated Ringer's (Lr) 1,000 mls @ 100 mls/hr IVCONT .Q10H [facility] Last Admin: 05/20/25 04:49 Dose: 100 mls/hr Documented By: CHRISTNIA Insulin Human Lispro (Insulin Lispro 100 Unit/Ml 3 Ml Vial) 0 unit SUBCUT QIDACHS [facility]; Protocol Last Admin: 05/20/25 08:44 Dose: Not Given Documented By: SAM Non-Admin Reason: Patient Refused Lisinopril (Lisinopril 5 Mg Tablet) 5 mg PO BEDTIME [facility]; Protocol Last Admin: 05/19/25 21:14 Dose: 5 mg Documented By: CHRISTINA Loratadine (Loratadine 10 Mg Tablet) 10 mg PO DAILY PRN PRN Reason: allergies Magnesium Hydroxide (Milk Of Magnesia 30 Ml Oral.Susp) 30 ml PO DAILY PRN PRN Reason: Constipation Melatonin (Melatonin 3 Mg Tablet) 6 mg PO BEDTIME PRN PRN Reason: Insomnia Ondansetron HCl (Ondansetron Hcl 4 Mg/2 Ml Vial) 4 mg IVPUSH Q6H PRN PRN Reason: Nausea Last Admin: 05/19/25 21:21 Dose: 4 mg Documented By: CHRISTINA Oxcarbazepine (Oxcarbazepine 300 Mg Tablet) 600 mg PO BEDTIME [facility] Last Admin: 05/19/25 21:15 Dose: 600 mg Documented By: CHRISTINA Oxcarbazepine (Oxcarbazepine 300 Mg Tablet) 300 mg PO DAILY [facility] Last Admin: 05/20/25 08:39 Dose: 300 mg Documented By: SAM Pantoprazole Sodium (Pantoprazole Sodium 40 Mg/10 Ml Vial) 40 mg IVPUSH BID@0630,1630 [facility] Last Admin: 05/20/25 05:39 Dose: Not Given Documented By: CHRISTINA Non-Admin Reason: Previously Administered Sodium Chloride (0.9 % Sodium Chloride Flush 3 Ml Syringe) 3 ml IVFLUSH QSHIFT [facility] Last Admin: 05/20/25 08:44 Dose: 3 ml Documented By: SAM Trazodone HCl (Trazodone Hcl 100 Mg Tablet) 100 mg PO BEDTIME [facility] Last Admin: 05/19/25 21:15 Dose: 100 mg Documented By: CHRISTINA Labs 05/20/25 05:39 05/20/25 05:39 Labs: Laboratory Results - last 24 hr 05/19/25 05/19/25 05/19/25 11:22 13:15 17:52 MCV 89.6 MCH 30.2 MCHC 33.7 RDW 13.0 Plt Count 230 MPV 10.4 Immature Gran % (Auto) 0.3 Neut % (Auto) 77.0 H Lymph % (Auto) 14.6 L [place] % (Auto) 6.9 Eos % (Auto) 1.0 Baso % (Auto) 0.2 Lymph # (Auto) 0.9 L [place] # (Auto) 0.4 Eos # (Auto) 0.1 Baso # (Auto) 0.0 Abs Immat Gran (auto) 0.02 Absolute Neuts (auto) 4.6 Absolute Nucleated RBC 0.000 Nucleated RBC % (auto) 0.0 PT 15.0 H INR 1.2 H APTT 28.1 Anion Gap 13 Estim Creat Clear Calc 127.2 Estimated GFR > 60 POC Glucose 116 H Random Glucose 180 H Calcium 9.3 Magnesium Total Bilirubin 0.8 Direct Bilirubin AST 67 H ALT 96 H Alkaline Phosphatase 90 Total Protein 7.8 Albumin 4.1 Lipase 14 Beta HCG, Quant < 2 Stool Occult Blood NEGATIVE Stl C. cayetanensis PCR Not Detected Stool Rotavirus A PCR Not Detected Stl Adenov F 40/41 PCR Not Detected Stool Astrovirus (PCR) Not Detected Stool Campylobacter PCR Not Detected Stool Cryptosporidium PCR Not Detected Stl Sh Tox Pr E STEC PCR Not Detected Stool E coli O157 PCR Not applicable Stl Enterotoxigenic E PCR Not Detected Stool EPEC (PCR) Not Detected Stool EAEC (PCR) Not Detected Stl E. histolytica PCR Not Detected Stool Giardia Lamblia PCR Not Detected Stl P. shigelloides PCR Not Detected Stool Salmonella PCR Not Detected Stool Sapovirus (PCR) Not Detected Stl Shigella/EIEC PCR Not Detected St Y.enterocolitica PCR Not Detected Stool Vibrio (PCR) Not Detected Stl Vibrio cholerae PCR Not Detected Stl Norovirus GI/GII PCR Not Detected C. difficile Tox B Gene NEGATIVE 05/19/25 05/20/25 05/20/25 20:36 05:39 07:32 MCV 90.3 MCH 30.1 MCHC 33.3 RDW 13.1 Plt Count 176 MPV 10.4 Immature Gran % (Auto) Neut % (Auto) Lymph % (Auto) [place] % (Auto) Eos % (Auto) Baso % (Auto) Lymph # (Auto) [place] # (Auto) Eos # (Auto) Baso # (Auto) Abs Immat Gran (auto) Absolute Neuts (auto) Absolute Nucleated RBC 0.000 Nucleated RBC % (auto) 0.0 PT INR APTT Anion Gap 10 L Estim Creat Clear Calc 127.7 Estimated GFR > 60 POC Glucose 127 H 154 H Random Glucose 171 H Calcium 8.4 D Magnesium 1.6 Total Bilirubin 0.7 Direct Bilirubin 0.3 AST 49 H ALT 67 H Alkaline Phosphatase 76 Total Protein 6.3 L Albumin 3.2 L Lipase Beta HCG, Quant Stool Occult Blood Stl C. cayetanensis PCR Stool Rotavirus A PCR Stl Adenov F 40/41 PCR Stool Astrovirus (PCR) Stool Campylobacter PCR Stool Cryptosporidium PCR Stl Sh Tox Pr E STEC PCR Stool E coli O157 PCR Stl Enterotoxigenic E PCR Stool EPEC (PCR) Stool EAEC (PCR) Stl E. histolytica PCR Stool Giardia Lamblia PCR Stl P. shigelloides PCR Stool Salmonella PCR Stool Sapovirus (PCR) Stl Shigella/EIEC PCR St Y.enterocolitica PCR Stool Vibrio (PCR) Stl Vibrio cholerae PCR Stl Norovirus GI/GII PCR C. difficile Tox B Gene Assessment and Plan (1) Hematemesis: Status: Acute Plan 54F PMH diabetes, obesity, hypertension, hyperlipidemia, mood disorder presented with nausea vomiting and diarrhea as well as hematemesis Gastroenteritis complicated by hematemesis no further hematemesis, drop in hgb primarily due to dilution IV ppi, IV fluids, clear liquids, stool studies negative, GI eval, monitor hemoglobin Diabetes Insulin sliding scale Morbid obesity Weight loss recommended INDRA CPAP at night DVT prophylaxis-Lovenox Full code reason for continued hospitalization:not tolerating po, needing iv fluids and pain meds Quality Stroke Does the patient have a stroke diagnosis?: No VTE Prior VTE?: No VTE Risk Level:: Medical - moderate - high VTE Device Contraindication: Treatment Not Indicated VTE Drug Contraindication: N/A - Med Ordered
[2025-05-20 09:53] VITALS: BP 119/75; PULSE 77
--- NOTE | 2025-05-20 09:54 | PC.NURSE ---
IV paused for patient to shower.
[2025-05-20 10:28] LABS: Resp Syncy Virus RNA Qual PCR NEGATIVE (Negative); SARS COV2 PCR INHOUSE NEGATIVE (Negative)
[2025-05-20 10:36] LABS: Appearance Urine Cloudy; Glucose Urine UA 100 mg/dL (Negative); PH 5.5 (5.0-9.0); Specific Gravity - Urine 1.020 (1.005-1.025)
--- NOTE | 2025-05-20 10:53 | PC.NURSE ---
Qualifications Examiner Tiffany used to assist with assessment and education.
[2025-05-20 11:45] LABS: Glucose, Whole Blood 125 mg/dL (60-115)
--- NOTE | 2025-05-20 12:24 | PM.GICN ---
History of Present Illness Data of Consult Service Date: 05/20/25 Primary Care Provider: Tiffany Quinn MD HPI Reason for consult: Hematemesis This is a 54-year-old female who presented to the hospital for abdominal pain, nausea, vomiting and diarrhea. History obtained from the patient with the help of a internet and e business project manager. Reports sudden onset of symptom on 05/17 with mid abdominal cramping, nausea, multiple episodes of vomiting a few of which had streaks of blood in it. This was also accompanied by loose watery bowel movements. Due to difficulty keeping down anything, she presented to the emergency room yesterday. She does not report any sick contacts. Does not report any history of eating outside. No history of similar symptoms in the past. On initial labs, was noted to have hemoconcentration. Repeat labs with stable H&H. Normal BUN to creatinine ratio. Patient has not had any further vomiting since last night. Tolerating clear liquids. Review of Systems Review of Systems: Yes all other systems are reviewed and are negative PMFSH Past Medical History Medical History PONV (postoperative nausea and vomiting) BMI 39.0-39.9,adult GERD (gastroesophageal reflux disease) Sleep apnea Depression Diabetes Asthma Family History Family History Mother Heart disease Hypertension Liver disease Father No problems noted. Sister Asthma Blood clot in vein Brother Asthma Paralysis of left upper extremity Daughter No problems noted. Daughter No problems noted. Son Asthma Gastritis Son No problems noted. Surgical History Surgical History H/O dilation and curettage History of endometrial ablation Tubal ligation status History of bladder suspension procedure Social History Social History Household Members: Family Housing: Apartment Do you presently have visiting nurse or other home services: No Alcohol intake: never Comment: medicated in pacu Patient Tobacco Use Status: Current someday Tobacco user Tobacco use type: Cigarette Cigarettes Per Day: 3 Smoked in Last 30 Days: Yes Patient Interested in Nicotine Replacement: No Patient Given Instructions on How to Stop Smoking: No Second Hand Smoke Exposure: No Currently Displaying Signs/Symptoms of Drug Intoxication Withdrawal: No Have you been hit, kicked, punched, or otherwise hurt by someone within the past year? If so, by whom?: No Do you feel safe in your current relationship?: No Current Relationship Is there a partner from a previous relationship who is making you feel unsafe now?: No Are you made to feel afraid or neglected: No Advance Directives: No Advance Directives Information Provided: Yes Do you have a plan to hurt others: No Plan Recently lost weight without trying: No How much weight loss: Not applicable Eating poorly because of decreased appetite: No Nutrition screen score: 0 Nutrition Risks: No Nutritional Risk Patient : No : No Poor oral hygiene: No service: No Meds Allergies Allergy/AdvReac Type Severity Reaction Status Date / Time No Known Allergies Allergy Verified 05/19/25 10:58 Active Medications: Current Medications Acetaminophen (Acetaminophen 325 Mg Tablet) 650 mg PO Q6H PRN PRN Reason: Pain, Mild 1-3,fever,headache Atorvastatin Calcium (Atorvastatin Calcium 40 Mg Tablet) 40 mg PO BEDTIME [facility] Last Admin: 05/19/25 21:15 Dose: 40 mg Bupropion HCl (Bupropion Hcl Xl 150 Mg Tab.Er.24h) 150 mg PO DAILY [facility] Last Admin: 05/20/25 08:37 Dose: 150 mg Bupropion HCl (Bupropion Hcl Xl 300 Mg Tab.Er.24h) 300 mg PO DAILY [facility] Last Admin: 05/20/25 08:40 Dose: 300 mg Calcium Carbonate (Calcium Carbonate 750 Mg Tab.Chew) 750 mg PO Q4H PRN PRN Reason: Heartburn Clonazepam (Clonazepam 0.5 Mg Tablet) 0.5 mg PO DAILY PRN PRN Reason: Anxiety Cyanocobalamin (Cyanocobalamin (Vitamin B-12) 1,000 Mcg Tablet) 1,000 mcg PO DAILY [facility] Last Admin: 05/20/25 08:39 Dose: 1,000 mcg Dextrose (Dextrose 50 % 25 Gm/50 Ml Syringe) 25 gm IVPUSH Q15M PRN; Protocol PRN Reason: per Hypoglycemia Standing Ord. Enoxaparin Sodium (Enoxaparin Sodium 40 Mg/0.4 Ml Syringe) 40 mg SUBCUT Q24H [facility] Last Admin: 05/20/25 08:42 Dose: 40 mg Fluoxetine HCl (Fluoxetine Hcl 20 Mg Capsule) 40 mg PO DAILY [facility] Last Admin: 05/20/25 08:39 Dose: 40 mg Fluoxetine HCl (Fluoxetine Hcl 20 Mg Capsule) 20 mg PO DAILY [facility] Last Admin: 05/20/25 08:39 Dose: 20 mg Fluticasone Propionate (Fluticasone Propionate Nasal 16 Gm [place]) 1 spray NOSTRIL-B DAILY PRN PRN Reason: allergies Glucose (Glucose Gel 15 Gm Gel..Gram.) 15 gm PO Q15M PRN; Protocol PRN Reason: per Hypoglycemia Standing Ord. Hydromorphone HCl (Hydromorphone Hcl 1 Mg/Ml Syringe) 0.5 mg IVPUSH Q4H PRN; Protocol PRN Reason: Pain, Severe (Pain Scale 7-10) Last Admin: 05/19/25 21:19 Dose: 0.5 mg Lactated Ringer's (Lr) 1,000 mls @ 100 mls/hr IVCONT .Q10H [facility] Last Infusion: 05/20/25 11:01 Dose: 100 mls/hr Insulin Human Lispro (Insulin Lispro 100 Unit/Ml 3 Ml Vial) 0 unit SUBCUT QIDACHS [facility]; Protocol Last Admin: 05/20/25 11:50 Dose: Not Given Lisinopril (Lisinopril 5 Mg Tablet) 5 mg PO BEDTIME [facility]; Protocol Last Admin: 05/19/25 21:14 Dose: 5 mg Loratadine (Loratadine 10 Mg Tablet) 10 mg PO DAILY PRN PRN Reason: allergies Magnesium Hydroxide (Milk Of Magnesia 30 Ml Oral.Susp) 30 ml PO DAILY PRN PRN Reason: Constipation Melatonin (Melatonin 3 Mg Tablet) 6 mg PO BEDTIME PRN PRN Reason: Insomnia Ondansetron HCl (Ondansetron Hcl 4 Mg/2 Ml Vial) 4 mg IVPUSH Q6H PRN PRN Reason: Nausea Last Admin: 05/19/25 21:21 Dose: 4 mg Oxcarbazepine (Oxcarbazepine 300 Mg Tablet) 600 mg PO BEDTIME [facility] Last Admin: 05/19/25 21:15 Dose: 600 mg Oxcarbazepine (Oxcarbazepine 300 Mg Tablet) 300 mg PO DAILY [facility] Last Admin: 05/20/25 08:39 Dose: 300 mg Pantoprazole Sodium (Pantoprazole Sodium 40 Mg/10 Ml Vial) 40 mg IVPUSH BID@0630,1630 [facility] Last Admin: 05/20/25 05:39 Dose: Not Given Sodium Chloride (0.9 % Sodium Chloride Flush 3 Ml Syringe) 3 ml IVFLUSH QSHIFT [facility] Last Admin: 05/20/25 08:44 Dose: 3 ml Trazodone HCl (Trazodone Hcl 100 Mg Tablet) 100 mg PO BEDTIME [facility] Last Admin: 05/19/25 21:15 Dose: 100 mg Home Medications ?Medication ?Instructions ?Recorded ?Confirmed ?Last Taken ?Type bupropion HCl 300 mg 24 hr tablet, 300 mg PO DAILY 08/01/20 05/19/25 05/18/25 History extended release fluoxetine 20 mg capsule 20 mg PO DAILY 08/01/20 05/19/25 05/18/25 History omeprazole 20 mg capsule,delayed 20 mg PO DAILY@0630 08/01/20 05/19/25 05/18/25 History release oxcarbazepine 300 mg tablet 300 mg PO DAILY 08/01/20 05/19/25 05/18/25 History clonazepam 0.5 mg tablet (Klonopin) 0.5 mg PO DAILY PRN Anxiety 11/13/20 05/19/25 Unknown History oxcarbazepine 600 mg tablet 600 mg PO BEDTIME 11/23/20 05/19/25 05/18/25 History lisinopril 5 mg tablet 5 mg PO BEDTIME 08/12/23 05/19/25 05/18/25 History atorvastatin 40 mg tablet 40 mg PO BEDTIME 05/19/25 05/19/25 05/18/25 History bupropion HCl 150 mg 24 hr tablet, 150 mg PO DAILY 05/19/25 05/19/25 05/18/25 History extended release cetirizine 10 mg tablet 10 mg PO DAILY PRN allergies 05/19/25 05/19/25 Unknown History cyanocobalamin (vitamin B-12) 1,000 mcg PO DAILY 05/19/25 05/19/25 05/18/25 History 1,000 mcg tablet fluoxetine 40 mg capsule 40 mg PO DAILY 05/19/25 05/19/25 05/18/25 History fluticasone propionate 50 1 spray intranasal DAILY PRN 05/19/25 05/19/25 Unknown History mcg/actuation nasal allergies spray,suspension metformin 750 mg tablet,extended 750 mg PO BID 05/19/25 05/19/25 05/18/25 History release 24 hr mometasone 200 mcg/actuation HFA 2 puff inhalation BID 05/19/25 05/19/25 05/18/25 History aerosol inhaler (Asmanex HFA) semaglutide 1 mg/dose (4 mg/3 mL) 1 mg subcut [facility] 05/19/25 05/19/25 05/15/25 History subcutaneous pen injector (Ozempic) trazodone 100 mg tablet 100 mg PO BEDTIME 05/19/25 05/19/25 05/18/25 History Physical Exam Exam: Exam: Middle-aged female No acute distress Nonicteric Abdomen soft, tender in epigastrium, no guarding no rebound Lower extremity edema Vital Signs: Vital Signs: Last Vital Signs Temp 97.5 F 05/20/25 07:49 Pulse 77 05/20/25 09:53 Resp 14 05/20/25 07:49 BP 119/75 05/20/25 09:53 Pulse Ox 93 05/20/25 07:49 O2 Del Method Room Air 05/20/25 07:49 BMI result Body Mass Index 36.1 Results Labs 05/20/25 05:39 05/20/25 05:39 Labs: Short CBC 05/20/25 Range/Units 05:39 WBC 5.3 (4.8-10.8) X10*3/uL Hgb 13.7 (12.0-16.0) g/dl Hct 41.1 (37.0-47.0) % Plt Count 176 (160-400) X10*3/uL BMP 05/20/25 05:39 Sodium 140 Potassium 3.3 Chloride 105 Carbon Dioxide 28 BUN 6 L Creatinine 0.55 Calcium 8.4 D Liver Function 05/20/25 Range/Units 05:39 Total Bilirubin 0.7 (0.0-1.0) mg/dL Direct Bilirubin 0.3 (0.0-0.5) mg/dL AST 49 H (5-31) U/L ALT 67 H (0-31) U/L Alkaline Phosphatase 76 (39-117) U/L Albumin 3.2 L (3.5-5.0) g/dL Urine 05/20/25 Range/Units 10:05 Urine Color Dark Yellow Urine Appearance Cloudy Urine pH 5.5 (5.0-9.0) Ur Specific [place] 1.020 (1.005-1.025) Urine Protein Trace (Neg-Trace) mg/dL Urine Glucose (UA) 100 H (Negative) mg/dL Assessment and Plan (1) Hematemesis: Status: Acute (2) Gastroenteritis: Status: Inactive Plan Overall presentation consistent with acute gastroenteritis with chills, nausea, vomiting, diarrhea. Patient had pictures of the blood in vomit, which is very scant amount, in streaks. This is also corroborated by her normal CBC. An urgent upper endoscopy is not indicated at this time given self-limiting small amount of blood in emesis. Agree with advancing diet as tolerated. Recommend omeprazole 20 mg p.o. once daily for 6-8 weeks to mitigate any esophagitis from N/V. Thank you for allowing me to participate in her care. Please do not hesitate to reach out for any questions or concerns. Procedures Date of Service Date of Service: 05/20/25
--- NOTE | 2025-05-20 12:56 | MHC.CM.PN ---
[place] 05/20/25, Pt. lives with her and 4 children, she does not use home health services, for DME, she has a CPAP machine, but does not use it. PCP confirmed: Tiffany Quinn MD. to transport home at [place], DCP: home, self care, CM to follow for DC needs.
[2025-05-20 15:25] VITALS: BP 116/76; PULSE 78; RESP 18; TEMP 36.4; O2SAT 95
[2025-05-20 16:01] LABS: Glucose, Whole Blood 171 mg/dL (60-115)
[2025-05-20 19:08] VITALS: BP 108/62; PULSE 80; RESP 18; TEMP 36.2; O2SAT 96
[2025-05-20 19:44] LABS: Glucose, Whole Blood 136 mg/dL (60-115)
[2025-05-21 03:40] VITALS: BP 131/67; PULSE 77; RESP 18; TEMP 36.2; O2SAT 94
[2025-05-21 06:29] LABS: Hematocrit 41.7 % (37.0-47.0); Hemoglobin 14.1 g/dl (12.0-16.0); Mean Corpuscular HGB Conc 33.8 g/dl (31.0-35.0); Mean Corpuscular Hemoglobin 30.3 pg (27.0-33.0); Mean Corpuscular Volume 89.7 fL (80.0-98.0); NRBC Abs Auto 0.000 X10*3/uL (0.0-0.012); NRBC Pct Auto 0.0 /100WBC (0.0-0.2); Platelet Count 191 X10*3/uL (160-400); Red Blood Count 4.65 X10*6/uL (4.20-5.50); White Blood Count 4.9 X10*3/uL (4.8-10.8)
[2025-05-21 06:42] LABS: Alanine Aminotransferase 57 U/L (0-31); Albumin Level 3.3 g/dL (3.5-5.0); Alkaline Phosphatase 83 U/L (39-117); Anion Gap 12 (12-20); Aspartate Amino Transferase 39 U/L (5-31); Blood Urea Nitrogen 6 mg/dL (9-16); Calcium 8.6 mg/dL (8.4-10.2); Carbon Dioxide 28 mmol/L (22-29); Chloride 105 mmol/L (96-108); Creatinine Clr Calc Pharmacy 125.4; Estimated Glomerular Filt Rate > 60; Magnesium 1.8 mg/dL (1.6-2.6); Potassium 3.9 mmol/L (3.3-5.1); Sodium 141 mmol/L (135-145); Total Protein 6.4 g/dL (6.5-8.0)
[2025-05-21 07:45] VITALS: BP 111/60; PULSE 76; RESP 16; TEMP 36.8; O2SAT 92
[2025-05-21 07:59] LABS: Glucose, Whole Blood 168 mg/dL (60-115)
[2025-05-21] MEDS: buPROPion HCl XL 150 MG TAB.ER.24H PO (08:11)
[2025-05-21] MEDS: buPROPion HCl XL 300 MG TAB.ER.24H PO (08:12)
--- NOTE | 2025-05-21 08:49 | PM.DS ---
DS: Providers Provider Date of Service: 05/21/25 Date of admission: 05/20/25 09:17 Date of discharge: 05/21/25 Primary care physician: Tiffany Quinn MD Consults: 05/19/25 16:26 Consult to Gastroenterology Routine Consulting Provider: [facility] [place] [facility] Reason for consultation: hematemesis DS: Diagnosis Discharge Diagnosis (1) Hematemesis: Status: Acute (2) Gastroenteritis: Status: Inactive DS: Summary Hospital Course Hospital Course: from initial hpi: 54F PMH diabetes, obesity, INDRA, NAFLD, hypertension, hyperlipidemia, mood disorder presented with nausea vomiting and diarrhea as well as hematemesis. Patient states his symptoms began about 2 days prior to presentation. Was very nauseous had several episodes of vomiting and noticed some blood in her vomit. She went to her PCP who referred her to outpatient GI which she has not had opportunity to go yet. Symptoms continued and progressed to left lower quadrant abdominal pain and watery diarrhea. Feels chills without fevers, denies sick contacts or eating questionable food. In ED, hemoglobin 16 CT abdomen with hepatic steatosis but no other abnormality. C diff negative. hospital course: Patient was admitted for gastroenteritis complicated by hematemesis likely due to Marilyn-Valles tear. Had no significant drop in hemoglobin and bleeding stopped, was given PPI and was seen by GI who recommended continuing omeprazole as outpatient. Stool studies were negative. Was advanced to solid diet and tolerated eventually. Likely this was infectious gastroenteritis, but may be gastroparesis from Ozempic and should probably discontinue. For diabetes was continued insulin sliding scale. For morbid obesity weight loss recommended. For INDRA uses CPAP at night. Time Attestation Discharge Coordination Time (in mins): 34 Quality: Safe Use of Opioids Does Pt have an Active Cancer Diagnosis on the Problem List?: No Quality: Stroke Does the patient have a stroke diagnosis?: No Physical Exam Exam: Exam: General: AO X 3, no acute distress Resp: CTA bilateral, no accessory muscles used CVS: S1,S2,RRR GI: soft, non tender, non distended Neuro: motor grossly intact, alert Psych: appropriate affect, appropriate insight Vital Signs: Vital Signs: Last Vital Signs Temp 98.3 F 05/21/25 07:45 Pulse 76 05/21/25 07:45 Resp 16 05/21/25 07:45 BP 111/60 05/21/25 07:45 Pulse Ox 92 05/21/25 07:45 O2 Del Method Room Air 05/21/25 07:45 BMI result Body Mass Index 36.1 DS: Data Data Completed and Pending Labs on day of discharge: Laboratory Results - last 24 hr 05/20/25 05/20/25 05/20/25 09:41 10:05 11:33 WBC RBC Hgb Hct MCV MCH MCHC RDW Plt Count MPV Absolute Nucleated RBC Nucleated RBC % (auto) Sodium Potassium Chloride Carbon Dioxide Anion Gap BUN Creatinine Estim Creat Clear Calc Estimated GFR POC Glucose 125 H Random Glucose Calcium Magnesium Total Bilirubin Direct Bilirubin AST ALT Alkaline Phosphatase Total Protein Albumin Urine Color Dark Yellow Urine Appearance Cloudy Urine pH 5.5 Ur Specific [place] 1.020 Urine Protein Trace Urine Glucose (UA) 100 H Urine Ketones Negative Urine Blood Negative Urine Nitrite Negative Ur Leukocyte Esterase Negative Influenza Type A (PCR) NEGATIVE Influenza Type B (PCR) NEGATIVE RSV RNA Qual (PCR) NEGATIVE SARS-CoV-2 RNA (RT-PCR) NEGATIVE 05/20/25 05/20/25 05/21/25 15:55 19:37 05:42 WBC 4.9 RBC 4.65 Hgb 14.1 Hct 41.7 MCV 89.7 MCH 30.3 MCHC 33.8 RDW 12.9 Plt Count 191 MPV 10.7 Absolute Nucleated RBC 0.000 Nucleated RBC % (auto) 0.0 Sodium 141 Potassium 3.9 Chloride 105 Carbon Dioxide 28 Anion Gap 12 BUN 6 L Creatinine 0.56 Estim Creat Clear Calc 125.4 Estimated GFR > 60 POC Glucose 171 H 136 H Random Glucose 137 H Calcium 8.6 Magnesium 1.8 Total Bilirubin 0.5 Direct Bilirubin 0.2 AST 39 H ALT 57 H Alkaline Phosphatase 83 Total Protein 6.4 L Albumin 3.3 L Urine Color Urine Appearance Urine pH Ur Specific [place] Urine Protein Urine Glucose (UA) Urine Ketones Urine Blood Urine Nitrite Ur Leukocyte Esterase Influenza Type A (PCR) Influenza Type B (PCR) RSV RNA Qual (PCR) SARS-CoV-2 RNA (RT-PCR) 05/21/25 07:48 WBC RBC Hgb Hct MCV MCH MCHC RDW Plt Count MPV Absolute Nucleated RBC Nucleated RBC % (auto) Sodium Potassium Chloride Carbon Dioxide Anion Gap BUN Creatinine Estim Creat Clear Calc Estimated GFR POC Glucose 168 H Random Glucose Calcium Magnesium Total Bilirubin Direct Bilirubin AST ALT Alkaline Phosphatase Total Protein Albumin Urine Color Urine Appearance Urine pH Ur Specific [place] Urine Protein Urine Glucose (UA) Urine Ketones Urine Blood Urine Nitrite Ur Leukocyte Esterase Influenza Type A (PCR) Influenza Type B (PCR) RSV RNA Qual (PCR) SARS-CoV-2 RNA (RT-PCR) Discharge Plan Discharge Anticipated Discharge Date/Time: 05/21/25 08:46 Patient Disposition: Home, Self-Care Discharge Diagnosis: gastroenteritis Referrals: Tiffany Quinn MD [Primary Care Provider, [facility]] - 1 Week Discharge Medications: New omeprazole 20 mg capsule,delayed release(DR/EC) 20 mg PO DAILY Qty: 90 0RF Continued oxcarbazepine 600 mg Tablet 600 mg PO BEDTIME fluoxetine 40 mg capsule 40 mg PO DAILY atorvastatin 40 mg tablet 40 mg PO BEDTIME cetirizine 10 mg tablet 10 mg PO DAILY PRN (Reason: allergies) cyanocobalamin (vitamin B-12) 1,000 mcg tablet 1,000 mcg PO DAILY trazodone 100 mg tablet 100 mg PO BEDTIME fluticasone propionate 50 mcg/actuation spray,suspension 1 spray intranasal DAILY PRN (Reason: allergies) bupropion HCl 150 mg tablet extended release 24 hr 150 mg PO DAILY Asmanex HFA 200 mcg/actuation HFA aerosol inhaler 2 puff INHALATION BID metformin 750 mg tablet extended release 24 hr 750 mg PO BID omeprazole 20 mg capsule,delayed release(DR/EC) 20 mg PO DAILY@0630 bupropion HCl 300 mg tablet extended release 24 hr 300 mg PO DAILY oxcarbazepine 300 mg tablet 300 mg PO DAILY fluoxetine 20 mg capsule 20 mg PO DAILY clonazepam [Klonopin] 0.5 mg tablet 0.5 mg PO DAILY PRN (Reason: Anxiety) lisinopril 5 mg tablet 5 mg PO BEDTIME Discontinued Ozempic 1 mg/dose (4 mg/3 mL) pen injector 1 mg subcut [facility] Discharge Orders: Discharge Order (Routine); Ordered 05/21/25 Ordered By: Clayton Parada Diet: Advance to usual diet Activity on Discharge: As tolerated Stand Alone Forms: Patient Portal Discharge page Print Language: Arabic Care Plan Goals: recovery Health Concerns: gastroenteritis Plan of Treatment: would hold off on ozempic Assessment: see above
--- NOTE | 2025-05-21 08:52 | MHC.CM.PN ---
pt dcd home self care
--- NOTE | 2025-05-21 09:31 | MHC.CM.PN ---
pt dcd home self care
[2025-05-21 09:42] VITALS: BP 118/75; PULSE 75; RESP 18; TEMP 36.6; O2SAT 92
== END 2025-05-21 10:06 | disposition home or self-care (01) | DRG 249 ==
LOC: HO.ED 16:24 → HO.EDOVER 16:28 → HO.S3 19:04
PROVIDERS: Physician Assistant; Admitting Provider Internal Medicine; Emergency Provider Emergency Medicine; PCP Family Medicine; Visit Provider Internal Medicine
DX: K52.9 Noninfective gastroenteritis and colitis, unspecified (principal); K22.6 Gastro-esophageal laceration-hemorrhage syndrome; K76.0 Fatty (change of) liver, not elsewhere classified; F17.210 Nicotine dependence, cigarettes, uncomplicated; E11.9 Type 2 diabetes mellitus without complications; G47.33 Obstructive sleep apnea (adult) (pediatric); E66.01 Morbid (severe) obesity due to excess calories; Z68.36 Body mass index [BMI] 36.0-36.9, adult; Z71.3 Dietary counseling and surveillance; Z20.822 Contact with and (suspected) exposure to COVID-19; Z71.6 Tobacco abuse counseling; Z79.84 Long term (current) use of oral hypoglycemic drugs; Z79.899 Other long term (current) drug therapy
CPT/HCPCS: 36415; 74177; 80048; 80053; 80076; 81003; 82272; 82947; 83690; 83735; 84702; 85025; 85027; 85610; 85730; 87493; 87507; 87637; 99285; J0131; J1171; J1650; J1885; J2405; J2470; J7120; Q9967

== ENCOUNTER → 2025-05-19 12:01 | Outpatient (BNV) | payer MEDICAID, SELFPAY | PROVIDERS: Emergency Provider Emergency Medicine; PCP Family Medicine; Visit Provider Radiology Diagnostic Radiology | DX: K76.0 Fatty (change of) liver, not elsewhere classified (principal) | CPT/HCPCS: 74177 ==

== ENCOUNTER → 2025-05-19 16:24 | Outpatient (BNV) | payer MEDICAID, SELFPAY | PROVIDERS: Admitting Provider Internal Medicine; Emergency Provider Emergency Medicine; PCP Family Medicine; Visit Provider Internal Medicine | DX: K92.0 Hematemesis (principal) | CPT/HCPCS: 99233 ==

== ENCOUNTER → 2025-05-20 09:17 | Outpatient (BNV) | payer MEDICAID, SELFPAY | PROVIDERS: Admitting Provider Internal Medicine; Emergency Provider Emergency Medicine; PCP Family Medicine; Visit Provider Internal Medicine | DX: K92.0 Hematemesis (principal); K52.9 Noninfective gastroenteritis and colitis, unspecified | CPT/HCPCS: 99222 ==

== ENCOUNTER 2025-06-28 11:59 | Outpatient (REF) | payer MEDICAID, SELFPAY ==
--- OUTSIDE RECORDS SUMMARY | 2025-06-28 13:00 | XMS_ITS | Encounter Summary ---
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 Mill Superintendent Name Role Phone Tiffany Quinn MD Primary Care Provider [phone] Kaitlynn Cole OD Unavailable Jw Maki MD Unavailable Reason for Visit * Reason Comments Glucose monitor not working Encounter Details Date Type Department Care Team (Late st Contact Info) Description 06/28/2025 1:00 PM EST Office Visit [facility] MEDICINE [address], [place] [phone] Joseph López MD [address], [place] [id number] Type 2 diabetes mellitus with hyperglycemia, without long-term current use of insulin (HCC) Social History Tobacco Use Types Packs/Day Years Used Date Smoking Tobacco: Some Days Cigarettes Passive Smoke Exposure: Current Smokeless Tobacco: Never Tobacco Cessation:Ready to Q uit: Not Asked; Counseling Given: Not Answered Alcohol Use Standard Drinks/Week Comments Never 0 [...] Sign Reading Time Taken Comments Blood Pressure 122/84 06/28/2025 12:51 PM EST Pulse 72 06/28/2025 12:51 PM EST Temperature 36.7 C (98.1 F) 06/28/2025 12:51 PM EST Respiratory Rate 17 06/28/2025 12:5 1 PM EST Oxygen Saturation 98% 06/28/2025 12: 51 PM EST Inhaled Oxygen Concentration - - Weight 93.8 kg (206 lb 12.8 oz) 025 12:51 PM EST Height 160 cm (5' 3 ) 06/28/2025 12:51 PM EST Body Mass Index 36.63 06/28/2025 12:51 PM EST documented in this encounter Progress Notes * Joseph Mari MD - 06/28/2025 1:00 PM EST SUBJECTIVE Citlali Manjarrez is a 55 y.o. female who presents for Glucose monitor not working . Citlali Manjarrez, 55 years Glucose Monitoring Device Issue - Started using Freestyle Emmanuel sensor approximately 7-8 days prior to visit - Device showed low glucose readings during nurse office hours, which was concerning due to history of consistently high glucose levels - Device stopped displaying active sensor status recently - Contacted pharmacy and research neuropsychologist; research neuropsychologist agreed to send a replacement sensor after providing address - No mention of symptoms related to hypoglycemia or hyperglycemia during this period HPI Review of Systems Constitutional: Negative for fever. HENT: Negative for sore throat. Respiratory: Negative for cough and shortness of breath. Cardiovascular: Negative for chest pain. Gastrointestinal: Negative for abdominal pain. Neurological: Negative for headaches. Allergies[1] OBJECTIVE Vitals: 06/28/25 1251 BP: 122/84 BP Location: Left arm Patient Position: Sitting BP Cuff Size: Large adult Pulse: 72 Resp: 17 Temp: 98.1 ??F (36.7 ??C) TempSrc: Oral SpO2: 98% Weight: 206 lb 12.8 oz (93.8 kg) Height: 5' 3 (1.6 m) Physical Exam Vitals reviewed. Constitutional: Appearance: Normal appearance. HENT: Head: Normocephalic and atraumatic. Right Ear: External ear normal. Left Ear: External ear normal. Nose: Nose normal. Mouth/Throat: Mouth: Mucous membranes are moist. Eyes: Conjunctiva/sclera: Conjunctivae normal. Cardiovascular: Rate and Rhythm: Normal rate and regular rhythm. Pulmonary: Effort: Pulmonary effort is normal. Breath sounds: Normal breath sounds. Skin: General: Skin is warm. Neurological: Mental Status: She is alert. Mental status is at baseline. Assessment/Plan Type 2 diabetes mellitus with hyperglycemia, without long-term current use of insulin (HCC): - Type 2 diabetes mellitus with hyperglycemia, currently monitored with a glucose sensor. - Continue glucose monitoring with sensor. Pharmacy advised that new sensors can be obtained in oneweek. Replacement sensor to be sent by research neuropsychologist. Glucose sensor malfunction: - Glucose sensor malfunctioned after 7-8 days of use, resulting in loss of readings and device disconnection. - Nurse to assist with sensor replacement. [employer] Safety Engineer contacted and will send a replacement sensor. Patient instructed to send malfunctioning sensor back to research neuropsychologist. Problem List Items Addressed This Visit Type 2 diabetes mellitus with hyperglycemia, without long-term current use of insulin (HCC) Pt here with concerns about her meter malfunctioning - Glucose today: 159 -Pharmacy advised that new sensors can be obtained in one week. Replacement sensor to be sent by research neuropsychologist. -No changes in regimen for now Glucose sensor malfunction: - Glucose sensor malfunctioned after 7-8 days of use, resulting in loss of readings and device disconnection. - Nurse to assist with sensor replacement. [employer] Safety Engineer contacted and will send a replacement sensor. Patient instructed to send malfunctioning sensor back to research neuropsychologist. Relevant Orders POCT Glucose (Completed) This note was drafted using Ambient (AI) technology. The patient/patient's guardian has been informed and has consented to the use of this technology: Yes Future Appointments Date Time Provider Department Center 07/19/2025 1:[address] DIAB NUTR [facility] 07/20/2025 9:30 AM Tiffany Quinn MD MEDICINE [facility] [1] Allergies Allergen Reactions Cyclobenzaprine Itching Latex Other reaction(s): swells - burn documented in this encounter Miscellaneous Notes * Assessment & Plan Note - Joseph Mari MD - 06/28/2025 1:09 PM EST Associated Problem(s): Type 2 diabetes mellitus with hyperglycemia, without long-term current use of insulin ([facility]) Pt here with concerns about her meter malfunctioning - Glucose today: 159 -Pharmacy advised that new sensors can be obtained in one week. Replacement sensor to be sent by research neuropsychologist. -No changes in regimen for now Glucose sensor malfunction: - Glucose sensor malfunctioned after 7-8 days of use, resulting in loss of readings and device disconnection. - Nurse to assist with sensor replacement. [employer] Safety Engineer contacted and will send a replacement sensor. Patient instructed to send malfunctioning sensor back to research neuropsychologist. documented in this encounter Plan of Treatment Upcoming Encounters Date Type Department Care Team (Late st Contact Info) Description 07/19/2025 1:00 PM EST Nutrition [facility] DIABETES/NUTRITION [address] [place] [address] [place] [address] 07/20/2025 9:30 AM EST Office Visit [facility] [address] [place] [address] Tiffany Quinn MD [address] [place] [address] documented as of this encounter Goals Goal Patient Goal Type Associated Problems Recent Progress Patient-Stated? Author Hemoglobin A1c < 7 Result Component 8.4( 12:06 PM EST) No Maria Del Carmen Taylor, PennyD Help patients manage their type 2 [...] blood pressure task No Tiffany Quinn MD Weekly blood pressure task Care Plan Weekly blood pressure task No Tiffany Quinn MD Patient has chronic kidney disease Care Plan Patient has chronic kidney disease No Tiffany Quinn MD Patient has chronic kidney disease Care Plan Patient has chronic kidney disease No Tiffany Quinn MD Weekly blood pressure task Care Plan Weekly blood pressure task No Keith Reyes RN Weekly blood pressure task Care Plan Weekly blood pressure task No Keith Reyes RN Patient has chronic kidney disease Care Plan Patient has chronic kidney disease No Keith Reyes RN Patient has chronic kidney disease Care Plan Patient has chronic kidney disease No Keith Reyes RN Weekly blood pressure task Care Plan Weekly blood pressure task No Dylon Dow Weekly blood pressure task Care Plan Weekly blood pressure task No Dow Lorenys Patient has chronic kidney disease Care Plan Patient has chronic kidney disease No Dow Lorenys Patient has chronic kidney disease Care Plan Patient has chronic kidney disease No Dow Lorenmaira Weekly blood pressure task Care Plan Weekly blood pressure task No Charissa Mari MA Weekly blood pressure task Care Plan Weekly blood pressure task No Charissa Mari [place] Patient has chronic kidney disease Care Plan Patient has chronic kidney disease No Charissa Mari [place] Patient has chronic kidney disease Care Plan Patient has chronic kidney disease No Charissa Mari MA Weekly blood pressure task Care Plan Weekly blood pressure task No Mayra Basurto, Jonathan Weekly blood pressure task Care Plan Weekly blood pressure task No Mayra Basurto, PharmD Patient has chronic kidney disease Care Plan Patient has chronic kidney disease No Mayra Basurto, PharmD Patient has chronic kidney disease Care Plan Patient has chronic kidney disease No Mayra Basurto, PharmD Weekly blood pressure task Care Plan Weekly blood pressure task No Justina Steve MA Weekly blood pressure task Care Plan Weekly blood pressure task No Justina Steve MA Patient has chronic kidney disease Care Plan Patient has chronic kidney disease No Justina Steve MA Patient has chronic kidney disease Care Plan Patient has chronic kidney disease No Justina Steve MA Weekly blood pressure task Care Plan Weekly blood pressure task No Justina Steve MA Weekly blood pressure task Care Plan Weekly blood pressure task No Justina Steve [place] Patient has chronic kidney disease Care Plan Patient has chronic kidney disease No Justina Steve [place] Patient has chronic kidney disease Care Plan Patient has chronic kidney disease No Justina Steve MA Weekly blood pressure task Care Plan Weekly blood pressure task No Sugar Wright RN Weekly blood pressure task Care Plan Weekly blood pressure task No Sugar Wright RN Patient has chronic kidney disease Care Plan Patient has chronic kidney disease No Sugar Wright RN Patient has chronic kidney disease Care Plan Patient has chronic kidney disease No Sugar Wright RN Weekly blood pressure task Care Plan Weekly blood pressure task No Fatimah Arenas RN Weekly blood pressure task Care Plan Weekly blood pressure task No Fatimah Arenas RN Patient has chronic kidney disease Care Plan Patient has chronic kidney disease No Fatimah Arenas RN Patient has chronic kidney disease Care Plan Patient has chronic kidney disease No Fatimah Arenas RN Weekly blood pressure task Care Plan Weekly blood pressure task No Sugar Wright RN Weekly blood pressure task Care Plan Weekly blood pressure task No Sugar Wright RN Patient has chronic kidney disease Care Plan Patient has chronic kidney disease No Sugar Wright RN Patient has chronic kidney disease Care Plan Patient has chronic kidney disease No Sugar Wright RN Weekly blood pressure task Care Plan Weekly blood pressure task No Nicholass-BaumanTracysa, PharmD Weekly blood pressure task Care Plan Weekly blood pressure task No Piers-Bauman, Maria Del Carmen, PharmD Patient has chronic kidney disease Care Plan Patient has chronic kidney disease No Piers-Bauman, Maria Del Carmen, PharmD Patient has chronic kidney disease Care Plan Patient has chronic kidney disease No Nicholass-Bauman Maria Del Carmen, PharmD Weekly blood pressure task Care Plan Weekly blood pressure task No Nicholass-BaumanTracysa, PharmD Weekly blood pressure task Care Plan Weekly blood pressure task No Piers-Bauman, Maria Del Carmen, PharmD Patient has chronic kidney disease Care Plan Patient has chronic kidney disease No Piers-Bauman, Maria Del Carmen, PharmD Patient has chronic kidney disease Care Plan Patient has chronic kidney disease No Piers-Bauman, Maria Del Carmen, PharmD Weekly blood pressure task Care Plan Weekly blood pressure task No Alycia Diggs Weekly blood pressure task Care Plan Weekly blood pressure task No Alycia Diggs Patient has chronic kidney disease Care Plan Patient has chronic kidney disease No Alycia Diggs Patient has chronic kidney disease Care Plan Patient has chronic kidney disease No Alycia Diggs Weekly blood pressure task Care Plan Weekly blood pressure task No Erika Snowden MA Weekly blood pressure task Care Plan Weekly blood pressure task No Erika Snowden [place] Patient has chronic kidney disease Care Plan Patient has chronic kidney disease No Erika Snowden [place] Patient has chronic kidney disease Care Plan Patient has chronic kidney disease No Erika Snowden [place] documented as of this encounter Procedures Procedure Name Priority Date/Time Associated Diagnosis Comments POCT GLUCOSE ([id number]) Routine 06/28/2025 12:52 PM EST Type 2 diabetes mellitus with hyperglycemia, without long-term current use of insulin (HCC) documented in this encounter Results * POCT Glucose (06/28/2025 12:52 PM EST) Pathologist [facility] Glucose Blood, POC 159 60 - 200 mg/dL QC Media Lot # [id number] Lot# Expiration Date Blood Capillary blood specimen / Unknown 06/28/2025 12:52 PM EST Joseph Mari MD POINT OF CARE TEST EN TER/EDIT ORDERABLES Final Result documented in this encounter Visit Diagnoses Diagnosis Type 2 diabetes mellitus with hyperglycemia, without long-term current use of insulin (HCC) documented in this encounter Additional Health Concerns [...] kidney disease 05/18/2025 Weekly blood pressure task 05/20/2025 Weekly blood pressure task 05/20/2025 Patient has chronic kidney disease 05/20/2025 Patient has chronic kidney disease 05/20/2025 Weekly blood pressure task 05/23/2025 Weekly blood pressure task 05/23/2025 Patient has chronic kidney disease 05/23/2025 Patient has chronic kidney disease 05/23/2025 Weekly blood pressure task 05/23/2025 Weekly blood pressure task 05/23/2025 Patient has chronic kidney disease 05/23/2025 Patient has chronic kidney disease 05/23/2025 Weekly blood pressure task 05/30/2025 Weekly blood pressure task 05/30/2025 Patient has chronic kidney disease 05/30/2025 Patient has chronic kidney disease 05/30/2025 Weekly blood pressure task 06/07/2025 Weekly blood pressure task 06/07/2025 Patient has chronic kidney disease 06/07/2025 Patient has chronic kidney disease 06/07/2025 Weekly blood pressure task 06/08/2025 Weekly blood pressure task 06/08/2025 Patient has chronic kidney disease 06/08/2025 Patient has chronic kidney disease 06/08/2025 Weekly blood pressure task 06/08/2025 Weekly blood pressure task 06/08/2025 Patient has chronic kidney disease 06/08/2025 Patient has chronic kidney disease 06/08/2025 Weekly blood pressure task 06/10/2025 Weekly blood pressure task 06/10/2025 Patient has chronic kidney disease 06/10/2025 Patient has chronic kidney disease 06/10/2025 Weekly blood pressure task 06/13/2025 Weekly blood pressure task 06/13/2025 Patient has chronic kidney disease 06/13/2025 Patient has chronic kidney disease 06/13/2025 Weekly blood pressure task 06/20/2025 Weekly blood pressure task 06/20/2025 Patient has chronic kidney disease 06/20/2025 Patient has chronic kidney disease 06/20/2025 Weekly blood pressure task 06/26/2025 Weekly blood pressure task 06/26/2025 Patient has chronic kidney disease 06/26/2025 Patient has chronic kidney disease 06/26/2025 Weekly blood pressure task 06/27/2025 Weekly blood pressure task 06/27/2025 Patient has chronic kidney disease 06/27/2025 Patient has chronic kidney disease 06/27/2025 Weekly blood pressure task 06/28/2025 Weekly blood pressure task 06/28/2025 Patient has chronic kidney disease 06/28/2025 Patient has chronic kidney disease 06/28/2025 Weekly blood pressure task 06/28/2025 Weekly blood pressure task 06/28/2025 Patient has chronic kidney disease 06/28/2025 Patient has chronic kidney disease 06/28/2025 Assessment Noted Time PHQ-9 Depression Total Score: 4 12/29/19 1:21 PM EDT documented as of this encounter Care Teams Seed [employer] Superintendent Relationship Specialty Start Date End Date Tiffany Quinn MD [address] [place] [address] PCP - General Family Medicine 08/30/14 Kaitlynn Cole OD [address] [place] [id number] Optometry 08/04/24 Jw Maki MD [address] [place] [address] Cardiology 08/04/24 MILLICENT BRYAN NP Psychiatrist 04/25/25 documented as of this encounter
[2025-06-28 13:54] LABS: MANUAL DIFF FLAG NO
[2025-06-28 14:00] LABS: Hematocrit 44.8 % (37.0-47.0); Hemoglobin 15.3 g/dl (12.0-16.0); Imm Gran Abs Auto 0.01 X10*3/uL (0.00-0.03); Imm Gran Pct Auto 0.2 % (0.0-0.4); Lymphocytes Absolute Auto 1.2 X10*3/uL (1.2-4.9); Mean Corpuscular HGB Conc 34.2 g/dl (31.0-35.0); Mean Corpuscular Hemoglobin 30.6 pg (27.0-33.0); Mean Corpuscular Volume 89.6 fL (80.0-98.0); NRBC Abs Auto 0.000 X10*3/uL (0.0-0.012); NRBC Pct Auto 0.0 /100WBC (0.0-0.2); Platelet Count 301 X10*3/uL (160-400); Red Blood Count 5.00 X10*6/uL (4.20-5.50); White Blood Count 6.1 X10*3/uL (4.8-10.8)
--- OUTSIDE RECORDS SUMMARY | 2025-06-28 16:00 | XMS_ITS | Clinical Summary ---
Author Organization [employer] Address [address] [place] [address] [address] [place] [address] Care Team Providers Care Longwall Foreman Name Role Phone Tiffany Quinn MD Primary Care Provider [phone] Kaitlynn Cole OD Unavailable [phone] Jw Maki MD Unavailable Allergies Active Allergy Reactions Criticality Noted Date [...] tip and replace cap. 48 g 11 05/13/20 25 4:45 PM EST 025 Active Mometasone Furoate (Asmanex HFA) 200 MCG/ACT aerosolIndicati ons:Mild intermittent asthma without complication 2 puffs po bid 13 g 11 06/09/20 25 3:59 PM EST 025 Active scopolamine (Transderm-Scop ) 1 MG/3DAYS patch 72 hour use as directed 025 Active OXcarbazepine (Trileptal) 300 MG tablet TAKE 1 TABLET BY MOUTH TWICE DAILY IN THE MORNING AND AT BEDTIME 025 Active albuterol (Ventolin HFA) 108 (90 Base) MCG/ACT inhalerIndicati ons:Viral URI with cough Inhale 2 puffs every 6 (six) hours if needed for wheezing or shortness of breath. 18 g 2 025 Active fluconazole (Diflucan) 150 MG tabletIndicatio ns:Vaginal candidiasis Take 1 tablet my mouth, If symptoms persist repeat dose at 3 days (second tablet) 2 tablet 025 Active Additional Information Patient not taking.Reported on 06/09/2025 metFORMIN XR (Glucophage-XR) 750 MG 24 hr tabletIndicatio ns:Type 2 diabetes mellitus with hyperglycemia, without long-term current use of insulin ([facility]) TAKE 1 TABLET BY MOUTH BID 180 tablet 3 025 Active glucose blood (FREESTYLE LITE) test stripIndication s:Type 2 diabetes mellitus with hyperglycemia, without long-term current use of insulin ([facility]) USE TO TEST BLOOD SUGAR TWICE DAILY 50 strip 3 025 Active TRUEplus Lancets 33G miscIndications :Type 2 diabetes mellitus with hyperglycemia, without long-term current use of insulin ([facility]) TEST BLOOD SUGAR TWICE DAILY DIRECTED 100 each 3 Active clonazePAM (KlonoPIN) 0.5 MG tablet Take 1 tablet by mouth Once per day. Active cetirizine (ZyrTEC) 10 MG tabletIndicatio ns:Allergic rhinitis due to other allergic trigger, unspecified seasonality TAKE 1 TABLET BY MOUTH EVERY DAY NEEDED FOR ALLERGIES 90 tablet 05/13/20 4:45 PM EST Active pregabalin (Lyrica) 75 MG capsuleIndicati ons:Fibromyalgi a Take 1 capsule (75 mg) by mouth 2 times daily. 60 capsule 2 05/23/20 2:43 PM EST 2025 Active OXcarbazepine (Trileptal) 600 MG tablet Take 1 tablet by mouth at bedtime. Active omeprazole (PriLOSEC) [address] capsuleIndicati ons:Chronic GERD,Nausea vomiting and diarrhea Take 1 capsule (20 mg) by mouth before breakfast and before evening meal. Take 1 capsule by mouth every morning before a meal as needed 180 capsule Active lisinopril 5 MG tabletIndicatio ns:Hypertension , unspecified type Take 1 tablet (5 mg) by mouth at bedtime. 90 tablet Active insulin glargine (Lantus SoloStar) 100 UNIT/ML penIndications: Type 2 diabetes mellitus with hyperglycemia, without long-term current use of insulin ([facility]) Inject 7 Units under the skin at bedtime. 3 mL 06/14/20 11:40 AM EST 2025 Active Alcohol Swabs (Alcohol Pads) 70 % padsIndications :Type 2 diabetes mellitus with hyperglycemia, without long-term current use of insulin (HCC) Use as directed on skin 100 each 1 06/13/20 25 8:49 AM EST Active Continuous Glucose Test Evaluator (FreeStyle Emmanuel 3 [place]) deviceIndicatio ns:Type 2 diabetes mellitus with hyperglycemia, without long-term current use of insulin (HCC) 1 each Once per day. Check glucose 3 times a day 1 each 06/17/20 4:52 PM EST Active Continuous Glucose Sensor (FreeStyle Emmanuel 3 Plus Sensor) miscIndications :Type 2 diabetes mellitus with hyperglycemia, without long-term current use of insulin ([facility]) 1 each every 15 days. Apply 1 every 15 days as directed for CGM 2 each 06/17/20 4:52 PM EST Active glucose blood (FreeStyle Precision Hector Test) test stripIndication s:Type 2 diabetes mellitus with hyperglycemia, without long-term current use of insulin ([facility]) Check glucose 3 times a day 100 each 06/13/20 25 8:49 AM EST 2025 Active pen needle 31G x 5 mm misc Use as instructed 100 each 06/13/20 8:49 AM EST 2025 Active lisinopril 5 MG tabletIndicatio ns:Hypertension , unspecified type Take 1 tablet (5 mg) by mouth at bedtime. 90 tablet 3 2024 Discontinued(R eorder (will not trigger notification to Pharmacy)) omeprazole (PriLOSEC) [address] capsuleIndicati ons:Chronic GERD TAKE 1 CAPSULE BY MOUTH EVERY MORNING BEFORE A MEAL NEEDED 90 capsule 2024 Discontinued(R eorder (will not trigger notification to Pharmacy)) fluconazole (Diflucan) 150 MG tablet Take 1 pill now; take the second pill 3 days after if symptoms persist. 2 tablet 2024 Discontinued(D uplicate order (will not trigger notification to Pharmacy)) semaglutide (Ozempic) 2 MG/1.5ML solution pen-injectorInd ications:Type 2 diabetes mellitus with hyperglycemia, without long-term current use of insulin ([facility]) Inject 0.5 mg subcutaneously q week 1.5 mL 2024 Discontinued(M ed list cleanup (will not trigger notification to Pharmacy)) simethicone (Mylicon) 125 MG chewable tabletIndicatio ns:Nausea vomiting and diarrhea Chew 1 tablet (125 mg) every 6 (six) hours if needed for flatulence for up to 10 days. 30 tablet 1 06/13/20 8:49 AM EST 025 2024 lisinopril 5 MG tabletIndicatio ns:Hypertension , unspecified type Take 0.5 tablets (2.5 mg) by mouth at bedtime. 90 tablet 025 2024 Discontinued(O ther) ondansetron (Zofran) 4 MG tabletIndicatio ns:Nausea vomiting and diarrhea Take 1 tablet (4 mg) by mouth every 8 (eight) hours if needed for nausea or vomiting for up to 7 days. 10 tablet 06/13/20 8:49 AM EST 025 2024 Active Problems Problem Noted Date Diagnosed Date Hospital discharge follow-up 06/10/2025 Nausea vomiting and diarrhea 06/10/2025 Assessment & Plan (06/10/2025 10:42 PM EST): From exam there is discomfort when palpated LUQ w no guarding no rebound Ongoing GERD, nausea, on and vomit and diarrhea -CT abdomen pelvis w IV con 05/19/2025 Hepatic steatosis. No acute abnormality is identified. There is a small hiatal hernia. -05/19/2025 C diff Neg,lipase wnl,AST 67<--- 38,ALT 96<--- 67,hb 16.3 Noted chronic elevated LFTS possible from fatty liver? -Increase oral hydration -O&P x3 ,repeat chem,CBC,lipase -taking Pps 20 mg omeprazole daily-advised to increase to BID --I informed medbox -prescribed zofran PRN,simethicone PRN -has apt w GI at [facility] 07/16/2024 -pt will need EGD as reports test was not performed at hospital as well will need to be considered for colonoscopy-pt has f up -pt has apt w PCP on 07/20/2025 -Alarm signs and symptoms discussed LUQ abdominal pain 06/10/2025 Vaginal candidiasis 04/15/2025 Total body pain 01/12/2025 [...] due after 01/12/2026 -eye care facilitated by [facility] is by the [facility] proxy filed 01/06/24 Assessment & Plan (01/12/2025 11:29 AM EDT): -next physical exam due after 01/12/2026 -eye care facilitated by [facility] is by the [facility] proxy filed 01/06/24 Assessment & Plan (05/06/2024 11:40 AM EST): -next physical exam due after December, -eye care facilitated by [facility] is by the [facility] proxy filed 01/06/24 Assessment & Plan (01/06/2024 10:12 AM EDT): -next physical exam due after December, -eye care facilitated by [facility] is by the [facility] proxy filed 01/06/24 Assessment & Plan (12/26/2023 10:48 AM EDT): -next physical exam due after September, -eye care facilitated by [facility] is by the [facility] proxy given on 09/16/2022 Assessment & Plan (09/17/2023 9:46 AM EDT): -next physical exam due after September, -eye care facilitated by [facility] is by the [facility] proxy given on 09/16/2022 Assessment [...] nausea and vomiting and was seen in [facility] ER. She stopped the Trulicity and nausea resolved but type 2 diabetes in not not controlled. -Ozempic 0.5mg started 04/06/25, increased to 1mg 04/25/25 -increase metformin 759 ER to BID 03/2025 Assessment & Plan (06/28/2025 3:30 PM EST): Pt here with concerns about her meter malfunctioning - Glucose today: 159 -Pharmacy advised that new sensors can be obtained in one week. Replacement sensor to be sent by [employer] order filler. -No changes in regimen for now Glucose sensor malfunction: - Glucose sensor malfunctioned after 7-8 days of use, resulting in loss of readings and device disconnection. - Nurse to assist with sensor replacement. Assistant Public Defender contacted and will send a replacement sensor. Patient instructed to send malfunctioning sensor back to [employer]. Assessment & Plan (06/10/2025 10:43 PM EST): hb1AC 03/2025 11 Today Cbg 142 and capillary Hb1AC 9.1 -will continue metformin for now-denies having SE to med -pt w uncontrolled DM and off Ozempic stopped at hospital and will continue to hold given possible associated w GI symptoms -discussed pt about other options as Jardiance but pt preferred to hold on more pills for now . Pt did agreed to start Lantus -start Lantus 7 u HS -Pt received teaching today by RN on how to inj -prescribed today continuous gl monitoring -pt return to clinic in 2 weeks to jamia erickson RN for Gl monitoring Assessment & Plan (04/25/2025 11:32 AM EDT): [...] nausea and vomiting and was seen in [facility] ER. She stopped the Trulicity and [...] nausea and vomiting and was seen in [facility] ER. She stopped the Trulicity and [...] 5mg daily, stated 07/2021 Assessment & Plan (06/10/2025 10:42 PM EST): BP at home BP close to 140s /Diastolic ? > 90s per pt Here elevated today -resume lisinopril 5 mg daily -pt has med in her medbox -advised to follow BP at home and bring readings at next apt w PCP in 2 weeks -reorder chem today and may need to reorder chem for 2 weeks after lisinopril is resumed to monitor renal function on med-will depend when pt does current chem order today Assessment & Plan (01/12/2025 11:29 AM EDT): [...] Overview (12/23/2023): Diagnosed in 2016. Seen by [facility] neurology and sleep in [place] on 05/03/2022. She has tried 3 different [...] AM EDT): Diagnosed in 2016. Seen by [facility] neurology and sleep in [place] on 05/03/2022. She has tried 3 different [...] AM EDT): Diagnosed in 2016. Seen by [facility] neurology and sleep in [place] on 05/03/2022. She has tried 3 different [...] AM EST): Diagnosed in 2016. Seen by [facility] neurology and sleep in [place] on 05/03/2022. She has tried 3 different [...] PM EDT): Diagnosed in 2016. Seen by [facility] neurology and sleep in [place] on 05/03/2022. She has tried 3 different [...] (10/08/2022): Stable with therapist and psychiatrist at [facility]. Assessment & Plan (05/06/2024 11:40 AM EST): Stable with therapist and psychiatrist at [facility]. Assessment & Plan (12/26/2023 10:48 AM EDT): Stable with therapist and psychiatrist at [facility]. Assessment & Plan (05/05/2023 11:05 AM EST): Stable with therapist and psychiatrist at [facility]. Assessment & Plan (10/08/2022 11:19 AM EDT): Stable with therapist and psychiatrist at [facility]. Resolved Problems Problem Noted Date Diagnosed Date [...] Encounters Date Type Department Care Team Description 06/28/2025 1:00 PM EST Office Visit [facility] [address] [place] [address] Joseph López MD Type 2 diabetes mellitus with hyperglycemia, without long-term current use of insulin ([facility]) 06/28/2025 Travel 06/28/2025 Telephone [facility] [address] [place] [address] Tiffany Quinn MD Medication Question 06/27/2025 Telephone [facility] [address] [place], [place] [phone] Maria Del Carmen Taylor, Jonathan 06/20/2025 11:00 AM EST Clinical Support [address] [address] Sugar Wright, RN Type 2 diabetes mellitus with hyperglycemia, without long-term current use of insulin (HCC) 06/20/2025 Travel 06/13/[address] [address] Tiffany Quinn MD NTTS fabrication mig welder report 06/10/[address] [address] Sugar Wright, ui architect 06/09/2025 1:45 PM EST Office Visit [address] [address] Delma Higgins MD Type 2 diabetes mellitus with hyperglycemia, without long-term current use of insulin (HCC) (Primary Dx); Chronic GERD; Hypertension, unspecified type; Nausea vomiting and diarrhea; Transaminitis; Hospital discharge follow-up; LUQ abdominal pain 06/09/2025 Travel 06/08/2025 [facility]phone [facility] [address] [address] Justina Steve PA 05/30/[address] [address] Tiffany Quinn MD June Recalls 05/30/2025 Travel 05/23/2025 Patient Outreach [address] [address] Tiffany Quinn MD Transition Of Care (Tcm) (HDF- Scheduled) 05/20/2025 Results Follow-Up [address] [address] Tiffany Quinn MD CBC auto differential, Comprehensive Metabolic Panel, Lipase, Additional followed-up results: 5 05/19/2025 Orders Only GENERIC EXTERNAL DATA DEPARTMENT Provider, Generic External Data 05/17/2025 6:40 PM EST Office Visit [facility] [address] [place] [address] Tiffany Quinn MD Fibromyalgia (Primary Dx); Type 2 diabetes mellitus with hyperglycemia, without long-term current use of insulin (HCC); Nausea; Hematemesis with nausea; Urinary incontinence, unspecified type 05/17/2025 Travel 04/29/2025 Refill [facility] [address] [place] [phone] Tiffany Quinn MD Allergic rhinitis due to other allergic trigger, unspecified seasonality; Chronic GERD 04/25/2025 11:00 AM EDT Office Visit [facility] [address] [place] [address] Tiffany Quinn MD Type 2 diabetes mellitus with hyperglycemia, without long-term current use of insulin (HCC) (Primary Dx) 04/25/2025 Travel 04/22/2025 Telephone [facility] [address] [place] [phone] Tiffany Quinn MD chart prep 04/19/2025 5:40 PM EDT Office Visit [facility] [address] [place] [address] Tiffany Quinn MD Cough, unspecified type (Primary Dx); Type 2 diabetes mellitus with hyperglycemia, without long-term current use of insulin (HCC); Light headed; Dental infection 04/19/2025 Travel 04/15/2025 Telephone [facility] [address] [place] [phone] April Kiser NP 04/15/2025 Orders Only [facility] [address] [place] [phone] April Kiser NP Vaginal candidiasis (Primary Dx) 04/12/2025 Telephone [facility] [address] [place] [phone] Tiffany Quinn MD CRITICAL LAB 04/07/2025 Results Follow-Up [address] [address] Galina Mckenzie, NEDRA POCT Glucose, POCT Hgb A1c, POCT Urinalysis, Additional followed-up results: 3 04/06/2025 9:15 AM EDT Office Visit [address] [address] Hugh Casas, DIAZO TECHNICIAN Diabetes due to underlying condition w oth circulatory comp (HCC) (Primary Dx); Vaginal pruritus 04/06/2025 Travel 04/04/2025 Telephone [facility] [address] [place] [phone] Sugar Wright, RN NTTS; Nurse Triage 04/04/2025 Patient Outreach [facility] [address] [place] [address] Tiffany Quinn MD Care Management (C3CM- f/u call) from Last 3 Months Immunizations [...] Mass Index 36.63 06/28/2025 12:51 PM EST Plan of Treatment Upcoming Encounters Date Type Department Care Team (Late st Contact Info) Description 07/19/2025 1:00 PM EST Nutrition [facility] [address] [place], [place] [phone] Yessica Blood, RD [address] [place], [place] [phone] 07/20/2025 9:30 AM EST Office Visit [facility] [address] [place], [place] [phone] Tiffany Quinn MD [address] [place], [place] [phone] Health Maintenance Due Date Last Done Comments CT Colonography 1971 FIT DNA/Cologuard 1971 FIT 1971 FOBT 1971 Sigmoidoscopy 1971 Mammogram 11/07/2019 11/06/2017 RSV Patients and Patients Aged 60 years or older (1 - Risk 50-74 years 1-dose series) 2021 Zoster Vaccines (1 of 2) 2021 Diabetes: Hemoglobin A1C 09/26/2025 025, 06/09/2025, 04/25/2025, Additional history exists Influenza Vaccine (#1) 2025 , 08/02/2021, 03/11/2019, Additional history exists Postponed from 02/28/2025 (Patient Refused) Alcohol/Substance Use Screening 12/28/2025 12/28/2024 Depression Screening 12/28/2025 12/28/2024, 12/29/19 SDOH Screening 01/11/2026 01/11/2025 Disability Screening 01/12/2026 01/12/2025 Diabetes: Urine Protein Screening 02/22/2026 02/22/2025, 02/22/2025, 05/02/2023, Additional history exists Lipid Panel 02/22/2026 02/22/2025, 11/08/2022, 09/19/2021 COVID-19 Vaccine ( season) 2026 10/10/2022, 09/26/2020, 08/29/2020 Postponed from 02/28/2025 (Patient Refused) Diabetes: Foot Exam 04/25/2026 04/25/2025, 04/25/2025, 04/25/2025, Additional history exists Tobacco Screening 06/28/2026 06/28/2025 Eye Exam 02/02/2027 02/02/2025, 08/0 11/2024, 02/02/2025, Additional history exists Colonoscopy 06/08/2029 [...] PM EST) No Maria Del Carmen Taylor, PharmD Help [...] Weekly blood pressure task No Dylon Dow Patient has chronic kidney disease Care Plan Patient has chronic kidney disease No Dylon Dow Patient has chronic kidney disease Care Plan Patient has chronic kidney disease No Dylon Dow Weekly blood pressure task [...] Plan Weekly blood pressure task No Mayra Basurto PharmD Weekly blood pressure task Care Plan Weekly blood pressure task No Mayra Basurto PharmD Patient has chronic kidney disease Care Plan Patient has chronic kidney disease No Mayra Basurto PharmD Patient has chronic kidney disease Care Plan Patient has chronic kidney disease No Mayra Basurto PharmD Weekly blood pressure task Care Plan [...] Care Plan Weekly blood pressure task No uSgar Wright RN Patient has chronic kidney disease Care Plan Patient has chronic kidney disease No Sugar Wright RN Patient has chronic kidney disease Care Plan Patient has chronic kidney disease No Sugar Wright RN Weekly blood pressure task Care Plan Weekly blood pressure task No Maria Del Carmen Taylor PharmD Weekly blood pressure task Care Plan Weekly blood pressure task No Maria Del Carmen Taylor PharmD Patient has chronic kidney disease Care Plan Patient has chronic kidney disease No Maria Del Carmen Taylor PharmD Patient has chronic kidney disease Care Plan Patient has chronic kidney disease No Maria Del Carmen Taylor PharmD Weekly blood pressure task Care Plan Weekly blood pressure task No Maria Del Carmen Taylor PharmD Weekly blood pressure task Care Plan Weekly blood pressure task No Mari aDel Carmen Taylor PharmNeto Patient has chronic kidney disease Care Plan Patient has chronic kidney disease No Maria Del Carmen Taylor PharmD Patient has chronic kidney disease Care Plan Patient has chronic kidney disease No Maria Del Carmen Taylor PharmD Weekly blood pressure task Care Plan [...] chronic kidney disease No Erika Snowden MA Procedures Procedure Name Priority Date/Time Associated Diagnosis Comments POCT GLUCOSE (CPT-50356) Routine 06/28/2025 12:52 PM EST Type 2 diabetes mellitus with hyperglycemia, without long-term current use of insulin (HCC) CBC WITH AUTO DIFFERENTIAL Routine 06/28/2025 12:06 PM EST Nausea vomiting and diarrhea CBC Routine 06/28/2025 12:06 PM EST Hematemesis with nausea HEMOGLOBIN A1C Routine 06/28/2025 12:06 PM EST Type 2 diabetes mellitus with hyperglycemia, without long-term current use of insulin (HCC) POCT GLYCATED HEMOGLOBIN, TOTAL Routine 06/09/2025 2:56 PM EST Type 2 diabetes mellitus with hyperglycemia, without long-term current use of insulin (HCC) POCT GLUCOSE (CPT-35459) Routine 06/09/2025 2:42 PM EST Type 2 diabetes mellitus with hyperglycemia, without long-term current use of insulin (HCC) CDIFF GENE PCR Routine 05/19/2025 1:15 PM [...] Routine 05/19/2025 11:22 AM EST POCT GLUCOSE (CPT-05045) Routine 04/25/2025 11:35 AM EDT Type 2 [...] 6:01 PM EDT Light headed POCT GLUCOSE (CPT-68872) Routine 04/19/2025 6:01 PM EDT Type 2 diabetes mellitus with hyperglycemia, without long-term current use of insulin (HCC) BASIC METABOLIC PANEL Routine 04/12/2025 12:06 PM EDT Diabetes due to underlying condition w oth circulatory comp (HCC) POCT GLUCOSE (CPT-28015) Routine 04/06/2025 10:26 AM EDT Diabetes due to underlying condition w oth circulatory comp (HCC) BACTERIAL VAGINOSIS PANEL Routine 04/06/2025 10:16 AM EDT Vaginal pruritus POCT GLYCATED HEMOGLOBIN, TOTAL Routine 04/06/2025 10:11 AM EDT Diabetes due to underlying condition w oth circulatory comp (HCC) POCT GLUCOSE (CPT-79517) Routine 04/06/2025 10:11 AM EDT Diabetes due to underlying condition w oth circulatory comp (HCC) POCT URINALYSIS DIPSTICK Routine 04/06/2025 10:08 AM EDT Diabetes due to underlying condition w oth circulatory comp (HCC) ALBUMIN, RANDOM URINE W/CREATININE Routine 02/22/2025 9:43 AM EDT Type 2 diabetes mellitus without complication, unspecified whether ferry terminal supervisor insulin use ([facility]) LIPID PANEL, STANDARD Routine 02/22/2025 9:43 AM EDT Type 2 diabetes mellitus without complication, unspecified whether ferry terminal supervisor insulin use ([facility]) HEPATITIS C AB W/REFL TO HCV RNA, QN, PCR Routine 07/25/2023 11:08 AM EST Night sweats HIV 1/2 ANTIGEN/ANTIBODY, FOURTH GENERATION W/RFL Routine 07/25/2023 11:08 AM EST Night sweats COLONOSCOPY Routine 06/08/2019 MAMMOGRAPHY Routine 11/06/2017 from Last 3 Months or Most Recently Relevant to Health Maintenance Results * POCT Glucose (06/28/2025 12:52 PM EST) Only the most recent of6 resultswithin the time period is included. Pathologist [facility] Glucose Blood, POC 159 60 - 200 mg/dL QC Media Lot # [id number] Lot# Expiration Date [id number] Blood Capillary blood specimen / Unknown 06/28/2025 12:52 PM EST Joseph Mari MD POINT OF CARE TEST EN TER/EDIT ORDERABLES Final Result * CBC auto differential (06/28/2025 12:06 PM EST) Only the most recent of2 resultswithin the time period is included. [facility] Neutrophils Percent Auto 68.2 45 - 73 % [facility] Imm Gran Pct Auto 0.2 0.0 - 0.4 % [facility] Lymphocytes Percent Auto 20.3 20 - 40 % [facility] Monocytes Percent Auto 8.8 2 - 11 % [facility] Eosinophils Percent Auto 1.5 0 - 4 % [facility] Basophils Percent Auto 1.0 0 - 2 % [facility] Neutrophils Absolute Auto 4.2 2.0 - 8.3 x10*3/uL [facility] Imm Gran Abs Auto 0.01 0.00 - 0.03 X10*3/uL [facility] Lymphocytes Absolute Auto 1.2 1.2 - 4.9 X10*3/uL [facility] Monocytes Absolute Auto 0.5 0.1 - 1.2 X10*3/uL [facility] Eosinophils Absolute Auto 0.1 0.0 - 0.4 X10*3/uL [facility] Basophils Absolute Auto 0.1 0.0 - 0.2 X10*3/uL [facility] Blood Venous blood specimen / Unknown 06/28/2025 12:06 PM EST 06/28/2025 1:50 PM EST us Delma Basurto MD LAB BLOOD ORDERAB LES Final Result Performing Organization Address City/[facility]/ZIP Co de Phone Number [facility] [address] [place] [address] [phone] * CBC (06/28/2025 12:06 PM EST) White Blood Count 6.1 4.8 - 10.8 X10*3/uL [facility] [facility] Red Blood Count 5.00 4.20 - 5.50 X10*6/uL [facility] Hemoglobin 15.3 12.0 - 16.0 g/dl [facility] Hematocrit 44.8 37.0 - 47.0 % [facility] Mean Corpuscular Volume 89.6 80.0 - 98.0 fL [facility] Mean Corpuscular Hemoglobin 30.6 27.0 - 33.0 pg [facility] Mean Corpuscular HGB Conc 34.2 31.0 - 35.0 g/dl [facility] Red Cell Distribution Width 13.2 11.0 - 16.0 % [facility] Platelet Count 301 160 - 400 X10*3/uL [facility] Mean Platelet Volume 10.8 9.4 - 12.3 fL [facility] NRBC Pct Auto 0.0 0.0 - 0.2 /100WBC [facility] NRBC Abs Auto 0.000 0.0 - 0.012 X10*3/uL [facility] Blood Venous blood specimen / Unknown 06/28/2025 12:06 PM EST 06/28/2025 1:50 PM EST us Tiffany Quinn MD LAB BLOOD ORDERABLES Final Result Performing Organization Address City/[facility]/ZIP Co de Phone Number [facility] [address] [place] [address] [phone] * (ABNORMAL) Hemoglobin A1c (06/28/2025 12:06 PM EST) Hemoglobin A1c 8.4(H) <6.0 % [facility] Comment:Hemoglobin A1C Refer ence Range Adults: 4.8 - 6.0 % Non diabetic: < 6.0 % Goal: < 7.0 %Additional Action Suggested: > 8.0 %Note: Hemoglobin A1c results are invalid for patients with abnormal amounts of HbF. Blood transfusions may impact the HbA1c concentration in the patient sample. Estimated Average Glucose 194 mg/dL [facility] Comment:eAG = Estimated ave rage glucose which is %A1C expressed asaverage glucose, using the formula of the B5Y-DjkcljsBqdzmrf Glucose study (ADAG), Diabetes Care, Vol.31,#8,Jan. 2007 Blood Venous blood specimen / Unknown 06/28/2025 12:06 PM EST 06/28/2025 1:50 PM EST us Tiffany Quinn MD LAB BLOOD ORDERABLES Final Result [facility] [address] [place] [phone] * (ABNORMAL) POCT Hgb A1c (06/09/2025 2:56 PM EST) Only the most recent of2 resultswithin the time period is included. Hemoglobin A1C 9.1(A) 4.0 - 5.7 % QC Media Lot # [id number] Lot# Expiration Date [id number] Blood 06/09/2025 2:56 PM EST us Delma Basurto MD POINT OF CARE SHELDON T ENTER/EDIT ORDERABLES Final Result * CDiff Gene PCR (05/19/2025 1:15 PM EST) CDiff Gene PCR NEGATIVE Negative [facility] Comment:If C. difficile stro ngly suspected despite one negativetest, a second test may be sent vs. empiric treatment forC. difficile infection. 05/19/2025 1:15 PM EST 05/19/2025 1:25 PM EST us Generic External Data Provider LAB BODY FLUIDS A ND STOOLS ORDERABLES Final Result Performing Organization Address [facility] de Phone Number [facility] [address] [place] [phone] * OBSX1 (05/19/2025 1:15 PM EST) OBS1 NEGATIVE NEGATIVE [facility] 05/19/2025 1:15 PM EST 05/19/2025 1:25 PM EST Generic External Data Provider LAB BLOOD ORDERAB LES Final Result Performing Organization Address [facility] Phone Number [facility] [address] [place] [phone] * CT Abdomen Pelvis w/ Contrast (05/19/2025 12:19 PM EST) Anatomical Region Laterality Modality Body, Pelvis, Abdomen Computed T omography 05/19/2025 12:1 9 PM EST Narrative 05/19/2025 12:39 PM EST [address] [address] [address] Scan Report Signed Patient: Citlali Clancy MR#: [id number] : 1970 Acct:[id number] Age/Sex: 54 / F ADM Date: 05/19/25 Loc: HO.ED Attending Dr: Ordering Physician: Tone Cox MD Date of Service: 05/19/25 Procedure(s): CT abdomen pelvis w IV con Accession Number(s): [id number] cc: Tiffany Quinn MD; Tone Cox MD Report Number: [id number]: Total DLP = 646.00 mGy-cm Reason for [...] by: Christopher Lynn MD 05/19/2025 12:37 PM [facility] Dictated By: Christopher Lynn MD Signed By: <Electronically signed by Christopher Lynn MD in OV> 05/19/25 1237 DD/ 1219 TD/TT: 05/19/25 1228 [facility]: Procedure Note Donotuseinterpreter, Image - 05/19/[address] [address] [address] Scan Report Signed Patient: Arvind Clancy#: [id number] : 1970Acct:[id number] Age/Sex: 54 / FADM Date: 05/19/25 Loc: HO.ED Attending Dr: Ordering Physician: Tone Cox MD Date of Service: 05/19/25 Procedure(s): CT abdomen pelvis w IV con Accession Number(s): [id number] cc: Tiffany Quinn MD; Tone Cox MD Report Number: [id number]: Total DLP = 646.00 mGy-cm Reason for [...] 05/19/25 1237 DD/ 1219 TD/TT: 05/19/25 1228 [facility]: [facility] External Provider IMG CT PROCEDURES Final Result * Partial Thromboplastin Time, Activated (APTT) (05/19/2025 11:22 AM EST) Partial Thromboplastin Time 28.1 26.7 - 34.1 SEC [facility] 05/19/2025 11:2 2 AM EST 05/19/2025 11:25 AM EST Generic External Data Provider LAB BLOOD ORDERAB LES Final Result [facility] [address] [place] [address] [phone] * (ABNORMAL) Prothrombin Time-INR (05/19/2025 11:22 AM EST) Prothrombin Time 15.0(H) 11.2 - 13.5 SEC [facility] INTERNATIONAL NORM RATIO 1.2(H) 0.9 - 1.1 [facility] Comment:INTERNATIONAL NORMAL IZED RATIO (INR) [...] Provider LAB BLOOD ORDERAB LES Final Result [facility] [address] [place] [address] [phone] * hCG, Total, Quantitative (05/19/2025 11:22 AM EST) HCG Quantitative <2 mIU/mL [facility] Comment:Weeks post LMP Appro ximate hCG(Last Menstrual Period) Range (mIU/ml)3 - 4 weeks 9 - 1304 - 5 weeks 75 - 2,6005 - 6 weeks 850 - 20,8006 - 7 weeks 4000 - 100,2007 - 12 weeks 11,500 - 289,70382 - 16 weeks 18,300 - 137,28615 - 29 weeks (2nd trimester) 1,400 - 53,93559 - 41 weeks (3rd trimester) 940 - [...] ORDERAB LES Final Result Performing Organization Address City/[facility]/ZIP Co de Phone Number [facility] [address] [place] [address] [phone] * Lipase (05/19/2025 11:22 AM EST) Lipase 14 8 - 78 U/L [facility] 05/19/2025 11:2 2 AM EST 05/19/2025 11:25 AM EST Generic External Data Provider LAB BLOOD ORDERAB LES Final Result Performing Organization Address City/[facility]/ZIP Co de Phone Number [facility] [address] [place] [address] [phone] * (ABNORMAL) Comprehensive Metabolic Panel (05/19/2025 11:22 AM EST) Sodium 139 135 - 145 mmol/L [facility] Potassium 4.0 3.3 - 5.1 mmol/L [facility] Chloride 105 96 - 108 mmol/L [facility] Carbon Dioxide 25 22 - 29 mmol/L [facility] Anion Gap 13 12 - 20 [facility] Urea Nitrogen (BUN) 10 9 - 16 mg/dL [facility] Creatinine, Serum 0.56 0.5 - 1.4 mg/dL [facility] Creatinine Clr Calc Pharmacy 127.2 [facility] Comment:Provided height and weight: 160.02 cm,94.801 kg.eGFR (calculated from the MDRD study equation) and eCrCl(calculated from the Cockcroft-Gault equation) are based ondifferent parameters and may not yield comparable results.If eCrCl result is absurd, please check patient'sheight/weight. Estimated Glomerular Filt Rate >60 [facility] Comment:Chronic Kidney Disea se: Estimated GFR < 60 mL/min/1.03z5Ifepdh Kidney Disease: Estimated GFR < 15 mL/min/1.73m2 Glucose 180(H) 60 - 115 mg/dL [facility] Calcium 9.3 8.4 - 10.2 mg/dL [facility] Bilirubin, Total 0.8 0.0 - 1.0 mg/dL [facility] Aspartate Amino Transferase 67(H) 5 - 31 U/L [facility] Alanine Aminotransferase 96(H) 0 - 31 U/L [facility] Total Protein 7.8 6.5 - 8.0 g/dL [facility] Albumin Level 4.1 3.5 - 5.0 g/dL [facility] Alkaline Phosphatase 90 39 - 117 U/L [facility] 05/19/2025 11:2 2 AM EST 05/19/2025 11:25 AM EST us Generic External Data Provider LAB BLOOD ORDERAB LES Final Result [facility] [address] [place] [phone] * (ABNORMAL) POCT glycosylated hemoglobin (Hgb A1c) (04/25/2025 11:34 AM EDT) Pathologist [facility] Hemoglobin A1C 11.0(A) 4.0 - 5.7 % QC Media Lot # [id number] Lot# Expiration Date 515, Blood Capillary blood specimen / Unknown 04/25/2025 11:34 AM EDT Tiffany Quinn MD POINT OF CARE TEST ENTER/E DIT ORDERABLES Final Result * POCT Rapid Influenza B WATSON ID NOW (04/19/2025 6:01 PM EDT) Pathologist [facility] Influenza B Negative Negative, Indeterminate [facility] QC Media Lot # [id number] [facility] Lot# Expiration Date [facility] Swab 04/19/2025 6:01 PM EDT Tiffany Quinn MD POINT OF CARE TEST ENTER/E DIT ORDERABLES Final Result Performing Organization Address City/[facility]/ZIP Co de Phone Number [facility] [address] [place] [address] [phone] * POCT Rapid Influenza A WATSON ID NOW (04/19/2025 6:01 PM EDT) Influenza A Negative Negative, Indeterminate [facility] QC Media Lot # [id number] [facility] Lot# Expiration Date [facility] Swab 04/19/2025 6:01 PM EDT Tiffany Quinn MD POINT OF CARE TEST ENTER/E DIT ORDERABLES Final Result Performing Organization Address [facility]/ZIP Co de Phone Number [facility] [address] [place] [address] [phone] * POCT Rapid Covid-19 BinaxNOW (04/19/2025 6:01 PM EDT) Rapid COVID Ag Negative [facility] QC Media Lot # [id number] [facility] Lot# Expiration Date 82,226 [facility] Swab 04/19/2025 6:01 PM EDT Tiffany Quinn MD POINT OF CARE TEST ENTER/E DIT ORDERABLES Final Result Performing Organization Address [facility]/ZIP Co de Phone Number [facility] [address] [place] [address] [phone] * POCT Hemoglobin (04/19/2025 6:01 PM EDT) Hemoglobin 13.8 12.0 - 15.0 [facility] QC Media Lot # [id number] [facility] Lot# Expiration Date 102,227 [facility] Blood 04/19/2025 6:01 PM EDT Tiffany Quinn MD POINT OF CARE TEST ENTER/E DIT ORDERABLES Final Result Performing Organization Address [facility]/ZIP Co de Phone Number [facility] [address] [place] [phone] * (ABNORMAL) Basic Metabolic Panel (04/12/2025 12:06 PM EDT) Sodium 139 135 - 145 mmol/L [facility] Potassium 4.0 3.3 - 5.1 mmol/L [facility] Chloride 103 96 - 108 mmol/L [facility] Carbon Dioxide 29 22 - 29 mmol/L [facility] Anion Gap 11(L) 12 - 20 [facility] Urea Nitrogen (BUN) 13 9 - 16 mg/dL [facility] Creatinine, Serum 0.60 0.5 - 1.4 mg/dL [facility] Estimated Glomerular Filt Rate >60 [facility] Comment:Chronic Kidney Disea se: Estimated GFR < 60 mL/min/1.27c3Lrther Kidney Disease: Estimated GFR < 15 mL/min/1.73m2 Glucose 366(HH) 60 - 115 mg/dL [facility] Comment:Critical value for G LUR Results called to and read backby: ELLY Whitman Person calling:DELOSSF Date: 04/12/25Time:1424 Calcium 9.4 8.4 - 10.2 mg/dL [facility] Blood Venous blood specimen / Unknown 04/12/2025 12:06 PM EDT 04/12/2025 1:17 PM EDT us Hugh Casas DIAZO TECHNICIAN LAB BLOOD ORDERABLES Final Re sult Performing Organization Address City/[facility]/ZIP Co de Phone Number [facility] [address] [place] [address] [phone] * (ABNORMAL) Bacterial Vaginosis Panel (04/06/2025 10:16 AM EDT) TRICHOMONAS VAGINALIS DETECTION BY PCR NOT DETECTED Not Detect [facility] BACTERIAL VAGINOSIS DETECTION BY PCR NEGATIVE Negative [facility] Comment:The BV organism targ ets [...] GROUP DETECTION BY PCR DETECTED(A) Not Detect [facility] Nanci glab krusei PCR NOT DETECTED Not Detect [facility] Swab Vaginal structure / Unknown 04/06/2025 10:16 AM EDT 04/06/2025 5:41 PM EDT Hugh Casas [facility] MICROBIOLOGY - GENERAL OR DERABLES Final Result [facility] [address] [place] [address] [phone] * POCT Urinalysis (04/06/2025 10:08 AM EDT) [...] Media Lot # [id number] Lot# Expiration Date Urine 04/06/2025 10:0 8 AM EDT Hugh Casas [facility] POINT OF CARE TEST ENTER/EDIT ORDERABLES Final Result * Albumin, Random Urine W/Creatinine (02/22/2025 9:43 AM EDT) Creatinine, Urine 144.41 mg/dL [facility] Microalbumin Urine 8.0 mg/L [facility] Microalbum Creatinine Ratio Ur 5.5 <30 ug/mg cr [facility] Comment:Albumin/Creatinine R atio Reference Ranges: Normal: < 30 ug/mg creatinine Microalbuminuria: 30 - 300 ug/mg creatinineClinical Albuminuria: > 300 ug/mg creatinine Urine 02/22/2025 9:43 AM EDT 02/22/2025 11:12 AM EDT us Tiffany Quinn MD LAB URINE ORDERABLES Final Result [facility] [address] [place] [phone] * Lipid Panel, Standard (02/22/2025 9:43 AM EDT) Triglycerides 80 <150 mg/dL [facility] Comment:Desirable Triglyceri de: less than 150 mg/dLBorderline High Triglyceride 150-199 mg/dLHigh Triglyceride: 200-499 mg/dLVery High Triglyceride: greater than or equal to 5OO mg/dL Cholesterol 149 <200 mg/dL [facility] Comment:Desirable Cholestero l: less than 200 mg/dLBorderline High Cholesterol: 200-239 mg/dLHigh Cholesterol: greater than 239 mg/dL LDL Cholesterol Calculated 88 <100 mg/dL [facility] Comment:Desirable LDL: less than 100 mg/dLNear Optimal/Above Optimal LDL: 110- 129 mg/dLBorderline High LDL: 130-159 mg/dLHigh LDL: 160-189 mg/dLVery High LDL: greater than or equal to 190 mg/dL HDL Cholesterol 45 >40 mg/dL [facility] Comment:Desirable HDL: great er than 40 mg/dL Note: This HDL assay may give artificially low results in patients with liver disease. Blood Venous blood specimen / Unknown 02/22/2025 9:43 AM EDT 02/22/2025 10:55 AM EDT Tiffany Quinn MD LAB BLOOD ORDERABLES Final Result Performing Organization Address [facility] Co de Phone Number [facility] [address] [place] [phone] * Hepatitis C Antibody with Reflex to HCV, RNA, Quantitative, Real-Time PCR (07/25/2023 11:08 AM EST) Pathologist [facility] Hepatitis C Antibody Nonreactive Nonreactive [facility] Comment:Antibodies to HCV no t detected; does not exclude early acuteHCV infection. Blood Venous blood specimen / Unknown 07/25/2023 11:08 AM EST 07/25/2023 1:18 PM EST us Yulissa AGUAYO LAB BLOOD ORDERABLES Final Resul t Performing Organization Address [facility] de Phone Number [facility] [address] [place] [phone] * HIV-1/2 Antigen and Antibodies, Fourth Generation, with Reflexes (07/25/2023 11:08 AM EST) [facility] HIV AB/AG Nonreactive Nonreactive [facility] Comment:HIV-1 p24 Ag and/or HIV-1/HIV-2 Ab not detected.A test result that is nonreactive does not exclude thepossibility of exposure to or infection with HIV-1 and/orHIV-2. Nonreactive results in this assay for individualswith prior exposure to HIV-1 and/or HIV-2 may be due toantigen and antibody levels that are below the limit ofdetection of this assay.The [employer] HIV Ag/Ab Combo assay result andsupplemental assay results should be interpreted inconjunction with the patient's clinical presentation,history and other laboratory results. If the results areinconsistent with clinical evidence, additional testing issuggested to confirm the result. Blood Venous blood specimen / Unknown 07/25/2023 11:08 AM EST 07/25/2023 1:18 PM EST Yulissa AGUAYO LAB BLOOD ORDERABLES Final Resul t [facility] [address] [place] [phone] * Hm Colonoscopy (06/08/2019) Colonoscopy normal Dat Caro MD HEALTH MAINTENANCE Final Result * Hm Mammography (11/06/2017) HM Mammogram normal Anatomical Region [...] 06/28/2025 Patient has chronic kidney disease 06/28/[address] [place] [id number] Simmery C3 * Guarantor: Citlali Clancy Nasra Account Type Relation to Patient Date of Phone Billing Address Personal/Family Self [address] Advance Directives Documents on File Type Date Recorded Patient Appliance Technician Expl anation Advance Directives and Living Will 01/07/2024 3:24 PM Health Care Proxy Care Teams Longwall Foreman Relationship Specialty Start Date End Date [place], MD Tiffany [address] [place] [address] PCP - General Family Medicine 08/30/14 Kaitlynn Cole OD [address] [place] [phone] Optometry 08/04/24 Jw Maki MD [address] [place] [address] 3rd [place] [address] Cardiology 08/04/24 MILLICENT BRYAN NP Psychiatrist 04/25/25
--- OUTSIDE RECORDS SUMMARY | 2025-06-28 16:00 | XMS_ITS | Encounter Summary ---
Author Organization [employer] Address [address] [place] [address] 7t [place] [address] Care Team Providers Care Oil Well Fishing Tool Technician Name Role Phone Tiffany Quinn MD Primary Care Provider [phone] Kaitlynn Cole OD Unavailable [phone] Jw Maki MD Unavailable Keith Reyes RN Unavailable [phone] Ida Diggs Unavailable Encounter Details Date Type Department Care Team (Late st Contact Info) Description 08/04/2024 Orders Only [facility] [address] [place], [place] [phone] Tiffany Quinn MD [address] [place], [place] [phone] Social History Tobacco Use Types Packs/Day Years [...] Info) Description 07/19/2025 1:00 PM EST Nutrition [facility] DIABETES/NUTRITION [address] [place] [phone] [place] [address] 07/20/2025 9:30 AM EST Office Visit [facility] [address] [place] [address] Tiffany Quinn MD [address] [place] [address] documented as of this encounter Goals Goal Patient Goal Type Associated Problems Recent Progress Patient-Stated? Author Hemoglobin A1c < 7 Result Component 8.4(06/28/2025 12:06 PM EST) No Maria Del Carmen Taylor, PharmD documented as of this encounter Visit Diagnoses Not on filedocumented in this encounter Additional Health Concerns Assessment Noted Time PHQ-9 Depression Total Score: 5 05/06/20 24 10:40 AM EST documented as of this encounter Care Teams Oil Well Fishing Tool Technician Relationship Specialty Start Date End Date Tiffany Quinn MD [address] [place] [address] PCP - General Family Medicine 08/30/14 Kaitlynn Cole OD [address] [place] [address] Optometry 08/04/24 Jw Maki MD [address] [place] [address] 3rd [place] [address] Cardiology 08/04/24 Keith Reyes, NEDRA [address] [place] [address] Registered Nurse Family Medicine 12/20/24 04/04/25 Ida Diggs 12/20/24 02/08/25 MILLICENT BRYAN, LEONARDO Psychiatrist 04/25/25 documented as of this encounter
--- OUTSIDE RECORDS SUMMARY | 2025-06-28 16:00 | XMS_ITS | Encounter Summary ---
Author Organization [employer] Address [address] [place] [address] 7t [place] [address] Care Team Providers Care Editor Managing Director Name Role Phone Tiffany Quinn MD Primary Care Provider [phone] Kaitlynn Cole OD Unavailable [phone] Jw Maki MD Unavailable Keith Reyes RN Unavailable Ida Diggs Unavailable Reason for Visit * Reason Comments Med Change Request Encounter Details Date Type Department Care Team (Late st Contact Info) Description 05/23/2024 Refill [facility] [address] [place] [address] [phone] NameElias MD [address] [place], [place] [phone] Social History Tobacco Use Types Packs/Day Years [...] Info) Description 07/19/2025 1:00 PM EST Nutrition [facility] DIABETES/NUTRITION [address] [place] [phone] [place] [address] 07/20/2025 9:30 AM EST Office Visit [facility] [address] [place] [phone] Tiffany Quinn MD [address] [place] [address] documented as of this encounter Goals Goal [...] documented as of this encounter Care Teams Editor Managing Director Relationship Specialty Start Date End Date Tiffany Quinn MD [address] [place] [address] PCP - General Family Medicine 08/30/14 Kaitlynn Cole OD [address] [place] [address] Optometry 08/04/24 Jw Maki MD [address]rd [place] [address] Cardiology 08/04/24 Keith Reyes, NEDRA [address] [place] [address] Registered Nurse Family Medicine 12/20/24 04/04/25 Ida Diggs 12/20/24 02/08/25 MILLICENT BRYAN NP Psychiatrist 04/25/25 documented as of this encounter
--- OUTSIDE RECORDS SUMMARY | 2025-06-28 16:00 | XMS_ITS | Encounter Summary ---
Author Organization [employer] Address [address] [place] [address] 7[address] [place] [address] Care Team Providers Care Engineering Mathematician Name Role Phone Tiffany Quinn MD Primary Care Provider [phone] Kaitlynn Cole OD Unavailable [phone] Jw Maki MD Unavailable Keith Reyes RN Unavailable [phone] Ida Diggs Unavailable Encounter Details Date Type Department Care Team (Late st Contact Info) Description 01/06/2024 Orders Only [facility] MEDICINE [address] [place], [place] [phone] Tiffany Quinn MD [address] [place], [place] [phone] Social History Tobacco Use Types Packs/Day Years [...] Info) Description 07/19/2025 1:00 PM EST Nutrition [facility] DIABETES/NUTRITION [address] [place] [address] [place] [phone] 07/20/2025 9:30 AM EST Office Visit [facility] [address] [place] [phone] Tiffany Quinn MD [address] [place] [address] [phone] documented as of this encounter Goals Goal Patient Goal Type Associated Problems Recent Progress Patient-Stated? Author Hemoglobin A1c < 7 Result Component 8.4(06/28/2025 12:06 PM EST) No Maria Del Carmen Taylor, PharmD documented as of this encounter Visit Diagnoses Not on filedocumented in this encounter Care Teams Engineering Mathematician Relationship Specialty Start Date End Date Tiffany Quinn MD [address] [place] [address] [phone] PCP - General Family Medicine 08/30/14 Kaitlynn Cole OD [address] [place] [address] Optometry 08/04/24 Jw Maki MD [address] [place] [address] Drive 3rd [place] [address] Cardiology 08/04/24 Keith Reyes RN [address] [place] [address] Registered Nurse Family Medicine 12/20/24 04/04/25 Ida Diggs 12/20/24 02/08/25 MILLICENT BRYAN NP Psychiatrist 04/25/25 documented as of this encounter
--- OUTSIDE RECORDS SUMMARY | 2025-06-28 16:01 | XMS_ITS | Encounter Summary ---
Author Organization [employer] Address [address] [place] [address] 7t [place] [address] Care Team Providers Care Rn Delivery Name Role Phone Tiffany Quinn MD Primary Care Provider [phone] Kaitlynn Cole OD Unavailable [phone] Jw Maki MD Unavailable Encounter Details Date Type Department Care Team ([facility] st Contact Info) Description 06/27/2025 Telephone [facility] MEDICINE [address] [place] [address] Maria Del Carmen Taylor PharmD [address] [place] [address] Social History Tobacco Use Types Packs/Day Years [...] AM EDT documented as of this encounter Miscellaneous Notes * Telephone Encounter - Maria Del Carmen Taylor PharmD - 06/27/2025 1:46 PM EST FYI to PCP - patient discharged from [facility] -2 effective today. Patient has been out of [facility] care since . He has had 3 consecutive no shows/patient cancellations. A letter will be mailed to the patient. If, upon further discussion, you feel patient would benefitfrom & is agreeable to pharmacy services please issue a new referral to re-enroll. Thank you. documented in this encounter Plan of Treatment Upcoming Encounters Date Type Department Care Team (Late st Contact Info) Description 07/19/2025 1:00 PM EST Nutrition [facility] DIABETES/NUTRITION [address] [place] [address] [place] [address] 07/20/2025 9:30 AM EST Office Visit [facility] [address] [place] [address] Tiffany Quinn MD [address] [place] [address] documented as of this encounter Goals Goal [...] Plan Patient has chronic kidney disease No Keiht Reyes RN Weekly blood pressure task Care Plan Weekly blood pressure task No Dylon Dow Weekly blood pressure task Care Plan Weekly blood pressure task No Dow, Shondanicci Patient has chronic kidney disease Care Plan Patient has chronic kidney disease No Dylon Dow Patient has chronic kidney disease Care Plan Patient has chronic kidney disease No DowDylon barriga Weekly blood pressure task Care Plan Weekly [...] blood pressure task No Mayra Basurto, PharmD Weekly blood pressure [...] Plan Weekly blood pressure task No Sugar Wright, NEDRA Weekly blood pressure task Care Plan Weekly blood pressure task No Sugar Wright, RN Patient has chronic kidney disease Care Plan Patient has chronic kidney disease No Sugar Wright, RN Patient has chronic kidney disease Care Plan Patient has chronic kidney disease No Sugar Wright, RN Weekly blood pressure task Care Plan [...] Plan Weekly blood pressure task No Sugar Wright, NEDRA Patient has chronic kidney disease Care Plan Patient has chronic kidney disease No Sugar Wright, NEDRA Patient has chronic kidney disease Care Plan Patient has chronic kidney disease No Sugar Wright RN Weekly blood pressure task Care Plan Weekly blood pressure task No Piers-Bauman, Maria Del Carmen, PharmD Weekly [...] task No Piers-Bauman, Maria Del Carmen, PharmD Weekly blood pressure task Care Plan Weekly blood pressure task No Piers-Bauman, Maria Del Carmen, PharmD Patient has chronic kidney disease Care Plan Patient has chronic kidney disease No Piers-Bauman, Maria Del Carmen, PharmD Patient has chronic kidney disease Care Plan Patient has chronic kidney disease No Piers-Bauman, Maria Del Carmen, PharmD documented as of this encounter Visit [...] 06/27/2025 Patient has chronic kidney disease 06/27/2025 Assessment Noted Time PHQ-9 Depression Total Score: 4 12/29/19 25 1:21 PM EDT documented as of this encounter Care Teams Rn Delivery Relationship Specialty Start Date End Date Tiffany Quinn MD [address] [place] [address] PCP - General Family Medicine 08/30/14 Kaitlynn Cole OD [address] [place] [address] Optometry 08/04/24 Jw Maki MD [address] [place] [address] 3rd [place] [address] Cardiology 08/04/24 MILLICENT BRYAN NP Psychiatrist 04/25/25 documented as of this encounter
--- OUTSIDE RECORDS SUMMARY | 2025-06-28 16:01 | XMS_ITS | Encounter Summary ---
Author Organization [employer] Address [address] [place] [address] 7t [place] [address] Care Team Providers Care Jumpbasting Collar Baster Name Role Phone Tiffany Quinn MD Primary Care Provider [phone]- [phone] Kaitlynn Cole OD Unavailable [phone] Jw Maki MD Unavailable Encounter Details Date Type Department Care Team (Latest Contact Info) Description 06/28/2025 Travel Social History Tobacco Use Types Packs/Day [...] Info) Description 07/19/2025 1:00 PM EST Nutrition [facility] DIABETES/NUTRITION [address] [place] [address] Yessica Blood, JAMIE [address] [place] [address] 07/20/2025 9:30 AM EST Office Visit [facility] MEDICINE [address] [place] [address] Tiffany Quinn MD [address] [place], [place] [phone] documented as of this encounter Goals Goal Patient Goal Type Associated Problems Recent Progress Patient-Stated? Author Hemoglobin A1c < 7 Result Component 8.4( 12:06 PM EST) No Maria Del Carmen Taylor, Jonathan Help [...] Plan Weekly blood pressure task No Tiffany uQinn MD Patient has chronic kidney disease Care [...] Care Plan Weekly blood pressure task No Jutsina Steve [place] Patient has chronic kidney disease Care Plan Patient has chronic kidney disease No Justina Steve MA Patient has chronic kidney disease Care Plan Patient has chronic kidney disease No Justina Steve MA Weekly blood pressure task Care Plan Weekly blood pressure task No Justina Steve MA Weekly blood pressure task Care Plan Weekly blood pressure task No Justian Steve MA Patient has chronic kidney disease [...] Patient has chronic kidney disease No Alycia Dgigs Patient has chronic kidney disease Care Plan [...] Snowden [place] documented as of this encounter Visit Diagnoses [...] documented as of this encounter Care Teams Jumpbasting Collar Baster Relationship Specialty Start Date End Date Tiffany Quinn MD [address] [place] [address] PCP - General Family Medicine 08/30/14 Kaitlynn Cole OD [address] [place] [address] Optometry 08/04/24 Jw Maki MD [address] [place] [address] 3rd [place] [address] Cardiology 08/04/24 MILLICENT BRYAN [employer] Psychiatrist 04/25/25 documented as of this encounter
--- OUTSIDE RECORDS SUMMARY | 2025-06-28 16:01 | XMS_ITS | Encounter Summary ---
Author Organization [employer] Address [address] [place] [address] 7t [place] [address] Care Team Providers Care Map Clerk Name Role Phone Tiffany Quinn MD Primary Care Provider [phone] Kaitlynn Cole OD Unavailable [phone] Jw Maki MD Unavailable Keith Reyes RN Unavailable [phone] Ida Diggs Unavailable Reason for Visit * Reason Comments Med Refill Encounter Details Date Type Department Care Team (Late st Contact Info) Description 01/26/2025 Refill [facility] MEDICINE [address] [place], [place] [phone] Tiffany Quinn MD [address] [place], [place] [phone] Type 2 diabetes mellitus without complication, unspecified whether fpc insulin use ([facility]) Social History Tobacco Use Types Packs/Day Years [...] Info) Description 07/19/2025 1:00 PM EST Nutrition [facility] DIABETES/NUTRITION [address] [place] [address] [place], [place] [phone] 07/20/2025 9:30 AM EST Office Visit [facility] MEDICINE [address] [place] [address] [phone] Tiffany Quinn MD [address] [place], [place] [phone] documented as of this encounter Goals Goal Patient Goal Type Associated Problems Recent Progress Patient-Stated? Author Hemoglobin A1c < 7 Result Component 8.4(06/28/2025 12:06 PM EST) Maria Del Carmen Rangel, PennyD documented as of this encounter Visit Diagnoses Diagnosis Type 2 diabetes mellitus without complication, unspecified whether fpc insulin use documented in this encounter Additional Health Concerns Assessment Noted Time PHQ-9 Depression Total Score: 4 12/29/19 25 1:21 PM EDT documented as of this encounter Care Teams Map Clerk Relationship Specialty Start Date End Date Tiffany Quinn MD [address] [place] [address] PCP - General Family Medicine 08/30/14 Kaitlynn Cole OD [address] [place] [address] Optometry 08/04/24 Jw Maki MD [address] [place] [address] 3rd [place] [address] Cardiology 08/04/24 Keith Reyes, NEDRA [address] [place] [address] Registered Nurse Family Medicine 12/20/24 04/04/25 Ida Diggs 12/20/24 02/08/25 MILLICENT BRYAN NP Psychiatrist 04/25/25 documented as of this encounter
--- OUTSIDE RECORDS SUMMARY | 2025-06-28 16:01 | XMS_ITS | Encounter Summary ---
Author Organization [employer] Address [address] [place] [address] 7t [place] [address] Care Team Providers Care Taxation Consultant Name Role Phone Tiffany Quinn MD Primary Care Provider [phone] Maria Del Carmen Taylor PharmD Unavailable Kaitlynn Cole OD Unavailable Jw Maki MD Unavailable Keith Reyes RN Unavailable [phone] Ida Diggs Unavailable Encounter Details Date Type Department Care Team (Late st Contact Info) Description 07/14/2022 Abstract [facility]INE [address] [place], [place] [phone] Tiffany Quinn MD [address] [place], [place] [phone] Social History Tobacco Use Types Packs/Day Years [...] Info) Description 07/19/2025 1:00 PM EST Nutrition [facility] DIABETES/NUTRITION [address] [place] [address] Yessica Blood, JAMIE [address] [place] [address] 07/20/2025 9:30 AM EST Office Visit [facility] [address] [place] [address] Tiffany Quinn MD [address] [place] [address] documented as of this encounter Procedures Procedure [...] on filedocumented in this encounter Care Teams Taxation Consultant Relationship Specialty Start Date End Date Tiffany Quinn MD [address] [place] [address] PCP - General Family Medicine 08/30/14 Maria Del Carmen Taylor PharmD [address] [place] [address] Pharmacist Internal Medicine 10/29/22 04/27/23 Kaitlynn Cole OD [address] [place] [address] Optometry 08/04/24 Jw Maki MD [address] 3rd [place] [address] Cardiology 08/04/24 Keith Reyes RN [address] [place] [address] Registered Nurse Family Medicine 12/20/24 04/04/25 Ida Diggs 12/20/24 02/08/25 MILLICENT BRYAN NP Psychiatrist 04/25/25 documented as of this encounter
--- OUTSIDE RECORDS SUMMARY | 2025-06-28 16:01 | XMS_ITS | Encounter Summary ---
Author Organization [employer] Address [address] [place] [address] 7t [place] [address] Care Team Providers Care Vacuum Cleaner Operator Name Role Phone Tiffany Quinn MD Primary Care Provider [phone] Kaitlynn Cole OD Unavailable Jw Maki MD Unavailable Reason for Visit * Reason Onset Date Comments Medication Question 06/28/2025 Encounter Details Date Type Department Care Team (Late st Contact Info) Description 06/28/2025 Telephone [facility] MEDICINE [address] [place], [place] [phone] Tiffany Quinn MD [address] [place], [place] [phone] Medication Question Social History Tobacco Use Types Packs/Day Years [...] encounter Miscellaneous Notes * Telephone Encounter - Fatimah Arenas RN - 06/28/2025 1:40 PM EST Pt saw provider Dr. Mccallum today regarding this. RN helped apply new sensor, pt educated to call back if still having difficulties. She will be sending old, malfunctioning sensor back to [facility]. * Telephone Encounter - Alycia Diggs - 06/28/2025 10:19 AM EST Tc from pt stating censor it not working pt stating she have a replace she want to come in and wantnurses show how put it Please contact at [phone] Welsh speak documented in this encounter Plan of Treatment Upcoming Encounters Date Type Department Care Team (Late st Contact Info) Description 07/19/2025 1:00 PM EST Nutrition [facility] DIABETES/NUTRITION [address] [place] [address] [place] [address] 07/20/2025 9:30 AM EST Office Visit [facility] MEDICINE [address] [place], [place] [phone] Tiffany Quinn MD [address] [place], [place] [phone] documented as of this encounter Goals Goal [...] has chronic kidney disease No Dow Lorenmaira Patient has chronic kidney disease Care Plan [...] Care Plan Patient has chronic kidney disease Erika Collins [place] documented as of this encounter Visit [...] documented as of this encounter Care Teams Vacuum Cleaner Operator Relationship Specialty Start Date End Date Tiffany Quinn MD [address] [place] [address] PCP - General Family Medicine 08/30/14 Kaitlynn Cole OD [address] [place] [address] Optometry 08/04/24 Jw M[address] [place] [address] Cardiology 08/04/24 MILLICENT BRYAN NP Psychiatrist 04/25/25 documented as of this encounter
[2025-06-28 16:44] LABS: Anion Gap 11 (12-20); Blood Urea Nitrogen 10 mg/dL (9-16); Calcium 9.6 mg/dL (8.4-10.2); Carbon Dioxide 28 mmol/L (22-29); Chloride 103 mmol/L (96-108); Estimated Glomerular Filt Rate > 60; Lipase 17 U/L (8-78); Potassium 4.0 mmol/L (3.3-5.1); Sodium 138 mmol/L (135-145)
[2025-06-28 16:55] LABS: Alanine Aminotransferase 68 U/L (0-31); Albumin Level 3.9 g/dL (3.5-5.0); Alkaline Phosphatase 107 U/L (39-117); Anion Gap 10 (12-20); Aspartate Amino Transferase 58 U/L (5-31); Blood Urea Nitrogen 10 mg/dL (9-16); Calcium 9.5 mg/dL (8.4-10.2); Carbon Dioxide 27 mmol/L (22-29); Chloride 105 mmol/L (96-108); Estimated Glomerular Filt Rate > 60; Lipase 16 U/L (8-78); Potassium 4.0 mmol/L (3.3-5.1); Sodium 138 mmol/L (135-145); Total Protein 7.6 g/dL (6.5-8.0)
[2025-06-28 17:02] LABS: Amylase 45 U/L (28-100)
== END 2025-06-28 12:00 | disposition home or self-care (01) ==
LOC: HO.HHCL 11:59
PROVIDERS: Family Medicine; PCP Student in an Organized Health Care Education/Training Program; Visit Provider Student in an Organized Health Care Education/Training Program
DX: E11.65 Type 2 diabetes mellitus with hyperglycemia (principal); K92.0 Hematemesis; R19.7 Diarrhea, unspecified
CPT/HCPCS: 36415; 80048; 80053; 80076; 82150; 82248; 83036; 83690; 85025; 85027